=== PATIENT | male | born 1935 | race Caucasian/White ===

== ENCOUNTER 2017-04-21 14:15 | Observation (INO) | payer MEDICARE, OTHER ==
--- NOTE | 2017-04-21 16:55 | RADIOLOGY REPORT (SQ) ---
EXAM DESCRIPTION: CT CHEST WITHOUT COMPLETED DATE/TIME: 04/21/2017 4:42 pm REASON FOR STUDY: pneumonia J12.89 OTHER VIRAL PNEUMONIA COMPARISON: None. TECHNIQUE: CT scan performed of the chest without intravenous contrast. Images reviewed with lung, soft tissue and bone windows. Reconstructed coronal and sagittal MPR images reviewed. All images st ored on PACS. All CT scanners at this facility use dose modulation, iterative reconstruction, and/or weight based d osing when appropriate to reduce radiation dose to as low as reasonably achievable (ALARA). [facility]: Dose Right [facility]: CareDose [facility]: Dose Right [facility]: Teradose 4D [facility]: Smart PocketSuite RADIATION DOSE: CT Rad equipment meets quality standard of care and radiation dose reduction techniq ues were employed. CTDIvol: 9.6 mGy. DLP: 397 mGy-cm. mGy. LIMITATIONS: No technical limitations. FINDINGS: LUNGS AND PLEURA: No masses, infiltrates, pneumothorax. No pleural effusions, calcificati ons. HILAR AND MEDIASTINAL STRUCTURES: No identified masses or abnormal nodes. No obvious aneurysm. HEART AND VASCULAR STRUCTURES: No aneurysm. No pericardial effusion. UPPER ABDOMEN: No significant findings. Limited exam. THYROID AND OTHER SOFT TISSUES: No masses. No adenopathy. BONES: No significant finding. HARDWARE: None in the chest. OTHER: No other significant findings. IMPRESSION: NO SIGNIFICANT FINDING ON NON-CONTRASTED CHEST CT. TECHNICAL DOCUMENTATION: JOB ID: [id number] Quality ID # [id number]: Final reports with documentation of one or more dose reduction techniques (e.g., Au tomated exposure control, adjustment of the mA and/or kV according to patient size, use of iterative reconstruction technique) 2010 [employer]- All Rights Reserved Reading location - IP/workstation name: [email or web address]
[2017-04-21 17:16] LABS: ABSOLUTE EOSINOPHILS # (AUTO) 0.1 10^3/uL (0.0-0.6); ABSOLUTE LYMPHOCYTES (AUTO) 1.5 10^3/uL (0.5-4.7); ABSOLUTE MONOCYTES (AUTO) 0.6 10^3/uL (0.1-1.4); ABSOLUTE NEUT (AUTO) 5.4 10^3/uL (1.7-8.2); BASOPHILS % (AUTO) 0.6 % (0-2); EOSINOPHILS % (AUTO) 1.2 % (0-6); HEMATOCRIT 44.8 % (37.9-51.0); LYMPHOCYTES % (AUTO) 19.8 % (13-45); MEAN CORPUSCULAR HEMOGLOBIN 29.2 pg (27.0-33.4); MEAN CORPUSCULAR HGB CONC 33.5 g/dL (32.0-36.0); MEAN CORPUSCULAR VOLUME 87 fl (80-97); MONOCYTES % (AUTO) 8.3 % (3-13); PLATELET COUNT 196 10^3/uL (150-450); RED BLOOD COUNT 5.14 10^6/uL (4.35-5.55); RED CELL DISTRIBUTION WIDTH 15.2 % (11.5-14.0); SEGMENTED NEUTROPHILS % (AUTO) 70.1 % (42-78); TOTAL CELLS COUNTED % (AUTO) 100 %; WHITE BLOOD COUNT 7.7 10^3/uL (4.0-10.5)
[2017-04-21] MEDS ORDERED: NORMAL SALINE 1000 ML 1,000 ML IV PRN (17:23)
[2017-04-21 17:38] LABS: ALANINE AMINOTRANSFERASE 38 U/L (21-72); ALBUMIN 4.4 g/dL (3.5-5.0); ALKALINE PHOSPHATASE 43 U/L (38-126); ANION GAP 9 (5-19); ASPARTATE AMINO TRANSFERASE 45 U/L (17-59); BILIRUBIN,DIRECT 0.5 mg/dL (0.0-0.4); BILIRUBIN,TOTAL 0.5 mg/dL (0.2-1.3); BLOOD UREA NITROGEN 19 mg/dL (7-20); CALCIUM 9.6 mg/dL (8.4-10.2); CARBON DIOXIDE 28 mmol/L (22-30); CHLORIDE 106 mmol/L (98-107); GLUCOSE 96 mg/dL (75-110); POTASSIUM 4.3 mmol/L (3.6-5.0); TOTAL PROTEIN 7.3 g/dL (6.3-8.2)
[2017-04-21] MEDS ORDERED: LEVOFLOXACIN 750 MG/D5W RTU 750 MG/150 ML RTUPB IV SCH (18:00)
[2017-04-21 21:08] LABS: APPEARANCE,URINE SLIGHTLY-CLOUDY; BILIRUBIN,URINE NEGATIVE (NEGATIVE); COLOR,URINE YELLOW; GLUCOSE, URINE NEGATIVE (NEGATIVE); KETONES,URINE NEGATIVE (NEGATIVE); LEUKOCYTE ESTERASE,URINE NEGATIVE (NEGATIVE); NITRITE,URINE NEGATIVE (NEGATIVE); PROTEIN,URINE NEGATIVE (NEGATIVE); URINE SPECIFIC GRAVITY 1.025; UROBILINOGEN,URINE NEGATIVE mg/dL (<2.0)
--- NOTE | 2017-04-21 21:20 | PDOC H&P ---
History of Present Illness Admission Date/PCP: 04/21/17 15:00 HILARIO CURRY MD History of Present Illness: ELMER SALMERON is a 81 year old male, He has a history of type 2 diabetes mellitus he came to the office today for evaluation of cough, dry cough, malaise , fatigue, He was seen in the office last week when he came for routine follow- up and evaluation. On today's visit he looks sick he was concerned that he may have pneumonia.. He was admitted directly from the office into the hospital for observation and evaluation of his symptoms. The CT chest that was done was negative for pneumonia, the hemogram was normal there was no leukocytosis Past Medical History Cardiac Medical History: Reports: Hyperlipidema, Hypertension - meds since 2010 Endocrine Medical History: Reports: Diabetes Mellitus Type 2 Musculoskeltal Medical History: Reports: Arthritis Past Surgical History Past Surgical History: Reports: Herniorrhaphy, Orthopedic Surgery - fx shoulder , clavicle Social History Smoking Status: Never Smoker Frequency of Alcohol Use: None Hx Recreational Drug Use: No Drugs: None Hx Prescription Drug Abuse: No Family History Family History: Hypertension Parental Family History Reviewed: Yes Children Family History Reviewed: Yes Sibling(s) Family History Reviewed.: Yes Medication/Allergy Home Medications: Allopurinol [Zyloprim 300 mg Tablet] 300 mg PO DAILY 04/21/17 Amitriptyline HCl [Elavil 25 mg Tablet] 50 mg PO QHS 04/21/17 Celecoxib [Celebrex 200 mg Capsule] 200 mg PO Q12 04/21/17 Eszopiclone [Lunesta] 2 mg PO QHS 04/21/17 Finasteride [Proscar 5 mg Tablet] 5 mg PO DAILY 04/21/17 Metformin HCl [Metformin HCl ER] 500 mg PO DAILY 04/21/17 Allergies/Adverse Reactions: No Known Allergies Allergy (Verified 04/21/17 14:17) Review of Systems Constitutional: PRESENT: fatigue Eyes: ABSENT: visual disturbances Ears: ABSENT: hearing changes Cardiovascular: ABSENT: chest pain, dyspnea on exertion, edema, orthropnea, palpitations Respiratory: PRESENT: cough Gastrointestinal: ABSENT: abdominal pain, constipation, diarrhea, hematemesis, hematochezia, nausea, vomiting Genitourinary: ABSENT: dysuria, hematuria Musculoskeletal: ABSENT: joint swelling Integumentary: ABSENT: rash, wounds Neurological: ABSENT: abnormal gait, abnormal speech, confusion, dizziness, focal weakness, syncope Psychiatric: ABSENT: anxiety, depression, homidical ideation, suicidal ideation Endocrine: ABSENT: cold intolerance, heat intolerance, menstrual abnormalities, polydipsia, polyuria Hematologic/Lymphatic: ABSENT: easy bleeding, easy bruising, lymphadenopathy Physical Exam Vital Signs: Temp Pulse Resp BP Pulse Ox 97.9 F 75 18 140/55 H 100 04/21/17 19:34 04/21/17 19:34 04/21/17 19:34 04/21/17 19:34 04/21/17 19:34 Head exam: PRESENT: atraumatic, normocephalic Eye exam: PRESENT: conjunctiva pink, EOMI, PERRLA Ear exam: PRESENT: normal external ear exam Mouth exam: PRESENT: moist, tongue midline Neck exam: PRESENT: full ROM Respiratory exam: PRESENT: clear to auscultation zeferino Cardiovascular exam: PRESENT: RRR, +S1, +S2 Pulses: PRESENT: normal dorsalis pedis pul, +2 pedal pulses bilateral Vascular exam: PRESENT: normal capillary refill GI/Abdominal exam: PRESENT: normal bowel sounds, soft Rectal exam: PRESENT: deferred Neurological exam: PRESENT: alert, awake, oriented to person, oriented to place , oriented to time, oriented to situation, CN II-XII grossly intact Psychiatric exam: PRESENT: appropriate affect, normal mood Skin exam: PRESENT: dry, intact, warm Results Laboratory Results: 04/21/17 16:54 04/21/17 16:54 04/21/17 04/21/17 04/21/17 16:54 16:54 20:38 WBC 7.7 RBC 5.14 Hgb 15.0 Hct 44.8 MCV 87 MCH 29.2 MCHC 33.5 RDW 15.2 H Plt Count 196 Seg Neutrophils % 70.1 Lymphocytes % 19.8 Monocytes % 8.3 Eosinophils % 1.2 Basophils % 0.6 Absolute Neutrophils 5.4 Absolute Lymphocytes 1.5 Absolute Monocytes 0.6 Absolute Eosinophils 0.1 Absolute Basophils 0.0 Sodium 143.0 Potassium 4.3 Chloride 106 Carbon Dioxide 28 Anion Gap 9 BUN 19 Creatinine 0.99 Est GFR ( Amer) > 60 Est GFR (Non-Af Amer) > 60 Glucose 96 Calcium 9.6 Total Bilirubin 0.5 AST 45 ALT 38 Alkaline Phosphatase 43 Total Protein 7.3 Albumin 4.4 Urine Color YELLOW Urine Appearance SLIGHTLY-CLOUDY Urine pH 5.0 Ur Specific Lyons 1.025 Urine Protein NEGATIVE Urine Glucose (UA) NEGATIVE Urine Ketones NEGATIVE Urine Blood NEGATIVE Urine Nitrite NEGATIVE Ur Leukocyte Esterase NEGATIVE Urine WBC (Auto) 1 Urine RBC (Auto) 0 Impressions: Chest CT 04/21/17 00:00 IMPRESSION: NO SIGNIFICANT FINDING ON NON-CONTRASTED CHEST CT. Assessment & Plan - Diagnosis (1) Viral syndrome Is this a current diagnosis for this admission?: Yes Plan: Patient was admitted for observation management with IV fluid hydration (2) Type 2 diabetes mellitus Qualifiers: Diabetes mellitus complication status: without complication Diabetes mellitus long term care administrator insulin use: without long term care administrator use Qualified Code(s): E11.9 - Type 2 diabetes mellitus without complications Is this a current diagnosis for this admission?: Yes
[2017-04-21] MEDS ORDERED: (PENDING PHARMACY ID) (Metformin Hcl [Metformin Hcl Er] 500 MG) PO SCH (21:30)
[2017-04-21] MEDS ORDERED: FINASTERIDE 5 MG TABLET PO SCH (22:00)
[2017-04-21] MEDS ORDERED: ALLOPURINOL 300 MG TABLET PO SCH (22:00)
[2017-04-21] MEDS ORDERED: (PENDING PHARMACY ID) (Eszopiclone [Lunesta] 2 MG) PO SCH (22:00)
[2017-04-21] MEDS ORDERED: AMITRIPTYLINE HCL 25 MG TABLET PO SCH (22:00)
[2017-04-21] MEDS ORDERED: ZOLPIDEM TARTRATE 5 MG TABLET PO SCH (22:00)
[2017-04-22] MEDS ORDERED: METFORMIN HCL 500 MG TABLET PO SCH (08:00)
[2017-04-22 08:38] VITALS: BP 149/61
--- NOTE | 2017-04-23 21:40 | PDOC DISCHARGE SUMMARY ---
General - Admit/Disc Date/PCP Admission Date/Primary Care Provider: 04/21/17 15:00 HILARIO CURRY MD Discharge Date: 04/22/17 - Discharge Diagnosis (1) Viral syndrome Is this a current diagnosis for this admission?: Yes (2) Type 2 diabetes mellitus Is this a current diagnosis for this admission?: Yes - Additional Information Discharge Activity: Activity As Tolerated Home Medications: Allopurinol [Zyloprim 300 mg Tablet] 300 mg PO DAILY 04/21/17 Amitriptyline HCl [Elavil 25 mg Tablet] 50 mg PO QHS 04/21/17 Celecoxib [Celebrex 200 mg Capsule] 200 mg PO Q12 04/21/17 Eszopiclone [Lunesta] 2 mg PO QHS 04/21/17 Finasteride [Proscar 5 mg Tablet] 5 mg PO DAILY 04/21/17 Metformin HCl [Metformin HCl ER] 500 mg PO DAILY 04/21/17 History of Present Illness History of Present Illness: ELMER SALMERON is a 81 year old male, He has a history of type 2 diabetes mellitus he came to the office today for evaluation of cough, dry cough, malaise , fatigue, He was seen in the office last week when he came for routine follow- up and evaluation. On today's visit he looks sick he was concerned that he may have pneumonia.. He was admitted directly from the office into the hospital for observation and evaluation of his symptoms. The CT chest that was done was negative for pneumonia, the hemogram was normal there was no leukocytosis Hospital Course Hospital Course: He was admitted for observation for the management of viral syndrome, see H&P for detailed, treated with IV fluid Physical Exam Vital Signs: Temp Pulse Resp BP Pulse Ox 97.7 F 67 18 149/61 H 100 04/22/17 09:07 04/22/17 09:07 04/22/17 09:07 04/22/17 09:07 04/22/17 09:07 Intake & Output 04/22/17 04/23/17 04/24/17 06:59 06:59 06:59 Intake Total 1400 Balance 1400 Weight 69 kg General appearance: PRESENT: no acute distress, well-developed, well-nourished Head exam: PRESENT: atraumatic, normocephalic Eye exam: PRESENT: conjunctiva pink, EOMI, PERRLA Ear exam: PRESENT: normal external ear exam Mouth exam: PRESENT: moist, tongue midline Neck exam: PRESENT: full ROM Respiratory exam: PRESENT: clear to auscultation zeferino Cardiovascular exam: PRESENT: RRR, +S1, +S2 Pulses: PRESENT: normal dorsalis pedis pul, +2 pedal pulses bilateral Vascular exam: PRESENT: normal capillary refill GI/Abdominal exam: PRESENT: normal bowel sounds, soft Rectal exam: PRESENT: deferred Neurological exam: PRESENT: alert, awake, oriented to person, oriented to place , oriented to time, oriented to situation, CN II-XII grossly intact Psychiatric exam: PRESENT: appropriate affect, normal mood Skin exam: PRESENT: dry, intact, warm Results Laboratory Results: 04/21/17 16:54 04/21/17 16:54 04/21/17 20:38 Clean Catch Midstream Urine Culture - Final 5,000 col/ml Impressions: Chest CT 04/21/17 00:00 IMPRESSION: NO SIGNIFICANT FINDING ON NON-CONTRASTED CHEST CT. Qualifiers - * PATEINT BEING DISCHARGED WITH ANY OF THE FOLLOWING DIAGNOSIS?: No VTE patient discharged on overlapping Therapy?: Yes
== END 2017-04-22 09:33 | disposition home or self-care (01) ==
LOC: ER 14:15 → EH 15:00 → 2N 17:00
PROVIDERS: ADMIT Internal Medicine; ATTEND Internal Medicine
DX: B34.9 Viral infection, unspecified (principal); E11.9 Type 2 diabetes mellitus without complications; M19.90 Unspecified osteoarthritis, unspecified site; Z79.899 Other long term (current) drug therapy; Z79.84 Long term (current) use of oral hypoglycemic drugs
CPT/HCPCS: 36415; 87040; 87086; 85025; 80076; 80048; 81001; 71250; G0378 ×3; A9270; J1956

== ENCOUNTER 2017-10-16 21:00 | Emergency (ER) | payer MEDICARE, OTHER ==
[2017-10-16] MEDS ORDERED: ASPIRIN 81 MG TABLET, CHEWABLE PO ONE (22:08)
[2017-10-16 22:24] LABS: ABSOLUTE EOSINOPHILS # (AUTO) 0.2 10^3/uL (0.0-0.6); ABSOLUTE LYMPHOCYTES (AUTO) 1.4 10^3/uL (0.5-4.7); ABSOLUTE MONOCYTES (AUTO) 0.8 10^3/uL (0.1-1.4); ABSOLUTE NEUT (AUTO) 7.3 10^3/uL (1.7-8.2); BASOPHILS % (AUTO) 0.2 % (0-2); EOSINOPHILS % (AUTO) 1.8 % (0-6); HEMATOCRIT 45.3 % (37.9-51.0); HEMOGLOBIN 15.3 g/dL (13.5-17.0); LYMPHOCYTES % (AUTO) 14.5 % (13-45); MEAN CORPUSCULAR HEMOGLOBIN 29.7 pg (27.0-33.4); MEAN CORPUSCULAR HGB CONC 33.8 g/dL (32.0-36.0); MEAN CORPUSCULAR VOLUME 88 fl (80-97); PLATELET COUNT 226 10^3/uL (150-450); RED BLOOD COUNT 5.16 10^6/uL (4.35-5.55); RED CELL DISTRIBUTION WIDTH 14.8 % (11.5-14.0); SEGMENTED NEUTROPHILS % (AUTO) 75.5 % (42-78); TOTAL CELLS COUNTED % (AUTO) 100 %; WHITE BLOOD COUNT 9.7 10^3/uL (4.0-10.5)
[2017-10-16 22:42] LABS: CREATINE KINASE MB 2.56 ng/mL (<4.55)
[2017-10-16 22:47] LABS: TROPONIN I 0.147 ng/mL
[2017-10-16 23:03] LABS: ALANINE AMINOTRANSFERASE 26 U/L (21-72); ALBUMIN 4.3 g/dL (3.5-5.0); ALKALINE PHOSPHATASE 63 U/L (38-126); ANION GAP 15 (5-19); ASPARTATE AMINO TRANSFERASE 47 U/L (17-59); BILIRUBIN,DIRECT 0.4 mg/dL (0.0-0.4); BILIRUBIN,TOTAL 0.5 mg/dL (0.2-1.3); BLOOD UREA NITROGEN 34 mg/dL (7-20); CARBON DIOXIDE 22 mmol/L (22-30); CHLORIDE 102 mmol/L (98-107); CREATINE KINASE 115 U/L (55-170); GLUCOSE 137 mg/dL (75-110); POTASSIUM 4.4 mmol/L (3.6-5.0); SODIUM 138.9 mmol/L (137-145); TOTAL PROTEIN 7.3 g/dL (6.3-8.2)
--- NOTE | 2017-10-16 23:04 | RADIOLOGY REPORT (SQ) ---
EXAM DESCRIPTION: XR CHEST 1 VIEW COMPLETED DATE/TME: 10/16/2017 22:08 CLINICAL HISTORY: 82 years, Male, chest pain COMPARISON: Correlation with CT chest 04/21/2017 NUMBER OF VIEWS: Two TECHNIQUE: AP LIMITATIONS: None. FINDINGS: Cardiomediastinal silhouette is within normal limits. No lung consolidate or pleural effusion. No pneumothorax. Osseous structures are without acute finding. IMPRESSION: No acute chest finding. 2010 [employer]- All Rights Reserved
[2017-10-17] MEDS ORDERED: NITROGLYCERIN 2% OINTMENT 1 GM PACKET TP ONE (01:05)
[2017-10-17] MEDS ORDERED: ENOXAPARIN SODIUM INJ 100 MG/1 ML DISP.SYRIN SUBCUT ONE (01:05)
--- NOTE | 2017-10-17 01:07 | ER Document Report ---
ED General - General Chief Complaint: Chest Pain Stated Complaint: CHEST PAIN Time Seen by Provider: 10/16/17 22:08 Mode of Arrival: Ambulatory Information source: Patient Notes: This is an 82-year-old man with a history of high that presented to the emergency room after experiencing chest pain today. Recent states he had retrosternal chest pain associated with some dizziness and near syncope TRAVEL OUTSIDE OF THE [place] IN LAST 30 DAYS: No - HPI Onset: Just prior to arrival Onset/Duration: Sudden Quality of pain: Dull Severity: Moderate Pain Level: 4 Associated symptoms: Chest pain, Other - Lightheadedness/near syncope. denies: Fever, Shortness of breath Exacerbated by: Denies Relieved by: Denies Similar symptoms previously: No Recently seen / treated by doctor: No - Related Data Allergies/Adverse Reactions: No Known Allergies Allergy (Verified 10/16/17 21:52) Past Medical History - General Information source: Patient - Social History Smoking Status: Former Smoker Cigarette use (# per day): No Chew tobacco use (# tins/day): No Frequency of alcohol use: None Drug Abuse: None Lives with: Family Family History: Hypertension Patient has suicidal ideation: No Patient has homicidal ideation: No - Past Medical History Cardiac Medical History: Reports: Hx Hypercholesterolemia, Hx Hypertension - meds since 2010 Neurological Medical History: Denies: Hx Cerebrovascular Accident Endocrine Medical History: Reports: Hx Diabetes Mellitus Type 2 Renal/ Medical History: Denies: Hx Peritoneal Dialysis Musculoskeletal Medical History: Reports Hx Arthritis Psychiatric Medical History: Reports: Hx Anxiety Denies: Hx Depression Past Surgical History: Reports: Hx Herniorrhaphy, Hx Orthopedic Surgery - fx shoulder, clavicle - Immunizations Hx Diphtheria, Pertussis, Tetanus Vaccination: Yes Review of Systems - Review of Systems Constitutional: denies: Chills, Fever EENT: No symptoms reported Cardiovascular: See HPI, Chest pain, Syncope, Lightheaded Respiratory: No symptoms reported Gastrointestinal: No symptoms reported Genitourinary: No symptoms reported Male Genitourinary: No symptoms reported Musculoskeletal: No symptoms reported Skin: No symptoms reported Hematologic/Lymphatic: No symptoms reported Neurological/Psychological: No symptoms reported Physical Exam - Vital signs Vitals: Temp Pulse Resp BP Pulse Ox 97.8 F 88 18 167/72 H 100 10/16/17 21:00 10/16/17 21:00 10/16/17 21:00 10/16/17 21:00 10/16/17 21:00 Notes: Physical exam: GENERAL: The 2-year-old man, alert and oriented 3, no acute distress HEAD: Atraumatic, normocephalic. EYES: Pupils equal round and reactive to light, extraocular movements intact, sclera anicteric, conjunctiva are normal. ENT: TMs normal, nares patent, oropharynx clear without exudates. Moist mucous membranes. NECK: Normal range of motion, supple without obvious mass or JVD. LUNGS: Breath sounds clear to auscultation bilaterally and equal. No wheezes rales or rhonchi. HEART: Regular rate and rhythm without murmurs, rubs or gallops. ABDOMEN: Soft, normoactive bowel sounds. No tenderness to palpation. No guarding, no rebound. No masses appreciated. EXTREMITIES: Normal range of motion, no pitting or edema. No clubbing or cyanosis. NEUROLOGICAL: Cranial nerves II through XII grossly intact. Normal speech, moving all extremities. PSYCH: Normal mood, normal affect. SKIN: Warm, Dry, normal turgor, no rashes or lesions noted. Course - Re-evaluation Re-evalutation: 10/17/17 02:30 Note: I did discuss the EKG with Dr. Garcia who is the router operator reading EKGs regarding the patient's rhythm and possible block pattern. I was able to text the EKG to him and he was able to review it. He felt that the EKG was mostly a [place] block. The initial troponin was 0.147 concerning for a non-ST elevation PR. I did discuss the case with Dr. Perea who is actually covering for cardiology who recommended transfer. Dr. Manjarrez is covering for Dr. Curry ( primary care doctor) and he recommended repeating the troponin and if elevated, to transfer the patient. Repeat troponin was 10 and the patient is being transferred to [place]. I spoke to Dr. Dye regarding the case and is willing to accept the patient. - Vital Signs Vital signs: Temp Pulse Resp BP Pulse Ox 98.1 F 80 18 124/74 95 10/17/17 02:00 10/17/17 02:00 10/17/17 02:00 10/17/17 02:00 10/17/17 02:00 - Laboratory Result Diagrams: 10/16/17 21:40 10/16/17 21:40 Laboratory results interpreted by me: 10/16/17 10/16/17 21:40 21:40 RDW 14.8 H BUN 34 H Glucose 137 H - Diagnostic Test Radiology reviewed: Image reviewed, Reports reviewed - Chest x-ray shows no infiltrates - EKG Interpretation by Me Rhythm: NSR - EKG shows sinus rhythm with a right bundle branch block, no acute ST elevations or depressions. Possible type I, 2nd degree block Critical Care Note - Critical Care Note Total time excluding time spent on procedures (mins): 60 Discharge - Discharge Clinical Impression: Acute non-ST elevation PR Condition: Stable Disposition: [facility] Referrals: HILARIO CURRY MD [Primary Care Provider] - Follow up as needed
[2017-10-17] MEDS ORDERED: ATORVASTATIN CALCIUM 40 MG TABLET PO ONE (01:08)
[2017-10-17] MEDS ORDERED: METOPROLOL TARTRATE PF/INJ 5 MG/5 ML SDV IV ONE (01:12)
[2017-10-17] MEDS ORDERED: LISINOPRIL 5 MG TABLET PO ONE (01:13)
[2017-10-17] MEDS ORDERED: METOPROLOL TARTRATE 25 MG TABLET PO ONE (02:44)
[2017-10-17 03:39] VITALS: BP 108/66
--- NOTE | 2017-10-17 09:06 | EKG REPORT ---
SEVERITY:- ABNORMAL ECG - SINUS RHYTHM MOBITZ TYPE I, SECOND DEGREE AV BLOCK INCOMPLETE RIGHT BUNDLE BRANCH BLOCK LOW VOLTAGE IN FRONTAL LEADS : Confirmed by: Jake Garcia 17-Oct-2017 09:05:55
--- NOTE | 2017-10-17 09:07 | EKG REPORT ---
SEVERITY:- ABNORMAL ECG - SINUS RHYTHM MOBITZ TYPE I, SECOND DEGREE AV BLOCK PROBABLE LEFT ATRIAL ABNORMALITY INCOMPLETE RIGHT BUNDLE BRANCH BLOCK LOW VOLTAGE IN FRONTAL LEADS : Confirmed by: Jake Garcia 17-Oct-2017 09:07:10
== END 2017-10-17 03:46 | disposition short-term general hospital (02) ==
LOC: ER 21:00
DX: I21.4 Non-ST elevation (NSTEMI) myocardial infarction (principal); I45.10 Unspecified right bundle-branch block; I10 Essential (primary) hypertension; R55 Syncope and collapse; E11.9 Type 2 diabetes mellitus without complications; Z87.891 Personal history of nicotine dependence
CPT/HCPCS: 93005; 99291; 96372; 96374; 36415; 82553; 82550; 85025; 80053; 84484; 71045; 93010; A9270 ×4; J3490; J1650

== ENCOUNTER 2017-10-29 16:42 | Emergency (ER) | payer MEDICARE, OTHER ==
[2017-10-29] MEDS ORDERED: ASPIRIN 81 MG TABLET, CHEWABLE PO ONE (17:18)
--- NOTE | 2017-10-29 17:31 | ER Document Report ---
ED Medical Screen (RME) - General Chief Complaint: Chest Pain Stated Complaint: CHEST PAIN Time Seen by Provider: 10/29/17 17:18 TRAVEL OUTSIDE OF THE [place] IN LAST 30 DAYS: No - HPI Notes: 10/29/17 17:22 7 days postop from triple bypass surgery at [facility] coming in for chest pain patient points to his sternal incision family states he has been very active since being discharged from the hospital. - Related Data Allergies/Adverse Reactions: No Known Allergies Allergy (Verified 10/29/17 16:45) Past Medical History - Past Medical History Cardiac Medical History: Reports: Hx Hypercholesterolemia, Hx Hypertension - meds since 2010 Neurological Medical History: Denies: Hx Cerebrovascular Accident Endocrine Medical History: Reports: Hx Diabetes Mellitus Type 2 Renal/ Medical History: Denies: Hx Peritoneal Dialysis Musculoskeltal Medical History: Reports Hx Arthritis Psychiatric Medical History: Reports: Hx Anxiety Denies: Hx Depression Past Surgical History: Reports: Hx Herniorrhaphy, Hx Orthopedic Surgery - fx shoulder, clavicle - Immunizations Hx Diphtheria, Pertussis, Tetanus Vaccination: Yes History of Influenza Vaccine for 11/2016 - 04/2017 Season: Yes Influenza Administration Date for 11/2016 - 04/2017 Season: 11/24/16 Review of Systems - Review of Systems Cardiovascular: Chest pain Physical Exam - Vital signs Vitals: Temp Pulse Resp BP Pulse Ox 98.1 F 87 16 133/55 H 100 10/29/17 16:56 10/29/17 16:56 10/29/17 16:56 10/29/17 16:56 10/29/17 16:56 - Cardiovascular Rhythm: Regular, Other Course - Vital Signs Vital signs: Temp Pulse Resp BP Pulse Ox 98.1 F 87 16 133/55 H 100 10/29/17 16:56 10/29/17 16:56 10/29/17 16:56 10/29/17 16:56 10/29/17 16:56 Doctor's Discharge - Discharge Referrals: HILARIO CURRY MD [Primary Care Provider] - Follow up as needed
[2017-10-29 17:35] LABS: HEMOGLOBIN 10.6 g/dL (13.5-17.0); MEAN CORPUSCULAR HEMOGLOBIN 27.9 pg (27.0-33.4); MEAN CORPUSCULAR HGB CONC 32.3 g/dL (32.0-36.0); MEAN CORPUSCULAR VOLUME 86 fl (80-97); PLATELET COUNT 418 10^3/uL (150-450); RED BLOOD COUNT 3.81 10^6/uL (4.35-5.55); RED CELL DISTRIBUTION WIDTH 16.9 % (11.5-14.0); WHITE BLOOD COUNT 14.5 10^3/uL (4.0-10.5)
[2017-10-29] MEDS ORDERED: MORPHINE SULFATE 10 MG/ML INJ IV ONE (17:42)
[2017-10-29] MEDS ORDERED: ONDANSETRON HCL INJ/PF 4 MG/2 ML SDV IV ONE (17:43)
--- NOTE | 2017-10-29 17:50 | RADIOLOGY REPORT (SQ) ---
EXAM DESCRIPTION: CHEST SINGLE VIEW COMPLETED DATE/TIME: 10/29/2017 5:39 pm REASON FOR STUDY: sob COMPARISON: 10/16/2017 EXAM PARAMETERS: NUMBER OF VIEWS: One view. TECHNIQUE: Single frontal radiographic view of the chest acquired. RADIATION DOSE: NA LIMITATIONS: None. FINDINGS: LUNGS AND PLEURA: No opacities, masses or pneumothorax. No pleural effusion. MEDIASTINUM AND HILAR STRUCTURES: No masses. Contour normal. HEART AND VASCULAR STRUCTURES: Heart normal in size. Normal vasculature. BONES: No acute findings. HARDWARE: Sternotomy wires. OTHER: No other significant finding. IMPRESSION: NO ACUTE RADIOGRAPHIC FINDING IN THE CHEST. TECHNICAL DOCUMENTATION: JOB ID: [id number] [employer]- All Rights Reserved Reading location - IP/workstation name: [email or web address]
[2017-10-29 17:58] LABS: ALANINE AMINOTRANSFERASE 52 U/L (21-72); ALBUMIN 4.2 g/dL (3.5-5.0); ALKALINE PHOSPHATASE 45 U/L (38-126); ANION GAP 16 (5-19); ASPARTATE AMINO TRANSFERASE 100 U/L (17-59); BILIRUBIN,DIRECT 0.6 mg/dL (0.0-0.4); BILIRUBIN,TOTAL 1.1 mg/dL (0.2-1.3); BLOOD UREA NITROGEN 27 mg/dL (7-20); CALCIUM 9.2 mg/dL (8.4-10.2); CARBON DIOXIDE 27 mmol/L (22-30); CHLORIDE 97 mmol/L (98-107); CREATINE KINASE 116 U/L (55-170); GLUCOSE 123 mg/dL (75-110); SODIUM 139.7 mmol/L (137-145); TOTAL PROTEIN 7.6 g/dL (6.3-8.2)
[2017-10-29 17:59] LABS: ABSOLUTE LYMPHOCYTES# (MANUAL) 1.7 10^3/uL (0.5-4.7); ABSOLUTE MONOCYTES # (MANUAL) 0.9 10^3/uL (0.1-1.4); ABSOLUTE NEUTROPHILS# (MANUAL) 11.9 10^3/uL (1.7-8.2); BAND NEUTROPHILS % (MANUAL) 1 % (3-5); BASOPHILS % (MANUAL) 0 % (0-2); EOSINOPHILS % (MANUAL) 0 % (0-6); LYMPHOCYTES % (MANUAL) 9 % (13-45); MONOCYTES % (MANUAL) 6 % (3-13); SEGMENTED NEUTROPHILS % (MAN) 81 % (42-78); TOTAL CELLS COUNTED 100
[2017-10-29 18:00] LABS: TOXIC GRANULATION 1+
[2017-10-29 18:02] LABS: ANISOCYTOSIS 1+; HYPOCHROMASIA SLIGHT
[2017-10-29 18:03] LABS: PLATELET CLUMPS PRESENT; PLATELET COMMENT ADEQUATE; POLYCHROMASIA SLIGHT
--- NOTE | 2017-10-29 18:12 | ER Document Report ---
ED General - General Chief Complaint: Chest Pain Stated Complaint: CHEST PAIN Time Seen by Provider: 10/29/17 17:18 TRAVEL OUTSIDE OF THE [place] IN LAST 30 DAYS: No - HPI Notes: 82-year-old male presents with fever and chest pain. He had a CABG at [facility] 1 week ago. He was discharged 3 days ago and has been up and moving around well. Family thinks he may have been "doing too much." He developed chest pain to the upper aspect of his incision today. He denies shortness of breath. He has a mild dry cough. Family found him to have a fever of 100.9. He reports a mild headache. Denies pain in his legs or swelling. No abdominal pain, vomiting, diarrhea. Denies urinary changes. - Related Data Allergies/Adverse Reactions: No Known Allergies Allergy (Verified 10/29/17 16:45) Past Medical History - Social History Smoking Status: Unknown if Ever Smoked Family History: Reviewed & Not Pertinent, Hypertension Patient has suicidal ideation: No Patient has homicidal ideation: No - Past Medical History Cardiac Medical History: Reports: Hx Coronary Artery Disease, Hx Hypercholesterolemia, Hx Hypertension - meds since 2010 Neurological Medical History: Denies: Hx Cerebrovascular Accident Endocrine Medical History: Reports: Hx Diabetes Mellitus Type 2 Renal/ Medical History: Denies: Hx Peritoneal Dialysis Musculoskeletal Medical History: Reports Hx Arthritis Psychiatric Medical History: Reports: Hx Anxiety Denies: Hx Depression Past Surgical History: Reports: Hx Cardiac Surgery, Hx Herniorrhaphy, Hx Orthopedic Surgery - fx shoulder, clavicle - Immunizations Hx Diphtheria, Pertussis, Tetanus Vaccination: Yes Review of Systems - Review of Systems Notes: Constitutional: Positive for fever. HENT: Negative for sore throat. Eyes: Negative for visual changes. Cardiovascular: Positive for chest pain. Respiratory: Negative for shortness of breath. Positive for mild cough Gastrointestinal: Negative for abdominal pain, vomiting or diarrhea. Genitourinary: Negative for dysuria. Musculoskeletal: Negative for back pain. Skin: Negative for rash. Neurological: Negative for headaches, weakness or numbness. 10 point ROS negative except as marked above and in HPI. Physical Exam - Vital signs Vitals: Temp Pulse Resp BP Pulse Ox 98.1 F 87 16 133/55 H 100 10/29/17 16:56 10/29/17 16:56 10/29/17 16:56 10/29/17 16:56 10/29/17 16:56 - Notes Notes: PHYSICAL EXAMINATION: GENERAL: Well-appearing, well-nourished and in no acute distress. HEAD: Atraumatic, normocephalic. EYES: Pupils equal round and reactive to light, extraocular movements intact, conjunctiva are normal. ENT: nares patent, oropharynx clear without exudates. Moist mucous membranes. NECK: Normal range of motion, supple without lymphadenopathy LUNGS: Breath sounds clear to auscultation bilaterally and equal. No wheezes rales or rhonchi. HEART: Regular rate and rhythm, normal well-healing incision without surrounding erythema, warmth, crepitus, fluctuance. He has tenderness to the uppermost aspect of the wound without induration. ABDOMEN: Soft, nontender, normoactive bowel sounds. No guarding, no rebound. No masses appreciated. EXTREMITIES: Normal range of motion, no pitting or edema. No cyanosis. NEUROLOGICAL: Cranial nerves grossly intact. Normal speech, normal gait. Normal sensory and motor exams. PSYCH: Normal mood, normal affect. SKIN: Warm, Dry, normal turgor, no rashes or lesions noted. Course - Re-evaluation Re-evalutation: 10/29/17 18:[address] Brenden Nash, cardiothoracic surgeon covering for Dr. Andino at [facility]. He states that patient's white count was elevated during admission and was trending down. His troponin is trending down. His sternotomy wires appear to be intact. There is no findings on his chest x-ray. No significant skin findings. Pain is reproducible at the superior aspect of his incision. He recommended starting Keflex and did not believe he required admission at this time. Low suspicion for Aissatou's. No friction rub appreciated. Advised to call tomorrow to arrange follow-up appointment next week and to return for any worsening symptoms. At this time will discharge with return precautions and follow-up recommendations. Verbal discharge instructions given a the bedside and opportunity for questions given. Medication warnings reviewed. Patient is in agreement with this plan and has verbalized understanding of return precautions and the need for primary care follow-up in the next 24-72 hours. Voice dictation software was used. Chart was reviewed, but errors may exist. - Vital Signs Vital signs: Temp Pulse Resp BP Pulse Ox 98.1 F 87 19 110/50 L 95 10/29/17 16:56 10/29/17 16:56 10/29/17 18:01 10/29/17 18:01 10/29/17 18:01 - Laboratory Result Diagrams: 10/29/17 17:14 10/29/17 17:14 Laboratory results interpreted by me: 10/29/17 10/29/17 17:14 17:14 WBC 14.5 H RBC 3.81 L Hgb 10.6 L Hct 33.0 L RDW 16.9 H Seg Neuts % (Manual) 81 H Band Neutrophils % 1 L Lymphocytes % (Manual) 9 L Abs Neuts (Manual) 11.9 H Chloride 97 L BUN 27 H Glucose 123 H Direct Bilirubin 0.6 H AST 100 H Discharge - Discharge Clinical Impression: Chest wall pain Fever Qualifiers: Fever type: unspecified Qualified Code(s): R50.9 - Fever, unspecified Condition: Stable Disposition: HOME, SELF-CARE Instructions: Chest Wall Pain ([facility]) Additional Instructions: Take all antibiotics. Return for any worsening or concerning symptoms such as fevers that continue greater than 101, shortness of breath, increasing pain or changes in your incision. Call [facility] tomorrow to arrange follow-up with Dr. Andino next week. Prescriptions: Cephalexin Monohydrate [Keflex 500 mg Capsule] 500 mg PO Q6H 7 Days capsule Referrals: HILARIO CURRY MD [Primary Care Provider] - Follow up as needed
[2017-10-29 18:28] LABS: CREATINE KINASE MB 3.97 ng/mL (<4.55)
[2017-10-29 18:31] LABS: TROPONIN I 0.543 ng/mL
[2017-10-29 19:22] VITALS: BP 125/55
--- NOTE | 2017-10-29 19:51 | EKG REPORT ---
SEVERITY:- ABNORMAL ECG - SINUS RHYTHM FIRST DEGREE AV BLOCK RIGHT BUNDLE BRANCH BLOCK : Confirmed by: Tiburcio Alberts MD 29-Oct-2017 19:50:14
== END 2017-10-29 19:20 | disposition home or self-care (01) ==
LOC: ER 16:42
DX: R07.89 Other chest pain (principal); R50.9 Fever, unspecified; Z95.1 Presence of aortocoronary bypass graft
CPT/HCPCS: 93005; 99285; 96374; 96375; 36415; 82553; 82550; 85025; 80053; 84484; 71045; 93010; A9270; J2270; J2405

== ENCOUNTER 2017-11-08 21:07 | Inpatient (IN) | payer MEDICARE ==
[2017-11-08] MEDS ORDERED: RINGERS SOLUTION,LACTATED 500 ML IV ONE (21:22)
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
[2017-11-08] MEDS ORDERED: RINGERS SOLUTION,LACTATED 1,000 ML IV ONE (21:54)
[2017-11-08 21:55] LABS: ABSOLUTE BASOPHILS # (AUTO) 0.1 10^3/uL (0.0-0.2); ABSOLUTE EOSINOPHILS # (AUTO) 0.1 10^3/uL (0.0-0.6); ABSOLUTE MONOCYTES (AUTO) 1.5 10^3/uL (0.1-1.4); ABSOLUTE NEUT (AUTO) 11.2 10^3/uL (1.7-8.2); BASOPHILS % (AUTO) 0.5 % (0-2); EOSINOPHILS % (AUTO) 0.8 % (0-6); HEMATOCRIT 21.6 % (37.9-51.0); LYMPHOCYTES % (AUTO) 13.5 % (13-45); MEAN CORPUSCULAR HEMOGLOBIN 28.3 pg (27.0-33.4); MEAN CORPUSCULAR HGB CONC 31.7 g/dL (32.0-36.0); MEAN CORPUSCULAR VOLUME 89 fl (80-97); MONOCYTES % (AUTO) 10.1 % (3-13); PLATELET COUNT 396 10^3/uL (150-450); RED BLOOD COUNT 2.42 10^6/uL (4.35-5.55); RED CELL DISTRIBUTION WIDTH 17.7 % (11.5-14.0); SEGMENTED NEUTROPHILS % (AUTO) 75.1 % (42-78); TOTAL CELLS COUNTED % (AUTO) 100 %; WHITE BLOOD COUNT 14.9 10^3/uL (4.0-10.5)
[2017-11-08 21:58] LABS: HEMOGLOBIN 6.8 g/dL (13.5-17.0)
[2017-11-08] MEDS ORDERED: NOREPINEPHRINE BITARTRATE INJ/PF 4 MG/4 ML SDV IV ONE (22:00)
[2017-11-08] MEDS ORDERED: PANTOPRAZOLE SODIUM 40 MG VIAL IV ONE (22:01)
[2017-11-08 22:10] LABS: ALANINE AMINOTRANSFERASE 27 U/L (21-72); ALBUMIN 3.4 g/dL (3.5-5.0); ALKALINE PHOSPHATASE 71 U/L (38-126); ANION GAP 9 (5-19); ASPARTATE AMINO TRANSFERASE 34 U/L (17-59); BILIRUBIN,DIRECT 0.4 mg/dL (0.0-0.4); BILIRUBIN,TOTAL 0.7 mg/dL (0.2-1.3); BLOOD UREA NITROGEN 64 mg/dL (7-20); CALCIUM 8.6 mg/dL (8.4-10.2); CARBON DIOXIDE 25 mmol/L (22-30); CHLORIDE 105 mmol/L (98-107); CREATINE KINASE 71 U/L (55-170); GLUCOSE 137 mg/dL (75-110); POTASSIUM 4.4 mmol/L (3.6-5.0); SODIUM 138.9 mmol/L (137-145)
--- NOTE | 2017-11-08 22:18 | RADIOLOGY REPORT (SQ) ---
EXAM DESCRIPTION: XR CHEST 1 VIEW COMPLETED DATE/TME: 11/08/2017 21:20 CLINICAL HISTORY: 82 years, Male, hypotension, recent cabg COMPARISON: 10/31/2017 NUMBER OF VIEWS: EXAM DESCRIPTION: CLINICAL HISTORY: hypotension, recent cabg COMPARISON: 10/31/2017. FINDINGS: Single view of the chest is submitted. Cardiac silhouette is normal. No focal parenchymal or pleural disease. No acute bony abnormality. There is no significant pulmonary vascular engorgement. IMPRESSION: No evidence of acute cardiopulmonary disease.
[2017-11-08 22:29] LABS: TROPONIN I 0.104 ng/mL
[2017-11-08 22:54] LABS: VENOUS BLOOD BASE EXCESS -2.2 mmol/L; VENOUS BLOOD PH 7.32 (7.30-7.42)
[2017-11-08] MEDS ORDERED: NORMAL SALINE 250 ML IV PRN (23:37)
--- NOTE | 2017-11-08 23:37 | RADIOLOGY REPORT (SQ) ---
CT HEAD WITHOUT IV CONTRAST HISTORY: Fall; head trauma. COMPARISON: None. TECHNIQUE: CT scan of the brain. This exam was performed according to our departmental dose-optimization program, which includes automated exposure control, adjustment of the mA and/or kV according to patient size and/or use of iterative reconstruction technique. FINDINGS: No acute intracranial hemorrhage or extra-axial fluid collection is seen. No midline shift, mass effect, or hydrocephalus. The waters-white matter differentiation is preserved without evidence of acute infarction. The ventricles, cisterns, and sulci are age-appropriate. Paranasal sinuses and mastoid air cells are clear. Calvarium is intact. IMPRESSION: No acute intracranial abnormality.
--- NOTE | 2017-11-08 23:39 | RADIOLOGY REPORT (SQ) ---
CT CERVICAL SPINE WITHOUT IV CONTRAST HISTORY: Fall. Head trauma.. COMPARISON: None.. TECHNIQUE: CT scan of the cervical spine. This exam was performed according to our departmental dose-optimization program, which includes automated exposure control, adjustment of the mA and/or kV according to patient size and/or use of iterative reconstruction technique. FINDINGS: No dislocation along the atlanto-occipital, atlantoaxial, or facet joints. Cervical alignment is maintained without static listhesis. Multilevel degenerative disc disease and facet arthropathy. No significant canal stenosis. No prevertebral soft tissue swelling. IMPRESSION: No acute fracture or static listhesis.
[2017-11-09] MEDS ORDERED: FENTANYL CITRATE INJ/PF 100 MCG/2 ML AMPUL ONE ×2 (00:20→00:51)
[2017-11-09] MEDS ORDERED: KETAMINE HCL INJ 500 MG/10 ML VIAL ONE (00:20)
[2017-11-09] MEDS ORDERED: HYDROMORPHONE HCL INJ/PF 2 MG/ML AMPULE ONE (00:20)
[2017-11-09] MEDS ORDERED: MIDAZOLAM 2 MG/2 ML INJ ONE (00:20)
[2017-11-09] MEDS ORDERED: PROPOFOL INJ 200 MG/20 ML VIAL IV ONE (00:21)
[2017-11-09] MEDS ORDERED: EPHEDRINE SULFATE INJ 50 MG/1 ML AMPULE ONE (00:21)
--- NOTE | 2017-11-09 00:32 | PDOC CONSULTATION ---
Consultation Consult Date: 11/09/17 Consult reason:: GI bleeding, hemodynamic instability History of Present Illness Admission Date/PCP: HILARIO CURRY MD History of Present Illness: ELMER SALMERON is a 82 year old male seen at the request of the ER physician. This is a pt s/p recent CABG, on ASA and plavix. The pt began having mental status changes at home. He was confused and combative. He began having melanotic , watery bowel movements. He became pale and diaphoretic. EMS was then called to transport him to the ED. He denies abdominal pain or cramps. He denies vomiting or nausea. Past Medical History Cardiac Medical History: Reports: Coronary Artery Disease, Hyperlipidema, Hypertension - meds since 2010 Endocrine Medical History: Reports: Diabetes Mellitus Type 2 Musculoskeltal Medical History: Reports: Arthritis Psychiatric Medical History: Denies: Depression Past Surgical History Past Surgical History: Reports: Coronary Artery Bypass Graft - recent, Herniorrhaphy, Orthopedic Surgery - fx shoulder, clavicle, Other Social History Lives with: Family Smoking Status: Unknown if Ever Smoked Frequency of Alcohol Use: None Hx Recreational Drug Use: No Drugs: None Hx Prescription Drug Abuse: No Family History Family History: Reviewed & Not Pertinent, Hypertension Parental Family History Reviewed: Yes Children Family History Reviewed: Yes Sibling(s) Family History Reviewed.: Yes Medication/Allergy Home Medications: Allopurinol [Zyloprim 300 mg Tablet] 300 mg PO DAILY 04/21/17 Amitriptyline HCl [Elavil 25 mg Tablet] 50 mg PO QHS 04/21/17 Celecoxib [Celebrex 200 mg Capsule] 200 mg PO Q12 04/21/17 Eszopiclone [Lunesta] 2 mg PO QHS 04/21/17 Finasteride [Proscar 5 mg Tablet] 5 mg PO DAILY 04/21/17 Metformin HCl [Metformin HCl ER] 500 mg PO DAILY 04/21/17 Cephalexin Monohydrate [Keflex 500 mg Capsule] 500 mg PO Q6H 7 Days capsule 07/11 Metoclopramide HCl [Reglan] 5 mg PO Q6 #30 tablet 10/31/17 Allergies/Adverse Reactions: No Known Allergies Allergy (Verified 10/29/17 16:45) Review of Systems Constitutional: PRESENT: fatigue, weakness. ABSENT: fever(s), headache(s) Eyes: ABSENT: visual disturbances Ears: ABSENT: hearing changes Nose, Mouth, and Throat: ABSENT: mouth pain, sore throat Cardiovascular: PRESENT: palpitations. ABSENT: chest pain Respiratory: ABSENT: cough Gastrointestinal: PRESENT: melena. ABSENT: abdominal pain, nausea, vomiting Genitourinary: ABSENT: hematuria Musculoskeletal: ABSENT: back pain Neurological: PRESENT: confusion, weakness Psychiatric: ABSENT: anxiety, depression Endocrine: ABSENT: cold intolerance, heat intolerance Hematologic/Lymphatic: PRESENT: easy bleeding, easy bruising Physical Exam Vital Signs: Intake & Output 11/07/17 11/08/17 11/09/17 06:59 06:59 06:59 Intake Total 500 Balance 500 General appearance: PRESENT: mild distress Head exam: PRESENT: atraumatic, normocephalic Eye exam: PRESENT: EOMI, PERRLA. ABSENT: scleral icterus Mouth exam: PRESENT: moist, neck supple Neck exam: ABSENT: meningismus, tenderness, thyromegaly, tracheal deviation Respiratory exam: PRESENT: clear to auscultation zeferino, unlabored. ABSENT: accessory muscle use, chest wall tenderness, retraction, tachypnea Cardiovascular exam: PRESENT: tachycardia Pulses: PRESENT: normal radial pulses Vascular exam: PRESENT: pallor GI/Abdominal exam: PRESENT: soft. ABSENT: guarding, tenderness Extremities exam: ABSENT: pedal edema Musculoskeletal exam: ABSENT: deformity Neurological exam: PRESENT: alert, awake, oriented to person, CN II-XII grossly intact. ABSENT: oriented to place, oriented to time, oriented to situation Psychiatric exam: PRESENT: agitated. ABSENT: anxious, depressed Skin exam: PRESENT: pallor. ABSENT: cyanosis, erythema Results Laboratory Results: 11/08/17 21:35 11/08/17 21:35 11/08/17 11/08/17 11/08/17 21:35 21:35 21:55 WBC 14.9 H RBC 2.42 L Hgb 6.8 L Hct 21.6 L MCV 89 MCH 28.3 MCHC 31.7 L RDW 17.7 H Plt Count 396 Seg Neutrophils % 75.1 Lymphocytes % 13.5 Monocytes % 10.1 Eosinophils % 0.8 Basophils % 0.5 Absolute Neutrophils 11.2 H Absolute Lymphocytes 2.0 Absolute Monocytes 1.5 H Absolute Eosinophils 0.1 Absolute Basophils 0.1 VBG pH VBG pCO2 VBG HCO3 VBG Base Excess Sodium 138.9 Potassium 4.4 Chloride 105 Carbon Dioxide 25 Anion Gap 9 BUN 64 H Creatinine 1.80 H Est GFR ( Amer) 44 L Est GFR (Non-Af Amer) 36 L Glucose 137 H Lactic Acid Calcium 8.6 Total Bilirubin 0.7 AST 34 ALT 27 Alkaline Phosphatase 71 Total Protein 6.0 L Albumin 3.4 L Stool Occult Blood Blood Type O POSITIVE Antibody Screen NEGATIVE 11/08/17 11/08/17 11/08/17 22:05 22:31 22:31 WBC RBC Hgb Hct MCV MCH MCHC RDW Plt Count Seg Neutrophils % Lymphocytes % Monocytes % Eosinophils % Basophils % Absolute Neutrophils Absolute Lymphocytes Absolute Monocytes Absolute Eosinophils Absolute Basophils VBG pH 7.32 VBG pCO2 48.0 VBG HCO3 24.0 VBG Base Excess -2.2 Sodium Potassium Chloride Carbon Dioxide Anion Gap BUN Creatinine Est GFR ( Amer) Est GFR (Non-Af Amer) Glucose Lactic Acid 1.9 Calcium Total Bilirubin AST ALT Alkaline Phosphatase Total Protein Albumin Stool Occult Blood POSITIVE Blood Type Antibody Screen 11/08/17 11/08/17 21:35 21:35 Creatine Kinase 71 Troponin I 0.104 NT-Pro-B Natriuret Pep 3710 H Impressions: Cervical Spine CT 11/08/17 21:20 IMPRESSION: No acute fracture or static listhesis. Chest X-Ray 11/08/17 21:20 IMPRESSION: No evidence of acute cardiopulmonary disease. Head CT 11/08/17 21:20 IMPRESSION: No acute intracranial abnormality. Assessment & Plan - Diagnosis (1) Upper GI bleed Is this a current diagnosis for this admission?: Yes - Plan Summary Plan Summary: 82 y/o M with GI bleeding, of likely upper GI origin. The pt is receiving PRBC' s now. The pt's BP has remained low, requiring Levophed. I have been consulted for upper GI endoscopy to r/o upper GI bleeding, and treat the condition if present. I have discussed the procedure with the pt and he has given consent. Risks/benefits discussed, informed consent obtained, and all questions answered.
[2017-11-09] MEDS ORDERED: LIDOCAINE 2% INJ (20 MG/ML) 20 ML MDV ONE (00:38)
[2017-11-09 00:51] LABS: INTERNATIONAL RATION (INR) 1.22
[2017-11-09] MEDS ORDERED: EPINEPHRINE INJ 1 MG/10 ML DISP.SYRIN ONE (01:26)
--- NOTE | 2017-11-09 02:35 | Operative Report ---
Nonrecallable Operative Report DATE OF SURGERY: 11/09/17 PREOPERATIVE DIAGNOSIS: Upper GI bleeding POSTOPERATIVE DIAGNOSIS: 1. Upper GI bleeding from duodenal ulcer. 2. Sliding hiatal hernia. OPERATION: 1. EGD with biopsy. 2. Submucosal injection of epinephrine at bleeding ulcer site. 3. Resolution clip placement over a bleeding ulcer. SURGEON: COLBY HOLGUIN ANESTHESIA: GA TISSUE REMOVED OR ALTERED: 1. Antrum. 2. Margin of ulcer COMPLICATIONS: None apparent ESTIMATED BLOOD LOSS: Normal PROCEDURE: Drains/implants resolution clip 2. Procedure in detail: After informed consent was obtained, the patient was brought to the operating room and laid in the supine position. After anesthesia was administered and an endotracheal tube was inserted, the flexible gastroscope was inserted into the oropharynx. The scope was passed through the oropharynx, down the esophagus, and down into the stomach. The stomach was insufflated with air. There was no obvious active bleeding, old blood, or ulcers within the stomach. The scope was pushed through the pylorus and into the first portion of the duodenum. In the duodenum, at the junction of the first and second portion, a broad-based ulcer was identified. There was active bleeding. There was a clot present. The clot was irrigated and suctioned. Biopsy was taken at the margin of the ulcer. Epinephrine was injected submucosally in all 4 quadrants around the ulcer. Resolution clip placement was then performed 2 to ensure hemostasis. Once this was finished the scope was pulled back into the antrum of the stomach. Biopsy was taken in the antrum to rule out H. pylori infection. Retroflexion maneuver was performed in the body of the stomach. A sliding hiatal hernia was identified. Scope was then pulled up the remainder of the esophagus. The remainder of the esophagus was smooth in contour without masses, lesions, or other abnormalities. Condition: Fair.
[2017-11-09] MEDS ORDERED: GLUCAGON,HUMAN RECOMB 1 MG INJ SUBCUT PRN (02:56)
[2017-11-09] MEDS ORDERED: IPRATROPIUM/ALBUTEROL 0.5-2.5 MG/3 ML AMPUL NEB PRN (02:56)
[2017-11-09] MEDS ORDERED: DEXTROSE 40% GEL 15 GM TUBE PO PRN ×4 (02:56)
[2017-11-09] MEDS ORDERED: DEXTROSE 50%-WATER 25 GM/50 ML DISP.SYRIN IV PRN ×4 (02:56)
[2017-11-09] MEDS ORDERED: GLUCAGON,HUMAN RECOMB 1 MG INJ IM PRN (02:56)
[2017-11-09] MEDS ORDERED: INSULIN LISPRO 100 UNIT/ML 3 ML VIAL SUBCUT PRN (02:56)
[2017-11-09 03:59] LABS: APPEARANCE,URINE CLEAR; BILIRUBIN,URINE NEGATIVE (NEGATIVE); COLOR,URINE YELLOW; GLUCOSE, URINE NEGATIVE (NEGATIVE); KETONES,URINE 25 mg/dL (NEGATIVE); LEUKOCYTE ESTERASE,URINE NEGATIVE (NEGATIVE); NITRITE,URINE NEGATIVE (NEGATIVE); PROTEIN,URINE 30 mg/dL (NEGATIVE); URINE SPECIFIC GRAVITY 1.021; UROBILINOGEN,URINE NEGATIVE mg/dL (<2.0)
[2017-11-09 04:10] LABS: CREATINE KINASE MB 4.44 ng/mL (<4.55); TROPONIN I 0.109 ng/mL
[2017-11-09 04:16] LABS: HEMATOCRIT 33.9 % (37.9-51.0); MEAN CORPUSCULAR HEMOGLOBIN 28.2 pg (27.0-33.4); MEAN CORPUSCULAR HGB CONC 33.2 g/dL (32.0-36.0); PLATELET COUNT 309 10^3/uL (150-450); RED BLOOD COUNT 3.98 10^6/uL (4.35-5.55); RED CELL DISTRIBUTION WIDTH 16.2 % (11.5-14.0); WHITE BLOOD COUNT 14.9 10^3/uL (4.0-10.5)
[2017-11-09 04:34] LABS: HEMOGLOBIN 11.2 g/dL (13.5-17.0); MEAN CORPUSCULAR VOLUME 85 fl (80-97)
[2017-11-09 04:35] LABS: ABSOLUTE LYMPHOCYTES# (MANUAL) 0.9 10^3/uL (0.5-4.7); ABSOLUTE MONOCYTES # (MANUAL) 1.2 10^3/uL (0.1-1.4); ABSOLUTE NEUTROPHILS# (MANUAL) 12.8 10^3/uL (1.7-8.2); BASOPHILS % (MANUAL) 0 % (0-2); EOSINOPHILS % (MANUAL) 0 % (0-6); LYMPHOCYTES % (MANUAL) 6 % (13-45); MONOCYTES % (MANUAL) 8 % (3-13); SEGMENTED NEUTROPHILS % (MAN) 86 % (42-78); TOTAL CELLS COUNTED 100
[2017-11-09 04:36] LABS: ANISOCYTOSIS 1+; POLYCHROMASIA SLIGHT; TOXIC GRANULATION SLIGHT
[2017-11-09 04:37] LABS: PLATELET COMMENT ADEQUATE
[2017-11-09] MEDS ORDERED: LORAZEPAM INJ 2 MG/1 ML VIAL ONE ×2 (04:49→13:19)
[2017-11-09] MEDS ORDERED: LORAZEPAM INJ 2 MG/1 ML VIAL IV ONE (05:15)
--- NOTE | 2017-11-09 06:21 | PDOC H&P ---
History of Present Illness Admission Date/PCP: 11/09/17 00:31 HILARIO CURRY MD Patient complains of: Altered mental status History of Present Illness: ELMER SALMERON is a 82 year old male with a past medical history of coronary artery disease, type 2 diabetes, hypertension, dyslipidemia, recent coronary artery bypass graft on Plavix, Celebrex and aspirin presenting with altered mental status, and hypotension requiring levo fed. He is found to have anemia with a hemoglobin of 6.8 from baseline of 11 and acute renal failure. He is found to have melena, started on IV Protonix, transfused 4 units of packed red blood cells and admitted by surgery he is taken to the OR finding bleeding duodenal ulcer which is controlled and transferred to the ICU. Unknown history of GI bleed. Patient is delirious and unable to provide history. Past Medical History Cardiac Medical History: Reports: Coronary Artery Disease, Hyperlipidema, Hypertension - meds since 2010 Endocrine Medical History: Reports: Diabetes Mellitus Type 2 Musculoskeltal Medical History: Reports: Arthritis Psychiatric Medical History: Denies: Depression Past Surgical History Past Surgical History: Reports: Coronary Artery Bypass Graft - recent, Herniorrhaphy, Orthopedic Surgery - fx shoulder, clavicle, Other Social History Information Source: [facility], [facility] Lives with: Family Smoking Status: Unknown if Ever Smoked Frequency of Alcohol Use: None Hx Recreational Drug Use: No Drugs: None Hx Prescription Drug Abuse: No - Advance Directive Resuscitation Status: Full Code Family History Family History: Hypertension Parental Family History Reviewed: Yes Children Family History Reviewed: Yes Sibling(s) Family History Reviewed.: Yes Medication/Allergy Home Medications: Allopurinol [Zyloprim 300 mg Tablet] 300 mg PO DAILY 04/21/17 Amitriptyline HCl [Elavil 25 mg Tablet] 50 mg PO QHS 04/21/17 Celecoxib [Celebrex 200 mg Capsule] 200 mg PO Q12 04/21/17 Eszopiclone [Lunesta] 2 mg PO QHS 04/21/17 Finasteride [Proscar 5 mg Tablet] 5 mg PO DAILY 04/21/17 Metformin HCl [Metformin HCl ER] 500 mg PO DAILY 04/21/17 Cephalexin Monohydrate [Keflex 500 mg Capsule] 500 mg PO Q6H 7 Days capsule 07/11 Metoclopramide HCl [Reglan] 5 mg PO Q6 #30 tablet 10/31/17 Allergies/Adverse Reactions: No Known Allergies Allergy (Verified 10/29/17 16:45) Review of Systems ROS unobtainable: Due to mental status Physical Exam Vital Signs: Temp Pulse Resp BP Pulse Ox 97.9 F 104 H 17 129/84 H 97 11/09/17 02:05 11/09/17 02:05 11/09/17 03:37 11/09/17 03:37 11/09/17 03:37 Intake & Output 11/07/17 11/08/17 11/09/17 11:59 11:59 11:59 Intake Total 2200 Balance 2200 Weight 69.7 kg General appearance: PRESENT: disheveled, severe distress. ABSENT: cooperative Head exam: PRESENT: atraumatic, normocephalic Eye exam: PRESENT: conjunctiva pale, EOMI, PERRLA. ABSENT: scleral icterus Ear exam: PRESENT: normal external ear exam Mouth exam: PRESENT: moist, tongue midline Neck exam: ABSENT: carotid bruit, JVD, lymphadenopathy, thyromegaly Respiratory exam: PRESENT: clear to auscultation zeferino. ABSENT: rales, rhonchi, wheezes Cardiovascular exam: PRESENT: RRR. ABSENT: diastolic murmur, rubs, systolic murmur Pulses: PRESENT: normal dorsalis pedis pul Vascular exam: PRESENT: normal capillary refill GI/Abdominal exam: PRESENT: hyperactive bowel sounds, normal bowel sounds, soft , tenderness. ABSENT: distended, guarding, mass, organolmegaly, rebound Rectal exam: PRESENT: black stool, heme (+) stool Extremities exam: PRESENT: full ROM. ABSENT: calf tenderness, clubbing, pedal edema Neurological exam: PRESENT: alert, altered, awake, oriented to person, CN II- XII grossly intact. ABSENT: motor sensory deficit Psychiatric exam: PRESENT: agitated Skin exam: PRESENT: dry, intact, warm. ABSENT: cyanosis, rash Results Laboratory Results: 11/09/17 03:10 11/09/17 11/09/17 03:10 03:10 WBC 14.9 H RBC 3.98 L Hgb 11.2 L D Hct 33.9 L MCV 85 D MCH 28.2 MCHC 33.2 RDW 16.2 H Plt Count 309 Seg Neutrophils % Not Reportable Lymphocytes % Not Reportable Monocytes % Not Reportable Eosinophils % Not Reportable Basophils % Not Reportable Absolute Neutrophils Not Reportable Absolute Lymphocytes Not Reportable Absolute Monocytes Not Reportable Absolute Eosinophils Not Reportable Absolute Basophils Not Reportable Urine Color YELLOW Urine Appearance CLEAR Urine pH 5.0 Ur Specific [place] 1.021 Urine Protein 30 H Urine Glucose (UA) NEGATIVE Urine Ketones 25 H Urine Blood NEGATIVE Urine Nitrite NEGATIVE Ur Leukocyte Esterase NEGATIVE Urine WBC (Auto) 2 Urine RBC (Auto) 11 11/09/17 11/09/17 03:25 03:25 Creatine Kinase 121 CK-MB (CK-2) 4.44 Troponin I 0.109 Impressions: Cervical Spine CT 11/08/17 21:20 IMPRESSION: No acute fracture or static listhesis. Chest X-Ray 11/08/17 21:20 IMPRESSION: No evidence of acute cardiopulmonary disease. Head CT 11/08/17 21:20 IMPRESSION: No acute intracranial abnormality. Assessment & Plan - Diagnosis (1) Upper GI bleed Is this a current diagnosis for this admission?: Yes Plan: Duodenal ulcer likely secondary to Plavix, aspirin and Celebrex continue IV Protonix, transfuse packed red blood cells as needed hemoglobin less than 10, discontinue Celebrex (2) Coronary artery disease Is this a current diagnosis for this admission?: Yes Plan: Very recent coronary artery bypass grafting with incomplete healed scar. Positive cardiac enzymes likely demand ischemia. Follow-up cardiology consult and serial cardiac enzymes. (3) Type 2 diabetes mellitus Qualifiers: Diabetes mellitus director long term care insulin use: without intermediate use Diabetes mellitus complication status: without complication Qualified Code(s): E11.9 - Type 2 diabetes mellitus without complications Is this a current diagnosis for this admission?: Yes Plan: Humalog sliding scale every 6 hours (4) Delirium Is this a current diagnosis for this admission?: Yes Plan: Suspect underlying dementia versus recent medication discontinuation. Reevaluate with family history. Continue supportive measures
[2017-11-09] MEDS: NORMAL SALINE 100 ML with PANTOPRAZOLE SODIUM 80 MG IV PRN ×4 (09:16→18:46)
--- NOTE | 2017-11-09 09:32 | EKG REPORT ---
SEVERITY:- ABNORMAL ECG - SINUS RHYTHM 2ND DEGREE AV BLOCK, MOBITZ TYPE 1 RIGHT BUNDLE BRANCH BLOCK : Confirmed by: Jake Garcia 09-Nov-2017 09:31:56
--- NOTE | 2017-11-09 09:32 | EKG REPORT ---
SEVERITY:- ABNORMAL ECG - SINUS RHYTHM MOBITZ I AV BLOCK (WENCKEBACH) PROBABLE LEFT ATRIAL ABNORMALITY RIGHT BUNDLE BRANCH BLOCK : Confirmed by: Jake Garcia 09-Nov-2017 09:31:13
[2017-11-09 09:51] LABS: ABSOLUTE BASOPHILS # (AUTO) 0.1 10^3/uL (0.0-0.2); ABSOLUTE EOSINOPHILS # (AUTO) 0.2 10^3/uL (0.0-0.6); ABSOLUTE LYMPHOCYTES (AUTO) 1.8 10^3/uL (0.5-4.7); ABSOLUTE MONOCYTES (AUTO) 1.2 10^3/uL (0.1-1.4); ABSOLUTE NEUT (AUTO) 8.5 10^3/uL (1.7-8.2); BASOPHILS % (AUTO) 0.8 % (0-2); EOSINOPHILS % (AUTO) 1.9 % (0-6); HEMOGLOBIN 11.2 g/dL (13.5-17.0); LYMPHOCYTES % (AUTO) 15.3 % (13-45); MEAN CORPUSCULAR HEMOGLOBIN 28.5 pg (27.0-33.4); MEAN CORPUSCULAR HGB CONC 33.8 g/dL (32.0-36.0); MEAN CORPUSCULAR VOLUME 84 fl (80-97); MONOCYTES % (AUTO) 10.4 % (3-13); PLATELET COUNT 271 10^3/uL (150-450); RED BLOOD COUNT 3.92 10^6/uL (4.35-5.55); RED CELL DISTRIBUTION WIDTH 16.1 % (11.5-14.0); SEGMENTED NEUTROPHILS % (AUTO) 71.6 % (42-78); TOTAL CELLS COUNTED % (AUTO) 100 %; WHITE BLOOD COUNT 11.8 10^3/uL (4.0-10.5)
[2017-11-09 10:13] LABS: CREATINE KINASE MB 4.4 ng/mL (<4.55)
[2017-11-09 10:15] LABS: TROPONIN I 0.133 ng/mL
[2017-11-09 14:36] LABS: ABSOLUTE BASOPHILS # (AUTO) 0.1 10^3/uL (0.0-0.2); ABSOLUTE EOSINOPHILS # (AUTO) 0.1 10^3/uL (0.0-0.6); ABSOLUTE LYMPHOCYTES (AUTO) 1.2 10^3/uL (0.5-4.7); ABSOLUTE MONOCYTES (AUTO) 1.1 10^3/uL (0.1-1.4); BASOPHILS % (AUTO) 1.2 % (0-2); EOSINOPHILS % (AUTO) 1.3 % (0-6); HEMATOCRIT 34.6 % (37.9-51.0); HEMOGLOBIN 11.7 g/dL (13.5-17.0); LYMPHOCYTES % (AUTO) 11.7 % (13-45); MEAN CORPUSCULAR HEMOGLOBIN 28.8 pg (27.0-33.4); MEAN CORPUSCULAR HGB CONC 33.9 g/dL (32.0-36.0); MEAN CORPUSCULAR VOLUME 85 fl (80-97); MONOCYTES % (AUTO) 10.4 % (3-13); PLATELET COUNT 267 10^3/uL (150-450); RED BLOOD COUNT 4.08 10^6/uL (4.35-5.55); RED CELL DISTRIBUTION WIDTH 16.3 % (11.5-14.0); SEGMENTED NEUTROPHILS % (AUTO) 75.4 % (42-78); TOTAL CELLS COUNTED % (AUTO) 100 %; WHITE BLOOD COUNT 10.6 10^3/uL (4.0-10.5)
--- NOTE | 2017-11-09 14:54 | Progress Note ---
Provider Note Provider Note: Stopped in to see pt. Hgb stable , MAP ~70, no pressors, making good urine. Will follow.
[2017-11-09 15:00] LABS: CREATINE KINASE MB 4.62 ng/mL (<4.55); TROPONIN I 0.111 ng/mL
--- NOTE | 2017-11-09 15:50 | PDOC PROGRESS REPORT ---
Subjective Progress Note for:: 11/09/17 Subjective:: 82-year-old white male admitted with upper gastrointestinal bleed. Taken to the endoscopy suite where a duodenal ulcer was found actively bleeding. Site injected and hemoclips applied.. Patient status post 4 units packed red cells hemoglobin stable at 112 hemodynamically stable. Patient developed encephalopathy likely due to underlying dementia. Has been given Ativan which is calmed him down significantly. Reason For Visit: UPPER GASTROINTESTINAL HEMORRHAGE, HYPOTENSION Physical Exam Vital Signs: Temp Pulse Resp BP Pulse Ox 97.9 F 67 24 H 105/57 L 93 11/09/17 14:00 11/09/17 10:00 11/09/17 14:00 11/09/17 13:37 11/09/17 14:00 Intake & Output 11/08/17 11/09/17 11/10/17 06:59 06:59 06:59 Intake Total 2200 Output Total 200 Balance 2200 -200 Weight 68.9 kg General appearance: PRESENT: no acute distress, well-developed, well-nourished Neck exam: ABSENT: carotid bruit, JVD, lymphadenopathy, thyromegaly Respiratory exam: PRESENT: clear to auscultation zeferino. ABSENT: rales, rhonchi, wheezes Cardiovascular exam: PRESENT: RRR, other - Midline sternal incision from recent CABG. ABSENT: diastolic murmur, rubs, systolic murmur GI/Abdominal exam: PRESENT: normal bowel sounds, soft. ABSENT: distended, guarding, mass, organolmegaly, rebound, tenderness Musculoskeletal exam: ABSENT: deformity, normal inspection, tenderness Neurological exam: PRESENT: other - Nonverbal agitated Psychiatric exam: PRESENT: agitated Results Laboratory Results: 11/09/17 14:20 11/09/17 11/09/17 11/09/17 03:10 03:10 09:35 WBC 14.9 H 11.8 H RBC 3.98 L 3.92 L Hgb 11.2 L D 11.2 L Hct 33.9 L 33.0 L MCV 85 D 84 MCH 28.2 28.5 MCHC 33.2 33.8 RDW 16.2 H 16.1 H Plt Count 309 271 Seg Neutrophils % Not Reportable 71.6 Lymphocytes % Not Reportable 15.3 Monocytes % Not Reportable 10.4 Eosinophils % Not Reportable 1.9 Basophils % Not Reportable 0.8 Absolute Neutrophils Not Reportable 8.5 H Absolute Lymphocytes Not Reportable 1.8 Absolute Monocytes Not Reportable 1.2 Absolute Eosinophils Not Reportable 0.2 Absolute Basophils Not Reportable 0.1 Urine Color YELLOW Urine Appearance CLEAR Urine pH 5.0 Ur Specific [place] 1.021 Urine Protein 30 H Urine Glucose (UA) NEGATIVE Urine Ketones 25 H Urine Blood NEGATIVE Urine Nitrite NEGATIVE Ur Leukocyte Esterase NEGATIVE Urine WBC (Auto) 2 Urine RBC (Auto) 11 11/09/17 14:20 WBC 10.6 H RBC 4.08 L Hgb 11.7 L Hct 34.6 L MCV 85 MCH 28.8 MCHC 33.9 RDW 16.3 H Plt Count 267 Seg Neutrophils % 75.4 Lymphocytes % 11.7 L Monocytes % 10.4 Eosinophils % 1.3 Basophils % 1.2 Absolute Neutrophils 8.0 Absolute Lymphocytes 1.2 Absolute Monocytes 1.1 Absolute Eosinophils 0.1 Absolute Basophils 0.1 Urine Color Urine Appearance Urine pH Ur Specific [place] Urine Protein Urine Glucose (UA) Urine Ketones Urine Blood Urine Nitrite Ur Leukocyte Esterase Urine WBC (Auto) Urine RBC (Auto) 11/09/17 11/09/17 11/09/17 03:25 03:25 09:35 Creatine Kinase 121 110 CK-MB (CK-2) 4.44 Troponin I 0.109 11/09/17 11/09/17 11/09/17 09:35 14:20 14:20 Creatine Kinase 147 CK-MB (CK-2) 4.40 4.62 H Troponin I 0.133 0.111 Impressions: Cervical Spine CT 11/08/17 21:20 IMPRESSION: No acute fracture or static listhesis. Chest X-Ray 11/08/17 21:20 IMPRESSION: No evidence of acute cardiopulmonary disease. Head CT 11/08/17 21:20 IMPRESSION: No acute intracranial abnormality. Assessment & Plan - Diagnosis (1) Upper GI bleed Is this a current diagnosis for this admission?: Yes Plan: Status post 4 units packed red cells. Hemodynamically stable duodenal ulcer foundAnd hemostasis achieved. (2) Duodenal ulcer Is this a current diagnosis for this admission?: Yes Plan: Hemostasis achieved hold antiplatelet therapy at this time and any other caustic agents continue Protonix drip (3) Acute blood loss anemia Is this a current diagnosis for this admission?: Yes Plan: Continue to monitor every 6 hours H&H is stable over the next 24 hours decreased every 12. Continue Protonix drip (4) Delirium Is this a current diagnosis for this admission?: Yes Plan: As needed Ativan if hemodynamically stable will transfer out of ICU (5) Type 2 diabetes mellitus Qualifiers: Diabetes mellitus halfway insulin use: without halfway use Diabetes mellitus complication status: without complication Qualified Code(s): E11.9 - Type 2 diabetes mellitus without complications Is this a current diagnosis for this admission?: Yes Plan: Sliding scale coverage.Patient currently n.p.o. we will begin with clear liquids when approved by gastroenterology. (6) Coronary artery disease Is this a current diagnosis for this admission?: Yes Plan: Status post coronary artery bypass grafting
[2017-11-09] MEDS: LORAZEPAM INJ 2 MG/1 ML VIAL IV PRN (18:58)
[2017-11-09] MEDS ORDERED: PHENYLEPHRINE HCL INJ/PF 10 MG/1 ML SDV ONE (21:01)
[2017-11-09] MEDS ORDERED: SUCCINYLCHOLINE CHLORIDE INJ 200 MG/10 ML VIAL ONE (21:01)
[2017-11-09 21:25] LABS: ABSOLUTE BASOPHILS # (AUTO) 0.1 10^3/uL (0.0-0.2); ABSOLUTE EOSINOPHILS # (AUTO) 0.2 10^3/uL (0.0-0.6); ABSOLUTE LYMPHOCYTES (AUTO) 1.3 10^3/uL (0.5-4.7); ABSOLUTE NEUT (AUTO) 7.1 10^3/uL (1.7-8.2); BASOPHILS % (AUTO) 0.6 % (0-2); EOSINOPHILS % (AUTO) 1.9 % (0-6); HEMOGLOBIN 11.6 g/dL (13.5-17.0); LYMPHOCYTES % (AUTO) 13.3 % (13-45); MEAN CORPUSCULAR HEMOGLOBIN 28.4 pg (27.0-33.4); MEAN CORPUSCULAR HGB CONC 33.2 g/dL (32.0-36.0); MEAN CORPUSCULAR VOLUME 86 fl (80-97); MONOCYTES % (AUTO) 10.1 % (3-13); PLATELET COUNT 267 10^3/uL (150-450); SEGMENTED NEUTROPHILS % (AUTO) 74.1 % (42-78); TOTAL CELLS COUNTED % (AUTO) 100 %; WHITE BLOOD COUNT 9.6 10^3/uL (4.0-10.5)
[2017-11-10] MEDS: LORAZEPAM INJ 2 MG/1 ML VIAL IV PRN ×3 (01:08→15:48)
[2017-11-10 01:46] LABS: BLOOD UREA NITROGEN 34 mg/dL (7-20); CALCIUM 8.6 mg/dL (8.4-10.2); CARBON DIOXIDE 22 mmol/L (22-30); CHLORIDE 111 mmol/L (98-107); GLUCOSE 93 mg/dL (75-110)
[2017-11-10 01:47] LABS: ANION GAP 9 (5-19); SODIUM 142.1 mmol/L (137-145)
[2017-11-10] MEDS: DEXTROSE 5%-1/2 NORMAL SALINE 1,000 ML IV PRN ×4 (02:47→23:12)
[2017-11-10 04:29] LABS: ANION GAP 7 (5-19); BLOOD UREA NITROGEN 30 mg/dL (7-20); CALCIUM 8.4 mg/dL (8.4-10.2); CARBON DIOXIDE 23 mmol/L (22-30); CHLORIDE 113 mmol/L (98-107); GLUCOSE 110 mg/dL (75-110); POTASSIUM 3.9 mmol/L (3.6-5.0); SODIUM 142.7 mmol/L (137-145)
[2017-11-10] MEDS: NORMAL SALINE 100 ML with PANTOPRAZOLE SODIUM 80 MG IV PRN ×4 (05:59→15:14)
[2017-11-10] MEDS ORDERED: METOPROLOL TARTRATE 25 MG TABLET PO SCH (10:00)
[2017-11-10] MEDS: ASPIRIN 81 MG TABLET, ENT COATED PO SCH (11:09)
[2017-11-10] MEDS ORDERED: FUROSEMIDE INJ/PF 20 MG/2 ML SDV IV ONE (12:30)
[2017-11-10] MEDS: METOPROLOL TARTRATE PF/INJ 5 MG/5 ML SDV IV SCH ×3 (12:53→23:08)
--- NOTE | 2017-11-10 13:30 | PDOC PROGRESS REPORT ---
Subjective Progress Note for:: 11/10/17 Subjective:: no pains Reason For Visit: UPPER GASTROINTESTINAL HEMORRHAGE, HYPOTENSION Physical Exam Vital Signs: Temp Pulse Resp BP Pulse Ox 99.0 F 80 35 H 141/84 H 92 11/10/17 12:52 11/10/17 10:00 11/10/17 12:52 11/10/17 12:52 11/10/17 11:42 Intake & Output 11/09/17 11/10/17 11/11/17 06:59 06:59 06:59 Intake Total 2200 195 1000 Output Total 500 150 Balance 2200 -305 850 Weight 68.9 kg 69.4 kg Exam: sleeping. Abd is soft and non tender. Results Laboratory Results: 11/09/17 21:00 11/10/17 04:00 11/09/17 11/09/17 11/09/17 14:20 21:00 23:12 WBC 10.6 H 9.6 RBC 4.08 L 4.10 L Hgb 11.7 L 11.6 L Hct 34.6 L 35.0 L MCV 85 86 MCH 28.8 28.4 MCHC 33.9 33.2 RDW 16.3 H 17.0 H Plt Count 267 267 Seg Neutrophils % 75.4 74.1 Lymphocytes % 11.7 L 13.3 Monocytes % 10.4 10.1 Eosinophils % 1.3 1.9 Basophils % 1.2 0.6 Absolute Neutrophils 8.0 7.1 Absolute Lymphocytes 1.2 1.3 Absolute Monocytes 1.1 1.0 Absolute Eosinophils 0.1 0.2 Absolute Basophils 0.1 0.1 Sodium Cancelled Potassium Cancelled Chloride Cancelled Carbon Dioxide Cancelled Anion Gap Cancelled BUN Cancelled Creatinine Cancelled Est GFR ( Amer) Cancelled Est GFR (Non-Af Amer) Cancelled Glucose Cancelled Calcium Cancelled 11/10/17 11/10/17 01:15 04:00 WBC RBC Hgb Hct MCV MCH MCHC RDW Plt Count Seg Neutrophils % Lymphocytes % Monocytes % Eosinophils % Basophils % Absolute Neutrophils Absolute Lymphocytes Absolute Monocytes Absolute Eosinophils Absolute Basophils Sodium 142.1 142.7 Potassium 4.0 3.9 Chloride 111 H 113 H Carbon Dioxide 22 23 Anion Gap 9 7 BUN 34 H 30 H Creatinine 1.07 1.06 Est GFR ( Amer) > 60 > 60 Est GFR (Non-Af Amer) > 60 > 60 Glucose 93 110 Calcium 8.6 8.4 11/09/17 11/09/17 11/09/17 03:25 03:25 09:35 Creatine Kinase 121 110 CK-MB (CK-2) 4.44 Troponin I 0.109 11/09/17 11/09/17 11/09/17 09:35 14:20 14:20 Creatine Kinase 147 CK-MB (CK-2) 4.40 4.62 H Troponin I 0.133 0.111 Impressions: Cervical Spine CT 11/08/17 21:20 IMPRESSION: No acute fracture or static listhesis. Chest X-Ray 11/08/17 21:20 IMPRESSION: No evidence of acute cardiopulmonary disease. Head CT 11/08/17 21:20 IMPRESSION: No acute intracranial abnormality. Assessment & Plan - Time Time Spent with patient: 15-24 minutes - Inpatient Certification Medical Necessity: Need Close Monitoring Due to Risk of Patient Decompensation, Need For IV Fluids, Need For Continuous Telemetry Monitoring - Plan Summary Plan Summary: Hemoglobin is stable. No apparent bleeding at this time Continue monitor Hb Continue close monitoring of VS in ICU
[2017-11-10 13:56] LABS: HEMATOCRIT 38.3 % (37.9-51.0); HEMOGLOBIN 12.4 g/dL (13.5-17.0); MEAN CORPUSCULAR HEMOGLOBIN 27.8 pg (27.0-33.4); MEAN CORPUSCULAR HGB CONC 32.5 g/dL (32.0-36.0); MEAN CORPUSCULAR VOLUME 86 fl (80-97); PLATELET COUNT 277 10^3/uL (150-450); RED BLOOD COUNT 4.48 10^6/uL (4.35-5.55); WHITE BLOOD COUNT 14.5 10^3/uL (4.0-10.5)
[2017-11-10] MEDS: HALOPERIDOL LACTATE INJ 5 MG/1 ML VIAL IM PRN ×2 (15:14→23:36)
--- NOTE | 2017-11-10 17:14 | PDOC PROGRESS REPORT ---
Subjective Progress Note for:: 11/10/17 Subjective:: 82-year-old white male admitted with upper gastrointestinal bleed. Taken to the endoscopy suite where a duodenal ulcer was found actively bleeding. Site injected and hemoclips applied.. Patient status post 4 units packed red cells hemoglobin stable at 112 hemodynamically stable. Patient developed encephalopathy likely due to underlying dementia. Has been given Ativan which is calmed him down significantly. Patient remains in delirium. Hemoglobin stable no evidence of ongoing bleeding. Blood pressure rising due to significant volume from transfusions and not taking his p.o. medication. Reason For Visit: UPPER GASTROINTESTINAL HEMORRHAGE, HYPOTENSION Physical Exam Vital Signs: Temp Pulse Resp BP Pulse Ox 100.0 F 80 23 H 149/76 H 100 11/10/17 16:00 11/10/17 10:00 11/10/17 16:00 11/10/17 15:52 11/10/17 16:00 Intake & Output 11/09/17 11/10/17 11/11/17 06:59 06:59 06:59 Intake Total 2200 195 2026 Output Total 500 1350 Balance 2200 -305 676 Weight 68.9 kg 69.4 kg General appearance: PRESENT: other - Patient in delirium Neck exam: ABSENT: carotid bruit, JVD, lymphadenopathy, thyromegaly Respiratory exam: PRESENT: clear to auscultation zeferino. ABSENT: rales, rhonchi, wheezes Cardiovascular exam: PRESENT: RRR. ABSENT: diastolic murmur, rubs, systolic murmur GI/Abdominal exam: PRESENT: normal bowel sounds, soft. ABSENT: distended, guarding, mass, organolmegaly, rebound, tenderness Musculoskeletal exam: PRESENT: normal inspection. ABSENT: tenderness Neurological exam: ABSENT: alert, oriented to person Results Laboratory Results: 11/10/17 13:40 11/10/17 04:00 11/09/17 11/09/17 11/10/17 21:00 23:12 01:15 WBC 9.6 RBC 4.10 L Hgb 11.6 L Hct 35.0 L MCV 86 MCH 28.4 MCHC 33.2 RDW 17.0 H Plt Count 267 Seg Neutrophils % 74.1 Lymphocytes % 13.3 Monocytes % 10.1 Eosinophils % 1.9 Basophils % 0.6 Absolute Neutrophils 7.1 Absolute Lymphocytes 1.3 Absolute Monocytes 1.0 Absolute Eosinophils 0.2 Absolute Basophils 0.1 Sodium Cancelled 142.1 Potassium Cancelled 4.0 Chloride Cancelled 111 H Carbon Dioxide Cancelled 22 Anion Gap Cancelled 9 BUN Cancelled 34 H Creatinine Cancelled 1.07 Est GFR ( Amer) Cancelled > 60 Est GFR (Non-Af Amer) Cancelled > 60 Glucose Cancelled 93 Calcium Cancelled 8.6 11/10/17 11/10/17 04:00 13:40 WBC 14.5 H RBC 4.48 Hgb 12.4 L Hct 38.3 MCV 86 MCH 27.8 MCHC 32.5 RDW 17.0 H Plt Count 277 Seg Neutrophils % Lymphocytes % Monocytes % Eosinophils % Basophils % Absolute Neutrophils Absolute Lymphocytes Absolute Monocytes Absolute Eosinophils Absolute Basophils Sodium 142.7 Potassium 3.9 Chloride 113 H Carbon Dioxide 23 Anion Gap 7 BUN 30 H Creatinine 1.06 Est GFR ( Amer) > 60 Est GFR (Non-Af Amer) > 60 Glucose 110 Calcium 8.4 11/09/17 11/09/17 11/09/17 03:25 03:25 09:35 Creatine Kinase 121 110 CK-MB (CK-2) 4.44 Troponin I 0.109 11/09/17 11/09/17 11/09/17 09:35 14:20 14:20 Creatine Kinase 147 CK-MB (CK-2) 4.40 4.62 H Troponin I 0.133 0.111 Impressions: Cervical Spine CT 11/08/17 21:20 IMPRESSION: No acute fracture or static listhesis. Chest X-Ray 11/08/17 21:20 IMPRESSION: No evidence of acute cardiopulmonary disease. Head CT 11/08/17 21:20 IMPRESSION: No acute intracranial abnormality. Assessment & Plan - Diagnosis (1) Upper GI bleed Is this a current diagnosis for this admission?: Yes Plan: Status post 4 units packed red cells. Hemodynamically stable duodenal ulcer foundAnd hemostasis achieved. Hemoglobin 12 will decrease frequency of H&H's to every 12 hours 4 then checked daily. (2) Duodenal ulcer Is this a current diagnosis for this admission?: Yes Plan: Hemostasis achieved hold antiplatelet therapy at this time and any other caustic agents continue Protonix drip (3) Acute blood loss anemia Is this a current diagnosis for this admission?: Yes Plan: Continue to monitor every 12 hours H&H is stable over the next 48 hours decreased every 24. Continue Protonix drip (4) Delirium Is this a current diagnosis for this admission?: Yes Plan: As needed Ativan We will add Haldol 2 mg IM every 6 hours as needed maintain in ICU for the next 24 hours. (5) Type 2 diabetes mellitus Qualifiers: Diabetes mellitus residential insulin use: without residential use Diabetes mellitus complication status: without complication Qualified Code(s): E11.9 - Type 2 diabetes mellitus without complications Is this a current diagnosis for this admission?: Yes Plan: Sliding scale coverage.Patient currently n.p.o. we will begin with clear liquids when approved by gastroenterology. (6) Coronary artery disease Is this a current diagnosis for this admission?: Yes Plan: Status post coronary artery bypass grafting - Time Time Spent with patient: 25-34 minutes
[2017-11-10] MEDS ORDERED: ACETAMINOPHEN 650 MG SUPP.RECT PR ONE (18:33)
[2017-11-10] MEDS: PIPERACILLIN SODIUM/TAZOBACTAM 3.375 GM in NORMAL SALINE 100 ML IV SCH ×2 (18:44→23:08)
[2017-11-10] MEDS: ACETAMINOPHEN 650 MG SUPP.RECT PR PRN (18:44)
--- NOTE | 2017-11-10 19:44 | RADIOLOGY REPORT (SQ) ---
EXAM DESCRIPTION: CHEST SINGLE VIEW COMPLETED DATE/TIME: 11/10/2017 7:25 pm REASON FOR STUDY: Rule out PNA COMPARISON: 11/08/2017 EXAM PARAMETERS: NUMBER OF VIEWS: One view. TECHNIQUE: Single frontal radiographic view of the chest acquired. RADIATION DOSE: NA LIMITATIONS: None. FINDINGS: LUNGS AND PLEURA: There is increased opacification in the lung bases and in the perihilar distribution generally. MEDIASTINUM AND HILAR STRUCTURES: No masses. Contour normal. HEART AND VASCULAR STRUCTURES: Heart size is borderline. BONES: No acute findings. HARDWARE: Sternotomy wires. OTHER: No other significant finding. IMPRESSION: Borderline cardiomegaly. Cannot exclude mild pulmonary edema. Cannot exclude left lowe r lobe pneumonia. TECHNICAL DOCUMENTATION: JOB ID: [id number] [employer]- All Rights Reserved Reading location - IP/workstation name: [email or web address]
[2017-11-11 00:27] LABS: HEMATOCRIT 39.4 % (37.9-51.0); MEAN CORPUSCULAR HEMOGLOBIN 28.3 pg (27.0-33.4); MEAN CORPUSCULAR HGB CONC 33.1 g/dL (32.0-36.0); MEAN CORPUSCULAR VOLUME 86 fl (80-97); PLATELET COUNT 281 10^3/uL (150-450); RED CELL DISTRIBUTION WIDTH 16.9 % (11.5-14.0); WHITE BLOOD COUNT 14.8 10^3/uL (4.0-10.5)
[2017-11-11] MEDS: NORMAL SALINE 100 ML with PANTOPRAZOLE SODIUM 80 MG IV PRN ×2 (02:09)
[2017-11-11] MEDS: ACETAMINOPHEN 650 MG SUPP.RECT PR PRN (02:49)
[2017-11-11 02:51] LABS: ARTERIAL BLOOD BASE EXCESS -3.9 mmol/L; ARTERIAL BLOOD HCO3 18.6 mmol/L (20-24); ARTERIAL BLOOD O2 SATURATION 95.7 % (94-98); ARTERIAL BLOOD PCO2 26.7 mmHg (35-45); ARTERIAL BLOOD PH 7.46 (7.35-7.45); ARTERIAL BLOOD PO2 73.4 mmHg (80-100); ARTERIAL BLOOD TOTAL CO2 19.4 mmol/L (23-27)
[2017-11-11 02:54] LABS: ARTERIAL BLOOD FIO2 2L
[2017-11-11 03:24] LABS: ANION GAP 9 (5-19); BLOOD UREA NITROGEN 18 mg/dL (7-20); CARBON DIOXIDE 22 mmol/L (22-30); CHLORIDE 109 mmol/L (98-107); GLUCOSE 154 mg/dL (75-110); POTASSIUM 3.6 mmol/L (3.6-5.0); SODIUM 140.4 mmol/L (137-145)
[2017-11-11] MEDS: METOPROLOL TARTRATE PF/INJ 5 MG/5 ML SDV IV SCH (06:33)
[2017-11-11] MEDS: PIPERACILLIN SODIUM/TAZOBACTAM 3.375 GM in NORMAL SALINE 100 ML IV SCH ×4 (06:34→23:07)
[2017-11-11 07:01] LABS: HEMOGLOBIN 11.9 g/dL (13.5-17.0); MEAN CORPUSCULAR VOLUME 85 fl (80-97); PLATELET COUNT 239 10^3/uL (150-450); RED BLOOD COUNT 4.25 10^6/uL (4.35-5.55); RED CELL DISTRIBUTION WIDTH 16.5 % (11.5-14.0); WHITE BLOOD COUNT 12.6 10^3/uL (4.0-10.5)
--- NOTE | 2017-11-11 07:21 | RADIOLOGY REPORT (SQ) ---
EXAM DESCRIPTION: X-ray single view chest CLINICAL HISTORY: 82 years Male, rule out PNA COMPARISON: Prior portable chest performed on 11/10/2017 TECHNIQUE: Single portable view of the chest performed on 11/11/2017 at 6:23 AM FINDINGS: The lungs are well-expanded. There is mild perihilar airspace disease which may reflect pulmonary edema. There is no evidence of a pneumothorax. The cardiac silhouette is normal in size and configuration. There are postsurgical changes of the mediastinum. The mediastinal contours are normal. No acute osseous abnormality is identified. No focal soft tissue abnormalities are seen. There are overlying fuel pilot engineer leads. IMPRESSION: 1. Similar findings when compared to the prior study. There is mild perihilar airspace disease which may reflect pulmonary edema. 2. Remote postsurgical changes of the mediastinum.
[2017-11-11 07:25] LABS: ANION GAP 8 (5-19); BLOOD UREA NITROGEN 17 mg/dL (7-20); CALCIUM 7.6 mg/dL (8.4-10.2); CARBON DIOXIDE 21 mmol/L (22-30); CHLORIDE 110 mmol/L (98-107); GLUCOSE 158 mg/dL (75-110); POTASSIUM 3.5 mmol/L (3.6-5.0); SODIUM 139.3 mmol/L (137-145)
[2017-11-11] MEDS: ASPIRIN 81 MG TABLET, ENT COATED PO SCH (09:20)
[2017-11-11] MEDS: POTASSI CL 20 MEQ/50 ML RIDER 20 MEQ/50 ML RTUPB IV SCH ×2 (09:25→12:02)
--- NOTE | 2017-11-11 09:48 | PDOC PROGRESS REPORT ---
Subjective Progress Note for:: 11/11/17 Reason For Visit: UPPER GASTROINTESTINAL HEMORRHAGE, HYPOTENSION Remains in ICU; hemodynamic stable; two lose dark bloody stools; neurologic status remains poor. Physical Exam Vital Signs: Temp Pulse Resp BP Pulse Ox 99.1 F 70 22 H 128/62 H 99 11/11/17 08:29 11/11/17 08:29 11/11/17 08:29 11/11/17 08:29 11/11/17 08:29 Intake & Output 11/10/17 11/11/17 11/12/17 06:59 06:59 06:59 Intake Total 195 4326 100 Output Total 500 2215 75 Balance -305 2111 25 Weight 69.4 kg 69.7 kg General appearance: PRESENT: other - Response to loud verbal stimulation; does not follow commands consistently GI/Abdominal exam: PRESENT: other - Soft nontender no peritoneal signs no rigidity Results Laboratory Results: 11/11/17 06:56 11/11/17 06:56 11/10/17 11/11/17 11/11/17 13:40 00:16 02:35 WBC 14.5 H 14.8 H RBC 4.48 4.60 Hgb 12.4 L 13.0 L Hct 38.3 39.4 MCV 86 86 MCH 27.8 28.3 MCHC 32.5 33.1 RDW 17.0 H 16.9 H Plt Count 277 281 Carbonic Acid 0.80 L HCO3/H2CO3 Ratio 23:1 ABG pH 7.46 H ABG pCO2 26.7 L ABG pO2 73.4 L ABG HCO3 18.6 L ABG O2 Saturation 95.7 ABG Base Excess -3.9 FiO2 2L Sodium Potassium Chloride Carbon Dioxide Anion Gap BUN Creatinine Est GFR ( Amer) Est GFR (Non-Af Amer) Glucose Calcium 11/11/17 11/11/17 11/11/17 02:40 06:56 06:56 WBC 12.6 H RBC 4.25 L Hgb 11.9 L Hct 36.0 L MCV 85 MCH 28.0 MCHC 33.0 RDW 16.5 H Plt Count 239 Carbonic Acid HCO3/H2CO3 Ratio ABG pH ABG pCO2 ABG pO2 ABG HCO3 ABG O2 Saturation ABG Base Excess FiO2 Sodium 140.4 139.3 Potassium 3.6 3.5 L Chloride 109 H 110 H Carbon Dioxide 22 21 L Anion Gap 9 8 BUN 18 17 Creatinine 1.13 1.16 Est GFR ( Amer) > 60 > 60 Est GFR (Non-Af Amer) > 60 > 60 Glucose 154 H 158 H Calcium 8.0 L 7.6 L 11/09/17 03:10 Ja[place]gui Catheter Urine Culture - Final NO GROWTH 2 DAYS 11/09/17 11/09/17 11/09/17 03:25 03:25 09:35 Creatine Kinase 121 110 CK-MB (CK-2) 4.44 Troponin I 0.109 11/09/17 11/09/17 11/09/17 09:35 14:20 14:20 Creatine Kinase 147 CK-MB (CK-2) 4.40 4.62 H Troponin I 0.133 0.111 Impressions: Cervical Spine CT 11/08/17 21:20 IMPRESSION: No acute fracture or static listhesis. Head CT 11/08/17 21:20 IMPRESSION: No acute intracranial abnormality. Chest X-Ray 11/11/17 06:00 IMPRESSION: 1. Similar findings when compared to the prior study. There is mild perihilar airspace disease which may reflect pulmonary edema. 2. Remote postsurgical changes of the mediastinum. Assessment & Plan - Diagnosis (1) Acute blood loss anemia Is this a current diagnosis for this admission?: Yes Plan: Impression: Patient now 2 days status post upper endoscopy, clipping of duodenal ulcer bleed; hemodynamically stable; slight drift down in hemoglobin- likely dilutional Recommendations 1. No indication for further intervention 2. Suggested dressing advanced directives, CODE STATUS. 3. will sign off for now.
[2017-11-11] MEDS ORDERED: FUROSEMIDE INJ/PF 20 MG/2 ML SDV IV SCH (10:00)
--- NOTE | 2017-11-11 12:01 | PDOC PROGRESS REPORT ---
Subjective Progress Note for:: 11/11/17 Subjective:: 82-year-old white male admitted with upper gastrointestinal bleed. Taken to the endoscopy suite where a duodenal ulcer was found actively bleeding. Site injected and hemoclips applied.. Patient status post 4 units packed red cells hemoglobin stable at 112 hemodynamically stable. Patient developed encephalopathy likely due to underlying dementia. Has been given Ativan which is calmed him down significantly. Patient Has improved. More awake still confused but able to take p.o. passed swallow study.. Reason For Visit: UPPER GASTROINTESTINAL HEMORRHAGE, HYPOTENSION Physical Exam Vital Signs: Temp Pulse Resp BP Pulse Ox 98.1 F 103 H 26 H 145/78 H 99 11/11/17 10:00 11/11/17 10:00 11/11/17 10:00 11/11/17 10:00 11/11/17 10:00 Intake & Output 11/10/17 11/11/17 11/12/17 06:59 06:59 06:59 Intake Total 195 4326 100 Output Total 500 2215 650 Balance -305 2111 -550 Weight 69.4 kg 69.7 kg General appearance: PRESENT: no acute distress Eye exam: PRESENT: conjunctiva pink, EOMI, PERRLA Neck exam: ABSENT: carotid bruit, JVD, lymphadenopathy, thyromegaly Respiratory exam: PRESENT: clear to auscultation zeferino. ABSENT: rales, rhonchi, wheezes Cardiovascular exam: PRESENT: RRR. ABSENT: diastolic murmur, rubs, systolic murmur Pulses: PRESENT: normal dorsalis pedis pul GI/Abdominal exam: PRESENT: normal bowel sounds, soft. ABSENT: distended, guarding, mass, organolmegaly, rebound, tenderness Extremities exam: PRESENT: full ROM. ABSENT: calf tenderness, clubbing, pedal edema Neurological exam: PRESENT: altered, awake, CN II-XII grossly intact. ABSENT: motor sensory deficit Results Laboratory Results: 11/11/17 06:56 11/11/17 06:56 11/10/17 11/11/17 11/11/17 13:40 00:16 02:35 WBC 14.5 H 14.8 H RBC 4.48 4.60 Hgb 12.4 L 13.0 L Hct 38.3 39.4 MCV 86 86 MCH 27.8 28.3 MCHC 32.5 33.1 RDW 17.0 H 16.9 H Plt Count 277 281 Carbonic Acid 0.80 L HCO3/H2CO3 Ratio 23:1 ABG pH 7.46 H ABG pCO2 26.7 L ABG pO2 73.4 L ABG HCO3 18.6 L ABG O2 Saturation 95.7 ABG Base Excess -3.9 FiO2 2L Sodium Potassium Chloride Carbon Dioxide Anion Gap BUN Creatinine Est GFR ( Amer) Est GFR (Non-Af Amer) Glucose Calcium 11/11/17 11/11/17 11/11/17 02:40 06:56 06:56 WBC 12.6 H RBC 4.25 L Hgb 11.9 L Hct 36.0 L MCV 85 MCH 28.0 MCHC 33.0 RDW 16.5 H Plt Count 239 Carbonic Acid HCO3/H2CO3 Ratio ABG pH ABG pCO2 ABG pO2 ABG HCO3 ABG O2 Saturation ABG Base Excess FiO2 Sodium 140.4 139.3 Potassium 3.6 3.5 L Chloride 109 H 110 H Carbon Dioxide 22 21 L Anion Gap 9 8 BUN 18 17 Creatinine 1.13 1.16 Est GFR ( Amer) > 60 > 60 Est GFR (Non-Af Amer) > 60 > 60 Glucose 154 H 158 H Calcium 8.0 L 7.6 L 11/09/17 03:10 [place]gui Catheter Urine Culture - Final NO GROWTH 2 DAYS 11/09/17 11/09/17 11/09/17 03:25 03:25 09:35 Creatine Kinase 121 110 CK-MB (CK-2) 4.44 Troponin I 0.109 11/09/17 11/09/17 11/09/17 09:35 14:20 14:20 Creatine Kinase 147 CK-MB (CK-2) 4.40 4.62 H Troponin I 0.133 0.111 Impressions: Cervical Spine CT 11/08/17 21:20 IMPRESSION: No acute fracture or static listhesis. Head CT 11/08/17 21:20 IMPRESSION: No acute intracranial abnormality. Chest X-Ray 11/11/17 06:00 IMPRESSION: 1. Similar findings when compared to the prior study. There is mild perihilar airspace disease which may reflect pulmonary edema. 2. Remote postsurgical changes of the mediastinum. Assessment & Plan - Diagnosis (1) Upper GI bleed Is this a current diagnosis for this admission?: Yes Plan: Status post 4 units packed red cells. Hemodynamically stable duodenal ulcer found And hemostasis achieved. Hemoglobin Stable. Transition to Protonix 40 mg IV every 12 hours rather than continuous infusion. Advanced diet to full liquids. (2) Duodenal ulcer Is this a current diagnosis for this admission?: Yes Plan: Hemostasis achieved hold antiplatelet therapy at this time and any other caustic agents continue Protonix IV for an additional 24-48 hours patient continues to remain stable transition to p.o. twice daily. Resume antiplatelet therapy in approximately 7-10 days (3) Acute blood loss anemia Is this a current diagnosis for this admission?: Yes Plan: Continue to monitor every 12 hours H&H is stable over the next 24 hours decreased every 24. Continue Protonix drip (4) Delirium Is this a current diagnosis for this admission?: Yes Plan: As needed Ativan We will add Haldol 2 mg IM every 6 hours as needed. Patient delirium clearing. He is awake enough to take medication. I have resumed his outpatient medications for blood pressure and coronary artery disease. (5) Type 2 diabetes mellitus Qualifiers: Diabetes mellitus manager long term care insulin use: without manager long term care use Diabetes mellitus complication status: without complication Qualified Code(s): E11.9 - Type 2 diabetes mellitus without complications Is this a current diagnosis for this admission?: Yes Plan: Sliding scale coverage.Patient currently n.p.o. we will begin with clear liquids when approved by gastroenterology. (6) Coronary artery disease Is this a current diagnosis for this admission?: Yes Plan: Resume outpatient medications. - Time Time Spent with patient: 25-34 minutes
[2017-11-11] MEDS: LOSARTAN POTASSIUM 50 MG TABLET PO SCH (14:12)
[2017-11-11] MEDS: HYDROCHLOROTHIAZIDE 12.5 MG TABLET PO SCH (14:12)
[2017-11-11] MEDS: DEXTROSE 5%-1/2 NORMAL SALINE 1,000 ML IV PRN ×2 (14:18→21:51)
[2017-11-11] MEDS: PANTOPRAZOLE SODIUM 40 MG VIAL IV SCH (21:51)
[2017-11-11] MEDS: ATORVASTATIN CALCIUM 40 MG TABLET PO SCH (21:55)
[2017-11-11] MEDS ORDERED: AMITRIPTYLINE HCL 25 MG TABLET ONE (22:24)
[2017-11-11] MEDS: AMITRIPTYLINE HCL 25 MG TABLET PO SCH (22:32)
[2017-11-12] MEDS: DEXTROSE 5%-1/2 NORMAL SALINE 1,000 ML IV PRN ×2 (05:08→14:46)
[2017-11-12] MEDS: PIPERACILLIN SODIUM/TAZOBACTAM 3.375 GM in NORMAL SALINE 100 ML IV SCH ×2 (05:09→12:10)
[2017-11-12 06:31] LABS: HEMATOCRIT 36.3 % (37.9-51.0); HEMOGLOBIN 12.2 g/dL (13.5-17.0); MEAN CORPUSCULAR HEMOGLOBIN 28.5 pg (27.0-33.4); MEAN CORPUSCULAR HGB CONC 33.6 g/dL (32.0-36.0); MEAN CORPUSCULAR VOLUME 85 fl (80-97); PLATELET COUNT 269 10^3/uL (150-450); RED BLOOD COUNT 4.28 10^6/uL (4.35-5.55); WHITE BLOOD COUNT 12.8 10^3/uL (4.0-10.5)
[2017-11-12 06:54] LABS: ANION GAP 10 (5-19); BLOOD UREA NITROGEN 12 mg/dL (7-20); CALCIUM 7.8 mg/dL (8.4-10.2); CARBON DIOXIDE 24 mmol/L (22-30); CHLORIDE 105 mmol/L (98-107); GLUCOSE 134 mg/dL (75-110); POTASSIUM 3.2 mmol/L (3.6-5.0); SODIUM 138.6 mmol/L (137-145)
[2017-11-12] MEDS ORDERED: (PENDING PHARMACY ID) (Telmisartan/Hydrochlorothiazid [Telmisartan-Hctz 40-12.5 Mg Tb] 1 E PO SCH (10:00)
[2017-11-12] MEDS ORDERED: LISINOPRIL 10 MG TABLET PO SCH (10:00)
[2017-11-12] MEDS: FERROUS SULFATE 325 MG TABLET PO SCH (10:36)
[2017-11-12] MEDS: PANTOPRAZOLE SODIUM 40 MG VIAL IV SCH (10:36)
[2017-11-12] MEDS: POTASSIUM CHLORIDE 20 MEQ/15 ML UDCUP PO SCH (10:36)
[2017-11-12] MEDS: LOSARTAN POTASSIUM 50 MG TABLET PO SCH (10:36)
[2017-11-12] MEDS: FUROSEMIDE 20 MG TABLET PO SCH (10:36)
[2017-11-12] MEDS: ASPIRIN 81 MG TABLET, ENT COATED PO SCH (10:37)
[2017-11-12] MEDS: HYDROCHLOROTHIAZIDE 12.5 MG TABLET PO SCH (10:37)
--- NOTE | 2017-11-12 16:05 | PDOC PROGRESS REPORT ---
Subjective Progress Note for:: 11/12/17 Subjective:: Patient was seen in the unit, he was admitted for the management of acute upper GI bleed from duodenal ulcer, upper GI endoscopy was done, a broad based ulcer with active bleeding was identified there was a clot present Reason For Visit: UPPER GASTROINTESTINAL HEMORRHAGE, HYPOTENSION Physical Exam Vital Signs: Temp Pulse Resp BP Pulse Ox 98.6 F 90 27 H 142/96 H 96 11/12/17 15:21 11/12/17 14:00 11/12/17 15:21 11/12/17 15:21 11/12/17 15:21 Intake & Output 11/11/17 11/12/17 11/13/17 06:59 06:59 06:59 Intake Total 4326 3320 1000 Output Total 9006 6173 1722 Balance 1107 -811 -700 Weight 69.7 kg 70.1 kg General appearance: PRESENT: no acute distress Eye exam: PRESENT: PERRLA Respiratory exam: PRESENT: clear to auscultation zeferino Cardiovascular exam: PRESENT: +S1, +S2 GI/Abdominal exam: PRESENT: soft Neurological exam: PRESENT: alert, CN II-XII grossly intact Results Laboratory Results: 11/12/17 06:23 11/12/17 06:23 11/12/17 11/12/17 06:23 06:23 WBC 12.8 H RBC 4.28 L Hgb 12.2 L Hct 36.3 L MCV 85 MCH 28.5 MCHC 33.6 RDW 17.0 H Plt Count 269 Sodium 138.6 Potassium 3.2 L Chloride 105 Carbon Dioxide 24 Anion Gap 10 BUN 12 Creatinine 1.12 Est GFR ( Amer) > 60 Est GFR (Non-Af Amer) > 60 Glucose 134 H Calcium 7.8 L Magnesium 1.6 11/09/17 11/09/17 11/09/17 03:25 03:25 09:35 Creatine Kinase 121 110 CK-MB (CK-2) 4.44 Troponin I 0.109 11/09/17 11/09/17 11/09/17 09:35 14:20 14:20 Creatine Kinase 147 CK-MB (CK-2) 4.40 4.62 H Troponin I 0.133 0.111 Impressions: Cervical Spine CT 11/08/17 21:20 IMPRESSION: No acute fracture or static listhesis. Head CT 11/08/17 21:20 IMPRESSION: No acute intracranial abnormality. Chest X-Ray 11/11/17 06:00 IMPRESSION: 1. Similar findings when compared to the prior study. There is mild perihilar airspace disease which may reflect pulmonary edema. 2. Remote postsurgical changes of the mediastinum. Assessment & Plan - Diagnosis (1) Acute upper GI bleed Is this a current diagnosis for this admission?: Yes Plan: There is no active GI bleed ongoing, blood pressure is normal, patient will be downgraded to telemetry (2) Bleeding duodenal ulcer Is this a current diagnosis for this admission?: Yes Plan: Patient still on IV Protonix, we maintain same for now, DC aspirin (3) Coronary artery disease Qualifiers: Coronary Disease-Associated Artery/Lesion type: unspecified vessel or lesion type [place] vs. 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
[2017-11-12] MEDS: METOPROLOL SUCCINATE 25 MG TAB.SR.24H PO SCH (17:21)
[2017-11-12] MEDS: AMITRIPTYLINE HCL 25 MG TABLET PO SCH (21:02)
[2017-11-12] MEDS: ATORVASTATIN CALCIUM 40 MG TABLET PO SCH (21:02)
[2017-11-13 04:21] LABS: HEMATOCRIT 36.9 % (37.9-51.0); HEMOGLOBIN 12.5 g/dL (13.5-17.0); MEAN CORPUSCULAR HEMOGLOBIN 28.5 pg (27.0-33.4); MEAN CORPUSCULAR HGB CONC 33.9 g/dL (32.0-36.0); MEAN CORPUSCULAR VOLUME 84 fl (80-97); PLATELET COUNT 261 10^3/uL (150-450); RED CELL DISTRIBUTION WIDTH 16.9 % (11.5-14.0); WHITE BLOOD COUNT 9.7 10^3/uL (4.0-10.5)
[2017-11-13] MEDS: METOPROLOL SUCCINATE 25 MG TAB.SR.24H PO SCH (09:42)
[2017-11-13] MEDS: FUROSEMIDE 20 MG TABLET PO SCH (09:42)
[2017-11-13] MEDS: POTASSIUM CHLORIDE 20 MEQ/15 ML UDCUP PO SCH (09:42)
[2017-11-13] MEDS: FERROUS SULFATE 325 MG TABLET PO SCH (09:42)
--- NOTE | 2017-11-13 20:08 | PDOC PROGRESS REPORT ---
Subjective Progress Note for:: 11/13/17 Subjective:: Patient was seen by the bedside, yesterday he was downgraded to IMCU bed but no bed is available in IMCU, still in ICU bed. The RN stated that he does experience occasional confusion this could also be because he is in ICU, is still also physically weak Reason For Visit: UPPER GASTROINTESTINAL HEMORRHAGE, HYPOTENSION Physical Exam Vital Signs: Temp Pulse Resp BP Pulse Ox 98.0 F 74 13 121/36 L 98 11/13/17 16:00 11/13/17 08:00 11/13/17 18:00 11/13/17 09:25 11/12/17 19:42 Intake & Output 11/12/17 11/13/17 11/14/17 06:59 06:59 06:59 Intake Total 3320 1975 390 Output Total 3758 1830 500 Balance -435 -1075 -110 Weight 70.1 kg 68.1 kg General appearance: PRESENT: no acute distress, well-developed, well-nourished Head exam: PRESENT: atraumatic, normocephalic Eye exam: PRESENT: conjunctiva pink, EOMI, PERRLA Ear exam: PRESENT: normal external ear exam Mouth exam: PRESENT: moist, tongue midline Neck exam: PRESENT: full ROM Respiratory exam: PRESENT: clear to auscultation zeferino Cardiovascular exam: PRESENT: RRR, +S1, +S2 Pulses: PRESENT: normal dorsalis pedis pul, +2 pedal pulses bilateral Vascular exam: PRESENT: normal capillary refill GI/Abdominal exam: PRESENT: normal bowel sounds, soft Rectal exam: PRESENT: deferred Neurological exam: PRESENT: alert, awake, oriented to person, oriented to place , oriented to time, oriented to situation, CN II-XII grossly intact Psychiatric exam: PRESENT: appropriate affect, normal mood Skin exam: PRESENT: dry, intact, warm Results Laboratory Results: 11/13/17 04:07 11/12/17 06:23 11/13/17 04:07 WBC 9.7 RBC 4.40 Hgb 12.5 L Hct 36.9 L MCV 84 MCH 28.5 MCHC 33.9 RDW 16.9 H Plt Count 261 11/09/17 11/09/17 11/09/17 03:25 03:25 09:35 Creatine Kinase 121 110 CK-MB (CK-2) 4.44 Troponin I 0.109 11/09/17 11/09/17 11/09/17 09:35 14:20 14:20 Creatine Kinase 147 CK-MB (CK-2) 4.40 4.62 H Troponin I 0.133 0.111 Impressions: Cervical Spine CT 11/08/17 21:20 IMPRESSION: No acute fracture or static listhesis. Head CT 11/08/17 21:20 IMPRESSION: No acute intracranial abnormality. Chest X-Ray 11/11/17 06:00 IMPRESSION: 1. Similar findings when compared to the prior study. There is mild perihilar airspace disease which may reflect pulmonary edema. 2. Remote postsurgical changes of the mediastinum. Assessment & Plan - Diagnosis (1) Acute upper GI bleed Is this a current diagnosis for this admission?: Yes Plan: There is no more active bleeding, the antiplatelet to be held because he had open vessel bleeding duodenal ulcer. The IV Protonix is discontinued start p.o. Prevacid. He had a high risk bleeding duodenal ulcer patient of establish cardiovascular disease, aspirin will be resumed since it is 5 days out of endoscopy we will hold off Plavix, he recently had CABG there is no indication for dual antiplatelet drug (2) Bleeding duodenal ulcer Is this a current diagnosis for this admission?: Yes (3) Coronary artery disease Qualifiers: Coronary Disease-Associated Artery/Lesion type: unspecified vessel or lesion type [place] vs. transplanted heart: [place] heart Associated angina: without angina Qualified Code(s): I25.10 - Atherosclerotic heart disease of [place] coronary artery without angina pectoris Is this a current diagnosis for this admission?: Yes (4) Type 2 diabetes mellitus Qualifiers: Diabetes mellitus intermediate insulin use: without termination clerk use Diabetes mellitus complication status: without complication Qualified Code(s): E11.9 - Type 2 diabetes mellitus without complications Is this a current diagnosis for this admission?: Yes
[2017-11-14] MEDS: ATORVASTATIN CALCIUM 40 MG TABLET PO SCH ×2 (00:35→21:31)
[2017-11-14] MEDS: AMITRIPTYLINE HCL 25 MG TABLET PO SCH ×2 (00:35→21:31)
[2017-11-14 05:46] LABS: HEMATOCRIT 38.5 % (37.9-51.0); MEAN CORPUSCULAR HEMOGLOBIN 28.4 pg (27.0-33.4); MEAN CORPUSCULAR HGB CONC 33.7 g/dL (32.0-36.0); MEAN CORPUSCULAR VOLUME 84 fl (80-97); PLATELET COUNT 273 10^3/uL (150-450); RED BLOOD COUNT 4.57 10^6/uL (4.35-5.55); RED CELL DISTRIBUTION WIDTH 16.4 % (11.5-14.0); WHITE BLOOD COUNT 9.9 10^3/uL (4.0-10.5)
[2017-11-14] MEDS: LANSOPRAZOLE 30 MG TAB.RAP.DR PO SCH ×2 (08:05→18:42)
[2017-11-14] MEDS: POTASSIUM CHLORIDE 20 MEQ/15 ML UDCUP PO SCH (09:12)
[2017-11-14] MEDS: FERROUS SULFATE 325 MG TABLET PO SCH (09:12)
[2017-11-14] MEDS: METOPROLOL SUCCINATE 25 MG TAB.SR.24H PO SCH (09:13)
[2017-11-14] MEDS: ASPIRIN 81 MG TABLET, CHEWABLE PO SCH (09:13)
--- NOTE | 2017-11-14 21:14 | PDOC PROGRESS REPORT ---
Subjective Progress Note for:: 11/14/17 Subjective:: Patient was seen by the bedside, he is somewhat confused, he will need rehabilitation Reason For Visit: UPPER GASTROINTESTINAL HEMORRHAGE, HYPOTENSION Physical Exam Vital Signs: Temp Pulse Resp BP Pulse Ox 98.6 F 101 H 16 147/74 H 95 11/14/17 20:05 11/14/17 20:05 11/14/17 20:05 11/14/17 20:05 11/14/17 20:05 Intake & Output 11/13/17 11/14/17 11/15/17 06:59 06:59 06:59 Intake Total 1975 390 315 Output Total 3050 550 Balance -1075 -160 315 Weight 68.1 kg 62.3 kg General appearance: PRESENT: no acute distress Head exam: PRESENT: atraumatic, normocephalic Eye exam: PRESENT: PERRLA Mouth exam: PRESENT: moist, tongue midline Neck exam: PRESENT: full ROM Respiratory exam: PRESENT: clear to auscultation zeferino Cardiovascular exam: PRESENT: RRR, +S1, +S2 Pulses: PRESENT: normal dorsalis pedis pul, +2 pedal pulses bilateral Vascular exam: PRESENT: normal capillary refill GI/Abdominal exam: PRESENT: normal bowel sounds, soft Rectal exam: PRESENT: deferred Neurological exam: PRESENT: alert Psychiatric exam: PRESENT: appropriate affect, normal mood Skin exam: PRESENT: dry, intact, warm Results Laboratory Results: 11/14/17 05:08 11/12/17 06:23 11/14/17 05:08 WBC 9.9 RBC 4.57 Hgb 13.0 L Hct 38.5 MCV 84 MCH 28.4 MCHC 33.7 RDW 16.4 H Plt Count 273 11/09/17 11/09/17 11/09/17 03:25 03:25 09:35 Creatine Kinase 121 110 CK-MB (CK-2) 4.44 Troponin I 0.109 11/09/17 11/09/17 11/09/17 09:35 14:20 14:20 Creatine Kinase 147 CK-MB (CK-2) 4.40 4.62 H Troponin I 0.133 0.111 Impressions: Cervical Spine CT 11/08/17 21:20 IMPRESSION: No acute fracture or static listhesis. Head CT 11/08/17 21:20 IMPRESSION: No acute intracranial abnormality. Chest X-Ray 11/11/17 06:00 IMPRESSION: 1. Similar findings when compared to the prior study. There is mild perihilar airspace disease which may reflect pulmonary edema. 2. Remote postsurgical changes of the mediastinum. Assessment & Plan - Diagnosis (1) Acute upper GI bleed Is this a current diagnosis for this admission?: Yes (2) Bleeding duodenal ulcer Is this a current diagnosis for this admission?: Yes (3) Coronary artery disease Qualifiers: Coronary Disease-Associated Artery/Lesion type: unspecified vessel or lesion type [place] vs. transplanted heart: [place] heart Associated angina: without angina Qualified Code(s): I25.10 - Atherosclerotic heart disease of [place] coronary artery without angina pectoris Is this a current diagnosis for this admission?: Yes (4) Type 2 diabetes mellitus Qualifiers: Diabetes mellitus care home insulin use: without care home use Diabetes mellitus complication status: without complication Qualified Code(s): E11.9 - Type 2 diabetes mellitus without complications Is this a current diagnosis for this admission?: Yes (5) Anemia due to acute blood loss Is this a current diagnosis for this admission?: Yes (6) Hemorrhagic shock Is this a current diagnosis for this admission?: Yes
[2017-11-15] MEDS: LANSOPRAZOLE 30 MG TAB.RAP.DR PO SCH ×2 (05:14→16:51)
[2017-11-15] MEDS: METOPROLOL SUCCINATE 25 MG TAB.SR.24H PO SCH (10:10)
[2017-11-15] MEDS: FERROUS SULFATE 325 MG TABLET PO SCH (10:10)
[2017-11-15] MEDS: ASPIRIN 81 MG TABLET, CHEWABLE PO SCH (10:11)
[2017-11-15] MEDS: POTASSIUM CHLORIDE 20 MEQ/15 ML UDCUP PO SCH (10:11)
--- NOTE | 2017-11-15 13:32 | PDOC PROGRESS REPORT ---
Subjective Progress Note for:: 11/15/17 Subjective:: Patient was seen by the bedside, he has no new complaints Reason For Visit: UPPER GASTROINTESTINAL HEMORRHAGE, HYPOTENSION Physical Exam Vital Signs: Temp Pulse Resp BP Pulse Ox 98.7 F 99 20 139/96 H 96 11/15/17 12:17 11/15/17 12:17 11/15/17 12:17 11/15/17 12:17 11/15/17 12:17 Intake & Output 11/14/17 11/15/17 11/16/17 06:59 06:59 06:59 Intake Total 390 552 237 Output Total 550 Balance -160 552 237 Weight 62.3 kg 65.4 kg General appearance: PRESENT: no acute distress Eye exam: PRESENT: PERRLA Respiratory exam: PRESENT: clear to auscultation zeferino Cardiovascular exam: PRESENT: +S1, +S2 GI/Abdominal exam: PRESENT: soft Neurological exam: PRESENT: alert Results Laboratory Results: 11/14/17 05:08 11/12/17 06:23 11/09/17 11/09/17 11/09/17 03:25 03:25 09:35 Creatine Kinase 121 110 CK-MB (CK-2) 4.44 Troponin I 0.109 11/09/17 11/09/17 11/09/17 09:35 14:20 14:20 Creatine Kinase 147 CK-MB (CK-2) 4.40 4.62 H Troponin I 0.133 0.111 Impressions: Cervical Spine CT 11/08/17 21:20 IMPRESSION: No acute fracture or static listhesis. Head CT 11/08/17 21:20 IMPRESSION: No acute intracranial abnormality. Chest X-Ray 11/11/17 06:00 IMPRESSION: 1. Similar findings when compared to the prior study. There is mild perihilar airspace disease which may reflect pulmonary edema. 2. Remote postsurgical changes of the mediastinum. Assessment & Plan - Diagnosis (1) Acute upper GI bleed Is this a current diagnosis for this admission?: Yes (2) Bleeding duodenal ulcer Is this a current diagnosis for this admission?: Yes (3) Coronary artery disease Qualifiers: Coronary Disease-Associated Artery/Lesion type: unspecified vessel or lesion type [place] vs. transplanted heart: [place] heart Associated angina: without angina Qualified Code(s): I25.10 - Atherosclerotic heart disease of [place] coronary artery without angina pectoris Is this a current diagnosis for this admission?: Yes (4) Type 2 diabetes mellitus Qualifiers: Diabetes mellitus termite treater insulin use: without termite treater use Diabetes mellitus complication status: without complication Qualified Code(s): E11.9 - Type 2 diabetes mellitus without complications Is this a current diagnosis for this admission?: Yes (5) Anemia due to acute blood loss Is this a current diagnosis for this admission?: Yes (6) Hemorrhagic shock Is this a current diagnosis for this admission?: Yes
[2017-11-15] MEDS: ATORVASTATIN CALCIUM 40 MG TABLET PO SCH (22:04)
[2017-11-15] MEDS: AMITRIPTYLINE HCL 25 MG TABLET PO SCH (22:04)
[2017-11-16] MEDS: LANSOPRAZOLE 30 MG TAB.RAP.DR PO SCH ×2 (05:19→17:49)
[2017-11-16] MEDS: POTASSIUM CHLORIDE 20 MEQ/15 ML UDCUP PO SCH (09:03)
[2017-11-16] MEDS: ASPIRIN 81 MG TABLET, CHEWABLE PO SCH (09:03)
[2017-11-16] MEDS: METOPROLOL SUCCINATE 25 MG TAB.SR.24H PO SCH (09:03)
[2017-11-16] MEDS: FERROUS SULFATE 325 MG TABLET PO SCH (09:03)
[2017-11-16 13:54] LABS: BLOOD UREA NITROGEN 27 mg/dL (7-20); CALCIUM 8.9 mg/dL (8.4-10.2); CHLORIDE 101 mmol/L (98-107); GLUCOSE 169 mg/dL (75-110); POTASSIUM 4.3 mmol/L (3.6-5.0)
[2017-11-16 13:55] LABS: ABSOLUTE EOSINOPHILS # (AUTO) 0.4 10^3/uL (0.0-0.6); ABSOLUTE LYMPHOCYTES (AUTO) 2.2 10^3/uL (0.5-4.7); ABSOLUTE MONOCYTES (AUTO) 1.2 10^3/uL (0.1-1.4); ABSOLUTE NEUT (AUTO) 10.2 10^3/uL (1.7-8.2); ANION GAP 7 (5-19); BASOPHILS % (AUTO) 0.3 % (0-2); CARBON DIOXIDE 31 mmol/L (22-30); EOSINOPHILS % (AUTO) 2.8 % (0-6); HEMATOCRIT 35.5 % (37.9-51.0); HEMOGLOBIN 11.6 g/dL (13.5-17.0); MEAN CORPUSCULAR HGB CONC 32.6 g/dL (32.0-36.0); MEAN CORPUSCULAR VOLUME 86 fl (80-97); MONOCYTES % (AUTO) 8.2 % (3-13); PLATELET COUNT 373 10^3/uL (150-450); RED BLOOD COUNT 4.15 10^6/uL (4.35-5.55); RED CELL DISTRIBUTION WIDTH 16.5 % (11.5-14.0); SEGMENTED NEUTROPHILS % (AUTO) 72.7 % (42-78); SODIUM 139.1 mmol/L (137-145); TOTAL CELLS COUNTED % (AUTO) 100 %
[2017-11-16] MEDS ORDERED: DEXTROSE 50%-WATER 25 GM/50 ML DISP.SYRIN IV PRN (14:20)
[2017-11-16] MEDS ORDERED: [UNRECOGNIZED DRUG - OTHER] IV PRN (14:21)
[2017-11-16] MEDS ORDERED: NORMAL SALINE 100 ML with PANTOPRAZOLE SODIUM 80 MG IV PRN ×2 (14:34)
--- NOTE | 2017-11-16 14:36 | PDOC PROGRESS REPORT ---
Subjective Progress Note for:: 11/16/17 Subjective:: large bloody bowel movement roday; no c/o Reason For Visit: UPPER GASTROINTESTINAL HEMORRHAGE, HYPOTENSION Physical Exam Vital Signs: Temp Pulse Resp BP Pulse Ox 97.4 F 93 18 124/63 98 11/16/17 11:57 11/16/17 11:57 11/16/17 11:57 11/16/17 11:57 11/16/17 11:57 Intake & Output 11/15/17 11/16/17 11/17/17 06:59 06:59 06:59 Intake Total 552 846 200 Output Total 200 Balance 552 646 200 Weight 65.4 kg 66.6 kg General appearance: PRESENT: no acute distress, cooperative GI/Abdominal exam: PRESENT: soft Results Laboratory Results: 11/16/17 13:23 11/16/17 13:23 11/16/17 11/16/17 11/16/17 13:23 13:23 13:23 WBC 14.0 H RBC 4.15 L Hgb 11.6 L Hct 35.5 L MCV 86 MCH 28.0 MCHC 32.6 RDW 16.5 H Plt Count 373 Seg Neutrophils % 72.7 Lymphocytes % 16.0 Monocytes % 8.2 Eosinophils % 2.8 Basophils % 0.3 Absolute Neutrophils 10.2 H Absolute Lymphocytes 2.2 Absolute Monocytes 1.2 Absolute Eosinophils 0.4 Absolute Basophils 0.0 Sodium 139.1 Potassium 4.3 Chloride 101 Carbon Dioxide 31 H Anion Gap 7 BUN 27 H Creatinine 0.97 Est GFR ( Amer) > 60 Est GFR (Non-Af Amer) > 60 Glucose 169 H Calcium 8.9 Blood Type O POSITIVE Antibody Screen NEGATIVE 11/10/17 19:30 Blood Blood Culture - Final NO GROWTH IN 5 DAYS 11/10/17 18:38 Blood Blood Culture - Final NO GROWTH IN 5 DAYS 11/09/17 11/09/17 11/09/17 03:25 03:25 09:35 Creatine Kinase 121 110 CK-MB (CK-2) 4.44 Troponin I 0.109 11/09/17 11/09/17 11/09/17 09:35 14:20 14:20 Creatine Kinase 147 CK-MB (CK-2) 4.40 4.62 H Troponin I 0.133 0.111 Impressions: Cervical Spine CT 11/08/17 21:20 IMPRESSION: No acute fracture or static listhesis. Head CT 11/08/17 21:20 IMPRESSION: No acute intracranial abnormality. Chest X-Ray 11/11/17 06:00 IMPRESSION: 1. Similar findings when compared to the prior study. There is mild perihilar airspace disease which may reflect pulmonary edema. 2. Remote postsurgical changes of the mediastinum. Assessment & Plan - Diagnosis (1) Acute upper GI bleed Is this a current diagnosis for this admission?: Yes - Plan Summary Plan Summary: A/ large bloody bowel movement today, blood stools yesterday patient on ASA due to his recent heart surgery H/H dropped from 13/38 to 11/35 VSS, Afebrile, no tachycardia Patient restarted oin ASA on 11/13 due to his recent heart surgery P/ NPO NS 100 mL/hr Start protonix drip Transfuse 1 pheresis units of platelets Consent for EGD and control of upper gastrointestinal bleeding procedure, risk, benefits, wxplained to the patient, he understands all the above, his questions were answered, and decides to proceed Transfer to ICU after procedure
[2017-11-16] MEDS ORDERED: EPINEPHRINE INJ 1 MG/10 ML DISP.SYRIN ONE (15:03)
[2017-11-16] MEDS ORDERED: DEXTROSE 50%-WATER 25 GM/50 ML DISP.SYRIN IV ONE (15:03)
[2017-11-16] MEDS ORDERED: FENTANYL CITRATE INJ/PF 250 MCG/5 ML AMPULE ONE (16:01)
[2017-11-16] MEDS ORDERED: MIDAZOLAM 2 MG/2 ML INJ ONE (16:02)
[2017-11-16] MEDS ORDERED: PROPOFOL INJ 200 MG/20 ML VIAL IV ONE (16:02)
--- NOTE | 2017-11-16 17:06 | Operative Report ---
Nonrecallable Operative Report DATE OF SURGERY: 11/16/17 PREOPERATIVE DIAGNOSIS: Hx of anemia. S/p clipping or bleeding duodenal ulcer. Melena and hematochetia POSTOPERATIVE DIAGNOSIS: same. Normal EGD. No evidence of recent upper gastrointestinal bleeding OPERATION: EGD SURGEON: SIMON LUNSFORD ANESTHESIA: LMAC TISSUE REMOVED OR ALTERED: n/a COMPLICATIONS: none ESTIMATED BLOOD LOSS: n/a INTRAOPERATIVE FINDINGS: no evidence of upper gastrointestinal bleeding. presence of endoclips placed on first portion of duodenum ulcer PROCEDURE: see dictation
[2017-11-16] MEDS ORDERED: ONDANSETRON HCL INJ/PF 4 MG/2 ML SDV IV PRN (17:08)
[2017-11-16] MEDS ORDERED: DIPHENHYDRAMINE HCL 50 MG/ML VIAL IV PRN (17:10)
[2017-11-16] MEDS ORDERED: FENTANYL CITRATE INJ/PF 100 MCG/2 ML AMPUL IV PRN ×3 (17:10)
[2017-11-16] MEDS ORDERED: MEPERIDINE HCL/PF INJ 25 MG/1 ML DISP.SYRIN IV PRN (17:10)
[2017-11-16] MEDS ORDERED: PROMETHAZINE HCL INJ 25 MG/1 ML VIAL IV PRN (17:10)
[2017-11-16] MEDS: FAMOTIDINE INJ/PF 20 MG/2 ML SDV IV SCH (17:49)
--- NOTE | 2017-11-16 19:08 | PDOC PROGRESS REPORT ---
Subjective Progress Note for:: 11/16/17 Subjective:: Patient was seen by the bedside, the RN stated that patient had episode of passage of large bloody stool, because he has high risk duodenal active bleeding ulcer with chance of rebleeding consultation was requested from surgery , patient underwent emergent upper endoscopy but it was normal duodenal, endoclips were found in the duodenal that was applied when he presented with acute upper GI bleed. It was felt that the passage of the bloody stool could be old blood Reason For Visit: UPPER GASTROINTESTINAL HEMORRHAGE, HYPOTENSION Physical Exam Vital Signs: Temp Pulse Resp BP Pulse Ox 98.1 F 82 14 113/49 L 97 11/16/17 17:30 11/16/17 17:30 11/16/17 17:30 11/16/17 17:30 11/16/17 17:30 Intake & Output 11/15/17 11/16/17 11/17/17 06:59 06:59 06:59 Intake Total 844 317 6712 Output Total 200 0 Balance 197 471 8826 Weight 65.4 kg 66.6 kg General appearance: PRESENT: no acute distress, well-developed, well-nourished Head exam: PRESENT: atraumatic, normocephalic Eye exam: PRESENT: conjunctiva pink, EOMI, PERRLA Ear exam: PRESENT: normal external ear exam Mouth exam: PRESENT: moist, tongue midline Neck exam: PRESENT: full ROM Respiratory exam: PRESENT: clear to auscultation zeferino Cardiovascular exam: PRESENT: RRR, +S1, +S2 Pulses: PRESENT: normal dorsalis pedis pul, +2 pedal pulses bilateral Vascular exam: PRESENT: normal capillary refill GI/Abdominal exam: PRESENT: normal bowel sounds, soft Rectal exam: PRESENT: deferred Neurological exam: PRESENT: alert, awake, oriented to person, oriented to place , oriented to time, oriented to situation, CN II-XII grossly intact Psychiatric exam: PRESENT: appropriate affect, normal mood Skin exam: PRESENT: dry, intact, warm Results Laboratory Results: 11/16/17 13:23 11/16/17 13:23 11/16/17 11/16/17 11/16/17 13:23 13:23 13:23 WBC 14.0 H RBC 4.15 L Hgb 11.6 L Hct 35.5 L MCV 86 MCH 28.0 MCHC 32.6 RDW 16.5 H Plt Count 373 Seg Neutrophils % 72.7 Lymphocytes % 16.0 Monocytes % 8.2 Eosinophils % 2.8 Basophils % 0.3 Absolute Neutrophils 10.2 H Absolute Lymphocytes 2.2 Absolute Monocytes 1.2 Absolute Eosinophils 0.4 Absolute Basophils 0.0 Sodium 139.1 Potassium 4.3 Chloride 101 Carbon Dioxide 31 H Anion Gap 7 BUN 27 H Creatinine 0.97 Est GFR ( Amer) > 60 Est GFR (Non-Af Amer) > 60 Glucose 169 H Calcium 8.9 Blood Type O POSITIVE Antibody Screen NEGATIVE 11/10/17 19:30 Blood Blood Culture - Final NO GROWTH IN 5 DAYS 11/10/17 18:38 Blood Blood Culture - Final NO GROWTH IN 5 DAYS 11/09/17 11/09/17 11/09/17 03:25 03:25 09:35 Creatine Kinase 121 110 CK-MB (CK-2) 4.44 Troponin I 0.109 11/09/17 11/09/17 11/09/17 09:35 14:20 14:20 Creatine Kinase 147 CK-MB (CK-2) 4.40 4.62 H Troponin I 0.133 0.111 Impressions: Cervical Spine CT 11/08/17 21:20 IMPRESSION: No acute fracture or static listhesis. Head CT 11/08/17 21:20 IMPRESSION: No acute intracranial abnormality. Chest X-Ray 11/11/17 06:00 IMPRESSION: 1. Similar findings when compared to the prior study. There is mild perihilar airspace disease which may reflect pulmonary edema. 2. Remote postsurgical changes of the mediastinum. Assessment & Plan - Diagnosis (1) Acute upper GI bleed Is this a current diagnosis for this admission?: Yes (2) Bleeding duodenal ulcer Is this a current diagnosis for this admission?: Yes (3) Coronary artery disease Qualifiers: Coronary Disease-Associated Artery/Lesion type: unspecified vessel or lesion type [place] vs. transplanted heart: [place] heart Associated angina: without angina Qualified Code(s): I25.10 - Atherosclerotic heart disease of [place] coronary artery without angina pectoris Is this a current diagnosis for this admission?: Yes (4) Type 2 diabetes mellitus Qualifiers: Diabetes mellitus correction insulin use: without correction use Diabetes mellitus complication status: without complication Qualified Code(s): E11.9 - Type 2 diabetes mellitus without complications Is this a current diagnosis for this admission?: Yes (5) Anemia due to acute blood loss Is this a current diagnosis for this admission?: Yes (6) Hemorrhagic shock Is this a current diagnosis for this admission?: Yes
[2017-11-16] MEDS: NORMAL SALINE 1000 ML 1,000 ML IV PRN (21:17)
[2017-11-16] MEDS: ATORVASTATIN CALCIUM 40 MG TABLET PO SCH (21:24)
[2017-11-16] MEDS: AMITRIPTYLINE HCL 25 MG TABLET PO SCH (21:24)
--- NOTE | 2017-11-17 00:21 | OPERATIVE REPORT E ---
Operative Report NAME: ELMER SALMERON : 1935 AGE: 82Y DATE OF SURGERY: 11/16/2017 ROOM: 323 PREOPERATIVE DIAGNOSIS: 1. STATUS POST EGD WITH CLIPPING OF BLEEDING DUODENAL ULCER. 2. ANEMIA. 3. MELENA WITH HEMATOCHEZIA. POSTOPERATIVE DIAGNOSIS: 1. STATUS POST EGD WITH CLIPPING OF BLEEDING DUODENAL ULCER. 2. ANEMIA. 3. MELENA WITH HEMATOCHEZIA. OPERATION: Negative upper gastroduodenoscopy. SURGEON: SIMON LUNSFORD M.D. GROUNDS FOREMAN: None. BLEEDING COMPLICATION: None. ANESTHESIA: MAC provided by anesthesiologist. INDICATION AND FINDINGS: This is an 82-year-old male who presented to the hospital on 11/08/17, with acute anemia, hematochezia, melena, hypotension; was transferred to the ICU. He underwent blood transfusion and the following day the patient underwent an upper endoscopy there was bleeding duodenal ulcer which was controlled with placement of Endoclips. The procedure was well-tolerated. The patient was postoperatively did well. His hemoglobin and hematocrit remained stable. He was transferred to the floor and placed on a diet. Risk factor is oral aspirin. However, today I was called by the nurse who reported the presence of blood in the stools, a mixture of melena and hematochezia. Hemoglobin and hematocrit slightly decreased since yesterday from 15 and 38 respectively to today's 11 and 35 respectively, and decision was made to take the patient urgently to the endoscopy suite/to surgery to undergo and upper endoscopy for possible control of rebleeding duodenal ulcer. The procedure, risks, benefits, and complications explained to the patient. He understood all of the above and decided to proceed. DETAILS OF PROCEDURE: The procedure was done in the operating room. The patient was placed in the lateral decubitus. IV sedation provided by anesthesiologist with MAC anesthesia. Mouth piece was in place between the patient's and jaws and the scope was inserted through the mouth into the esophagus, stomach, duodenum. Preparation was good. The esophagus and stomach were free from blood. Slight hyperemia of the gastric mucosa was identified. The scope was then advanced to the duodenum to the antrum pylorus and then into the duodenum. Endoclips were noted in the area of the first portion of the duodenum, in good position as previously placed during endoscopy 11/09, no evidence of active bleeding was noted. No blood clots or blood was seen. The instrument was then advanced to the second and third portion of the duodenum and no evidence of bleeding was noted. At this point the instrument was slowly withdrawn, again into the first portion of the duodenum, stomach, esophagus with no evidence of bleeding seen. The instruments were removed. The patient tolerated the procedure well. He was transferred to the recovery room in satisfactory condition. DICTATING PHYSICIAN: SIMON LUNSFORD M.D. [id number] PHY#: [id number] ID: [id number] JOB#: [id number] ACCT: [id number] cc:SIMON LUNSFORD M.D. > MTDD
[2017-11-17 05:18] LABS: ABSOLUTE EOSINOPHILS # (AUTO) 0.6 10^3/uL (0.0-0.6); ABSOLUTE LYMPHOCYTES (AUTO) 1.3 10^3/uL (0.5-4.7); ABSOLUTE MONOCYTES (AUTO) 0.8 10^3/uL (0.1-1.4); ABSOLUTE NEUT (AUTO) 7.2 10^3/uL (1.7-8.2); BASOPHILS % (AUTO) 0.4 % (0-2); EOSINOPHILS % (AUTO) 5.8 % (0-6); HEMATOCRIT 27.2 % (37.9-51.0); LYMPHOCYTES % (AUTO) 13.3 % (13-45); MEAN CORPUSCULAR HEMOGLOBIN 29.2 pg (27.0-33.4); MEAN CORPUSCULAR HGB CONC 34.2 g/dL (32.0-36.0); MEAN CORPUSCULAR VOLUME 86 fl (80-97); MONOCYTES % (AUTO) 7.9 % (3-13); PLATELET COUNT 216 10^3/uL (150-450); RED BLOOD COUNT 3.18 10^6/uL (4.35-5.55); RED CELL DISTRIBUTION WIDTH 16.4 % (11.5-14.0); SEGMENTED NEUTROPHILS % (AUTO) 72.6 % (42-78); TOTAL CELLS COUNTED % (AUTO) 100 %; WHITE BLOOD COUNT 9.8 10^3/uL (4.0-10.5)
[2017-11-17 05:21] LABS: HEMOGLOBIN 9.3 g/dL (13.5-17.0)
[2017-11-17 05:45] LABS: ANION GAP 6 (5-19); BLOOD UREA NITROGEN 22 mg/dL (7-20); CALCIUM 8.1 mg/dL (8.4-10.2); CARBON DIOXIDE 27 mmol/L (22-30); CHLORIDE 108 mmol/L (98-107); GLUCOSE 100 mg/dL (75-110); POTASSIUM 3.5 mmol/L (3.6-5.0); SODIUM 141.4 mmol/L (137-145)
[2017-11-17] MEDS: FAMOTIDINE INJ/PF 20 MG/2 ML SDV IV SCH ×2 (05:48→18:55)
[2017-11-17] MEDS: LANSOPRAZOLE 30 MG TAB.RAP.DR PO SCH ×2 (05:49→18:55)
[2017-11-17] MEDS: NORMAL SALINE 1000 ML 1,000 ML IV PRN ×2 (08:00→18:03)
--- NOTE | 2017-11-17 09:52 | PDOC PROGRESS REPORT ---
Subjective Progress Note for:: 11/17/17 Subjective:: No complaints; patient reportedly had old bloody bowel movement yesterday; no bleeding overnight; hemoglobin down to 9.3 Reason For Visit: UPPER GASTROINTESTINAL HEMORRHAGE, HYPOTENSION Physical Exam Vital Signs: Temp Pulse Resp BP Pulse Ox 97.5 F 75 20 145/47 H 98 11/17/17 07:14 11/17/17 07:14 11/17/17 07:14 11/17/17 07:14 11/17/17 07:14 Intake & Output 11/16/17 11/17/17 11/18/17 06:59 06:59 06:59 Intake Total 846 1177 997 Output Total 200 400 Balance 646 777 997 Weight 66.6 kg 65.5 kg General appearance: PRESENT: no acute distress, other - Patient arouses follows simple commands; no eye tracking GI/Abdominal exam: PRESENT: other - Soft, nontender no distention Results Laboratory Results: 11/17/17 04:58 11/17/17 04:58 11/16/17 11/16/17 11/16/17 13:23 13:23 13:23 WBC 14.0 H RBC 4.15 L Hgb 11.6 L Hct 35.5 L MCV 86 MCH 28.0 MCHC 32.6 RDW 16.5 H Plt Count 373 Seg Neutrophils % 72.7 Lymphocytes % 16.0 Monocytes % 8.2 Eosinophils % 2.8 Basophils % 0.3 Absolute Neutrophils 10.2 H Absolute Lymphocytes 2.2 Absolute Monocytes 1.2 Absolute Eosinophils 0.4 Absolute Basophils 0.0 Sodium 139.1 Potassium 4.3 Chloride 101 Carbon Dioxide 31 H Anion Gap 7 BUN 27 H Creatinine 0.97 Est GFR ( Amer) > 60 Est GFR (Non-Af Amer) > 60 Glucose 169 H Calcium 8.9 Blood Type O POSITIVE Antibody Screen NEGATIVE 11/17/17 11/17/17 04:58 04:58 WBC 9.8 RBC 3.18 L Hgb 9.3 L D Hct 27.2 L MCV 86 MCH 29.2 MCHC 34.2 RDW 16.4 H Plt Count 216 Seg Neutrophils % 72.6 Lymphocytes % 13.3 Monocytes % 7.9 Eosinophils % 5.8 Basophils % 0.4 Absolute Neutrophils 7.2 Absolute Lymphocytes 1.3 Absolute Monocytes 0.8 Absolute Eosinophils 0.6 Absolute Basophils 0.0 Sodium 141.4 Potassium 3.5 L Chloride 108 H Carbon Dioxide 27 Anion Gap 6 BUN 22 H Creatinine 0.87 Est GFR ( Amer) > 60 Est GFR (Non-Af Amer) > 60 Glucose 100 Calcium 8.1 L Blood Type Antibody Screen 11/09/17 11/09/17 11/09/17 03:25 03:25 09:35 Creatine Kinase 121 110 CK-MB (CK-2) 4.44 Troponin I 0.109 11/09/17 11/09/17 11/09/17 09:35 14:20 14:20 Creatine Kinase 147 CK-MB (CK-2) 4.40 4.62 H Troponin I 0.133 0.111 Impressions: Cervical Spine CT 11/08/17 21:20 IMPRESSION: No acute fracture or static listhesis. Head CT 11/08/17 21:20 IMPRESSION: No acute intracranial abnormality. Chest X-Ray 11/11/17 06:00 IMPRESSION: 1. Similar findings when compared to the prior study. There is mild perihilar airspace disease which may reflect pulmonary edema. 2. Remote postsurgical changes of the mediastinum. Assessment & Plan - Diagnosis (1) Acute blood loss anemia Is this a current diagnosis for this admission?: Yes (2) Acute upper GI bleed Is this a current diagnosis for this admission?: Yes Plan: Impression: Status post upper endoscopy 2; therapeutic clip placement; surveillance upper endoscopy with no evidence of repeat bleeding Recommendations: 1. I spoke with patient's daughter, Kacy, this morning on the phone. Patient is never had a colonoscopy. Risk of colorectal carcinoma felt to be average; patient daughter is also confronted with patient's who has long-term care needs. 2. I reviewed the CODE STATUS with the patient's daughter who is the healthcare power of senior trial attorney which is a full CODE STATUS. She would like to proceed with appropriate diagnostic and interventional services. Specifically if the hemoglobin drops, with the patient has additional bloody bowel movement, then colonoscopy is indicated. She would like to proceed accordingly. 3. We will follow hemoglobin and clinical course today; if patient deteriorates , will proceed with bowel prep, and colonoscopy. (3) Delirium Is this a current diagnosis for this admission?: Yes (4) Duodenal ulcer Is this a current diagnosis for this admission?: Yes (5) Type 2 diabetes mellitus Qualifiers: Diabetes mellitus termite inspector insulin use: without termite inspector use Diabetes mellitus complication status: without complication Qualified Code(s): E11.9 - Type 2 diabetes mellitus without complications Is this a current diagnosis for this admission?: Yes
[2017-11-17] MEDS: ASPIRIN 81 MG TABLET, CHEWABLE PO SCH (10:06)
[2017-11-17] MEDS: POTASSIUM CHLORIDE 20 MEQ/15 ML UDCUP PO SCH (10:06)
[2017-11-17] MEDS: METOPROLOL SUCCINATE 25 MG TAB.SR.24H PO SCH (10:06)
[2017-11-17] MEDS: FERROUS SULFATE 325 MG TABLET PO SCH (10:06)
--- NOTE | 2017-11-17 20:42 | PDOC PROGRESS REPORT ---
Subjective Progress Note for:: 11/17/17 Subjective:: Patient is very confused today, putting on IV lines, in soft restraints, given low dose lorazepam Reason For Visit: UPPER GASTROINTESTINAL HEMORRHAGE, HYPOTENSION Physical Exam Vital Signs: Temp Pulse Resp BP Pulse Ox 98.6 F 92 17 127/44 H 100 11/17/17 12:09 11/17/17 14:00 11/17/17 12:09 11/17/17 12:09 11/17/17 12:09 Intake & Output 11/16/17 11/17/17 11/18/17 06:59 06:59 06:59 Intake Total 846 1177 2147 Output Total 200 400 275 Balance 315 319 3846 Weight 66.6 kg 65.5 kg General appearance: PRESENT: no acute distress Eye exam: PRESENT: PERRLA Respiratory exam: PRESENT: clear to auscultation zeferino Cardiovascular exam: PRESENT: +S1, +S2 GI/Abdominal exam: PRESENT: soft Neurological exam: PRESENT: alert Results Laboratory Results: 11/17/17 04:58 11/17/17 04:58 11/17/17 11/17/17 04:58 04:58 WBC 9.8 RBC 3.18 L Hgb 9.3 L D Hct 27.2 L MCV 86 MCH 29.2 MCHC 34.2 RDW 16.4 H Plt Count 216 Seg Neutrophils % 72.6 Lymphocytes % 13.3 Monocytes % 7.9 Eosinophils % 5.8 Basophils % 0.4 Absolute Neutrophils 7.2 Absolute Lymphocytes 1.3 Absolute Monocytes 0.8 Absolute Eosinophils 0.6 Absolute Basophils 0.0 Sodium 141.4 Potassium 3.5 L Chloride 108 H Carbon Dioxide 27 Anion Gap 6 BUN 22 H Creatinine 0.87 Est GFR ( Amer) > 60 Est GFR (Non-Af Amer) > 60 Glucose 100 Calcium 8.1 L 11/09/17 11/09/17 11/09/17 03:25 03:25 09:35 Creatine Kinase 121 110 CK-MB (CK-2) 4.44 Troponin I 0.109 11/09/17 11/09/17 11/09/17 09:35 14:20 14:20 Creatine Kinase 147 CK-MB (CK-2) 4.40 4.62 H Troponin I 0.133 0.111 Impressions: Cervical Spine CT 11/08/17 21:20 IMPRESSION: No acute fracture or static listhesis. Head CT 11/08/17 21:20 IMPRESSION: No acute intracranial abnormality. Chest X-Ray 11/11/17 06:00 IMPRESSION: 1. Similar findings when compared to the prior study. There is mild perihilar airspace disease which may reflect pulmonary edema. 2. Remote postsurgical changes of the mediastinum. Assessment & Plan - Diagnosis (1) Acute upper GI bleed Is this a current diagnosis for this admission?: Yes (2) Bleeding duodenal ulcer Is this a current diagnosis for this admission?: Yes (3) Coronary artery disease Qualifiers: Coronary Disease-Associated Artery/Lesion type: unspecified vessel or lesion type [place] vs. transplanted heart: [place] heart Associated angina: without angina Qualified Code(s): I25.10 - Atherosclerotic heart disease of [place] coronary artery without angina pectoris Is this a current diagnosis for this admission?: Yes (4) Type 2 diabetes mellitus Qualifiers: Diabetes mellitus extermination inspector insulin use: without extermination inspector use Diabetes mellitus complication status: without complication Qualified Code(s): E11.9 - Type 2 diabetes mellitus without complications Is this a current diagnosis for this admission?: Yes (5) Anemia due to acute blood loss Is this a current diagnosis for this admission?: Yes (6) Hemorrhagic shock Is this a current diagnosis for this admission?: Yes (7) Delirium Is this a current diagnosis for this admission?: Yes Plan: The etiology is not clear
[2017-11-17] MEDS ORDERED: POTASSI CL 20 MEQ/50 ML RIDER 20 MEQ/50 ML RTUPB IV ONE (21:00)
[2017-11-17] MEDS ORDERED: PEG 3350/NA SULF,BICARB,CL/KCL 4000 ML PO ONE (21:00)
[2017-11-17] MEDS: AMITRIPTYLINE HCL 25 MG TABLET PO SCH (21:37)
[2017-11-17] MEDS: ATORVASTATIN CALCIUM 40 MG TABLET PO SCH (21:37)
[2017-11-18 02:29] LABS: ANION GAP 9 (5-19); BLOOD UREA NITROGEN 14 mg/dL (7-20); CALCIUM 7.5 mg/dL (8.4-10.2); CARBON DIOXIDE 21 mmol/L (22-30); CHLORIDE 112 mmol/L (98-107); GLUCOSE 79 mg/dL (75-110); POTASSIUM 3.9 mmol/L (3.6-5.0); SODIUM 141.5 mmol/L (137-145)
[2017-11-18] MEDS: NORMAL SALINE 1000 ML 1,000 ML IV PRN ×3 (02:35→23:30)
[2017-11-18] MEDS ORDERED: GLUCAGON,HUMAN RECOMB 1 MG INJ SUBCUT PRN (02:36)
[2017-11-18] MEDS ORDERED: DEXTROSE 50%-WATER 25 GM/50 ML DISP.SYRIN IV PRN ×2 (02:36)
[2017-11-18] MEDS ORDERED: DEXTROSE 40% GEL 15 GM TUBE PO PRN (02:36)
[2017-11-18] MEDS: FAMOTIDINE INJ/PF 20 MG/2 ML SDV IV SCH ×2 (05:45→17:29)
[2017-11-18] MEDS: LANSOPRAZOLE 30 MG TAB.RAP.DR PO SCH ×2 (05:45→17:29)
[2017-11-18 06:36] LABS: ABSOLUTE BASOPHILS # (AUTO) 0.1 10^3/uL (0.0-0.2); ABSOLUTE EOSINOPHILS # (AUTO) 0.5 10^3/uL (0.0-0.6); ABSOLUTE LYMPHOCYTES (AUTO) 1.3 10^3/uL (0.5-4.7); ABSOLUTE MONOCYTES (AUTO) 0.7 10^3/uL (0.1-1.4); ABSOLUTE NEUT (AUTO) 6.8 10^3/uL (1.7-8.2); BASOPHILS % (AUTO) 0.6 % (0-2); HEMATOCRIT 28.1 % (37.9-51.0); HEMOGLOBIN 9.3 g/dL (13.5-17.0); LYMPHOCYTES % (AUTO) 14.1 % (13-45); MEAN CORPUSCULAR HEMOGLOBIN 28.3 pg (27.0-33.4); MEAN CORPUSCULAR VOLUME 86 fl (80-97); MONOCYTES % (AUTO) 7.1 % (3-13); PLATELET COUNT 233 10^3/uL (150-450); RED BLOOD COUNT 3.28 10^6/uL (4.35-5.55); RED CELL DISTRIBUTION WIDTH 16.3 % (11.5-14.0); SEGMENTED NEUTROPHILS % (AUTO) 73.2 % (42-78); TOTAL CELLS COUNTED % (AUTO) 100 %; WHITE BLOOD COUNT 9.3 10^3/uL (4.0-10.5)
[2017-11-18] MEDS: LORAZEPAM INJ 2 MG/1 ML VIAL IV PRN (06:37)
[2017-11-18 07:00] LABS: ANION GAP 9 (5-19); BLOOD UREA NITROGEN 14 mg/dL (7-20); CALCIUM 7.7 mg/dL (8.4-10.2); CARBON DIOXIDE 22 mmol/L (22-30); CHLORIDE 110 mmol/L (98-107); GLUCOSE 75 mg/dL (75-110)
[2017-11-18] MEDS ORDERED: ONDANSETRON HCL INJ/PF 4 MG/2 ML SDV ONE (09:55)
[2017-11-18] MEDS ORDERED: DIPHENHYDRAMINE HCL 50 MG/ML VIAL ONE (09:55)
[2017-11-18] MEDS ORDERED: NALOXONE HCL INJ/PF 0.4 MG/1 ML SDV ONE (09:56)
[2017-11-18] MEDS ORDERED: EPINEPHRINE INJ 1 MG/10 ML DISP.SYRIN ONE (09:56)
[2017-11-18] MEDS ORDERED: GLUCAGON,HUMAN RECOMB 1 MG INJ ONE (09:56)
[2017-11-18] MEDS ORDERED: FLUMAZENIL INJ 0.5 MG/5 ML VIAL ONE (09:56)
[2017-11-18] MEDS: POTASSIUM CHLORIDE 20 MEQ/15 ML UDCUP PO SCH (10:00)
[2017-11-18] MEDS: METOPROLOL SUCCINATE 25 MG TAB.SR.24H PO SCH (10:00)
[2017-11-18] MEDS: MIDAZOLAM 2 MG/2 ML INJ ONE ×6 (10:23→11:02)
[2017-11-18] MEDS: FENTANYL CITRATE INJ/PF 100 MCG/2 ML AMPUL ONE ×4 (10:25→10:35)
--- NOTE | 2017-11-18 12:11 | OPERATIVE REPORT E ---
Operative Report NAME: ELMER SALMERON : 1935 AGE: 82Y DATE OF SURGERY: 11/18/2017 ROOM: 323 PREOPERATIVE DIAGNOSIS: Lower gastrointestinal bleeding. POSTOPERATIVE DIAGNOSES: 1. Lower gastrointestinal bleeding. 2. Sigmoid diverticulosis. 3. Rectal polyp, less than 0.5 cm. PROCEDURE: 1. Colonoscopy to cecum. 2. Rectal polypectomy x1. 3. Colonoscopy with biopsy. SURGEON: SIMON RAMOS M.D. ANESTHESIA: IV sedation provided by Dr. Ramos, 150 mcg of Fentanyl and 4.5 mg of Versed IV push. COMPLICATIONS: None. INDICATIONS AND FINDINGS: This is an 82-year-old male status post open heart surgery a month ago, started on aspirin, who presented to the Emergency Room on November 08 with melena and hematochezia. The patient underwent an upper endoscopy, noticing a large bleeding ulcer which was clipped. Postoperatively the patient did well and was transferred to the floor. His diet was advanced. However, he presented with lower gastrointestinal bleeding with maroon stools and hematochezia. At this point the patient was scheduled to undergo a colonoscopy. The procedure, risks, benefits, and complications were explained to the patient's family. Understanding all the above they decided to proceed. PROCEDURE: The patient was taken to the operating room. The patient was placed in lateral decubitus. IV sedation was provided as above by Dr. Ramos (total 150 mcg IV push of Fentanyl and 4.5 mg IV push of Versed). The colonoscope was inserted with moderate difficulty through the rectum to the ascending colon up to the cecum. Preparation was poor. There were large amounts of blood clots and blood residue which was completely washed. The instrument was then slowly withdrawn throughout the segments of the colon and no evidence of active bleeding was noted; however, the colonic mucosa appeared to be normal throughout the entire bowel. Random biopsies of colonic mucosa were obtained from the left colon. Stools were then sent for ova and parasites, culture for Clostridium difficile toxin, and white blood cell count. A few scattered diverticula were noted at the level of the sigmoid colon but no active bleeding was noted from these diverticula. At the rectum a less than 0.5 cm sessile polyp was noted. This was removed with hot snare, and the polyp was sent to pathology for evaluation. The instrument was then removed from the rectum. The patient tolerated the procedure well and was transferred to the recovery room in satisfactory condition. DICTATING PHYSICIAN: SIMON RAMOS M.D. [id number] PHY#: [id number] ID: [id number] JOB#: [id number] ACCT: [id number] cc:SIMON RAMOS M.D. >
--- NOTE | 2017-11-18 12:12 | Operative Report ---
Nonrecallable Operative Report DATE OF SURGERY: 11/18/17 PREOPERATIVE DIAGNOSIS: lower GI bleeding POSTOPERATIVE DIAGNOSIS: Lower GI bleeding. Sigmoid diverticulosis. Rectal sessile polyp OPERATION: colonoscopy to cecum with biopsy. rectal polypectomy x 1 with hot snear SURGEON: SIMON LUNSFORD ANESTHESIA: Moderate Sedation - provided by Dr. Lunsford (Fentanyl 150 mcg IVP and Versed 4.5 mg IVP) TISSUE REMOVED OR ALTERED: left colon mucosa biopsy. rectal polyp COMPLICATIONS: none ESTIMATED BLOOD LOSS: n/a INTRAOPERATIVE FINDINGS: Large amunt of old blood and blood clots rectum to cecum. Normal mucosa throughout entire colon. Scattered sigmoid diverticuli without evidence of active bleeding. Small (<0.5 cm) sessile, smooth polyp of the rectum at < 10 cm from anal verge. Stools sent for WBC, O&P, Cx, Clostridium Difficilis toxin PROCEDURE: see dictation
--- NOTE | 2017-11-18 17:03 | EKG REPORT ---
SEVERITY:- ABNORMAL ECG - SINUS RHYTHM MOBITZ I AV BLOCK (WENCKEBACH) IVCD, CONSIDER ATYPICAL RBBB : Confirmed by: Monika Perea MD 18-Nov-2017 17:01:58
[2017-11-18] MEDS: FERROUS SULFATE 325 MG TABLET PO SCH (17:26)
[2017-11-18] MEDS: ASPIRIN 81 MG TABLET, CHEWABLE PO SCH (17:26)
--- NOTE | 2017-11-18 20:56 | PDOC PROGRESS REPORT ---
Subjective Progress Note for:: 11/18/17 Subjective:: Patient had episode of lower GI bleed yesterday as well as today, he underwent colonoscopy, old and fresh blood was found throughout the entire length of the colon from the rectum to the cecum Reason For Visit: UPPER GASTROINTESTINAL HEMORRHAGE, HYPOTENSION Physical Exam Vital Signs: Temp Pulse Resp BP Pulse Ox 98.6 F 72 21 H 168/60 H 99 11/18/17 19:11 11/18/17 19:11 11/18/17 19:11 11/18/17 19:11 11/18/17 19:11 Intake & Output 11/17/17 11/18/17 11/19/17 06:59 06:59 06:59 Intake Total 1177 3050 2200 Output Total 400 275 Balance 777 2775 2200 Weight 65.5 kg 66.4 kg General appearance: PRESENT: no acute distress Eye exam: PRESENT: PERRLA Respiratory exam: PRESENT: clear to auscultation zeferino Cardiovascular exam: PRESENT: +S1, +S2 GI/Abdominal exam: PRESENT: soft Neurological exam: PRESENT: alert Results Laboratory Results: 11/18/17 05:34 11/18/17 05:34 11/16/17 11/18/17 11/18/17 13:23 01:54 05:34 WBC 9.3 RBC 3.28 L Hgb 9.3 L Hct 28.1 L MCV 86 MCH 28.3 MCHC 33.0 RDW 16.3 H Plt Count 233 Seg Neutrophils % 73.2 Lymphocytes % 14.1 Monocytes % 7.1 Eosinophils % 5.0 Basophils % 0.6 Absolute Neutrophils 6.8 Absolute Lymphocytes 1.3 Absolute Monocytes 0.7 Absolute Eosinophils 0.5 Absolute Basophils 0.1 Sodium 141.5 Potassium 3.9 Chloride 112 H Carbon Dioxide 21 L Anion Gap 9 BUN 14 Creatinine 0.68 Est GFR ( Amer) > 60 Est GFR (Non-Af Amer) > 60 Glucose 79 Calcium 7.5 L Stool for White Cells Blood Type O POSITIVE Antibody Screen NEGATIVE 11/18/17 11/18/17 05:34 11:40 WBC RBC Hgb Hct MCV MCH MCHC RDW Plt Count Seg Neutrophils % Lymphocytes % Monocytes % Eosinophils % Basophils % Absolute Neutrophils Absolute Lymphocytes Absolute Monocytes Absolute Eosinophils Absolute Basophils Sodium 141.0 Potassium 4.0 Chloride 110 H Carbon Dioxide 22 Anion Gap 9 BUN 14 Creatinine 0.70 Est GFR ( Amer) > 60 Est GFR (Non-Af Amer) > 60 Glucose 75 Calcium 7.7 L Stool for White Cells NO WBCs SEEN Blood Type Antibody Screen 11/09/17 11/09/17 11/09/17 03:25 03:25 09:35 Creatine Kinase 121 110 CK-MB (CK-2) 4.44 Troponin I 0.109 11/09/17 11/09/17 11/09/17 09:35 14:20 14:20 Creatine Kinase 147 CK-MB (CK-2) 4.40 4.62 H Troponin I 0.133 0.111 Impressions: Cervical Spine CT 11/08/17 21:20 IMPRESSION: No acute fracture or static listhesis. Head CT 11/08/17 21:20 IMPRESSION: No acute intracranial abnormality. Chest X-Ray 11/11/17 06:00 IMPRESSION: 1. Similar findings when compared to the prior study. There is mild perihilar airspace disease which may reflect pulmonary edema. 2. Remote postsurgical changes of the mediastinum. Assessment & Plan - Diagnosis (1) Acute upper GI bleed Is this a current diagnosis for this admission?: Yes (2) Bleeding duodenal ulcer Is this a current diagnosis for this admission?: Yes (3) Coronary artery disease Qualifiers: Coronary Disease-Associated Artery/Lesion type: unspecified vessel or lesion type [place] vs. transplanted heart: [place] heart Associated angina: without angina Qualified Code(s): I25.10 - Atherosclerotic heart disease of [place] coronary artery without angina pectoris Is this a current diagnosis for this admission?: Yes (4) Type 2 diabetes mellitus Qualifiers: Diabetes mellitus [facility] insulin use: without [facility] use Diabetes mellitus complication status: without complication Qualified Code(s): E11.9 - Type 2 diabetes mellitus without complications Is this a current diagnosis for this admission?: Yes (5) Anemia due to acute blood loss Is this a current diagnosis for this admission?: Yes (6) Hemorrhagic shock Is this a current diagnosis for this admission?: Yes (7) Delirium Is this a current diagnosis for this admission?: Yes (8) Lower GI bleed Is this a current diagnosis for this admission?: Yes Plan: Hold aspirin
[2017-11-18] MEDS: ATORVASTATIN CALCIUM 40 MG TABLET PO SCH (21:47)
[2017-11-18] MEDS: AMITRIPTYLINE HCL 25 MG TABLET PO SCH (21:47)
[2017-11-19 05:35] LABS: ABSOLUTE BASOPHILS # (AUTO) 0.1 10^3/uL (0.0-0.2); ABSOLUTE EOSINOPHILS # (AUTO) 0.4 10^3/uL (0.0-0.6); ABSOLUTE LYMPHOCYTES (AUTO) 1.4 10^3/uL (0.5-4.7); ABSOLUTE MONOCYTES (AUTO) 0.7 10^3/uL (0.1-1.4); ABSOLUTE NEUT (AUTO) 8.9 10^3/uL (1.7-8.2); BASOPHILS % (AUTO) 0.5 % (0-2); EOSINOPHILS % (AUTO) 3.6 % (0-6); HEMATOCRIT 29.3 % (37.9-51.0); HEMOGLOBIN 9.8 g/dL (13.5-17.0); LYMPHOCYTES % (AUTO) 12.2 % (13-45); MEAN CORPUSCULAR HEMOGLOBIN 28.8 pg (27.0-33.4); MEAN CORPUSCULAR HGB CONC 33.4 g/dL (32.0-36.0); MEAN CORPUSCULAR VOLUME 86 fl (80-97); MONOCYTES % (AUTO) 6.2 % (3-13); PLATELET COUNT 261 10^3/uL (150-450); RED BLOOD COUNT 3.39 10^6/uL (4.35-5.55); SEGMENTED NEUTROPHILS % (AUTO) 77.5 % (42-78); TOTAL CELLS COUNTED % (AUTO) 100 %; WHITE BLOOD COUNT 11.5 10^3/uL (4.0-10.5)
[2017-11-19 05:54] LABS: ANION GAP 13 (5-19); BLOOD UREA NITROGEN 9 mg/dL (7-20); CARBON DIOXIDE 18 mmol/L (22-30); CHLORIDE 111 mmol/L (98-107); GLUCOSE 105 mg/dL (75-110); POTASSIUM 3.8 mmol/L (3.6-5.0); SODIUM 141.6 mmol/L (137-145)
[2017-11-19] MEDS: FAMOTIDINE INJ/PF 20 MG/2 ML SDV IV SCH ×2 (05:58→17:10)
[2017-11-19] MEDS: LANSOPRAZOLE 30 MG TAB.RAP.DR PO SCH ×2 (05:58→17:10)
[2017-11-19] MEDS: FERROUS SULFATE 325 MG TABLET PO SCH (09:09)
[2017-11-19] MEDS: POTASSIUM CHLORIDE 20 MEQ/15 ML UDCUP PO SCH (09:09)
[2017-11-19] MEDS: METOPROLOL SUCCINATE 25 MG TAB.SR.24H PO SCH (09:10)
[2017-11-19] MEDS: NORMAL SALINE 1000 ML 1,000 ML IV PRN (09:10)
--- NOTE | 2017-11-19 09:18 | PDOC PROGRESS REPORT ---
Subjective Progress Note for:: 11/19/17 Subjective:: patient confused, no issues reported by nurse; poor oral intake Reason For Visit: UPPER GASTROINTESTINAL HEMORRHAGE, HYPOTENSION Physical Exam Vital Signs: Temp Pulse Resp BP Pulse Ox 97.6 F 59 L 17 138/47 H 92 11/19/17 07:58 11/19/17 07:58 11/19/17 07:58 11/19/17 07:58 11/19/17 07:58 Intake & Output 11/18/17 11/19/17 11/20/17 06:59 06:59 06:59 Intake Total 3050 3200 967 Output Total 275 Balance 2775 3200 967 Weight 66.4 kg 65.3 kg General appearance: PRESENT: no acute distress GI/Abdominal exam: PRESENT: soft Psychiatric exam: PRESENT: other - confused Results Laboratory Results: 11/19/17 04:58 11/19/17 04:58 11/18/17 11/19/17 11/19/17 11:40 04:58 04:58 WBC 11.5 H RBC 3.39 L Hgb 9.8 L Hct 29.3 L MCV 86 MCH 28.8 MCHC 33.4 RDW 17.0 H Plt Count 261 Seg Neutrophils % 77.5 Lymphocytes % 12.2 L Monocytes % 6.2 Eosinophils % 3.6 Basophils % 0.5 Absolute Neutrophils 8.9 H Absolute Lymphocytes 1.4 Absolute Monocytes 0.7 Absolute Eosinophils 0.4 Absolute Basophils 0.1 Sodium 141.6 Potassium 3.8 Chloride 111 H Carbon Dioxide 18 L Anion Gap 13 BUN 9 Creatinine 0.68 Est GFR ( Amer) > 60 Est GFR (Non-Af Amer) > 60 Glucose 105 Calcium 8.0 L Stool for White Cells NO WBCs SEEN 11/09/17 11/09/17 11/09/17 03:25 03:25 09:35 Creatine Kinase 121 110 CK-MB (CK-2) 4.44 Troponin I 0.109 11/09/17 11/09/17 11/09/17 09:35 14:20 14:20 Creatine Kinase 147 CK-MB (CK-2) 4.40 4.62 H Troponin I 0.133 0.111 Impressions: Cervical Spine CT 11/08/17 21:20 IMPRESSION: No acute fracture or static listhesis. Head CT 11/08/17 21:20 IMPRESSION: No acute intracranial abnormality. Chest X-Ray 11/11/17 06:00 IMPRESSION: 1. Similar findings when compared to the prior study. There is mild perihilar airspace disease which may reflect pulmonary edema. 2. Remote postsurgical changes of the mediastinum. Assessment & Plan - Diagnosis (1) Acute upper GI bleed Is this a current diagnosis for this admission?: Yes - Plan Summary Plan Summary: A/ POD #1 after Colonoscopy with only few sigmoid diverticuli identified POD#3 after after repeated EGD negative for UGI bleeding: duodenal ulcer well healing, clips in place H/H stable for past 3 days patient off ASA P/ No further UGI or LGI bleeding observed No active General Surgery issues identified I will sign off Please, call me with questions
--- NOTE | 2017-11-19 18:44 | PDOC PROGRESS REPORT ---
Subjective Progress Note for:: 11/19/17 Subjective:: Patient was seen by the bedside, I had a long discussion with patient's family about his conditions, he has delirium which is acute hopefully improved, it is most likely multifactorial etiology Reason For Visit: UPPER GASTROINTESTINAL HEMORRHAGE, HYPOTENSION Physical Exam Vital Signs: Temp Pulse Resp BP Pulse Ox 97.8 F 93 17 145/75 H 99 11/19/17 15:36 11/19/17 15:36 11/19/17 15:36 11/19/17 15:36 11/19/17 15:36 Intake & Output 11/18/17 11/19/17 11/20/17 06:59 06:59 06:59 Intake Total 3050 3200 1535 Output Total 275 Balance 2775 3200 1535 Weight 66.4 kg 65.3 kg General appearance: PRESENT: no acute distress Eye exam: PRESENT: PERRLA Respiratory exam: PRESENT: clear to auscultation zeferino Cardiovascular exam: PRESENT: +S1, +S2 GI/Abdominal exam: PRESENT: soft Neurological exam: PRESENT: alert Results Laboratory Results: 11/19/17 04:58 11/19/17 04:58 11/19/17 11/19/17 04:58 04:58 WBC 11.5 H RBC 3.39 L Hgb 9.8 L Hct 29.3 L MCV 86 MCH 28.8 MCHC 33.4 RDW 17.0 H Plt Count 261 Seg Neutrophils % 77.5 Lymphocytes % 12.2 L Monocytes % 6.2 Eosinophils % 3.6 Basophils % 0.5 Absolute Neutrophils 8.9 H Absolute Lymphocytes 1.4 Absolute Monocytes 0.7 Absolute Eosinophils 0.4 Absolute Basophils 0.1 Sodium 141.6 Potassium 3.8 Chloride 111 H Carbon Dioxide 18 L Anion Gap 13 BUN 9 Creatinine 0.68 Est GFR ( Amer) > 60 Est GFR (Non-Af Amer) > 60 Glucose 105 Calcium 8.0 L 11/18/17 11:40 Stool - Stool - Final 11/09/17 11/09/17 11/09/17 03:25 03:25 09:35 Creatine Kinase 121 110 CK-MB (CK-2) 4.44 Troponin I 0.109 11/09/17 11/09/17 11/09/17 09:35 14:20 14:20 Creatine Kinase 147 CK-MB (CK-2) 4.40 4.62 H Troponin I 0.133 0.111 Impressions: Cervical Spine CT 11/08/17 21:20 IMPRESSION: No acute fracture or static listhesis. Head CT 11/08/17 21:20 IMPRESSION: No acute intracranial abnormality. Chest X-Ray 11/11/17 06:00 IMPRESSION: 1. Similar findings when compared to the prior study. There is mild perihilar airspace disease which may reflect pulmonary edema. 2. Remote postsurgical changes of the mediastinum. Assessment & Plan - Diagnosis (1) Acute upper GI bleed Is this a current diagnosis for this admission?: Yes (2) Bleeding duodenal ulcer Is this a current diagnosis for this admission?: Yes (3) Coronary artery disease Qualifiers: Coronary Disease-Associated Artery/Lesion type: unspecified vessel or lesion type [place] vs. transplanted heart: [place] heart Associated angina: without angina Qualified Code(s): I25.10 - Atherosclerotic heart disease of [place] coronary artery without angina pectoris Is this a current diagnosis for this admission?: Yes (4) Type 2 diabetes mellitus Qualifiers: Diabetes mellitus exterminator insulin use: without exterminator use Diabetes mellitus complication status: without complication Qualified Code(s): E11.9 - Type 2 diabetes mellitus without complications Is this a current diagnosis for this admission?: Yes (5) Anemia due to acute blood loss Is this a current diagnosis for this admission?: Yes (6) Hemorrhagic shock Is this a current diagnosis for this admission?: Yes (7) Delirium Is this a current diagnosis for this admission?: Yes Plan: This is multifactorial,Discontinue restraints (8) Lower GI bleed Is this a current diagnosis for this admission?: Yes
[2017-11-19] MEDS: LORAZEPAM INJ 2 MG/1 ML VIAL IV PRN (19:49)
[2017-11-19] MEDS: ATORVASTATIN CALCIUM 40 MG TABLET PO SCH (21:31)
[2017-11-19] MEDS: AMITRIPTYLINE HCL 25 MG TABLET PO SCH (21:31)
[2017-11-20 04:42] LABS: ABSOLUTE BASOPHILS # (AUTO) 0.1 10^3/uL (0.0-0.2); ABSOLUTE EOSINOPHILS # (AUTO) 0.4 10^3/uL (0.0-0.6); ABSOLUTE LYMPHOCYTES (AUTO) 1.5 10^3/uL (0.5-4.7); ABSOLUTE MONOCYTES (AUTO) 0.7 10^3/uL (0.1-1.4); ABSOLUTE NEUT (AUTO) 9.5 10^3/uL (1.7-8.2); BASOPHILS % (AUTO) 0.6 % (0-2); EOSINOPHILS % (AUTO) 3.5 % (0-6); HEMOGLOBIN 9.4 g/dL (13.5-17.0); LYMPHOCYTES % (AUTO) 12.2 % (13-45); MEAN CORPUSCULAR HEMOGLOBIN 28.6 pg (27.0-33.4); MEAN CORPUSCULAR HGB CONC 33.6 g/dL (32.0-36.0); MEAN CORPUSCULAR VOLUME 85 fl (80-97); MONOCYTES % (AUTO) 5.8 % (3-13); PLATELET COUNT 298 10^3/uL (150-450); RED CELL DISTRIBUTION WIDTH 16.3 % (11.5-14.0); SEGMENTED NEUTROPHILS % (AUTO) 77.9 % (42-78); TOTAL CELLS COUNTED % (AUTO) 100 %; WHITE BLOOD COUNT 12.3 10^3/uL (4.0-10.5)
[2017-11-20 05:01] LABS: ANION GAP 10 (5-19); BLOOD UREA NITROGEN 5 mg/dL (7-20); CALCIUM 8.4 mg/dL (8.4-10.2); CARBON DIOXIDE 22 mmol/L (22-30); CHLORIDE 109 mmol/L (98-107); GLUCOSE 92 mg/dL (75-110); POTASSIUM 3.5 mmol/L (3.6-5.0)
[2017-11-20] MEDS ORDERED: LANSOPRAZOLE 30 MG TAB.RAP.DR PO ONE (08:15)
[2017-11-20] MEDS: FERROUS SULFATE 325 MG TABLET PO SCH (09:03)
[2017-11-20] MEDS: METOPROLOL SUCCINATE 25 MG TAB.SR.24H PO SCH (09:03)
[2017-11-20] MEDS: POTASSIUM CHLORIDE 20 MEQ/15 ML UDCUP PO SCH (09:03)
[2017-11-20] MEDS: LANSOPRAZOLE 30 MG TAB.RAP.DR PO SCH ×2 (09:03→16:51)
--- NOTE | 2017-11-20 19:56 | PDOC PROGRESS REPORT ---
Subjective Progress Note for:: 11/20/17 Subjective:: Patient seen by the bedside Reason For Visit: UPPER GASTROINTESTINAL HEMORRHAGE, HYPOTENSION Physical Exam Vital Signs: Temp Pulse Resp BP Pulse Ox 98.3 F 91 16 165/74 H 96 11/20/17 15:51 11/20/17 15:51 11/20/17 15:51 11/20/17 15:51 11/20/17 15:51 Intake & Output 11/19/17 11/20/17 11/21/17 06:59 06:59 06:59 Intake Total 3200 1535 150 Output Total 450 Balance 3200 1535 -300 Weight 65.3 kg 66.9 kg General appearance: PRESENT: no acute distress Respiratory exam: PRESENT: clear to auscultation zeferino Cardiovascular exam: PRESENT: +S1, +S2 Neurological exam: PRESENT: alert Results Laboratory Results: 11/20/17 04:15 11/20/17 04:15 11/20/17 11/20/17 04:15 04:15 WBC 12.3 H RBC 3.30 L Hgb 9.4 L Hct 28.0 L MCV 85 MCH 28.6 MCHC 33.6 RDW 16.3 H Plt Count 298 Seg Neutrophils % 77.9 Lymphocytes % 12.2 L Monocytes % 5.8 Eosinophils % 3.5 Basophils % 0.6 Absolute Neutrophils 9.5 H Absolute Lymphocytes 1.5 Absolute Monocytes 0.7 Absolute Eosinophils 0.4 Absolute Basophils 0.1 Sodium 141.0 Potassium 3.5 L Chloride 109 H Carbon Dioxide 22 Anion Gap 10 BUN 5 L Creatinine 0.76 Est GFR ( Amer) > 60 Est GFR (Non-Af Amer) > 60 Glucose 92 Calcium 8.4 11/18/17 11:40 Stool - Stool - Final 11/09/17 11/09/17 11/09/17 03:25 03:25 09:35 Creatine Kinase 121 110 CK-MB (CK-2) 4.44 Troponin I 0.109 11/09/17 11/09/17 11/09/17 09:35 14:20 14:20 Creatine Kinase 147 CK-MB (CK-2) 4.40 4.62 H Troponin I 0.133 0.111 Impressions: Cervical Spine CT 11/08/17 21:20 IMPRESSION: No acute fracture or static listhesis. Head CT 11/08/17 21:20 IMPRESSION: No acute intracranial abnormality. Chest X-Ray 11/11/17 06:00 IMPRESSION: 1. Similar findings when compared to the prior study. There is mild perihilar airspace disease which may reflect pulmonary edema. 2. Remote postsurgical changes of the mediastinum. Assessment & Plan - Diagnosis (1) Acute upper GI bleed Is this a current diagnosis for this admission?: Yes (2) Bleeding duodenal ulcer Is this a current diagnosis for this admission?: Yes (3) Coronary artery disease Qualifiers: Coronary Disease-Associated Artery/Lesion type: unspecified vessel or lesion type [place] vs. transplanted heart: [place] heart Associated angina: without angina Qualified Code(s): I25.10 - Atherosclerotic heart disease of [place] coronary artery without angina pectoris Is this a current diagnosis for this admission?: Yes (4) Type 2 diabetes mellitus Qualifiers: Diabetes mellitus terminal carman insulin use: without terminal carman use Diabetes mellitus complication status: without complication Qualified Code(s): E11.9 - Type 2 diabetes mellitus without complications Is this a current diagnosis for this admission?: Yes (5) Anemia due to acute blood loss Is this a current diagnosis for this admission?: Yes (6) Hemorrhagic shock Is this a current diagnosis for this admission?: Yes (7) Delirium Is this a current diagnosis for this admission?: Yes (8) Lower GI bleed Is this a current diagnosis for this admission?: Yes - Plan Summary Plan Summary: Continue treatment
[2017-11-20] MEDS ORDERED: POTASSIUM CHLORIDE 10 MEQ CAPSULE.ER PO ONE (20:15)
[2017-11-20] MEDS: AMITRIPTYLINE HCL 25 MG TABLET PO SCH (21:04)
[2017-11-20] MEDS: ATORVASTATIN CALCIUM 40 MG TABLET PO SCH (21:04)
[2017-11-20] MEDS: LORAZEPAM INJ 2 MG/1 ML VIAL IV PRN (22:13)
[2017-11-21] MEDS: LANSOPRAZOLE 30 MG TAB.RAP.DR PO SCH ×2 (06:33→17:13)
[2017-11-21 07:07] LABS: ABSOLUTE BASOPHILS # (AUTO) 0.1 10^3/uL (0.0-0.2); ABSOLUTE EOSINOPHILS # (AUTO) 0.4 10^3/uL (0.0-0.6); ABSOLUTE LYMPHOCYTES (AUTO) 1.3 10^3/uL (0.5-4.7); ABSOLUTE MONOCYTES (AUTO) 0.8 10^3/uL (0.1-1.4); ABSOLUTE NEUT (AUTO) 8.4 10^3/uL (1.7-8.2); BASOPHILS % (AUTO) 0.8 % (0-2); EOSINOPHILS % (AUTO) 3.9 % (0-6); HEMATOCRIT 30.4 % (37.9-51.0); MEAN CORPUSCULAR HEMOGLOBIN 28.4 pg (27.0-33.4); MEAN CORPUSCULAR VOLUME 86 fl (80-97); MONOCYTES % (AUTO) 6.9 % (3-13); PLATELET COUNT 319 10^3/uL (150-450); RED BLOOD COUNT 3.53 10^6/uL (4.35-5.55); SEGMENTED NEUTROPHILS % (AUTO) 76.4 % (42-78); TOTAL CELLS COUNTED % (AUTO) 100 %
[2017-11-21 07:28] LABS: ANION GAP 8 (5-19); BLOOD UREA NITROGEN 5 mg/dL (7-20); CALCIUM 8.4 mg/dL (8.4-10.2); CARBON DIOXIDE 25 mmol/L (22-30); CHLORIDE 107 mmol/L (98-107); GLUCOSE 102 mg/dL (75-110); POTASSIUM 3.9 mmol/L (3.6-5.0); SODIUM 139.7 mmol/L (137-145)
[2017-11-21] MEDS: POTASSIUM CHLORIDE 20 MEQ/15 ML UDCUP PO SCH (10:09)
[2017-11-21] MEDS: METOPROLOL SUCCINATE 25 MG TAB.SR.24H PO SCH (10:09)
[2017-11-21] MEDS: FERROUS SULFATE 325 MG TABLET PO SCH (10:10)
--- NOTE | 2017-11-21 14:06 | RADIOLOGY REPORT (SQ) ---
EXAM DESCRIPTION: CT HEAD WITHOUT COMPLETED DATE/TIME: 11/21/2017 1:57 pm REASON FOR STUDY: fall COMPARISON: 11/08/2017. TECHNIQUE: Axial images acquired through the brain without intravenous contrast. Images reviewed wi th bone, brain and subdural windows. Additional sagittal and coronal reconstructions were generated. Images stored on PACS. All CT scanners at this facility use dose modulation, iterative reconstruction, and/or weight based d osing when appropriate to reduce radiation dose to as low as reasonably achievable (ALARA). [facility]: Dose Right [facility]: CareDose [facility]: Dose Right [facility]: Teradose 4D [facility]: MAZ RADIATION DOSE: CT Rad equipment meets quality standard of care and radiation dose reduction techniq ues were employed. CTDIvol: 48.6 mGy. DLP: 928 mGy-cm. mGy. LIMITATIONS: None. FINDINGS: VENTRICLES: Normal size and contour. CEREBRUM: No masses. No hemorrhage. No midline shift. No evidence for acute infarction. Normal gra y/white matter differentiation. No areas of low density in the white matter. CEREBELLUM: No masses. No hemorrhage. No alteration of density. No evidence for acute infarction. EXTRAAXIAL SPACES: No fluid collections. No masses. ORBITS AND GLOBE: No intra- or extraconal masses. Normal contour of globe without masses. CALVARIUM: No fracture. PARANASAL SINUSES: No fluid or mucosal thickening. SOFT TISSUES: No mass or hematoma. OTHER: No other significant finding. IMPRESSION: NORMAL BRAIN CT WITHOUT CONTRAST. EVIDENCE OF ACUTE STROKE: NO. COMMENT: Quality ID # [id number]: Final reports with documentation of one or more dose reduction techniques (e.g., Automated exposure control, adjustment of the mA and/or kV according to patient size, use of iterative reconstruction technique) TECHNICAL DOCUMENTATION: JOB ID: [id number] [employer]- All Rights Reserved Reading location - IP/workstation name: [email or web address]-[email or web address]
--- NOTE | 2017-11-21 20:54 | PDOC PROGRESS REPORT ---
Subjective Progress Note for:: 11/21/17 Subjective:: Patient seen by the bedside, awaiting usp placement Reason For Visit: UPPER GASTROINTESTINAL HEMORRHAGE, HYPOTENSION Physical Exam Vital Signs: Temp Pulse Resp BP Pulse Ox 98.1 F 94 18 168/72 H 92 11/21/17 20:02 11/21/17 20:02 11/21/17 20:02 11/21/17 20:02 11/21/17 20:02 Intake & Output 11/20/17 11/21/17 11/22/17 06:59 06:59 06:59 Intake Total 1535 150 350 Output Total 450 200 Balance 1535 -300 150 Weight 66.9 kg General appearance: PRESENT: no acute distress Eye exam: PRESENT: PERRLA Respiratory exam: PRESENT: clear to auscultation zeferino Cardiovascular exam: PRESENT: +S1, +S2 GI/Abdominal exam: PRESENT: soft Neurological exam: PRESENT: alert Results Laboratory Results: 11/21/17 05:59 11/21/17 05:59 11/21/17 11/21/17 05:59 05:59 WBC 11.0 H RBC 3.53 L Hgb 10.0 L Hct 30.4 L MCV 86 MCH 28.4 MCHC 33.0 RDW 17.0 H Plt Count 319 Seg Neutrophils % 76.4 Lymphocytes % 12.0 L Monocytes % 6.9 Eosinophils % 3.9 Basophils % 0.8 Absolute Neutrophils 8.4 H Absolute Lymphocytes 1.3 Absolute Monocytes 0.8 Absolute Eosinophils 0.4 Absolute Basophils 0.1 Sodium 139.7 Potassium 3.9 Chloride 107 Carbon Dioxide 25 Anion Gap 8 BUN 5 L Creatinine 0.71 Est GFR ( Amer) > 60 Est GFR (Non-Af Amer) > 60 Glucose 102 Calcium 8.4 11/18/17 11:40 Stool - Stool - Final 11/18/17 11:40 Stool - Stool Stool Culture - Final NO SALMONELLA, SHIGELLA, CAMPYLOBACTER, OR E.COLI 0157 RECOVERED. NEGATIVE FOR SHIGA TOXINS 1&2. 11/09/17 11/09/17 11/09/17 03:25 03:25 09:35 Creatine Kinase 121 110 CK-MB (CK-2) 4.44 Troponin I 0.109 11/09/17 11/09/17 11/09/17 09:35 14:20 14:20 Creatine Kinase 147 CK-MB (CK-2) 4.40 4.62 H Troponin I 0.133 0.111 Impressions: Cervical Spine CT 11/08/17 21:20 IMPRESSION: No acute fracture or static listhesis. Chest X-Ray 11/11/17 06:00 IMPRESSION: 1. Similar findings when compared to the prior study. There is mild perihilar airspace disease which may reflect pulmonary edema. 2. Remote postsurgical changes of the mediastinum. Head CT 11/21/17 00:00 IMPRESSION: NORMAL BRAIN CT WITHOUT CONTRAST. EVIDENCE OF ACUTE STROKE: NO. Assessment & Plan - Diagnosis (1) Acute upper GI bleed Is this a current diagnosis for this admission?: Yes (2) Bleeding duodenal ulcer Is this a current diagnosis for this admission?: Yes (3) Coronary artery disease Qualifiers: Coronary Disease-Associated Artery/Lesion type: unspecified vessel or lesion type [place] vs. transplanted heart: [place] heart Associated angina: without angina Qualified Code(s): I25.10 - Atherosclerotic heart disease of [place] coronary artery without angina pectoris Is this a current diagnosis for this admission?: Yes (4) Type 2 diabetes mellitus Qualifiers: Diabetes mellitus half-way insulin use: without manager terminal use Diabetes mellitus complication status: without complication Qualified Code(s): E11.9 - Type 2 diabetes mellitus without complications Is this a current diagnosis for this admission?: Yes (5) Anemia due to acute blood loss Is this a current diagnosis for this admission?: Yes (6) Hemorrhagic shock Is this a current diagnosis for this admission?: Yes (7) Delirium Is this a current diagnosis for this admission?: Yes (8) Lower GI bleed Is this a current diagnosis for this admission?: Yes
--- NOTE | 2017-11-21 21:05 | EKG REPORT ---
SEVERITY:- ABNORMAL ECG - SINUS RHYTHM FIRST DEGREE AV BLOCK IVCD, CONSIDER ATYPICAL RBBB : Confirmed by: Monika Perea MD 21-Nov-2017 21:04:47
[2017-11-21] MEDS: ATORVASTATIN CALCIUM 40 MG TABLET PO SCH (22:00)
[2017-11-21] MEDS: AMITRIPTYLINE HCL 25 MG TABLET PO SCH (22:00)
[2017-11-22] MEDS: LANSOPRAZOLE 30 MG TAB.RAP.DR PO SCH ×2 (06:21→17:51)
[2017-11-22] MEDS: FERROUS SULFATE 325 MG TABLET PO SCH (09:54)
[2017-11-22] MEDS: POTASSIUM CHLORIDE 20 MEQ/15 ML UDCUP PO SCH (09:54)
--- NOTE | 2017-11-22 14:17 | PDOC PROGRESS REPORT ---
Subjective Progress Note for:: 11/22/17 Subjective:: No nausea or vomiting. P.O intake improving. No chest pain or difficulty with breathing. Awaiting SNF placement. Reason For Visit: UPPER GASTROINTESTINAL HEMORRHAGE, HYPOTENSION Physical Exam Vital Signs: Temp Pulse Resp BP Pulse Ox 97.4 F 99 20 139/72 H 97 11/22/17 11:42 11/22/17 11:42 11/22/17 11:42 11/22/17 11:42 11/22/17 11:42 Intake & Output 11/21/17 11/22/17 11/23/17 06:59 06:59 06:59 Intake Total 250 450 237 Output Total 650 275 Balance -400 175 237 Weight 61.3 kg General appearance: PRESENT: no acute distress Eye exam: PRESENT: conjunctiva pink, EOMI, PERRLA. ABSENT: scleral icterus Ear exam: PRESENT: normal external ear exam Mouth exam: PRESENT: moist Respiratory exam: PRESENT: clear to auscultation zeferino Cardiovascular exam: PRESENT: RRR. ABSENT: diastolic murmur, rubs, systolic murmur Vascular exam: ABSENT: pallor GI/Abdominal exam: PRESENT: normal bowel sounds, soft. ABSENT: distended, guarding, mass, organolmegaly, rebound, tenderness Extremities exam: ABSENT: pedal edema Neurological exam: PRESENT: alert - and appropriate in simple responses, awake Psychiatric exam: PRESENT: appropriate affect, normal mood. ABSENT: homicidal ideation, suicidal ideation Skin exam: PRESENT: dry, intact, warm Results Laboratory Results: 11/21/17 05:59 11/21/17 05:59 11/09/17 11/09/17 11/09/17 03:25 03:25 09:35 Creatine Kinase 121 110 CK-MB (CK-2) 4.44 Troponin I 0.109 11/09/17 11/09/17 11/09/17 09:35 14:20 14:20 Creatine Kinase 147 CK-MB (CK-2) 4.40 4.62 H Troponin I 0.133 0.111 Impressions: Cervical Spine CT 11/08/17 21:20 IMPRESSION: No acute fracture or static listhesis. Chest X-Ray 11/11/17 06:00 IMPRESSION: 1. Similar findings when compared to the prior study. There is mild perihilar airspace disease which may reflect pulmonary edema. 2. Remote postsurgical changes of the mediastinum. Head CT 11/21/17 00:00 IMPRESSION: NORMAL BRAIN CT WITHOUT CONTRAST. EVIDENCE OF ACUTE STROKE: NO. Assessment & Plan - Diagnosis (1) Bleeding duodenal ulcer Is this a current diagnosis for this admission?: Yes Plan: Improved. Continue on PPI therapy. (2) Anemia due to acute blood loss Is this a current diagnosis for this admission?: Yes Plan: Continue on Ferrous sulfate therapy. Add vitamin C 500 mg po daily with iron therapy to aide absorption. (3) Type 2 diabetes mellitus Qualifiers: Diabetes mellitus long distance operator insulin use: without long distance operator use Diabetes mellitus complication status: without complication Qualified Code(s): E11.9 - Type 2 diabetes mellitus without complications Is this a current diagnosis for this admission?: Yes Plan: Continue current management. - Time Time Spent with patient: 25-34 minutes Medications reviewed and adjusted accordingly: Yes Anticipated discharge: SNF Within: Other - Inpatient Certification Based on my medical assessment, after consideration of the patient's comorbidities, presenting symptoms, or acuity I expect that the services needed warrant INPATIENT care.: Yes I certify that my determination is in accordance with my understanding of Medicare's requirements for reasonable and necessary INPATIENT services [42 CFR 412.3e].: Yes Medical Necessity: Need Close Monitoring Due to Risk of Patient Decompensation, Need For Continuous Telemetry Monitoring, Risk of Complication if Not Cared For in Hospital Post Hospital Care: D/C or Transfer Summary - Plan Summary Plan Summary: See covering attending physician orders.
[2017-11-22 15:21] LABS: ABSOLUTE EOSINOPHILS # (AUTO) 0.3 10^3/uL (0.0-0.6); ABSOLUTE LYMPHOCYTES (AUTO) 1.2 10^3/uL (0.5-4.7); ABSOLUTE MONOCYTES (AUTO) 0.7 10^3/uL (0.1-1.4); ABSOLUTE NEUT (AUTO) 6.5 10^3/uL (1.7-8.2); BASOPHILS % (AUTO) 0.5 % (0-2); EOSINOPHILS % (AUTO) 3.9 % (0-6); HEMATOCRIT 30.2 % (37.9-51.0); HEMOGLOBIN 10.1 g/dL (13.5-17.0); MEAN CORPUSCULAR HEMOGLOBIN 28.6 pg (27.0-33.4); MEAN CORPUSCULAR HGB CONC 33.5 g/dL (32.0-36.0); MEAN CORPUSCULAR VOLUME 85 fl (80-97); MONOCYTES % (AUTO) 8.4 % (3-13); PLATELET COUNT 356 10^3/uL (150-450); RED BLOOD COUNT 3.54 10^6/uL (4.35-5.55); RED CELL DISTRIBUTION WIDTH 17.6 % (11.5-14.0); SEGMENTED NEUTROPHILS % (AUTO) 73.2 % (42-78); TOTAL CELLS COUNTED % (AUTO) 100 %; WHITE BLOOD COUNT 8.8 10^3/uL (4.0-10.5)
[2017-11-22] MEDS: AMITRIPTYLINE HCL 25 MG TABLET PO SCH (21:19)
[2017-11-22] MEDS: ATORVASTATIN CALCIUM 40 MG TABLET PO SCH (21:20)
[2017-11-23] MEDS: LANSOPRAZOLE 30 MG TAB.RAP.DR PO SCH ×2 (05:55→17:25)
[2017-11-23] MEDS: POTASSIUM CHLORIDE 20 MEQ/15 ML UDCUP PO SCH (10:03)
[2017-11-23] MEDS: ASCORBIC ACID 500 MG TABLET PO SCH (10:04)
[2017-11-23] MEDS: FERROUS SULFATE 325 MG TABLET PO SCH (10:04)
--- NOTE | 2017-11-23 12:53 | PDOC PROGRESS REPORT ---
Subjective Progress Note for:: 11/23/17 Subjective:: No chest pain or difficulty with breathing. No abdominal pain, nausea or vomiting. P.O intake improving. No fever or chills. Awaiting SNF placement. Reason For Visit: UPPER GASTROINTESTINAL HEMORRHAGE, HYPOTENSION Physical Exam Vital Signs: Temp Pulse Resp BP Pulse Ox 98.2 F 102 H 18 154/69 H 95 11/23/17 11:29 11/23/17 11:29 11/23/17 11:29 11/23/17 11:29 11/23/17 11:29 Intake & Output 11/22/17 11/23/17 11/24/17 06:59 06:59 06:59 Intake Total 450 474 150 Output Total 275 Balance 175 474 150 Weight 61.3 kg 63 kg Physical Exam: General appearance: PRESENT: no acute distress Eye exam: PRESENT: conjunctiva pink, EOMI, PERRLA. ABSENT: scleral icterus Ear exam: PRESENT: normal external ear exam Mouth exam: PRESENT: moist Respiratory exam: PRESENT: clear to auscultation zeferino Cardiovascular exam: PRESENT: RRR. ABSENT: diastolic murmur, rubs, systolic murmur Vascular exam: ABSENT: pallor GI/Abdominal exam: PRESENT: normal bowel sounds, soft. ABSENT: distended, guarding, mass, organomegaly, rebound, tenderness Extremities exam: ABSENT: pedal edema Neurological exam: PRESENT: alert - and appropriate in simple responses, awake Psychiatric exam: PRESENT: appropriate affect, normal mood. ABSENT: homicidal ideation, suicidal ideation Skin exam: PRESENT: dry, intact, warm Results Laboratory Results: 11/22/17 14:58 11/21/17 05:59 11/22/17 14:58 WBC 8.8 RBC 3.54 L Hgb 10.1 L Hct 30.2 L MCV 85 MCH 28.6 MCHC 33.5 RDW 17.6 H Plt Count 356 Seg Neutrophils % 73.2 Lymphocytes % 14.0 Monocytes % 8.4 Eosinophils % 3.9 Basophils % 0.5 Absolute Neutrophils 6.5 Absolute Lymphocytes 1.2 Absolute Monocytes 0.7 Absolute Eosinophils 0.3 Absolute Basophils 0.0 11/09/17 11/09/17 11/09/17 03:25 03:25 09:35 Creatine Kinase 121 110 CK-MB (CK-2) 4.44 Troponin I 0.109 09/11/09/17 11/09/17 09:35 14:20 14:20 Creatine Kinase 147 CK-MB (CK-2) 4.40 4.62 H Troponin I 0.133 0.111 Impressions: Cervical Spine CT 11/08/17 21:20 IMPRESSION: No acute fracture or static listhesis. Chest X-Ray 11/11/17 06:00 IMPRESSION: 1. Similar findings when compared to the prior study. There is mild perihilar airspace disease which may reflect pulmonary edema. 2. Remote postsurgical changes of the mediastinum. Head CT 11/21/17 00:00 IMPRESSION: NORMAL BRAIN CT WITHOUT CONTRAST. EVIDENCE OF ACUTE STROKE: NO. Assessment & Plan - Diagnosis (1) Bleeding duodenal ulcer Is this a current diagnosis for this admission?: Yes (2) Anemia due to acute blood loss Is this a current diagnosis for this admission?: Yes (3) Type 2 diabetes mellitus Qualifiers: Diabetes mellitus half-way insulin use: without half-way use Diabetes mellitus complication status: without complication Qualified Code(s): E11.9 - Type 2 diabetes mellitus without complications Is this a current diagnosis for this admission?: Yes - Time Time Spent with patient: 25-34 minutes Medications reviewed and adjusted accordingly: Yes Anticipated discharge: SNF Within: Other - Inpatient Certification Based on my medical assessment, after consideration of the patient's comorbidities, presenting symptoms, or acuity I expect that the services needed warrant INPATIENT care.: Yes I certify that my determination is in accordance with my understanding of Medicare's requirements for reasonable and necessary INPATIENT services [42 CFR 412.3e].: Yes Medical Necessity: Need Close Monitoring Due to Risk of Patient Decompensation, Need For Continuous Telemetry Monitoring, Risk of Complication if Not Cared For in Hospital Post Hospital Care: D/C or Transfer Summary - Plan Summary Plan Summary: See covering attending physician orders.
[2017-11-23] MEDS: AMITRIPTYLINE HCL 25 MG TABLET PO SCH (21:12)
[2017-11-23] MEDS: ATORVASTATIN CALCIUM 40 MG TABLET PO SCH (21:12)
[2017-11-24] MEDS: LANSOPRAZOLE 30 MG TAB.RAP.DR PO SCH ×2 (07:51→17:16)
[2017-11-24] MEDS: POTASSIUM CHLORIDE 20 MEQ/15 ML UDCUP PO SCH (11:03)
[2017-11-24] MEDS: FERROUS SULFATE 325 MG TABLET PO SCH (11:03)
[2017-11-24] MEDS: ASCORBIC ACID 500 MG TABLET PO SCH (11:04)
--- NOTE | 2017-11-24 12:44 | PDOC TRANSFER SUMMARY ---
General - Admit/Disc Date/PCP Admission Date/Primary Care Provider: 11/09/17 00:31 HILARIO CURRY MD Discharge Date: 12/01/17 - Discharge Diagnosis (1) Hemorrhagic shock Is this a current diagnosis for this admission?: Yes (2) Acute upper GI bleed Is this a current diagnosis for this admission?: Yes (3) Bleeding duodenal ulcer Is this a current diagnosis for this admission?: Yes (4) Coronary artery disease Is this a current diagnosis for this admission?: Yes (5) Type 2 diabetes mellitus Is this a current diagnosis for this admission?: Yes (6) Anemia due to acute blood loss Is this a current diagnosis for this admission?: Yes (7) Delirium Is this a current diagnosis for this admission?: Yes (8) Lower GI bleed Is this a current diagnosis for this admission?: Yes - Additional Information Resuscitation Status: Full Code Prescriptions: Esomeprazole Magnesium [Nexium] 40 mg PO DAILY #90 capsule. Metformin HCl [Glucophage] 500 mg PO BID #60 tablet Home Medications: Amitriptyline HCl [Elavil 25 mg Tablet] 50 mg PO QHS 04/21/17 Eszopiclone [Lunesta] 2 mg PO HSP PRN 04/21/17 Aspirin [Aspirin EC] 81 mg PO DAILY 11/09/17 Atorvastatin Calcium [Lipitor 40 mg Tablet] 40 mg PO QHS 11/09/17 Ferrous Sulfate [Feosol 325 mg Tablet] 325 mg PO DAILY 11/09/17 Telmisartan/Hydrochlorothiazid [Telmisartan-Hctz 40-12.5 mg Tb] 1 each PO DAILY 11/09/17 Esomeprazole Magnesium [Nexium] 40 mg PO DAILY #90 capsule. 11/24/17 Metformin HCl [Glucophage] 500 mg PO BID #60 tablet 11/24/17 Metoprolol Succinate [Toprol Xl 25 mg Tab.sr] 25 mg PO DAILY tab.sr.24h History of Present Illness Admission Date/PCP: 11/09/17 00:31 HILARIO CURRY MD History of Present Illness: ELMER SALMERON is a 82 year old male, Patient presented to the emergency room with acute onset GI bleed with associated hypotension. Hospital Course Hospital Course: Patient was admitted for the management of acute GI bleed, on admission the blood pressure was 70 systolic, he was transfused with packed red blood cells, he was hemodynamically unstable, he was stabilized, admitted in ICU he underwent upper GI endoscopy he was found to have active duodenal ulcer bleeding. This was treated endoscopically. He recently had coronary artery bypass grafting few weeks before he presented with acute GI bleed. Hospital course was complicated with confusion, delirium, he also had recurrent lower GI bleed, he underwent a repeat upper endoscopy because it was felt that he has a rebleed of the duodenal ulcer because it is a higher risk duodenal ulcer. The repeat upper endoscopy showed a normal duodenum. The biopsy was negative for H. pylori, this was NSAID induced GI bleed, after treatment of the duodenal ulcer he was restarted on the aspirin because he has underlining coronary artery disease. He also underwent colonoscopy because of recurrent bleeding this demonstrated blood in the colon: It was felt that this was from diverticulosis.No specific cause was found for the delirium, he was at one point restrained and also chemically treated with lorazepam. Patient is physically deconditioned the [facility] Physical Exam Vital Signs: Temp Pulse Resp BP Pulse Ox 97.5 F 100 21 H 153/71 H 93 11/24/17 08:20 11/24/17 08:20 11/24/17 08:20 11/24/17 08:20 11/24/17 08:20 Intake & Output 11/23/17 11/24/17 11/25/17 06:59 06:59 06:59 Intake Total 474 387 Balance 474 387 Weight 63 kg 63 kg General appearance: PRESENT: no acute distress, well-developed, well-nourished Head exam: PRESENT: atraumatic, normocephalic Eye exam: PRESENT: conjunctiva pink, EOMI, PERRLA Ear exam: PRESENT: normal external ear exam Mouth exam: PRESENT: moist, tongue midline Respiratory exam: PRESENT: clear to auscultation zeferino Cardiovascular exam: PRESENT: RRR, +S1, +S2 Pulses: PRESENT: normal dorsalis pedis pul Vascular exam: PRESENT: normal capillary refill GI/Abdominal exam: PRESENT: normal bowel sounds, soft Rectal exam: PRESENT: deferred Extremities exam: PRESENT: full ROM Neurological exam: PRESENT: alert, awake, oriented to person, oriented to place , oriented to time, oriented to situation, CN II-XII grossly intact Psychiatric exam: PRESENT: appropriate affect, normal mood Skin exam: PRESENT: dry, intact, warm Results Laboratory Results: 11/22/17 14:58 11/21/17 05:59 11/09/17 11/09/17 11/09/17 03:25 03:25 09:35 Creatine Kinase 121 110 CK-MB (CK-2) 4.44 Troponin I 0.109 11/09/17 11/09/17 11/09/17 09:35 14:20 14:20 Creatine Kinase 147 CK-MB (CK-2) 4.40 4.62 H Troponin I 0.133 0.111 Impressions: Cervical Spine CT 11/08/17 21:20 IMPRESSION: No acute fracture or static listhesis. Chest X-Ray 11/11/17 06:00 IMPRESSION: 1. Similar findings when compared to the prior study. There is mild perihilar airspace disease which may reflect pulmonary edema. 2. Remote postsurgical changes of the mediastinum. Head CT 11/21/17 00:00 IMPRESSION: NORMAL BRAIN CT WITHOUT CONTRAST. EVIDENCE OF ACUTE STROKE: NO. Qualifiers - * PATIENT BEING DISCHARGED WITH ANY OF THE FOLLOWING DIAGNOSIS: No
[2017-11-24 17:08] VITALS: BP 138/65
[2017-11-24] MEDS ORDERED: AMITRIPTYLINE HCL 50 MG TABLET PO SCH (22:00)
== END 2017-11-24 18:30 | DRG 377 ==
LOC: ER 21:07 → EH 11-09 00:31 → ICU 11-09 02:05 → 3W 11-13 20:50
PROVIDERS: ADMIT Internal Medicine; ATTEND Internal Medicine
PROC: 30233N1 Transfusion of Nonautologous Red Blood Cells into Peripheral Vein, Percutaneous Approach (ICD-10-PCS; principal; 2017-11-08)
PROC: 0W3P8ZZ Control Bleeding in Gastrointestinal Tract, Via Natural or Artificial Opening Endoscopic (ICD-10-PCS; 2017-11-09)
PROC: 0DD98ZX Extraction of Duodenum, Via Natural or Artificial Opening Endoscopic, Diagnostic (ICD-10-PCS; 2017-11-09 01:00)
PROC: 0DD78ZX Extraction of Stomach, Pylorus, Via Natural or Artificial Opening Endoscopic, Diagnostic (ICD-10-PCS; 2017-11-09 01:00)
PROC: 30233R1 Transfusion of Nonautologous Platelets into Peripheral Vein, Percutaneous Approach (ICD-10-PCS; 2017-11-16)
PROC: 0DJ08ZZ Inspection of Upper Intestinal Tract, Via Natural or Artificial Opening Endoscopic (ICD-10-PCS; 2017-11-16)
PROC: 0DDG8ZX Extraction of Left Large Intestine, Via Natural or Artificial Opening Endoscopic, Diagnostic (ICD-10-PCS; 2017-11-18)
PROC: 0DBP8ZZ Excision of Rectum, Via Natural or Artificial Opening Endoscopic (ICD-10-PCS; 2017-11-18)
DX: K26.4 Chronic or unspecified duodenal ulcer with hemorrhage (principal); R57.8 Other shock; N17.9 Acute kidney failure, unspecified; D62 Acute posthemorrhagic anemia; I95.9 Hypotension, unspecified; K92.1 Melena; K63.5 Polyp of colon; D64.9 Anemia, unspecified; E78.5 Hyperlipidemia, unspecified; I10 Essential (primary) hypertension; R41.0 Disorientation, unspecified; E11.8 Type 2 diabetes mellitus with unspecified complications; I25.2 Old myocardial infarction; Z79.01 Long term (current) use of anticoagulants; Z95.1 Presence of aortocoronary bypass graft
CPT/HCPCS: 00731; 36415; 36430; 43235; 43236; 43239; 43255; 45380; 51702; 70450; 71045; 72125; 80048; 80053; 81001; 82272; 82550; 82553; 82803; 82962; 83036; 83605; 83735; 83880; 84484; 85025; 85027; 85610; 86850; 86900; 86901; 86920; 87040; 87045; 87086; 87177; 87205; 87493; 88305; 89055; 93005; 93010; 96361; 96365; 96368; 99291; 99292; C1751; C1769; G8978-GP; G8979-GP; J0171; J0330; J1170; J1200; J1430; J1610; J1630; J1940; J2060; J2250; J2310; J2370; J2405; J2543; J2704; J3010; J3480; J3490; P9016; P9035; S0028; S0164

== ENCOUNTER 2017-12-06 12:22 | Emergency (ER) | payer MEDICARE, OTHER ==
--- NOTE | 2017-12-06 13:27 | ER Document Report ---
ED Fall - General Chief Complaint: Fall Stated Complaint: FALL,HEAD INJURY Time Seen by Provider: 12/06/17 13:14 Information source: Patient Notes: Patient is an 82-year-old male that presents today from the rehabilitation facility after the patient had a fall. Patient states he "slipped on my socks" hitting the back of his head. He denies loss of consciousness. It was an unwitnessed fall. Patient is oriented to person place and time. Patient denies any headache, neck pain, chest pain, abdominal pain, back pain, extremity pain, pelvis pain. Patient denies any lightheadedness, dizziness, or chest pain causing the fall. Patient states his tetanus is up-to-date. Patient was admitted the end of October secondary to an upper GI bleed. He was found to have a bleeding duodenal ulcer. NSAIDs were discontinued and the patient was placed on aspirin. Patient denies any black or bloody stool. TRAVEL OUTSIDE OF THE [place] IN LAST 30 DAYS: No - HPI Occurred: Just prior to arrival Where: Other - See above Context: Slipped Associated symptoms: None Location of injury/pain: Other - See above Quality of pain: No pain Severity: None Pain Level: Denies Prehospital interventions: No: C-collar, Backboard - Related data Allergies/Adverse Reactions: No Known Allergies Allergy (Verified 10/29/17 16:45) Past Medical History - Social History Smoking Status: Unknown if Ever Smoked Drug Abuse: None Family History: Hypertension Patient has suicidal ideation: No Patient has homicidal ideation: No - Past Medical History Cardiac Medical History: Reports: Hx Coronary Artery Disease, Hx Hypercholesterolemia, Hx Hypertension - meds since 2010 Neurological Medical History: Denies: Hx Cerebrovascular Accident, Hx Seizures Endocrine Medical History: Reports: Hx Diabetes Mellitus Type 2 - not on insulin Renal/ Medical History: Denies: Hx Peritoneal Dialysis Musculoskeletal Medical History: Reports Hx Arthritis Psychiatric Medical History: Reports: Hx Anxiety Denies: Hx Depression Past Surgical History: Reports: Hx Cardiac Surgery - open heart 10/11, Hx Coronary Artery Bypass Graft - recent, Hx Herniorrhaphy, Hx Orthopedic Surgery - fx shoulder, clavicle, Other - Immunizations Hx Diphtheria, Pertussis, Tetanus Vaccination: Yes Review of Systems - Review of Systems Constitutional: denies: Fever Cardiovascular: denies: Chest pain, Palpitations Respiratory: denies: Short of breath Gastrointestinal: denies: Abdominal pain, Vomiting Genitourinary: denies: Dysuria Musculoskeletal: denies: Leg swelling Skin: Other - no hives. denies: Rash Neurological/Psychological: Other - no slurred speech. denies: Confusion, Weakness, Numbness -: Yes All other systems reviewed and negative Physical Exam - Vital signs Vitals: Temp Pulse Resp BP Pulse Ox 97.5 F 93 19 120/58 L 97 12/06/17 12:29 12/06/17 12:29 12/06/17 12:29 12/06/17 12:29 12/06/17 12:29 Notes: Reviewed vital signs and nursing note as charted by RN. CONSTITUTIONAL: Alert and oriented and responds appropriately to questions. Well -appearing; well-nourished HEAD: Normocephalic; small currently hemostatic posterior abrasion/laceration to the occipital region without any depressed skull fractures EYES: PERRL; full extraocular range of motion ENT: Normal nose; no rhinorrhea; moist mucous membranes; pharynx without lesions noted NECK: Supple without meningismus; non-tender CARD: Regular rate and rhythm; no murmurs; symmetric distal pulses RESP: Normal chest excursion without splinting or tachypnea; breath sounds clear and equal bilaterally ABD/GI: Normal bowel sounds; non-distended; soft, non-tender, no abdominal bruits; no palpable organomegaly or masses BACK: The back appears normal and is non-tender to palpation, there is no CVA tenderness EXT: Normal ROM in all joints; non-tender to palpation; no cyanosis, no effusions, no edema SKIN: See above NEURO: CN II through XII are intact. Patient has 5 out of 5 bilateral upper and lower extremity strength with sensation intact to light touch PSYCH: The patient's mood and manner are appropriate. Grooming and personal hygiene are appropriate. Course - Re-evaluation Re-evalutation: 12/06/17 13:27 Given the above history and physical examination I will order CT scan of the head. Given the patient's recent GI bleed admission/discharge I will obtain a CBC. Patient's tetanus is up-to-date. Patient has no pain to any other location is currently oriented x4. I do not believe any other imaging or laboratory work is necessary at this moment. 12/06/17 15:00 CT as recorded. Hemoglobin is 13. - Vital Signs Vital signs: Temp Pulse Resp BP Pulse Ox 97.5 F 93 19 120/58 L 97 12/06/17 12:29 12/06/17 12:29 12/06/17 12:29 12/06/17 12:29 12/06/17 12:29 - Laboratory Result Diagrams: 12/06/17 13:45 Laboratory results interpreted by me: 12/06/17 13:45 WBC 11.8 H RDW 17.1 H Seg Neutrophils % 85.8 H Lymphocytes % 8.7 L Absolute Neutrophils 10.1 H Procedures - Laceration/Wound Repair Head Wound length (cm): 2 Wound's Depth, Shape: Superficial Anesthetic type: 1% Lidocaine w/epi Volume Anesthetic (mLs): 4 Wound explored: Clean Wound Repaired With: Seffner Number of Sutures: 3 Post-procedure NV exam normal: Yes Complications: No Discharge - Discharge Clinical Impression: Scalp laceration Qualifiers: Encounter type: initial encounter Qualified Code(s): S01.01XA - Laceration without foreign body of scalp, initial encounter Accidental fall Qualifiers: Encounter type: initial encounter Qualified Code(s): W19.XXXA - Unspecified fall, initial encounter Closed head injury Qualifiers: Encounter type: initial encounter Qualified Code(s): S09.90XA - Unspecified injury of head, initial encounter Condition: Good Disposition: HOME, SELF-CARE Additional Instructions: Keep the area clean and dry and apply bacitracin to the wound twice daily until healing. Please return in around 10 days for staple removal. Please come back immediately with any vomiting, weakness or numbness, pain, change in mentation, persistent vomiting, or any other acute problems. Please follow-up with the primary care physician. Referrals: HILARIO CURRY MD [Primary Care Provider] - Follow up as needed
--- NOTE | 2017-12-06 13:49 | RADIOLOGY REPORT (SQ) ---
EXAM DESCRIPTION: CT HEAD WITHOUT COMPLETED DATE/TIME: 12/06/2017 1:37 pm REASON FOR STUDY: 3H; fall with lac COMPARISON: 11/16/2017 TECHNIQUE: Axial images acquired through the brain without intravenous contrast. Images reviewed wi th bone, brain and subdural windows. Images stored on PACS. All CT scanners at this facility use dose modulation, iterative reconstruction, and/or weight based d osing when appropriate to reduce radiation dose to as low as reasonably achievable (ALARA). [facility]: Dose Right [facility]: CareDose [facility]: Dose Right [facility]: Teradose 4D [facility]: Smart [employer] RADIATION DOSE: CT Rad equipment meets quality standard of care and radiation dose reduction techniq ues were employed. CTDIvol: 53.2 mGy. DLP: 964 mGy-cm. mGy. LIMITATIONS: None. FINDINGS: VENTRICLES: Normal size and contour. CEREBRUM: No masses. No hemorrhage. No midline shift. No evidence for acute infarction. Normal gra y/white matter differentiation. No areas of low density in the white matter. CEREBELLUM: No masses. No hemorrhage. No alteration of density. No evidence for acute infarction. EXTRAAXIAL SPACES: No fluid collections. No masses. ORBITS AND GLOBE: No intra- or extraconal masses. Normal contour of globe without masses. CALVARIUM: No fracture. PARANASAL SINUSES: No fluid or mucosal thickening. SOFT TISSUES: No mass or hematoma. OTHER: No other significant finding. IMPRESSION: No acute intracranial findings. EVIDENCE OF ACUTE STROKE: NO. COMMENT: Quality ID # 436: Final reports with documentation of one or more dose reduction techniques (e.g., Automated exposure control, adjustment of the mA and/or kV according to patient size, use of iterative reconstruction technique) TECHNICAL DOCUMENTATION: JOB ID: [id number] [place]-72 2010 [employer]- All Rights Reserved Reading location - IP/workstation name: [email or web address]
[2017-12-06 14:16] LABS: ABSOLUTE BASOPHILS # (AUTO) 0.1 10^3/uL (0.0-0.2); ABSOLUTE EOSINOPHILS # (AUTO) 0.1 10^3/uL (0.0-0.6); ABSOLUTE MONOCYTES (AUTO) 0.5 10^3/uL (0.1-1.4); ABSOLUTE NEUT (AUTO) 10.1 10^3/uL (1.7-8.2); BASOPHILS % (AUTO) 0.5 % (0-2); EOSINOPHILS % (AUTO) 0.8 % (0-6); HEMATOCRIT 41.7 % (37.9-51.0); HEMOGLOBIN 13.6 g/dL (13.5-17.0); LYMPHOCYTES % (AUTO) 8.7 % (13-45); MEAN CORPUSCULAR HEMOGLOBIN 27.6 pg (27.0-33.4); MEAN CORPUSCULAR HGB CONC 32.6 g/dL (32.0-36.0); MEAN CORPUSCULAR VOLUME 85 fl (80-97); MONOCYTES % (AUTO) 4.2 % (3-13); PLATELET COUNT 340 10^3/uL (150-450); RED BLOOD COUNT 4.93 10^6/uL (4.35-5.55); RED CELL DISTRIBUTION WIDTH 17.1 % (11.5-14.0); SEGMENTED NEUTROPHILS % (AUTO) 85.8 % (42-78); TOTAL CELLS COUNTED % (AUTO) 100 %; WHITE BLOOD COUNT 11.8 10^3/uL (4.0-10.5)
[2017-12-06] MEDS ORDERED: LIDOCAINE 1%/EPINEPHRINE INJ 20 ML VIAL INJ ONE (15:02)
[2017-12-06] MEDS ORDERED: BACITRACIN ZINC OINTMENT 15 GM TP ONE (15:36)
[2017-12-06 17:19] VITALS: BP 121/68
== END 2017-12-06 17:15 | disposition home or self-care (01) ==
LOC: ER 12:22
PROC: 0HQ0XZZ Repair Scalp Skin, External Approach (ICD-10-PCS; principal; 2017-12-06)
DX: S01.01XA Laceration without foreign body of scalp, initial encounter (principal); W01.0XXA Fall on same level from slipping, tripping and stumbling without subsequent striking against object, initial encounter; I25.10 Atherosclerotic heart disease of native coronary artery without angina pectoris; E78.00 Pure hypercholesterolemia, unspecified; I10 Essential (primary) hypertension; E11.9 Type 2 diabetes mellitus without complications; Z95.1 Presence of aortocoronary bypass graft
CPT/HCPCS: 99284; 36415; 85025; 70450; 12001; J3490 ×2

== ENCOUNTER 2017-12-11 18:17 | Inpatient (IN) | payer MEDICARE, OTHER ==
[2017-12-11 19:09] LABS: ABSOLUTE EOSINOPHILS # (AUTO) 0.2 10^3/uL (0.0-0.6); ABSOLUTE MONOCYTES (AUTO) 0.8 10^3/uL (0.1-1.4); ABSOLUTE NEUT (AUTO) 7.3 10^3/uL (1.7-8.2); BASOPHILS % (AUTO) 0.5 % (0-2); EOSINOPHILS % (AUTO) 1.6 % (0-6); HEMATOCRIT 37.7 % (37.9-51.0); HEMOGLOBIN 12.4 g/dL (13.5-17.0); LYMPHOCYTES % (AUTO) 19.9 % (13-45); MEAN CORPUSCULAR HEMOGLOBIN 27.5 pg (27.0-33.4); MEAN CORPUSCULAR HGB CONC 32.8 g/dL (32.0-36.0); MEAN CORPUSCULAR VOLUME 84 fl (80-97); MONOCYTES % (AUTO) 7.3 % (3-13); PLATELET COUNT 260 10^3/uL (150-450); RED BLOOD COUNT 4.49 10^6/uL (4.35-5.55); RED CELL DISTRIBUTION WIDTH 16.8 % (11.5-14.0); SEGMENTED NEUTROPHILS % (AUTO) 70.7 % (42-78); TOTAL CELLS COUNTED % (AUTO) 100 %; WHITE BLOOD COUNT 10.3 10^3/uL (4.0-10.5)
[2017-12-11 19:20] LABS: ANION GAP 14 (5-19); BLOOD UREA NITROGEN 73 mg/dL (7-20); CALCIUM 9.1 mg/dL (8.4-10.2); CARBON DIOXIDE 25 mmol/L (22-30); CHLORIDE 96 mmol/L (98-107); GLUCOSE 106 mg/dL (75-110); SODIUM 135.2 mmol/L (137-145)
[2017-12-11] MEDS ORDERED: NORMAL SALINE 1000 ML 1,000 ML IV ONE (19:29)
--- NOTE | 2017-12-11 19:29 | ER Document Report ---
ED General - General Chief Complaint: Abnormal Lab Results Stated Complaint: ABNORMAL LABS Time Seen by Provider: 12/11/17 18:34 Notes: Patient is an 82-year old male with a recent hospitalization for an upper GI bleed, history of CABG currently on Plavix, who presents with concerns of acute renal failure on outpatient labs obtained earlier today. Patient states that he is not have any symptoms. States that he was told he was going to the emergency department due to some lab issues. He states that "the food there is so terrible I have not eaten and I have lost a lot of weight". He does however state that he has been drinking fluids. Review of previous labs does not show any known history of chronic renal failure. The patient is taking a proton pump inhibitor since discharge. He denies any chest pain, shortness of breath, abdominal pain, hematemesis, melena or hematochezia. Nothing improves or worsens symptoms. His primary care doctor did refer him to the emergency department. TRAVEL OUTSIDE OF THE [place] IN LAST 30 DAYS: No - Related Data Allergies/Adverse Reactions: No Known Allergies Allergy (Verified 10/29/17 16:45) Past Medical History - General Information source: Patient - Social History Smoking Status: Former Smoker Frequency of alcohol use: None Drug Abuse: None Lives with: Snf Family History: Hypertension Patient has suicidal ideation: No Patient has homicidal ideation: No - Past Medical History Cardiac Medical History: Reports: Hx Coronary Artery Disease, Hx Hypercholesterolemia, Hx Hypertension - meds since 2010 Neurological Medical History: Denies: Hx Cerebrovascular Accident, Hx Seizures Endocrine Medical History: Reports: Hx Diabetes Mellitus Type 2 - not on insulin Renal/ Medical History: Denies: Hx Peritoneal Dialysis Musculoskeletal Medical History: Reports Hx Arthritis Psychiatric Medical History: Reports: Hx Anxiety Denies: Hx Depression Past Surgical History: Reports: Hx Cardiac Surgery - open heart 10/11, Hx Coronary Artery Bypass Graft - recent, Hx Herniorrhaphy, Hx Orthopedic Surgery - fx shoulder, clavicle, Other - Immunizations Hx Diphtheria, Pertussis, Tetanus Vaccination: Yes Review of Systems - Review of Systems Notes: Constitutional: Negative for fever. HENT: Negative for sore throat. Eyes: Negative for visual changes. Cardiovascular: Negative for chest pain. Respiratory: Negative for shortness of breath. Gastrointestinal: Negative for abdominal pain, vomiting or diarrhea. Genitourinary: Negative for dysuria. Musculoskeletal: Negative for back pain. Skin: Negative for rash. Neurological: Negative for headaches, weakness or numbness. 10 point ROS negative except as marked above and in HPI. Physical Exam - Vital signs Vitals: Temp Pulse Resp BP Pulse Ox 97.6 F 82 18 103/53 L 96 12/11/17 18:18 12/11/17 18:18 12/11/17 18:18 12/11/17 18:18 12/11/17 18:18 Interpretation: Normal Notes: PHYSICAL EXAMINATION: GENERAL: Well-appearing, well-nourished and in no acute distress. HEAD: Atraumatic, normocephalic. EYES: Pupils equal round and reactive to light, extraocular movements intact, sclera anicteric, conjunctiva are normal. ENT: nares patent, oropharynx clear without exudates. Moderately dry mucous membranes. NECK: Normal range of motion, supple without lymphadenopathy LUNGS: Breath sounds clear to auscultation bilaterally and equal. No wheezes rales or rhonchi. HEART: Regular rate and rhythm without murmurs ABDOMEN: Soft, nontender, normoactive bowel sounds. No guarding, no rebound. No masses appreciated. EXTREMITIES: Normal range of motion, no pitting or edema. No cyanosis. NEUROLOGICAL: No focal neurological deficits. Moves all extremities spontaneously and on command. PSYCH: Normal mood, normal affect. SKIN: Warm, Dry, normal turgor, no rashes or lesions noted. Course - Re-evaluation Re-evalutation: 12/11/17 19:28 Patient's labs appear most consistent with prerenal azotemia, likely secondary to dehydration as the patient is visibly dehydrated on exam. He admits to very poor p.o. intake over the last several weeks. Will obtain renal ultrasound, repeat labs, begin IV fluids and discuss with his primary doctor for admission 12/11/17 21:12 Repeat laboratories do confirm that the patient is in acute renal failure likely prerenal in origin, BUN creatinine ratio over 20. The primary doctor, Dr. Curry has been contacted and would like the patient hospitalized patient. Renal ultrasound without any evidence of obstruction. - Vital Signs Vital signs: Temp Pulse Resp BP Pulse Ox 97.6 F 82 21 H 110/56 L 96 12/11/17 18:18 12/11/17 18:18 12/11/17 18:30 12/11/17 18:30 12/11/17 18:18 - Laboratory Result Diagrams: 12/11/17 18:39 12/11/17 18:39 Laboratory results interpreted by me: 12/11/17 12/11/17 18:39 18:39 Hgb 12.4 L Hct 37.7 L RDW 16.8 H Sodium 135.2 L Chloride 96 L BUN 73 H Creatinine 3.67 H Est GFR ( Amer) 19 L Est GFR (Non-Af Amer) 16 L - Diagnostic Test Radiology reviewed: Image reviewed, Reports reviewed Discharge - Discharge Clinical Impression: Prerenal azotemia, Dehydration Acute renal failure Qualifiers: Acute renal failure type: unspecified Qualified Code(s): N17.9 - Acute kidney failure, unspecified Condition: Fair Disposition: ADMITTED OBSERVATION Admitting Provider: Tasneem Unit Admitted: Telemetry Referrals: HILARIO CURRY MD [Primary Care Provider] - Follow up as needed
[2017-12-11 20:41] LABS: APPEARANCE,URINE SLIGHTLY-CLOUDY; BILIRUBIN,URINE NEGATIVE (NEGATIVE); COLOR,URINE YELLOW; GLUCOSE, URINE NEGATIVE (NEGATIVE); KETONES,URINE NEGATIVE (NEGATIVE); LEUKOCYTE ESTERASE,URINE NEGATIVE (NEGATIVE); NITRITE,URINE NEGATIVE (NEGATIVE); PROTEIN,URINE NEGATIVE (NEGATIVE); URINE SPECIFIC GRAVITY 1.015; UROBILINOGEN,URINE NEGATIVE mg/dL (<2.0)
[2017-12-11 20:42] LABS: TRIPLE PHOSPHATE CRYSTAL,URINE FEW /HPF
--- NOTE | 2017-12-11 21:18 | RADIOLOGY REPORT (SQ) ---
EXAM DESCRIPTION: US RETROPERITONEUM LIMITED COMPLETED DATE/TME: 12/11/2017 18:50 CLINICAL HISTORY: 82 years Male new onset failure COMPARISON: None. TECHNIQUE: Transabdominal grayscale imaging performed to evaluate the kidneys and urinary bladder. FINDINGS: The right kidney measures 10.1 cm. Left kidney is measured at 8.8 cm however I suspect that the measurement is slightly larger as the inferior aspect is partially obscured. No evidence of hydronephrosis or mass. Echogenic foci are seen bilaterally which may reflect calculi. Urinary bladder is incompletely distended. IMPRESSION: Echogenic foci bilaterally which are nonspecific and may be related to calculi. Vascular calcification can have a similar appearance. No evidence of hydronephrosis
[2017-12-11] MEDS ORDERED: NORMAL SALINE 1000 ML 1,000 ML IV PRN (21:47)
[2017-12-11] MEDS: HEPARIN SOD (PORCINE) 5,000 UNIT/ML 1 ML SYRINGE SUBCUT SCH (23:02)
[2017-12-12 05:10] LABS: ANION GAP 15 (5-19); BLOOD UREA NITROGEN 66 mg/dL (7-20); CALCIUM 8.5 mg/dL (8.4-10.2); CARBON DIOXIDE 20 mmol/L (22-30); CHLORIDE 103 mmol/L (98-107); GLUCOSE 78 mg/dL (75-110); POTASSIUM 3.3 mmol/L (3.6-5.0); SODIUM 138.3 mmol/L (137-145)
[2017-12-12 06:19] LABS: INTERNATIONAL RATION (INR) 1.03
[2017-12-12 06:20] LABS: PARTIAL THROMBOPLASTIN TIME 67.5 SEC (23.5-35.8)
[2017-12-12] MEDS: HEPARIN SOD (PORCINE) 5,000 UNIT/ML 1 ML SYRINGE SUBCUT SCH ×3 (10:23→21:51)
[2017-12-12] MEDS ORDERED: (PENDING PHARMACY ID) (Eszopiclone [Lunesta] 2 MG) PO PRN (17:20)
[2017-12-12] MEDS: FERROUS SULFATE 325 MG TABLET PO SCH (18:11)
[2017-12-12] MEDS: METOPROLOL SUCCINATE 25 MG TAB.SR.24H PO SCH (18:11)
[2017-12-12] MEDS: ASPIRIN 81 MG TABLET, ENT COATED PO SCH (18:11)
[2017-12-12 18:34] LABS: ALANINE AMINOTRANSFERASE 17 U/L (21-72); ALBUMIN 3.3 g/dL (3.5-5.0); ALKALINE PHOSPHATASE 69 U/L (38-126); ANION GAP 15 (5-19); ASPARTATE AMINO TRANSFERASE 29 U/L (17-59); BILIRUBIN,DIRECT 0.3 mg/dL (0.0-0.4); BILIRUBIN,TOTAL 0.5 mg/dL (0.2-1.3); BLOOD UREA NITROGEN 57 mg/dL (7-20); CALCIUM 8.3 mg/dL (8.4-10.2); CARBON DIOXIDE 20 mmol/L (22-30); CHLORIDE 102 mmol/L (98-107); GLUCOSE 98 mg/dL (75-110); POTASSIUM 3.7 mmol/L (3.6-5.0); SODIUM 136.8 mmol/L (137-145); TOTAL PROTEIN 5.9 g/dL (6.3-8.2)
--- NOTE | 2017-12-12 20:10 | PDOC H&P ---
History of Present Illness Admission Date/PCP: 12/12/17 15:59 HILARIO CURRY MD History of Present Illness: ELMER SALMERON is a 82 year old male, He has a history of coronary artery disease status post coronary artery bypass grafting, he was recently admitted in this hospital for the management of upper GI bleed due to a bleeding duodenal ulcer, he was [facility] the shelter on November [facility], 2017 for rehabilitation and physical therapy. He had routine blood work done, he was found to have severely elevated serum creatinine at 3.8, I called the shelter to refer him to the emergency room for evaluation of the elevated serum creatinine. In the ER he was evaluated the blood work that was done in the emergency room demonstrated a serum creatinine of 3.67, the urinalysis was bland suggesting that this is not intrinsic kidney disease, the kidney ultrasound that was done did not show any hydronephrosis. I saw the patient today on the floor though he was admitted last night, he was clinically dehydrated his oral mucosa was extremely dry there was loss of skin turgor suggesting that the elevated serum creatinine is probably due to prerenal azotemia rather than intrinsic kidney disease. Past Medical History Cardiac Medical History: Reports: Coronary Artery Disease, Hyperlipidema, Hypertension - meds since 2010 Neurological Medical History: Denies: Seizures Endocrine Medical History: Reports: Diabetes Mellitus Type 2 - not on insulin Musculoskeltal Medical History: Reports: Arthritis Past Surgical History Past Surgical History: Reports: Coronary Artery Bypass Graft - recent, Herniorrhaphy, Orthopedic Surgery - fx shoulder, clavicle, Other Social History Lives with: [facility] Smoking Status: Former Smoker Frequency of Alcohol Use: None Hx Recreational Drug Use: No Drugs: None Hx Prescription Drug Abuse: No - Advance Directive Resuscitation Status: Full Code Family History Family History: Hypertension Parental Family History Reviewed: Yes Children Family History Reviewed: Yes Sibling(s) Family History Reviewed.: Yes Medication/Allergy Home Medications: Amitriptyline HCl [Elavil 50 Mg Tablet] 50 mg PO QHS 12/12/17 Aspirin [Ecotrin 81 mg EC Tablet] 81 mg PO DAILY 12/12/17 Atorvastatin Calcium [Lipitor 40 mg Tablet] 40 mg PO QHS 12/12/17 Eszopiclone [Lunesta] 2 mg PO HSP PRN 12/12/17 Ferrous Sulfate [Feosol 325 mg Tablet] 325 mg PO DAILY 12/12/17 Metformin HCl [Glucophage 500 mg Tablet] 500 mg PO BIDACBS 12/12/17 Metoprolol Succinate [Toprol Xl 25 mg Tab.sr] 25 mg PO DAILY 12/12/17 Allergies/Adverse Reactions: No Known Allergies Allergy (Verified 10/29/17 16:45) Review of Systems Constitutional: ABSENT: chills, fever(s), headache(s), weight gain, weight loss Eyes: ABSENT: visual disturbances Ears: ABSENT: hearing changes Cardiovascular: ABSENT: chest pain, dyspnea on exertion, edema, orthropnea, palpitations Respiratory: ABSENT: cough, hemoptysis Gastrointestinal: ABSENT: as per HPI, abdominal pain, bloating, coffee ground emesis, constipation, diarrhea, dysphagia, heartburn, hematemesis, hematochezia , melena, nausea, vomiting, other Genitourinary: ABSENT: dysuria, hematuria Musculoskeletal: ABSENT: joint swelling Integumentary: ABSENT: rash, wounds Neurological: ABSENT: abnormal gait, abnormal speech, confusion, dizziness, focal weakness, syncope Psychiatric: ABSENT: anxiety, depression, homidical ideation, suicidal ideation Endocrine: ABSENT: cold intolerance, heat intolerance, menstrual abnormalities, polydipsia, polyuria Hematologic/Lymphatic: ABSENT: easy bleeding, easy bruising, lymphadenopathy Physical Exam Vital Signs: Temp Pulse Resp BP Pulse Ox 98.0 F 73 17 111/56 L 97 12/12/17 15:54 12/12/17 19:00 12/12/17 15:54 12/12/17 15:54 12/12/17 15:54 Intake & Output 12/11/17 12/12/17 12/13/17 06:59 06:59 06:59 Intake Total 237 Output Total 350 Balance -113 General appearance: PRESENT: no acute distress, well-developed, well-nourished Head exam: PRESENT: atraumatic, normocephalic Eye exam: PRESENT: PERRLA Ear exam: PRESENT: normal external ear exam Mouth exam: PRESENT: dry mucosa Respiratory exam: PRESENT: clear to auscultation zeferino Cardiovascular exam: PRESENT: RRR, +S1, +S2 Vascular exam: PRESENT: normal capillary refill GI/Abdominal exam: PRESENT: normal bowel sounds, soft Rectal exam: PRESENT: deferred Neurological exam: PRESENT: alert, awake, oriented to person, oriented to place , oriented to time, oriented to situation, CN II-XII grossly intact Psychiatric exam: PRESENT: appropriate affect, normal mood Skin exam: PRESENT: dry, intact Results Laboratory Results: 12/12/17 18:00 12/12/17 18:00 Sodium 136.8 L Potassium 3.7 Chloride 102 Carbon Dioxide 20 L Anion Gap 15 BUN 57 H Creatinine 2.71 H Est GFR ( Amer) 27 L Est GFR (Non-Af Amer) 23 L Glucose 98 Calcium 8.3 L Total Bilirubin 0.5 AST 29 ALT 17 L Alkaline Phosphatase 69 Total Protein 5.9 L Albumin 3.3 L Impressions: Renal Ultrasound 12/11/17 18:50 IMPRESSION: Echogenic foci bilaterally which are nonspecific and may be related to calculi. Vascular calcification can have a similar appearance. No evidence of hydronephrosis Assessment & Plan - Diagnosis (1) Acute kidney injury Is this a current diagnosis for this admission?: Yes Plan: This is most likely prerenal azotemia, there is clinical evidence of dehydration in this patient there is loss of skin turgor, very dry oral mucosa and also his tongue, the urinalysis was bland suggesting no intrinsic kidney disease will be slowly vigorously hydrated with fluid continue to monitor Chem- 7 the other potential cause of the elevated serum creatinine and BUN is GI bleed but there is no evidence of upper GI bleed (2) Coronary artery disease Qualifiers: Coronary Disease-Associated Artery/Lesion type: [place] artery [place] vs. transplanted heart: [place] heart Associated angina: without angina Qualified Code(s): I25.10 - Atherosclerotic heart disease of [place] coronary artery without angina pectoris Is this a current diagnosis for this admission?: Yes (3) Type 2 diabetes mellitus Qualifiers: Diabetes mellitus group home insulin use: without group home use Diabetes mellitus complication status: without complication Qualified Code(s): E11.9 - Type 2 diabetes mellitus without complications Is this a current diagnosis for this admission?: Yes
[2017-12-12] MEDS ORDERED: ZOLPIDEM TARTRATE 5 MG TABLET PO PRN (20:47)
[2017-12-12] MEDS: ATORVASTATIN CALCIUM 40 MG TABLET PO SCH (21:54)
[2017-12-12] MEDS: AMITRIPTYLINE HCL 50 MG TABLET PO SCH (21:54)
[2017-12-13 06:35] LABS: ABSOLUTE BASOPHILS # (AUTO) 0.1 10^3/uL (0.0-0.2); ABSOLUTE EOSINOPHILS # (AUTO) 0.2 10^3/uL (0.0-0.6); ABSOLUTE LYMPHOCYTES (AUTO) 1.4 10^3/uL (0.5-4.7); ABSOLUTE MONOCYTES (AUTO) 0.6 10^3/uL (0.1-1.4); ABSOLUTE NEUT (AUTO) 5.2 10^3/uL (1.7-8.2); BASOPHILS % (AUTO) 1.2 % (0-2); EOSINOPHILS % (AUTO) 2.5 % (0-6); HEMATOCRIT 33.1 % (37.9-51.0); HEMOGLOBIN 10.9 g/dL (13.5-17.0); LYMPHOCYTES % (AUTO) 18.8 % (13-45); MEAN CORPUSCULAR HEMOGLOBIN 27.4 pg (27.0-33.4); MEAN CORPUSCULAR HGB CONC 32.9 g/dL (32.0-36.0); MEAN CORPUSCULAR VOLUME 83 fl (80-97); MONOCYTES % (AUTO) 8.4 % (3-13); PLATELET COUNT 169 10^3/uL (150-450); RED BLOOD COUNT 3.97 10^6/uL (4.35-5.55); RED CELL DISTRIBUTION WIDTH 16.4 % (11.5-14.0); SEGMENTED NEUTROPHILS % (AUTO) 69.1 % (42-78); TOTAL CELLS COUNTED % (AUTO) 100 %; WHITE BLOOD COUNT 7.5 10^3/uL (4.0-10.5)
[2017-12-13 06:41] LABS: INTERNATIONAL RATION (INR) 0.97; PROTHROMBIN TIME 13.4 SEC (11.4-15.4)
[2017-12-13 06:42] LABS: PARTIAL THROMBOPLASTIN TIME 38.4 SEC (23.5-35.8)
[2017-12-13 06:52] LABS: ANION GAP 15 (5-19); BLOOD UREA NITROGEN 48 mg/dL (7-20); CALCIUM 8.6 mg/dL (8.4-10.2); CARBON DIOXIDE 19 mmol/L (22-30); CHLORIDE 104 mmol/L (98-107); GLUCOSE 81 mg/dL (75-110); POTASSIUM 3.4 mmol/L (3.6-5.0); SODIUM 137.7 mmol/L (137-145)
[2017-12-13] MEDS: HEPARIN SOD (PORCINE) 5,000 UNIT/ML 1 ML SYRINGE SUBCUT SCH ×3 (08:40→23:11)
[2017-12-13] MEDS ORDERED: POTASSIUM CHLORIDE 10 MEQ CAPSULE.ER PO ONE (09:27)
--- NOTE | 2017-12-13 10:02 | PDOC PROGRESS REPORT ---
Subjective Progress Note for:: 12/13/17 Subjective:: Patient was admitting in the hospital for the acute renal failure and started on IV fluid and currently doing well Patient's denied any chest pain denied any shortness of the breath Patient's kidney function is all improving Reason For Visit: ACUTE KIDNEY INJURY Physical Exam Vital Signs: Temp Pulse Resp BP Pulse Ox 98.1 F 88 18 115/54 L 97 12/13/17 07:30 12/13/17 07:30 12/13/17 07:30 12/13/17 07:30 12/13/17 07:30 Intake & Output 12/12/17 12/13/17 12/14/17 06:59 06:59 06:59 Intake Total 477 Output Total 350 Balance 127 Weight 58.9 kg General appearance: PRESENT: no acute distress, well-developed, well-nourished Head exam: PRESENT: atraumatic, normocephalic Eye exam: PRESENT: conjunctiva pink, EOMI, PERRLA. ABSENT: scleral icterus Ear exam: PRESENT: normal external ear exam Mouth exam: PRESENT: moist, tongue midline Neck exam: PRESENT: full ROM. ABSENT: carotid bruit, JVD, lymphadenopathy, thyromegaly Respiratory exam: PRESENT: clear to auscultation zeferino Cardiovascular exam: PRESENT: RRR. ABSENT: diastolic murmur, rubs, systolic murmur Pulses: PRESENT: normal dorsalis pedis pul, +2 pedal pulses bilateral Vascular exam: PRESENT: normal capillary refill GI/Abdominal exam: PRESENT: normal bowel sounds, soft. ABSENT: distended, guarding, mass, organolmegaly, rebound, tenderness Rectal exam: PRESENT: deferred Extremities exam: ABSENT: pedal edema Neurological exam: PRESENT: alert, awake, oriented to person, oriented to place , oriented to time, oriented to situation, CN II-XII grossly intact. ABSENT: motor sensory deficit Psychiatric exam: PRESENT: appropriate affect, normal mood. ABSENT: homicidal ideation, suicidal ideation Skin exam: PRESENT: dry, intact, warm. ABSENT: cyanosis, rash Results Laboratory Results: 12/13/17 05:48 12/13/17 05:48 12/12/17 12/13/17 12/13/17 18:00 05:48 05:48 WBC 7.5 RBC 3.97 L Hgb 10.9 L Hct 33.1 L MCV 83 MCH 27.4 MCHC 32.9 RDW 16.4 H Plt Count 169 Seg Neutrophils % 69.1 Lymphocytes % 18.8 Monocytes % 8.4 Eosinophils % 2.5 Basophils % 1.2 Absolute Neutrophils 5.2 Absolute Lymphocytes 1.4 Absolute Monocytes 0.6 Absolute Eosinophils 0.2 Absolute Basophils 0.1 Sodium 136.8 L 137.7 Potassium 3.7 3.4 L Chloride 102 104 Carbon Dioxide 20 L 19 L Anion Gap 15 15 BUN 57 H 48 H Creatinine 2.71 H 2.20 H Est GFR ( Amer) 27 L 35 L Est GFR (Non-Af Amer) 23 L 29 L Glucose 98 81 Calcium 8.3 L 8.6 Total Bilirubin 0.5 AST 29 ALT 17 L Alkaline Phosphatase 69 Total Protein 5.9 L Albumin 3.3 L Impressions: Renal Ultrasound 12/11/17 18:50 IMPRESSION: Echogenic foci bilaterally which are nonspecific and may be related to calculi. Vascular calcification can have a similar appearance. No evidence of hydronephrosis Assessment & Plan - Diagnosis (1) Acute renal failure Qualifiers: Acute renal failure type: unspecified Qualified Code(s): N17.9 - Acute kidney failure, unspecified Is this a current diagnosis for this admission?: Yes Plan: On medication and IV fluid (2) Dehydration Is this a current diagnosis for this admission?: Yes Plan: Continue IV fluid (3) Coronary artery disease Qualifiers: Coronary Disease-Associated Artery/Lesion type: [place] artery [place] vs. transplanted heart: [place] heart Associated angina: without angina Qualified Code(s): I25.10 - Atherosclerotic heart disease of [place] coronary artery without angina pectoris Is this a current diagnosis for this admission?: Yes Plan: all stable (4) Type 2 diabetes mellitus Qualifiers: Diabetes mellitus rn long term care insulin use: without rn long term care use Diabetes mellitus complication status: without complication Qualified Code(s): E11.9 - Type 2 diabetes mellitus without complications Is this a current diagnosis for this admission?: Yes - Time Time Spent with patient: 15-24 minutes Medications reviewed and adjusted accordingly: Yes Anticipated discharge: Other Within: Other - Inpatient Certification Based on my medical assessment, after consideration of the patient's comorbidities, presenting symptoms, or acuity I expect that the services needed warrant INPATIENT care.: Yes I certify that my determination is in accordance with my understanding of Medicare's requirements for reasonable and necessary INPATIENT services [42 CFR 412.3e].: Yes Medical Necessity: Need For IV Fluids Post Hospital Care: D/C Senior Cost 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
[2017-12-13] MEDS: ASPIRIN 81 MG TABLET, ENT COATED PO SCH (10:27)
[2017-12-13] MEDS: FERROUS SULFATE 325 MG TABLET PO SCH (10:27)
[2017-12-13] MEDS: METOPROLOL SUCCINATE 25 MG TAB.SR.24H PO SCH (10:27)
[2017-12-13] MEDS: NORMAL SALINE 1000 ML 1,000 ML IV PRN (19:08)
[2017-12-13] MEDS: AMITRIPTYLINE HCL 50 MG TABLET PO SCH (23:16)
[2017-12-13] MEDS: ATORVASTATIN CALCIUM 40 MG TABLET PO SCH (23:16)
[2017-12-14 06:54] LABS: ANION GAP 10 (5-19); BLOOD UREA NITROGEN 40 mg/dL (7-20); CALCIUM 8.7 mg/dL (8.4-10.2); CARBON DIOXIDE 24 mmol/L (22-30); CHLORIDE 106 mmol/L (98-107); GLUCOSE 124 mg/dL (75-110); POTASSIUM 3.6 mmol/L (3.6-5.0); SODIUM 140.4 mmol/L (137-145)
[2017-12-14] MEDS: HEPARIN SOD (PORCINE) 5,000 UNIT/ML 1 ML SYRINGE SUBCUT SCH ×3 (09:50→21:44)
[2017-12-14] MEDS: METOPROLOL SUCCINATE 25 MG TAB.SR.24H PO SCH (09:53)
[2017-12-14] MEDS: ASPIRIN 81 MG TABLET, ENT COATED PO SCH (09:53)
[2017-12-14] MEDS: FERROUS SULFATE 325 MG TABLET PO SCH (09:53)
--- NOTE | 2017-12-14 10:39 | PDOC PROGRESS REPORT ---
Subjective Progress Note for:: 12/14/17 Subjective:: Patient is currently doing much better. Denied any chest pain denied any shortness of the breath. Patient's kidney function is also improving Reason For Visit: ACUTE KIDNEY INJURY Physical Exam Vital Signs: Temp Pulse Resp BP Pulse Ox 97.4 F 93 18 117/62 96 12/14/17 07:37 12/14/17 07:37 12/14/17 07:37 12/14/17 07:37 12/14/17 07:37 Intake & Output 12/13/17 12/14/17 12/15/17 06:59 06:59 06:59 Intake Total 477 1809 Output Total 350 800 Balance 127 1009 Weight 58.9 kg 59.4 kg General appearance: PRESENT: no acute distress, well-developed, well-nourished Head exam: PRESENT: atraumatic, normocephalic Eye exam: PRESENT: conjunctiva pink, EOMI, PERRLA. ABSENT: scleral icterus Ear exam: PRESENT: normal external ear exam Mouth exam: PRESENT: moist, tongue midline Neck exam: PRESENT: full ROM. ABSENT: carotid bruit, JVD, lymphadenopathy, thyromegaly Respiratory exam: PRESENT: clear to auscultation zeferino Cardiovascular exam: PRESENT: RRR. ABSENT: diastolic murmur, rubs, systolic murmur Pulses: PRESENT: normal dorsalis pedis pul, +2 pedal pulses bilateral Vascular exam: PRESENT: normal capillary refill GI/Abdominal exam: PRESENT: normal bowel sounds, soft. ABSENT: distended, guarding, mass, organolmegaly, rebound, tenderness Rectal exam: PRESENT: deferred Extremities exam: ABSENT: pedal edema Musculoskeletal exam: PRESENT: ambulatory Neurological exam: PRESENT: alert, awake, oriented to person, oriented to place , oriented to time, oriented to situation, CN II-XII grossly intact. ABSENT: motor sensory deficit Psychiatric exam: PRESENT: appropriate affect, normal mood. ABSENT: homicidal ideation, suicidal ideation Skin exam: PRESENT: dry, intact, warm. ABSENT: cyanosis, rash Results Laboratory Results: 12/13/17 05:48 12/14/17 05:40 12/14/17 05:40 Sodium 140.4 Potassium 3.6 Chloride 106 Carbon Dioxide 24 Anion Gap 10 BUN 40 H Creatinine 1.73 H Est GFR ( Amer) 46 L Est GFR (Non-Af Amer) 38 L Glucose 124 H Calcium 8.7 Impressions: Renal Ultrasound 12/11/17 18:50 IMPRESSION: Echogenic foci bilaterally which are nonspecific and may be related to calculi. Vascular calcification can have a similar appearance. No evidence of hydronephrosis Assessment & Plan - Diagnosis (1) Acute renal failure Qualifiers: Acute renal failure type: unspecified Qualified Code(s): N17.9 - Acute kidney failure, unspecified Is this a current diagnosis for this admission?: Yes Plan: Currently all improving (2) Dehydration Is this a current diagnosis for this admission?: Yes Plan: Continue IV fluid (3) Coronary artery disease Qualifiers: Coronary Disease-Associated Artery/Lesion type: [place] artery [place] vs. transplanted heart: [place] heart Associated angina: without angina Qualified Code(s): I25.10 - Atherosclerotic heart disease of [place] coronary artery without angina pectoris Is this a current diagnosis for this admission?: Yes Plan: all stable (4) Type 2 diabetes mellitus Qualifiers: Diabetes mellitus steward/stewardess banquet insulin use: without correction use Diabetes mellitus complication status: without complication Qualified Code(s): E11.9 - Type 2 diabetes mellitus without complications Is this a current diagnosis for this admission?: Yes Plan: Currently all stable - Time Time Spent with patient: 15-24 minutes Medications reviewed and adjusted accordingly: Yes Anticipated discharge: Home Within: within 24 hours - Inpatient Certification Based on my medical assessment, after consideration of the patient's comorbidities, presenting symptoms, or acuity I expect that the services needed warrant INPATIENT care.: Yes I certify that my determination is in accordance with my understanding of Medicare's requirements for reasonable and necessary INPATIENT services [42 CFR 412.3e].: Yes Medical Necessity: Need For IV Fluids Post Hospital Care: D/C 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
[2017-12-14] MEDS: AMITRIPTYLINE HCL 50 MG TABLET PO SCH (21:46)
[2017-12-14] MEDS: ATORVASTATIN CALCIUM 40 MG TABLET PO SCH (21:46)
[2017-12-15] MEDS: NORMAL SALINE 1000 ML 1,000 ML IV PRN (02:31)
[2017-12-15] MEDS: HEPARIN SOD (PORCINE) 5,000 UNIT/ML 1 ML SYRINGE SUBCUT SCH ×3 (05:57→21:51)
[2017-12-15] MEDS: FERROUS SULFATE 325 MG TABLET PO SCH (09:29)
[2017-12-15] MEDS: ASPIRIN 81 MG TABLET, ENT COATED PO SCH (09:29)
[2017-12-15] MEDS: METOPROLOL SUCCINATE 25 MG TAB.SR.24H PO SCH (09:29)
[2017-12-15 11:56] LABS: ALANINE AMINOTRANSFERASE 21 U/L (21-72); ALKALINE PHOSPHATASE 73 U/L (38-126); ANION GAP 7 (5-19); ASPARTATE AMINO TRANSFERASE 30 U/L (17-59); BILIRUBIN,DIRECT 0.2 mg/dL (0.0-0.4); BILIRUBIN,TOTAL 0.3 mg/dL (0.2-1.3); BLOOD UREA NITROGEN 31 mg/dL (7-20); CALCIUM 8.7 mg/dL (8.4-10.2); CARBON DIOXIDE 30 mmol/L (22-30); CHLORIDE 104 mmol/L (98-107); GLUCOSE 137 mg/dL (75-110); POTASSIUM 4.4 mmol/L (3.6-5.0); SODIUM 140.7 mmol/L (137-145); TOTAL PROTEIN 5.7 g/dL (6.3-8.2)
[2017-12-15 18:43] LABS: ALANINE AMINOTRANSFERASE 17 U/L (21-72); ALBUMIN 3.3 g/dL (3.5-5.0); ALKALINE PHOSPHATASE 101 U/L (38-126); ANION GAP 10 (5-19); ASPARTATE AMINO TRANSFERASE 32 U/L (17-59); BILIRUBIN,DIRECT 0.2 mg/dL (0.0-0.4); BILIRUBIN,TOTAL 0.3 mg/dL (0.2-1.3); BLOOD UREA NITROGEN 31 mg/dL (7-20); CALCIUM 8.8 mg/dL (8.4-10.2); CARBON DIOXIDE 29 mmol/L (22-30); CHLORIDE 101 mmol/L (98-107); GLUCOSE 108 mg/dL (75-110); POTASSIUM 3.8 mmol/L (3.6-5.0); SODIUM 140.4 mmol/L (137-145); TOTAL PROTEIN 6.1 g/dL (6.3-8.2)
--- NOTE | 2017-12-15 19:56 | PDOC DISCHARGE SUMMARY ---
General - Admit/Disc Date/PCP Admission Date/Primary Care Provider: 12/12/17 15:59 HILARIO CURRY MD Discharge Date: 12/16/17 - Discharge Diagnosis (1) Acute kidney injury Is this a current diagnosis for this admission?: Yes (2) Coronary artery disease Is this a current diagnosis for this admission?: Yes (3) Type 2 diabetes mellitus Is this a current diagnosis for this admission?: Yes - Additional Information Resuscitation Status: Full Code Home Medications: Amitriptyline HCl [Elavil 50 mg Tablet] 50 mg PO QHS 12/12/17 Aspirin [Ecotrin 81 mg EC Tablet] 81 mg PO DAILY 12/12/17 Atorvastatin Calcium [Lipitor 40 mg Tablet] 40 mg PO QHS 12/12/17 Eszopiclone [Lunesta] 2 mg PO HSP PRN 12/12/17 Ferrous Sulfate [Feosol 325 mg Tablet] 325 mg PO DAILY 12/12/17 Metformin HCl [Glucophage 500 mg Tablet] 500 mg PO BIDACBS 12/12/17 Metoprolol Succinate [Toprol Xl 25 mg Tab.sr] 25 mg PO DAILY 12/12/17 History of Present Illness History of Present Illness: ELMER SALMERON is a 82 year old male, He has a history of coronary artery disease status post coronary artery bypass grafting, he was recently admitted in this hospital for the management of upper GI bleed due to a bleeding duodenal ulcer, he was transferred [facility] the [facility] on November 24, 2017 for rehabilitation and physical therapy. He had routine blood work done, he was found to have severely elevated serum creatinine at 3.8, I called the [facility] to refer him to the emergency room for evaluation of the elevated serum creatinine. In the ER he was evaluated the blood work that was done in the emergency room demonstrated a serum creatinine of 3.67, the urinalysis was bland suggesting that this is not intrinsic kidney disease, the kidney ultrasound that was done did not show any hydronephrosis. I saw the patient today on the floor though he was admitted last night, he was clinically dehydrated his oral mucosa was extremely dry there was loss of skin turgor suggesting that the elevated serum creatinine is probably due to prerenal azotemia rather than intrinsic kidney disease. Hospital Course Hospital Course: Patient was admitted for the management of acute kidney injury due to prerenal azotemia. He was treated with IV fluid, on admission the serum creatinine was more than 3, the most recent serum creatinine is 1.5, patient feels much better. He came from the [facility] where he was undergoing rehabilitation and physical therapy but patient wants to go back home on discharge Physical Exam Vital Signs: Temp Pulse Resp BP Pulse Ox 97.4 F 103 H 16 123/63 97 12/15/17 11:37 12/15/17 19:00 12/15/17 11:37 12/15/17 11:37 12/15/17 11:37 Intake & Output 12/14/17 12/15/17 12/16/17 06:59 06:59 06:59 Intake Total 1809 1592 960 Output Total 800 Balance 1009 1592 960 Weight 59.4 kg 59.1 kg General appearance: PRESENT: no acute distress Head exam: PRESENT: atraumatic, normocephalic Eye exam: PRESENT: PERRLA Neck exam: PRESENT: full ROM Respiratory exam: PRESENT: clear to auscultation zeferino Cardiovascular exam: PRESENT: +S1, +S2 GI/Abdominal exam: PRESENT: soft Rectal exam: PRESENT: deferred Neurological exam: PRESENT: alert, awake, oriented to person, oriented to place , oriented to time, oriented to situation, CN II-XII grossly intact Psychiatric exam: PRESENT: appropriate affect, normal mood Skin exam: PRESENT: dry, intact, warm Results Laboratory Results: 12/13/17 05:48 12/15/17 18:00 12/15/17 12/15/17 11:08 18:00 Sodium 140.7 140.4 Potassium 4.4 3.8 Chloride 104 101 Carbon Dioxide 30 29 Anion Gap 7 10 BUN 31 H 31 H Creatinine 1.52 H 1.52 H Est GFR ( Amer) 54 L 54 L Est GFR (Non-Af Amer) 44 L 44 L Glucose 137 H 108 Calcium 8.7 8.8 Total Bilirubin 0.3 0.3 AST 30 32 ALT 21 17 L Alkaline Phosphatase 73 101 Total Protein 5.7 L 6.1 L Albumin 3.0 L 3.3 L Impressions: Renal Ultrasound 12/11/17 18:50 IMPRESSION: Echogenic foci bilaterally which are nonspecific and may be related to calculi. Vascular calcification can have a similar appearance. No evidence of hydronephrosis Qualifiers - * PATIENT BEING DISCHARGED WITH ANY OF THE FOLLOWING DIAGNOSIS: No
[2017-12-15] MEDS: ATORVASTATIN CALCIUM 40 MG TABLET PO SCH (21:51)
[2017-12-15] MEDS: AMITRIPTYLINE HCL 50 MG TABLET PO SCH (21:51)
[2017-12-16] MEDS: HEPARIN SOD (PORCINE) 5,000 UNIT/ML 1 ML SYRINGE SUBCUT SCH (05:24)
[2017-12-16 09:52] VITALS: BP 135/64
[2017-12-16] MEDS: ASPIRIN 81 MG TABLET, ENT COATED PO SCH (10:01)
[2017-12-16] MEDS: METOPROLOL SUCCINATE 25 MG TAB.SR.24H PO SCH (10:01)
[2017-12-16] MEDS: FERROUS SULFATE 325 MG TABLET PO SCH (10:02)
== END 2017-12-16 11:25 | disposition home or self-care (01) | DRG 684 ==
LOC: ER 18:17 → EH 21:33 → 3W 12-12 01:08 → OBSVTOIN 12-12 15:59
PROVIDERS: ADMIT Internal Medicine; ATTEND Internal Medicine
DX: N17.9 Acute kidney failure, unspecified (principal); E86.0 Dehydration; I25.10 Atherosclerotic heart disease of native coronary artery without angina pectoris; E11.9 Type 2 diabetes mellitus without complications; E78.5 Hyperlipidemia, unspecified; I10 Essential (primary) hypertension; Z95.1 Presence of aortocoronary bypass graft; Z82.49 Family history of ischemic heart disease and other diseases of the circulatory system; Z79.02 Long term (current) use of antithrombotics/antiplatelets; Z87.891 Personal history of nicotine dependence; Z79.82 Long term (current) use of aspirin; Z79.84 Long term (current) use of oral hypoglycemic drugs
CPT/HCPCS: 36415; 76775; 80048; 80053; 80061; 81001; 82962; 85025; 85610; 85730; 87086; 87088; 87186; 96360; 96361; 96372; 99285; G0378; J1644; J3490; J7030

== ENCOUNTER → 2017-12-11 | Outpatient (CLI) | payer MEDICARE, OTHER ==
--- NOTE | 2017-12-11 12:58 | RADIOLOGY REPORT (SQ) ---
EXAM DESCRIPTION: CT HEAD WITHOUT COMPLETED DATE/TIME: 12/11/2017 12:45 pm REASON FOR STUDY: CONFUSION (R41.0) R41.0 DISORIENTATION, UNSPECIFIED COMPARISON: CT brain 12/06/2017, 11/21/2017, 11/08/2017 TECHNIQUE: Axial images acquired through the brain without intravenous contrast. Images reviewed wi th bone, brain and subdural windows. Additional sagittal and coronal reconstructions were generated. Images stored on PACS. All CT scanners at this facility use dose modulation, iterative reconstruction, and/or weight based d osing when appropriate to reduce radiation dose to as low as reasonably achievable (ALARA). [facility]: Dose Right [facility]: CareDose [facility]: Dose Right [facility]: Teradose 4D [facility]: Smart [employer] RADIATION DOSE: CT Rad equipment meets quality standard of care and radiation dose reduction techniq ues were employed. CTDIvol: 48.6 mGy. DLP: 954 mGy-cm. mGy. LIMITATIONS: None. FINDINGS: VENTRICLES: Normal size and contour. CEREBRUM: No masses. No hemorrhage. No midline shift. No evidence for acute infarction. Punctate l acunar infarct right frontal deep periventricular white matter axial image 23. CEREBELLUM: No masses. No hemorrhage. No alteration of density. No evidence for acute infarction. EXTRAAXIAL SPACES: No fluid collections. No masses. ORBITS AND GLOBE: No intra- or extraconal masses. Normal contour of globe without masses. CALVARIUM: No fracture. PARANASAL SINUSES: No fluid or mucosal thickening. SOFT TISSUES: Left parietal scalp laceration with skin drake. No underlying skull fracture. No ac [place] intracranial hemorrhage. OTHER: No other significant finding. IMPRESSION: Left parietal scalp laceration with skin drake. No underlying skull fracture or acute intracranial changes EVIDENCE OF ACUTE STROKE: NO. COMMENT: Quality ID # [id number]: Final reports with documentation of one or more dose reduction techniques (e.g., Automated exposure control, adjustment of the mA and/or kV according to patient size, use of iterative reconstruction technique) TECHNICAL DOCUMENTATION: JOB ID: [id number] [employer]- All Rights Reserved Reading location - IP/workstation name: [email or web address]
== END ==
LOC: RAD 12:25
PROVIDERS: ATTEND Internal Medicine
DX: R41.0 Disorientation, unspecified (principal)
CPT/HCPCS: 70450

== ENCOUNTER 2018-01-21 10:16 | Emergency (ER) | payer MEDICARE, OTHER ==
[2018-01-21] MEDS ORDERED: LIDOCAINE 1% INJ-PF (10 MG/ML) 30 ML SDV INJ ONE (11:07)
[2018-01-21] MEDS ORDERED: DIPH/PERTUSS(ACELL)/TETANUS VAC/PF 0.5 ML SYR (>=10YO) IM ONE (11:07)
--- NOTE | 2018-01-21 11:11 | ER Document Report ---
ED Fall - General Chief Complaint: Fall Injury Stated Complaint: ARM LACERATION Time Seen by Provider: 01/21/18 10:42 TRAVEL OUTSIDE OF THE [place] IN LAST 30 DAYS: No - HPI Notes: Patient is a 82-year-old male that presents to the emergency department for chief complaint of right forearm injury. Last night patient was walking from his bedroom to the bathroom and tripped resulting in a fall. He denied any head injury or loss of consciousness. He states he caught his right arm on something on the way down which cut it. He states initially it did not seem like that much blood however when he woke up this morning he noticed the cut looked deep. He is not sure when his last tetanus vaccine is. He denies any pain in the arm except for where the cut is. He denies any difficulty moving his right wrist or elbow. Past Medical History: Hypertension, hyperlipidemia, diabetes Past Surgical History: CABG Social History: Denies drugs alcohol and tobacco Family History: Reviewed and noncontributory for presenting illness Allergies: Reviewed, see documented allergy list. REVIEW OF SYSTEMS: CONSTITUTIONAL : No fever No chills No diaphoresis No recent illness EENT: No vision changes No congestion No sore throat CARDIOVASCULAR: No chest pain No palpitations RESPIRATORY: No shortness of breath No cough No difficulty breathing GASTROINTESTINAL: No abdominal pain No nausea No vomiting No diarrhea GENITOURINARY: No dysuria No hematuria No difficulty urinating MUSCULOSKELETAL: No back pain No leg pain No arm pain SKIN: No rashes Laceration LYMPHATIC: No swollen, enlarged glands. NEUROLOGICAL: No lightheadedness No headache No weakness No paresthesias PSYCHIATRIC: No anxiety No depression PHYSICAL EXAMINATION: Vital signs reviewed, nursing noted reviewed. GENERAL: Well-appearing, well-nourished and in no acute distress. HEAD: Atraumatic, normocephalic. EYES: Eyes appear normal, extraocular movements intact, sclera anicteric, conjunctiva are normal. ENT: nares patent, oropharynx clear without exudates. Moist mucous membranes. NECK: Normal range of motion, supple without lymphadenopathy LUNGS: Breath sounds clear to auscultation bilaterally and equal. No wheezes rales or rhonchi. HEART: Regular rate and rhythm without murmurs ABDOMEN: Soft, nontender, normoactive bowel sounds. No rebound, guarding, or rigidity. No masses appreciated. EXTREMITIES: No tenderness to right forearm. Normal right elbow, shoulder, and wrist exam. good range of motion, no pitting or edema. NEUROLOGICAL: No focal neurological deficits. Moves all extremities spontaneously Motor and sensory grossly intact on exam. PSYCH: Normal mood, normal affect. SKIN: Warm, Dry, normal turgor. 6 cm linear laceration to lateral right forearm with skin tear on the proximal end. No active bleeding. - Related data Allergies/Adverse Reactions: No Known Allergies Allergy (Verified 01/21/18 10:17) Past Medical History - Social History Smoking Status: Never Smoker Chew tobacco use (# tins/day): No Frequency of alcohol use: None Drug Abuse: None Family History: Hypertension Patient has suicidal ideation: No Patient has homicidal ideation: No - Past Medical History Cardiac Medical History: Reports: Hx Coronary Artery Disease, Hx Hypercholesterolemia, Hx Hypertension - meds since 2010 Neurological Medical History: Denies: Hx Cerebrovascular Accident, Hx Seizures Endocrine Medical History: Reports: Hx Diabetes Mellitus Type 2 - not on insulin Renal/ Medical History: Denies: Hx Peritoneal Dialysis Musculoskeletal Medical History: Reports Hx Arthritis Psychiatric Medical History: Reports: Hx Anxiety Denies: Hx Depression Past Surgical History: Reports: Hx Cardiac Surgery - open heart 10/11, Hx Coronary Artery Bypass Graft - recent, Hx Herniorrhaphy, Hx Orthopedic Surgery - fx shoulder, clavicle, Other - Immunizations Hx Diphtheria, Pertussis, Tetanus Vaccination: Yes Hx Pneumococcal Vaccination: 02/25/00 Physical Exam - Vital signs Vitals: Temp Pulse Resp BP Pulse Ox 97.5 F 106 H 14 103/66 97 01/21/18 10:29 01/21/18 10:29 01/21/18 10:29 01/21/18 10:29 01/21/18 10:29 Course - Re-evaluation Re-evalutation: 01/21/18 11:10 Vitals reviewed. Nursing notes reviewed. Patient's tetanus vaccine was updated. He has no bony tenderness and I do not suspect underlying fracture. Patient's laceration was repaired with suture, see procedure note. Patient was counseled on wound care and suture removal. He will follow with his primary care doctor for suture removal in 7-10 days. He will return for any new or worsening symptoms. Discharged home in stable condition. - Vital Signs Vital signs: Temp Pulse Resp BP Pulse Ox 97.5 F 106 H 14 103/66 97 01/21/18 10:29 01/21/18 10:29 01/21/18 10:29 01/21/18 10:29 01/21/18 10:29 Procedures - Laceration/Wound Repair Right Arm Time completed: 11:57 - right forearm Wound length (cm): 6.0 Wound's Depth, Shape: Linear Laceration pre-procedure: Chloraprep applied Anesthetic type: 1% Lidocaine Volume Anesthetic (mLs): 4 Wound explored: Clean Wound Repaired With: Sutures Suture Size/Type: 4:0 Number of Sutures: 5 Layer Closure?: No Post-procedure wound care: Sterile dressing applied Post-procedure NV exam normal: Yes Complications: No Discharge - Discharge Clinical Impression: Laceration of right forearm Qualifiers: Encounter type: initial encounter Qualified Code(s): S51.811A - Laceration without foreign body of right forearm, initial encounter Condition: Stable Disposition: HOME, SELF-CARE Instructions: Laceration Care ([facility]), Soap Cleansing ([facility]), Tetanus Immunization Given ([facility]) Additional Instructions: Please return to the emergency department if you have any worsening, or concern of your symptoms. Please return to the emergency department if you develop chest pain, difficulty breathing, severe abdominal pain, or ongoing vomiting. Please follow-up with your primary care physician in 2-3 days and any other recommended physicians. If prescribed, take all medications as directed. If you have any questions or concerns do not hesitate to return the emergency department for evaluation. Follow with your primary care doctor in 7-10 days for suture removal Referrals: HILARIO CURRY MD [Primary Care Provider] - Follow up in 1 week
[2018-01-21 12:10] VITALS: BP 114/63
== END 2018-01-21 12:15 | disposition home or self-care (01) ==
LOC: ER 10:16
DX: S51.811A Laceration without foreign body of right forearm, initial encounter (principal); W19.XXXA Unspecified fall, initial encounter; Y93.89 Activity, other specified; E11.9 Type 2 diabetes mellitus without complications; I10 Essential (primary) hypertension; I25.10 Atherosclerotic heart disease of native coronary artery without angina pectoris; Z95.1 Presence of aortocoronary bypass graft; Z23 Encounter for immunization
CPT/HCPCS: 90471; 90715; 99282

== ENCOUNTER 2018-04-07 00:06 | Observation (INO) | payer MEDICARE, OTHER ==
--- NOTE | 2018-04-07 00:27 | ER Document Report ---
ED General - General Chief Complaint: Palpitations Stated Complaint: RACING HEART Time Seen by Provider: 04/07/18 00:25 Primary Care Provider: HILARIO CURRY MD [Primary Care Provider] - Follow up as needed Notes: Patient is an 82-year-old male who presents with complaint of sudden onset of dyspnea feeling unwell. He said it lasted approximately 15-20 minutes tonight and and eventually his symptoms subsided. He says he does not have any true chest pain. He said he did feel a "abnormal feeling in his chest just right to the sternal border where this was ongoing. That resolved when the dyspnea went away. No fevers. No vomiting. No recent illnesses. Patient does have history of coronary disease and had triple-vessel bypass in September. He was seen at [facility] for this. Patient takes aspirin daily and already had it today. TRAVEL OUTSIDE OF THE [place] IN LAST 30 DAYS: No - Related Data Allergies/Adverse Reactions: No Known Allergies Allergy (Verified 01/21/18 10:17) Past Medical History - Social History Smoking Status: Never Smoker Frequency of alcohol use: None Drug Abuse: None Family History: Hypertension - Past Medical History Cardiac Medical History: Reports: Hx Coronary Artery Disease, Hx Hypercholesterolemia, Hx Hypertension - meds since 2010 Neurological Medical History: Denies: Hx Cerebrovascular Accident, Hx Seizures Endocrine Medical History: Reports: Hx Diabetes Mellitus Type 2 - not on insulin Renal/ Medical History: Denies: Hx Peritoneal Dialysis Musculoskeletal Medical History: Reports Hx Arthritis Psychiatric Medical History: Reports: Hx Anxiety Denies: Hx Depression Past Surgical History: Reports: Hx Cardiac Surgery - open heart 10/11, Hx Coronary Artery Bypass Graft - recent, Hx Herniorrhaphy, Hx Orthopedic Surgery - fx shoulder, clavicle, Other - Immunizations Hx Diphtheria, Pertussis, Tetanus Vaccination: Yes Hx Pneumococcal Vaccination: 02/25/00 Review of Systems - Review of Systems Notes: My Normal Review Basic REVIEW OF SYSTEMS: CONSTITUTIONAL : Denies fever, chills, or sweats. Denies recent illness. EENT: Denies eye, ear, throat, or mouth pain or symptoms. Denies nasal or sinus congestion. CARDIOVASCULAR: Abnormal feeling in chest. RESPIRATORY: Dyspnea GASTROINTESTINAL: Denies abdominal pain. Denies nausea, vomiting, or diarrhea. MUSCULOSKELETAL: Denies neck or back pain or joint pain or swelling. SKIN: Denies rash or skin lesions. NEUROLOGICAL: Denies altered mental status or loss of consciousness. Denies headache. Denies weakness or paralysis or loss of use of either side. Denies problems with gait or speech. Denies sensory or motor loss. ALL OTHER SYSTEMS REVIEWED AND NEGATIVE. Physical Exam - Vital signs Vitals: Resp Pulse Ox 19 92 04/07/18 00:20 04/07/18 00:20 - Notes Notes: General Appearance: Well nourished, alert, cooperative, no acute distress, no obvious discomfort. Currently well-appearing. Vitals: reviewed, See vital signs table. Head: no swelling or tenderness to the head Eyes: PERRL, EOMI, Conjuctiva clear Mouth: No decreasd moisture Lungs: No wheezing, No rales, No rhonci, No accessory muscle use, good air exchange bilaterally. Heart: Normal rate, Regular rythm, No murmur, no rub Chest wall: No reproducible pain palpation of chest wall. Abdomen: Normal BS, soft, No rigidity, No abdominal tenderness, No guarding, no rebound, no abdominal masses, no organomegaly Extremities: strength 5/5 in all extremities, good pulses in all extremities, no swelling or tenderness in the extremities, no edema. Skin: warm, dry, appropriate color, no rash Neuro: speech clear, oriented x 3, normal affect, responds appropriately to questions. Course - Re-evaluation Re-evalutation: 04/07/18 02:04 Patient's initial cardiac enzyme is in indeterminate range. His EKG is normal. He continues to be asymptomatic. Due to his sudden onset of dyspnea without any other reason for it I feel that be appropriate to keep him to rule out potential current cardiac equivalents by doing repeat troponins. He does have significant risk factors including coronary bypass surgery and known coronary disease. Patient is agreeable to this. I did speak with his primary care doctor, Dr. Ethan bello, who agrees to accept the patient for observation admission. Patient had aspirin at home and that is why he was not given aspirin here. Dictation of this chart was performed using voice recognition software; therefore, there may be some unintended grammatical errors. - Vital Signs Vital signs: Temp Pulse Resp BP Pulse Ox 97.3 F 19 103/64 99 04/07/18 00:23 04/07/18 01:01 04/07/18 01:01 04/07/18 01:01 - Laboratory Result Diagrams: 04/07/18 01:05 04/07/18 01:05 Laboratory results interpreted by me: 04/07/18 04/07/18 01:05 01:05 WBC 11.2 H RBC 4.17 L Hgb 10.6 L Hct 33.2 L MCH 25.4 L MCHC 31.9 L RDW 17.3 H BUN 34 H - EKG Interpretation by Me Additional EKG results interpreted by me: 04/07/18 00:26 EKG is reviewed and interpreted by me. EKG shows sinus rhythm in which she has a normal sinus beat followed by either PAC or atrial ectopic beat. His rhythm continues in this pattern. No ST segment elevation or depression. Patient does have right bundle branch block which he has had on his previous EKG from November 21, 2017. NE interval and QT intervals are within normal range. QRS duration is prolonged. No new ischemic changes. 04/07/18 01:57 EKG #2 is reviewed and interpreted by me. EKG shows was initially sinus rhythm which then converts to SVT. Patient is in SVT her heart rate is approximately in the 170s. NE interval, QRS duration are within normal range. QT interval slightly prolonged. Discharge - Discharge Clinical Impression: Dyspnea Qualifiers: Dyspnea type: unspecified Qualified Code(s): R06.00 - Dyspnea, unspecified Condition: Stable Disposition: ADMITTED OBSERVATION Admitting Provider: Tasneem Unit Admitted: Telemetry Referrals: HILARIO CURRY MD [Primary Care Provider] - Follow up as needed
[2018-04-07 01:16] LABS: ABSOLUTE BASOPHILS # (AUTO) 0.1 10^3/uL (0.0-0.2); ABSOLUTE EOSINOPHILS # (AUTO) 0.3 10^3/uL (0.0-0.6); ABSOLUTE LYMPHOCYTES (AUTO) 1.8 10^3/uL (0.5-4.7); ABSOLUTE NEUT (AUTO) 8.1 10^3/uL (1.7-8.2); BASOPHILS % (AUTO) 0.5 % (0-2); EOSINOPHILS % (AUTO) 2.6 % (0-6); HEMATOCRIT 33.2 % (37.9-51.0); HEMOGLOBIN 10.6 g/dL (13.5-17.0); MEAN CORPUSCULAR HEMOGLOBIN 25.4 pg (27.0-33.4); MEAN CORPUSCULAR HGB CONC 31.9 g/dL (32.0-36.0); MEAN CORPUSCULAR VOLUME 80 fl (80-97); MONOCYTES % (AUTO) 8.6 % (3-13); PLATELET COUNT 277 10^3/uL (150-450); RED BLOOD COUNT 4.17 10^6/uL (4.35-5.55); RED CELL DISTRIBUTION WIDTH 17.3 % (11.5-14.0); SEGMENTED NEUTROPHILS % (AUTO) 72.3 % (42-78); TOTAL CELLS COUNTED % (AUTO) 100 %; WHITE BLOOD COUNT 11.2 10^3/uL (4.0-10.5)
--- NOTE | 2018-04-07 01:16 | RADIOLOGY REPORT (SQ) ---
CLINICAL HISTORY: dyspnea COMPARISON: None. TECHNIQUE: XR CHEST 1 VIEW 04/07/2018 12:25 AM [employer]CTOR FINDINGS: The heart is borderline in size. Sternotomy was performed. Lungs are clear without consolidation, atelectasis, mass or edema. There is no pleural effusion. There is no pneumothorax. There are no acute osseous findings. IMPRESSION: Clear lungs.
[2018-04-07 01:33] LABS: ALANINE AMINOTRANSFERASE 22 U/L (21-72); ALBUMIN 3.7 g/dL (3.5-5.0); ALKALINE PHOSPHATASE 58 U/L (38-126); ANION GAP 6 (5-19); ASPARTATE AMINO TRANSFERASE 23 U/L (17-59); BILIRUBIN,DIRECT 0.1 mg/dL (0.0-0.4); BILIRUBIN,TOTAL 0.4 mg/dL (0.2-1.3); BLOOD UREA NITROGEN 34 mg/dL (7-20); CARBON DIOXIDE 29 mmol/L (22-30); CHLORIDE 107 mmol/L (98-107); GLUCOSE 99 mg/dL (75-110); POTASSIUM 4.5 mmol/L (3.6-5.0); SODIUM 142.3 mmol/L (137-145); TOTAL PROTEIN 6.5 g/dL (6.3-8.2)
[2018-04-07 07:27] LABS: CREATINE KINASE MB 1.16 ng/mL (<4.55); TROPONIN I 0.041 ng/mL
[2018-04-07] MEDS: ENOXAPARIN SODIUM INJ 40 MG/0.4 ML DISP.SYRIN SUBCUT SCH (09:40)
[2018-04-07 13:42] LABS: CREATINE KINASE MB 1.04 ng/mL (<4.55); TROPONIN I 0.057 ng/mL
--- NOTE | 2018-04-07 17:59 | EKG REPORT ---
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
[2018-04-07 18:58] LABS: CREATINE KINASE MB 0.85 ng/mL (<4.55); TROPONIN I 0.048 ng/mL
[2018-04-07] MEDS ORDERED: TRAMADOL HCL 50 MG TABLET PO PRN (20:03)
--- NOTE | 2018-04-07 20:06 | PDOC H&P ---
History of Present Illness Admission Date/PCP: 04/07/18 02:15 HILARIO CURRY MD History of Present Illness: ELMER SALMERON is a 82 year old male, he has a history of coronary artery disease status post coronary artery bypass grafting he stated that he had episode of shortness of breath, there was no chest pain the night before he came to the emergency room for evaluation. He said the symptoms recorded then he was concerned because of his history of CAD and bypass surgery he came to the emergency room for evaluation in the emergency room he was evaluated, the emergency room physician felt patient needed to be admitted for observation to rule out acute coronary syndrome. He was admitted, 3 sets of cardiac enzymes were negative for acute MO but when I spoke with him the main symptom was shortness of breath, I ordered a CTA chest to rule out pulmonary embolism, it demonstrated scattered bilateral ground glass pulmonary opacity somewhat predominantly in the upper lobe with small bilateral pleural effusions. Patient has no fever no cough, the BNP was elevated suggesting pulmonary edema, the findings on the CTA chest is probably flash pulmonary edema. Patient is presently not symptomatic, he has no chest pain he has no shortness of breath he felt shortness of breath transiently and presently is stable, he was given a dose of furosemide he could be discharged home will obtain outpatient 2D echocardiogram to evaluate LV function Past Medical History Cardiac Medical History: Reports: Coronary Artery Disease, Hyperlipidema, Hy pertension - meds since 2010 Endocrine Medical History: Reports: Diabetes Mellitus Type 2 - not on insulin Musculoskeltal Medical History: Reports: Arthritis Past Surgical History Past Surgical History: Reports: Coronary Artery Bypass Graft - recent, Herniorrhaphy, Orthopedic Surgery - fx shoulder, clavicle, Other Social History Smoking Status: Never Smoker Frequency of Alcohol Use: None Hx Recreational Drug Use: No Drugs: None Hx Prescription Drug Abuse: No Family History Family History: Hypertension Parental Family History Reviewed: Yes Children Family History Reviewed: Yes Sibling(s) Family History Reviewed.: Yes Medication/Allergy Home Medications: Amitriptyline HCl [Elavil 50 Mg Tablet] 50 mg PO QHS 04/07/18 Aspirin [Ecotrin 81 mg EC Tablet] 81 mg PO DAILY 04/07/18 Atorvastatin Calcium [Lipitor 40 mg Tablet] 40 mg PO QHS 04/07/18 Celecoxib [Celebrex 100 mg Capsule] 100 mg PO BID 04/07/18 Ferrous Sulfate [Feosol 325 mg Tablet] 325 mg PO DAILY 04/07/18 Lisinopril [Prinivil 10 mg Tablet] 10 mg PO DAILY 04/07/18 Metformin HCl [Glucophage 500 mg Tablet] 500 mg PO DAILY 04/07/18 Metoprolol Tartrate [Lopressor 25 mg Tablet] 25 mg PO Q12 04/07/18 Tramadol HCl [Ultram 50 mg Tablet] 50 mg PO HSP PRN 04/07/18 Allergies/Adverse Reactions: No Known Allergies Allergy (Verified 01/21/18 10:17) Review of Systems Constitutional: ABSENT: chills, fever(s), headache(s), weight gain, weight loss Eyes: ABSENT: visual disturbances Ears: ABSENT: hearing changes Cardiovascular: PRESENT: other - Shortness of breath. ABSENT: chest pain, edema, orthropnea, palpitations Respiratory: ABSENT: cough, hemoptysis Gastrointestinal: ABSENT: abdominal pain, constipation, diarrhea, hematemesis, hematochezia, nausea, vomiting Genitourinary: ABSENT: dysuria, hematuria Musculoskeletal: ABSENT: joint swelling Integumentary: ABSENT: rash, wounds Neurological: ABSENT: abnormal gait, abnormal speech, confusion, dizziness, focal weakness, syncope Psychiatric: ABSENT: anxiety, depression, homidical ideation, suicidal ideation Endocrine: ABSENT: cold intolerance, heat intolerance, menstrual abnormalities, polydipsia, polyuria Hematologic/Lymphatic: ABSENT: easy bleeding, easy bruising, lymphadenopathy Physical Exam Vital Signs: Temp Pulse Resp BP Pulse Ox 98.0 F 24 H 126/63 H 95 04/07/18 05:31 04/07/18 18:01 04/07/18 18:00 04/07/18 18:01 Intake & Output 04/06/18 04/07/18 04/08/18 06:59 06:59 06:59 Weight 63.503 kg General appearance: PRESENT: no acute distress, well-developed, well-nourished Head exam: PRESENT: atraumatic, normocephalic Eye exam: PRESENT: conjunctiva pink, EOMI, PERRLA Ear exam: PRESENT: normal external ear exam Mouth exam: PRESENT: moist, tongue midline Neck exam: PRESENT: full ROM Respiratory exam: PRESENT: crackles Cardiovascular exam: PRESENT: RRR, +S1, +S2 Pulses: PRESENT: normal dorsalis pedis pul, +2 pedal pulses bilateral Vascular exam: PRESENT: normal capillary refill GI/Abdominal exam: PRESENT: normal bowel sounds, soft Rectal exam: PRESENT: deferred Neurological exam: PRESENT: alert, awake, oriented to person, oriented to place, oriented to time, oriented to situation, CN II-XII grossly intact Psychiatric exam: PRESENT: appropriate affect, normal mood Skin exam: PRESENT: dry, intact, warm Results Laboratory Results: 04/07/18 01:05 04/07/18 01:05 04/07/18 04/07/18 01:05 01:05 WBC 11.2 H RBC 4.17 L Hgb 10.6 L Hct 33.2 L MCV 80 MCH 25.4 L MCHC 31.9 L RDW 17.3 H Plt Count 277 Seg Neutrophils % 72.3 Lymphocytes % 16.0 Monocytes % 8.6 Eosinophils % 2.6 Basophils % 0.5 Absolute Neutrophils 8.1 Absolute Lymphocytes 1.8 Absolute Monocytes 1.0 Absolute Eosinophils 0.3 Absolute Basophils 0.1 Sodium 142.3 Potassium 4.5 Chloride 107 Carbon Dioxide 29 Anion Gap 6 BUN 34 H Creatinine 1.08 Est GFR ( Amer) > 60 Est GFR (Non-Af Amer) > 60 Glucose 99 Calcium 9.0 Magnesium 1.9 Total Bilirubin 0.4 AST 23 ALT 22 Alkaline Phosphatase 58 Total Protein 6.5 Albumin 3.7 04/07/18 04/07/18 04/07/18 01:05 06:53 06:53 Creatine Kinase 36 L CK-MB (CK-2) 1.16 Troponin I 0.047 0.041 04/07/18 04/07/18 04/07/18 13:04 13:04 18:00 Creatine Kinase 32 L 28 L CK-MB (CK-2) 1.04 Troponin I 0.057 04/07/18 18:00 Creatine Kinase CK-MB (CK-2) 0.85 Troponin I 0.048 Impressions: Chest X-Ray 04/07/18 00:25 IMPRESSION: Clear lungs. Assessment & Plan - Diagnosis (1) Flash pulmonary edema Is this a current diagnosis for this admission?: Yes Plan: Patient probably had flash pulmonary edema, his symptoms, BNP and CT scan findings suggested he was given a dose of furosemide. Urine (2) Coronary artery disease Qualifiers: Coronary Disease-Associated Artery/Lesion type: [place] artery [place] vs. transplanted heart: aug[place]ine heart Associated angina: without angina Qualified Code(s): I25.10 - Atherosclerotic heart disease of [place] coronary artery without angina pectoris Is this a current diagnosis for this admission?: Yes
[2018-04-07] MEDS ORDERED: ATORVASTATIN CALCIUM 40 MG TABLET PO SCH (22:00)
[2018-04-07] MEDS ORDERED: AMITRIPTYLINE HCL 50 MG TABLET PO SCH (22:00)
[2018-04-07] MEDS: METFORMIN HCL 500 MG TABLET PO SCH (22:27)
[2018-04-07] MEDS: LISINOPRIL 10 MG TABLET PO SCH (22:27)
[2018-04-07] MEDS: ASPIRIN 81 MG TABLET, ENT COATED PO SCH (22:27)
[2018-04-07] MEDS: METOPROLOL TARTRATE 25 MG TABLET PO SCH (22:27)
[2018-04-08] MEDS: METOPROLOL TARTRATE 25 MG TABLET PO SCH (09:37)
[2018-04-08] MEDS: METFORMIN HCL 500 MG TABLET PO SCH (09:37)
[2018-04-08] MEDS: ENOXAPARIN SODIUM INJ 40 MG/0.4 ML DISP.SYRIN SUBCUT SCH (09:38)
[2018-04-08] MEDS: LISINOPRIL 10 MG TABLET PO SCH (09:38)
[2018-04-08] MEDS: ASPIRIN 81 MG TABLET, ENT COATED PO SCH (09:38)
[2018-04-08] MEDS ORDERED: FERROUS SULFATE 325 MG TABLET PO SCH (10:00)
--- NOTE | 2018-04-08 15:39 | RADIOLOGY REPORT (SQ) ---
EXAM DESCRIPTION: CTA CHEST COMPLETED DATE/TIME: 04/08/2018 3:29 pm REASON FOR STUDY: shortness of breath COMPARISON: 04/21/2017 TECHNIQUE: CT scan of the chest performed using helical scanning technique with dynamic intravenous contrast injection. Images reviewed with lung, soft tissue and bone windows. Reconstructed coronal and sagittal MPR images reviewed. Additional 3 dimensional post-processing performed to develop Maximal Intensity Projection images (ID P). All images stored on PACS. All CT scanners at this facility use dose modulation, iterative reconstruction, and/or weight based d osing when appropriate to reduce radiation dose to as low as reasonably achievable (ALARA). [facility]: Dose Right [facility]: CareDose [facility]: Dose Right [facility]: Teradose 4D [facility]: [employer] CONTRAST TYPE AND DOSE: contrast/concentration: Isovue 350.00 mg/ml; Total Contrast Delivered: 62.0 ml; Total Saline Delivered: 74.8 ml Contrast bolus optimized for the pulmonary arteries. Not diagnostic for the aorta. RENAL FUNCTION: GFR > 60. RADIATION DOSE: CT Rad equipment meets quality standard of care and radiation dose reduction techniq ues were employed. CTDIvol: 7.7 - 15.0 mGy. DLP: 298 mGy-cm. . LIMITATIONS: None. FINDINGS: LUNGS AND PLEURA: There is scattered bilateral, somewhat upper lobe predominant ground-gla ss pulmonary opacity and small bilateral pleural effusions. AORTA AND GREAT VESSELS: No aneurysm. Contrast bolus not optimized for the aorta. HEART: No pericardial effusion. Three-vessel coronary artery calcifications. PULMONARY ARTERIES: No emboli visualized in the main pulmonary arteries or the segmental branches. HILAR AND MEDIASTINAL STRUCTURES: No identified masses or abnormal nodes. HARDWARE: None in the chest. UPPER ABDOMEN: No significant findings. Limited exam. THYROID AND OTHER SOFT TISSUES: No masses. No adenopathy. BONES: Disc degenerative disease and ankylosis of the thoracic spine. 3D MIPS: Confirm above findings. OTHER: No other significant finding. IMPRESSION: 1. Negative examination for pulmonary embolism. 2. There is scattered bilateral, somewhat upper lobe predominant nonspecific infectious or inflammato ry ground-glass pulmonary opacity and small bilateral pleural effusions. COMMENT: Quality ID # [id number]: Final reports with documentation of one or more dose reduction techniques (e.g., Automated exposure control, adjustment of the mA and/or kV according to patient size, use of iterative reconstruction technique) TECHNICAL DOCUMENTATION: JOB ID: [id number] [employer]- All Rights Reserved Reading location - IP/workstation name: [email or web address]
--- NOTE | 2018-04-08 17:34 | PDOC DISCHARGE SUMMARY ---
General - Admit/Disc Date/PCP Admission Date/Primary Care Provider: 04/07/18 02:15 HILARIO CURRY MD Discharge Date: 04/08/18 - Discharge Diagnosis (1) Flash pulmonary edema Is this a current diagnosis for this admission?: Yes (2) Coronary artery disease Is this a current diagnosis for this admission?: Yes - Additional Information Home Medications: RX: Amitriptyline HCl [Elavil 50 mg Tablet] 50 mg PO QHS 04/07/18 RX: Aspirin [Ecotrin 81 mg EC Tablet] 81 mg PO DAILY 04/07/18 RX: Atorvastatin Calcium [Lipitor 40 mg Tablet] 40 mg PO QHS 04/07/18 RX: Ferrous Sulfate [Feosol 325 mg Tablet] 325 mg PO DAILY 04/07/18 RX: Lisinopril [Prinivil 10 mg Tablet] 10 mg PO DAILY 04/07/18 RX: Metformin HCl [Glucophage 500 mg Tablet] 500 mg PO DAILY 04/07/18 RX: Metoprolol Tartrate [Lopressor 25 mg Tablet] 25 mg PO Q12 04/07/18 RX: Tramadol HCl [Ultram 50 mg Tablet] 50 mg PO HSP PRN 04/07/18 History of Present Illness History of Present Illness: ELMER SALMERON is a 82 year old male, he has a history of coronary artery disease status post coronary artery bypass grafting he stated that he had episode of shortness of breath, there was no chest pain the night before he came to the emergency room for evaluation. He said the symptoms recorded then he was concerned because of his history of CAD and bypass surgery he came to the emergency room for evaluation in the emergency room he was evaluated, the emergency room physician felt patient needed to be admitted for observation to rule out acute coronary syndrome. He was admitted, 3 sets of cardiac enzymes were negative for acute HI but when I spoke with him the main symptom was shortness of breath, I ordered a CTA chest to rule out pulmonary embolism, it demonstrated scattered bilateral ground glass pulmonary opacity somewhat predominantly in the upper lobe with small bilateral pleural effusions. Patient has no fever no cough, the BNP was elevated suggesting pulmonary edema, the findings on the CTA chest is probably flash pulmonary edema. Patient is presently not symptomatic, he has no chest pain he has no shortness of breath he felt shortness of breath transiently and presently is stable, he was given a do se of furosemide he could be discharged home will obtain outpatient 2D echocardiogram to evaluate LV function Hospital Course Hospital Course: Patient was admitted for the management of shortness of breath, evaluation suggest flash pulmonary edema. He was treated with a dose of furosemide, he rule out for acute HI, there was no evidence of acute coronary syndrome Physical Exam Vital Signs: Temp Pulse Resp BP Pulse Ox 98.3 F 68 16 127/61 H 94 04/08/18 11:16 04/08/18 14:00 04/08/18 11:16 04/08/18 11:16 04/08/18 11:16 Intake & Output 04/07/18 04/08/18 04/09/18 06:59 06:59 06:59 Intake Total 237 Balance 237 Weight 63.503 kg 63 kg Head exam: PRESENT: atraumatic, normocephalic Eye exam: PRESENT: conjunctiva pink, EOMI, PERRLA Ear exam: PRESENT: normal external ear exam Mouth exam: PRESENT: moist, tongue midline Neck exam: PRESENT: full ROM Respiratory exam: PRESENT: rales Cardiovascular exam: PRESENT: RRR, +S1, +S2 GI/Abdominal exam: PRESENT: diminished bowel sounds, normal bowel sounds, soft Rectal exam: PRESENT: deferred Neurological exam: PRESENT: alert, awake, oriented to person, oriented to place, oriented to time, oriented to situation, CN II-XII grossly intact Psychiatric exam: PRESENT: appropriate affect, normal mood Skin exam: PRESENT: dry, intact, warm Results Laboratory Results: 04/07/18 01:05 04/07/18 01:05 04/07/18 04/07/18 04/07/18 01:05 06:53 06:53 Creatine Kinase 36 L CK-MB (CK-2) 1.16 Troponin I 0.047 0.041 NT-Pro-B Natriuret Pep 04/07/18 04/07/18 04/07/18 13:04 13:04 18:00 Creatine Kinase 32 L 28 L CK-MB (CK-2) 1.04 Troponin I 0.057 NT-Pro-B Natriuret Pep 04/07/18 04/08/18 18:00 15:57 Creatine Kinase CK-MB (CK-2) 0.85 Troponin I 0.048 NT-Pro-B Natriuret Pep 7150 H Impressions: Chest X-Ray 04/07/18 00:25 IMPRESSION: Clear lungs. Chest/Abdomen CTA 04/08/18 00:00 IMPRESSION: 1. Negative examination for pulmonary embolism. 2. There is scattered bilateral, somewhat upper lobe predominant nonspecific infectious or inflammatory ground-glass pulmonary opacity and small bilateral pleural effusions. Qualifiers - * PATIENT BEING DISCHARGED WITH ANY OF THE FOLLOWING DIAGNOSIS: No
[2018-04-08] MEDS ORDERED: FUROSEMIDE INJ/PF 40 MG/4 ML SDV IV ONE (18:00)
[2018-04-08 18:12] VITALS: BP 147/88
== END 2018-04-08 18:36 | disposition home health service (06) ==
LOC: ER 00:06 → EH 02:15 → 3N 19:45
PROVIDERS: ADMIT Internal Medicine; ATTEND Internal Medicine
DX: J81.1 Chronic pulmonary edema (principal); I25.10 Atherosclerotic heart disease of native coronary artery without angina pectoris; E11.9 Type 2 diabetes mellitus without complications; I10 Essential (primary) hypertension; E78.5 Hyperlipidemia, unspecified; I45.10 Unspecified right bundle-branch block; Z79.82 Long term (current) use of aspirin; Z79.899 Other long term (current) drug therapy; Z95.1 Presence of aortocoronary bypass graft; Z82.49 Family history of ischemic heart disease and other diseases of the circulatory system; Z79.84 Long term (current) use of oral hypoglycemic drugs
CPT/HCPCS: 93005; 99285; 96372; 36415 ×2; 82553; 82962 ×2; 82550; 83735; 85025; 80053; 84484; 83880; 71045; 71275; 93010; A9270 ×9; J1940; J1650 ×2; J3490

== ENCOUNTER → 2018-09-07 | Outpatient (CLI) | payer MEDICARE, OTHER ==
--- NOTE | 2018-09-07 14:46 | RADIOLOGY REPORT (SQ) ---
EXAM DESCRIPTION: U/S RETROPERITON (RENAL/AORTA) COMPLETED DATE/TIME: 09/07/2018 11:03 am REASON FOR STUDY: R94.4 ABNORMAL RESULTS OF KIDNEY FUNCTION STUDIES R94.4 ABNORMAL RESULTS OF KIDNE Y FUNCTION STUDIES COMPARISON: None. TECHNIQUE: Dynamic and static grayscale images acquired of the kidneys and bladder and recorded on P ACS. Additional selected color Doppler and spectral images recorded. LIMITATIONS: None. FINDINGS: RIGHT KIDNEY: 7.4 cm. Increased cortical echogenicity. No solid or suspicious masses. No hydronephrosis. No calcifications. LEFT KIDNEY: 9.7 cm. Increased cortical echogenicity. No solid or suspicious masses. No hydron ephrosis. 6 mm renal calculus. BLADDER: No masses. OTHER: No other significant finding. IMPRESSION: CHRONIC MEDICAL RENAL DISEASE. NO HYDRONEPHROSIS. TECHNICAL DOCUMENTATION: JOB ID: [id number] [employer]- All Rights Reserved Reading location - IP/workstation name: [email or web address]
== END ==
LOC: RAD 09:59
PROVIDERS: ATTEND Internal Medicine
DX: R94.4 Abnormal results of kidney function studies (principal)
CPT/HCPCS: 76770

== ENCOUNTER 2019-09-22 10:07 | Inpatient (IN) | payer MEDICARE, OTHER ==
[2019-09-22] MEDS ORDERED: NORMAL SALINE 500 ML IV PRN ×2 (10:35→18:29)
--- NOTE | 2019-09-22 10:37 | ER Document Report ---
ED Medical Screen (RME) - General Chief Complaint: Direct Admit/Private MD Stated Complaint: DIRECT ADMIT/ACUTE KIDNEY INJURY Time Seen by Provider: 09/22/19 10:31 Primary Care Provider: HILARIO CURRY MD [Primary Care Provider] - Follow up as needed Mode of Arrival: Ambulatory Information source: Patient TRAVEL OUTSIDE OF THE [place] IN LAST 30 DAYS: No - HPI Notes: 09/22/19 10:37 84-year-old male with a history of type 2 diabetes [id number], hypertension hyperlipidemia with a history of MIs in the past presents to the emergency room from Dr. Curry's office for direct admit for dehydration, acute on chronic kidney injury. Daughter says patient states that lately has not been eating as much. Patient is stating that he feels very tired. Blood pressures were 80s over 40's. Patient is minimally drinking. Daughter is concerned because he does seem more frail than typical. Is denying any shortness of breath, active chest pain, nausea vomiting diarrhea. Patient does take all of his medications which includes furosemide, lisinopril, metformin. I have greeted and performed a rapid initial assessment of this patient. A comprehensive ED assessment and evaluation of the patient, analysis of test results and completion of the medical decision making process will be conducted by additional ED providers. PHYSICAL EXAMINATION: GENERAL: Chronically ill, malnourished in no distress HEAD: Atraumatic, normocephalic. NECK: Normal range of motion CV: s1, s2 regular LUNGS: No respiratory distress Musculoskeletal: Normal range of motion - Related Data Allergies/Adverse Reactions: No Known Allergies Allergy (Verified 01/21/18 10:17) Past Medical History - Past Medical History Cardiac Medical History: Reports: Hx Coronary Artery Disease, Hx Hypercholesterolemia, Hx Hypertension - meds since 2010 Neurological Medical History: Denies: Hx Cerebrovascular Accident, Hx Seizures Endocrine Medical History: Reports: Hx Diabetes Mellitus Type 2 - not on insulin Renal/ Medical History: Denies: Hx Peritoneal Dialysis Musculoskeltal Medical History: Reports Hx Arthritis Psychiatric Medical History: Reports: Hx Anxiety Denies: Hx Depression Past Surgical History: Reports: Hx Cardiac Surgery - open heart 10/11, Hx Coronary Artery Bypass Graft - recent, Hx Herniorrhaphy, Hx Orthopedic Surgery - fx shoulder, clavicle, Other - Immunizations Hx Diphtheria, Pertussis, Tetanus Vaccination: Yes Physical Exam - Vital signs Vitals: Temp Pulse Resp BP Pulse Ox 97.1 F 57 L 16 81/45 L 100 09/22/19 10:15 09/22/19 10:15 09/22/19 10:15 09/22/19 10:15 09/22/19 10:15 Course - Vital Signs Vital signs: Temp Pulse Resp BP Pulse Ox 97.1 F 57 L 16 81/45 L 100 09/22/19 10:15 09/22/19 10:15 09/22/19 10:15 09/22/19 10:15 09/22/19 10:15 Doctor's Discharge - Discharge Referrals: HILARIO CURRY MD [Primary Care Provider] - Follow up as needed
[2019-09-22 11:19] LABS: ABSOLUTE EOSINOPHILS # (AUTO) 0.1 10^3/uL (0.0-0.6); ABSOLUTE LYMPHOCYTES (AUTO) 1.6 10^3/uL (0.5-4.7); ABSOLUTE MONOCYTES (AUTO) 0.8 10^3/uL (0.1-1.4); ABSOLUTE NEUT (AUTO) 6.7 10^3/uL (1.7-8.2); BASOPHILS % (AUTO) 0.4 % (0-2); EOSINOPHILS % (AUTO) 1.4 % (0-6); HEMATOCRIT 39.4 % (37.9-51.0); HEMOGLOBIN 13.2 g/dL (13.5-17.0); MEAN CORPUSCULAR HEMOGLOBIN 29.5 pg (27.0-33.4); MEAN CORPUSCULAR HGB CONC 33.6 g/dL (32.0-36.0); MEAN CORPUSCULAR VOLUME 88 fl (80-97); MONOCYTES % (AUTO) 8.6 % (3-13); PLATELET COUNT 216 10^3/uL (150-450); RED BLOOD COUNT 4.49 10^6/uL (4.35-5.55); RED CELL DISTRIBUTION WIDTH 14.2 % (11.5-14.0); SEGMENTED NEUTROPHILS % (AUTO) 72.6 % (42-78); TOTAL CELLS COUNTED % (AUTO) 100 %; WHITE BLOOD COUNT 9.3 10^3/uL (4.0-10.5)
[2019-09-22 11:36] LABS: ALBUMIN 4.2 g/dL (3.5-5.0); ALKALINE PHOSPHATASE 46 U/L (38-126); ANION GAP 6 (5-19); ASPARTATE AMINO TRANSFERASE 30 U/L (17-59); BILIRUBIN,DIRECT 0.1 mg/dL (0.0-0.4); BILIRUBIN,TOTAL 0.6 mg/dL (0.2-1.3); BLOOD UREA NITROGEN 59 mg/dL (7-20); CALCIUM 9.8 mg/dL (8.4-10.2); CARBON DIOXIDE 31 mmol/L (22-30); CHLORIDE 99 mmol/L (98-107); CREATINE KINASE 53 U/L (55-170); GLUCOSE 120 mg/dL (75-110); PHOSPHORUS 4.5 mg/dL (2.5-4.5); POTASSIUM 5.7 mmol/L (3.6-5.0); TOTAL PROTEIN 6.9 g/dL (6.3-8.2)
--- NOTE | 2019-09-22 12:06 | RADIOLOGY REPORT (SQ) ---
EXAM DESCRIPTION: CHEST SINGLE VIEW IMAGES COMPLETED DATE/TIME: 09/22/2019 11:48 am REASON FOR STUDY: LEONOR COMPARISON: 04/07/2018 EXAM PARAMETERS: NUMBER OF VIEWS: One view. TECHNIQUE: Single frontal radiographic view of the chest acquired. RADIATION DOSE: NA LIMITATIONS: None. FINDINGS: LUNGS AND PLEURA: Chronic interstitial change with biapical scarring. Minimal right basil ar opacity, likely atelectasis or scarring No additional focal consolidation. No pleural effusion or pneumothorax. MEDIASTINUM AND HILAR STRUCTURES: No masses. Contour normal. HEART AND VASCULAR STRUCTURES: Heart normal in size. Normal vasculature. BONES: Sternotomy changes. HARDWARE: None in the chest. OTHER: No other significant finding. IMPRESSION: No evidence of acute cardiopulmonary process. TECHNICAL DOCUMENTATION: JOB ID: [id number] [employer]- All Rights Reserved Reading location - IP/workstation name: [email or web address]
[2019-09-22 13:02] LABS: APPEARANCE,URINE CLEAR; BILIRUBIN,URINE NEGATIVE (NEGATIVE); COLOR,URINE YELLOW; GLUCOSE, URINE NEGATIVE (NEGATIVE); KETONES,URINE NEGATIVE (NEGATIVE); LEUKOCYTE ESTERASE,URINE TRACE (NEGATIVE); NITRITE,URINE NEGATIVE (NEGATIVE); PROTEIN,URINE NEGATIVE (NEGATIVE); UROBILINOGEN,URINE NEGATIVE mg/dL (<2.0)
--- NOTE | 2019-09-22 14:03 | ER Document Report ---
Entered by CLAUDIO DE DIOS SCRIBE 09/22/19 1329 Acting as scribe for:ALXE GARDINER MD ED General - General Chief Complaint: Direct Admit/Private MD Stated Complaint: DIRECT ADMIT/ACUTE KIDNEY INJURY Time Seen by Provider: 09/22/19 10:31 Mode of Arrival: Ambulatory Information source: Patient Notes: This 84 year old male patient presents to the emergency department today with complaints of failure to thrive. Patient had outpatient labs that showed elevated kidney function. Patient has had a decreased appetite for months and he was started on Megace yesterday for this. The patient was sent here as a direct admission, however there are no hospital beds available so he will be seen and managed in the emergency department. He was found on lab work from 2 days ago to be dehydrated with a BUN of 63, and a creatinine of 1.98 TRAVEL OUTSIDE OF THE [place] IN LAST 30 DAYS: No - Related Data Allergies/Adverse Reactions: No Known Allergies Allergy (Verified 01/21/18 10:17) Past Medical History - General Information source: Patient - Social History Smoking Status: Former Smoker Cigarette use (# per day): No Chew tobacco use (# tins/day): No Frequency of alcohol use: None Drug Abuse: None Lives with: Family Family History: Reviewed & Not Pertinent, Hypertension - Past Medical History Cardiac Medical History: Reports: Hx Coronary Artery Disease, Hx Hypercholesterolemia, Hx Hypertension - meds since 2010 Endocrine Medical History: Reports: Hx Diabetes Mellitus Type 2 - not on insulin Musculoskeletal Medical History: Reports Hx Arthritis Psychiatric Medical History: Reports: Hx Anxiety Past Surgical History: Reports: Hx Cardiac Surgery - open heart 10/11, Hx Coronary Artery Bypass Graft - recent, Hx Herniorrhaphy, Hx Orthopedic Surgery - fx shoulder, clavicle, Other - Immunizations Hx Diphtheria, Pertussis, Tetanus Vaccination: Yes Hx Pneumococcal Vaccination: 02/25/00 Review of Systems - Review of Systems Constitutional: See HPI, Other - failure to thrive, dehydrated, abnormal kidney function EENT: No symptoms reported Cardiovascular: No symptoms reported Respiratory: No symptoms reported Gastrointestinal: No symptoms reported Genitourinary: No symptoms reported Male Genitourinary: No symptoms reported Musculoskeletal: No symptoms reported Skin: No symptoms reported Hematologic/Lymphatic: No symptoms reported Neurological/Psychological: No symptoms reported -: Yes All other systems reviewed and negative Physical Exam - Vital signs Vitals: Temp Pulse Resp BP Pulse Ox 97.1 F 57 L 16 81/45 L 100 09/22/19 10:15 09/22/19 10:15 09/22/19 10:15 09/22/19 10:15 09/22/19 10:15 - Notes Notes: Physical Exam: General: Alert, thin and frail appearing, cachectic. HEENT: Normocephalic. Atraumatic. PERRL. Extraocular movements intact. Orophar ynx clear. Neck: Supple. Non-tender. Respiratory: No respiratory distress. Clear and equal breath sounds bilaterally. Cardiovascular: Regular rate and rhythm. Abdominal: Normal Inspection. Non-tender. No distension. Normal Bowel Sounds. Back: No gross abnormalities. Extremities: Moves all four extremities. Upper extremities: Normal inspection. Normal ROM. Lower extremities: Normal inspection. No edema. Normal ROM. Neurological: Normal cognition. AAOx4. Normal speech. Psychological: Normal affect. Normal Mood. Skin: Warm. Dry. Normal color. Course - Re-evaluation Re-evalutation: 09/22/19 14:54 The patient did have episodes when his heart rate was dropping down into the upper 30s but he remained asymptomatic during those times. His blood pressure has gone up to 100/65. Lab work today compared to 2 days ago shows creatinine is gone from 1.98-2.28 I discussed the case with Dr. Boateng, we will change admission to a telemetry bed and continue IV hydration. He prefers to just go with hydration at this time and see if that dilutes out the potassium adequately. 09/22/19 18:27 The patient continues to have episodes where his heart rate dropped down to 38- 40, and with that long MI interval I am going to give him 15 mL's/7.5 mg of Kayexalate, and 1 amp of calcium gluconate. - Vital Signs Vital signs: Temp Pulse Resp BP Pulse Ox 97.1 F 57 L 21 H 108/59 L 85 L 09/22/19 10:15 09/22/19 10:15 09/22/19 16:05 09/22/19 16:05 09/22/19 16:00 - Laboratory Result Diagrams: 09/22/19 10:53 09/22/19 10:53 Laboratory results interpreted by me: 09/22/19 09/22/1909/21/20 10:52 10:53 10:53 Hgb 13.2 L RDW 14.2 H Sodium 135.6 L Potassium 5.7 H Carbon Dioxide 31 H BUN 59 H Creatinine 2.28 H Est GFR ( Amer) 33 L Est GFR (MDRD) Non-Af 28 L Glucose 120 H POC Glucose 114 H Magnesium 2.6 H Creatine Kinase 53 L Ur Leukocyte Esterase 09/22/19 12:42 Hgb RDW Sodium Potassium Carbon Dioxide BUN Creatinine Est GFR ( Amer) Est GFR (MDRD) Non-Af Glucose POC Glucose Magnesium Creatine Kinase Ur Leukocyte Esterase TRACE H - EKG Interpretation by Me EKG shows normal: Sinus rhythm, Gentry, Intervals, QRS Complexes, ST-T Waves Rate: Normal - 52 Gentry/QRS: RBBB, LPHB/LPFB Heart block present: 1st Degree - MI 408 When compared to previous EKG there are: Changes noted - Previous EKG a second-degree AV block Mobitz type I which is not present now but rather an extreme first-degree heart block. Critical Care Note - Critical Care Note Total time excluding time spent on procedures (mins): 30 Comments: At least 30 minutes spent evaluating the patient. Reviewing prior and current records. Reviewing recent lab work and comparing to today's lab work. Reevaluating the patient frequently as we tried to manage his hypotension, intermittent extreme bradycardia and hyperkalemia with IV fluids at the request of his primary care provider. Later due to repeated episodes of recurring bradycardia, the patient was given Kayexalate and IV calcium to stabilize cardiac cell membranes, reduce the serum potassium level quicker than just IV hydration, and hopefully to improve the long MI interval and the frequency of the bradycardic episodes. Discharge - Discharge Clinical Impression: Dehydration, Acute kidney injury, Hyperkalemia, Bradycardia, First degree heart block Hypotension Qualifiers: Hypotension type: unspecified hypotension type Qualified Code(s): I95.9 - Hypotension, unspecified Condition: Fair Disposition: ADMITTED INPATIENT Admitting Provider: [facility] Admitted: Telemetry I personally performed the services described in the documentation, reviewed and edited the documentation which was dictated to the scribe in my presence, and it accurately records my words and actions.
--- NOTE | 2019-09-22 14:51 | RADIOLOGY REPORT (SQ) ---
EXAM DESCRIPTION: U/S RETROPERITON (RENAL/AORTA) IMAGES COMPLETED DATE/TIME: 09/22/2019 2:22 pm REASON FOR STUDY: LEONOR COMPARISON: None. TECHNIQUE: Dynamic and static grayscale images acquired of the kidneys and bladder and recorded on P ACS. Additional selected color Doppler and spectral images recorded. LIMITATIONS: None. FINDINGS: RIGHT KIDNEY: Small measuring 8.0 cm. Normal echogenicity. No solid or suspicious masses. No hydronephrosis. Scattered punctate echogenic foci. LEFT KIDNEY: Small measuring 8.8 cm. Normal echogenicity. No solid or suspicious masses. No hydrone phrosis. Scattered punctate echogenic foci. BLADDER: Moderately distended urinary bladder with irregular wall thickening OTHER FINDINGS: No other significant finding. IMPRESSION: 1. No hydronephrosis. 2. Moderately distended urinary bladder with irregular wall thickening possibly secondary to chronic outlet obstruction. 3. Scattered bilateral punctate echogenic foci possibly nonobstructing stones. TECHNICAL DOCUMENTATION: JOB ID: [id number] 2010 [employer]- All Rights Reserved Reading location - IP/workstation name: [email or web address]
[2019-09-22] MEDS ORDERED: NORMAL SALINE 1000 ML 1,000 ML IV ONE (14:52)
[2019-09-22] MEDS ORDERED: SODIUM POLYSTYRENE SULFONATE 15 GM/60 ML PO ONE (18:26)
[2019-09-22] MEDS ORDERED: CALCIUM GLUCONATE 1000 MG/10 ML INJ IV ONE (18:26)
--- NOTE | 2019-09-22 18:34 | PDOC H&P ---
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 He was accompanied by the daughter, she stated that patient has not been eating nor drinking for the last couple of months, he told me he has no appetite, the serum creatinine was 1.4 the last time the blood work was done. Because of the acute on chronic kidney injury I felt patient needed to be admitted for hydration and observation in the hospital. 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 He has no chest pain or shortness of breath Past Medical History Cardiac Medical History: Reports: Coronary Artery Disease, Hyperlipidema, Hypertension - meds since 2010 Endocrine Medical History: Reports: Diabetes Mellitus Type 2 - not on insulin Renal/ Medical History: Reports: Chronic Kidney Disease Musculoskeltal Medical History: Reports: Arthritis Past Surgical History Past Surgical History: Reports: Coronary Artery Bypass Graft - recent, Herniorrhaphy, Orthopedic Surgery - fx shoulder, clavicle, Other Social History Lives with: Family Smoking Status: Former Smoker Electronic Cigarette use?: No Frequency of Alcohol Use: None Hx Recreational Drug Use: No Drugs: None Hx Prescription Drug Abuse: No Family History Family History: Reviewed & Not Pertinent, Hypertension Parental Family History Reviewed: Yes Children Family History Reviewed: Yes Sibling(s) Family History Reviewed.: Yes Medication/Allergy Home Medications: Amitriptyline HCl [Elavil 50 mg Tablet] 50 mg PO QHS 04/07/18 Aspirin [Ecotrin 81 mg EC Tablet] 81 mg PO DAILY 04/07/18 Atorvastatin Calcium [Lipitor 40 mg Tablet] 40 mg PO QHS 04/07/18 Ferrous Sulfate [Feosol 325 mg Tablet] 325 mg PO DAILY 04/07/18 Lisinopril [Prinivil 10 mg Tablet] 10 mg PO DAILY 04/07/18 Metoprolol Tartrate [Lopressor 25 mg Tablet] 25 mg PO Q12 04/07/18 Furosemide [Lasix 40 mg Tablet] 40 mg PO DAILY 09/22/19 Megestrol Acetate 40 mg PO BID 09/22/19 Metformin HCl [Metformin HCl ER] 500 mg PO DAILY 09/22/19 Mirtazapine [Remeron 15 mg Tablet] 15 mg PO QHS 09/22/19 Allergies/Adverse Reactions: No Known Allergies Allergy (Verified 01/21/18 10:17) Review of Systems Constitutional: ABSENT: chills, fever(s), headache(s), weight gain, weight loss Eyes: ABSENT: visual disturbances Ears: ABSENT: hearing changes Cardiovascular: ABSENT: as per HPI, chest pain, dyspnea on exertion, edema, orthropnea, palpitations, other Respiratory: ABSENT: cough, hemoptysis Gastrointestinal: ABSENT: abdominal pain, constipation, diarrhea, hematemesis, hematochezia, nausea, vomiting Genitourinary: ABSENT: dysuria, hematuria Musculoskeletal: ABSENT: joint swelling Integumentary: ABSENT: rash, wounds Neurological: ABSENT: abnormal gait, abnormal speech, confusion, dizziness, focal weakness, syncope Psychiatric: ABSENT: anxiety, depression, homidical ideation, suicidal ideation Endocrine: ABSENT: cold intolerance, heat intolerance, menstrual abnormalities, polydipsia, polyuria Hematologic/Lymphatic: ABSENT: easy bleeding, easy bruising, lymphadenopathy Physical Exam Vital Signs: Temp Pulse Resp BP Pulse Ox 97.1 F 57 L 21 H 108/59 L 85 L 09/22/19 10:15 09/22/19 10:15 09/22/19 16:05 09/22/19 16:05 09/22/19 16:00 Intake & Output 09/21/19 09/22/19 09/23/19 06:59 06:59 06:59 Intake Total 500 Balance 500 Weight 56.6 kg General appearance: PRESENT: no acute distress, thin Head exam: PRESENT: atraumatic, normocephalic Eye exam: PRESENT: PERRLA Mouth exam: PRESENT: dry mucosa Neck exam: PRESENT: full ROM Respiratory exam: PRESENT: clear to auscultation zeferino Cardiovascular exam: PRESENT: RRR, +S1, +S2 Vascular exam: PRESENT: normal capillary refill GI/Abdominal exam: PRESENT: normal bowel sounds, soft Rectal exam: PRESENT: deferred Neurological exam: PRESENT: alert, CN II-XII grossly intact Psychiatric exam: PRESENT: appropriate affect, normal mood. ABSENT: homicidal ideation, suicidal ideation Skin exam: PRESENT: dry, intact, warm Results Laboratory Results: 09/22/19 10:53 09/22/19 10:53 09/22/19 09/22/19 09/22/19 10:53 10:53 12:42 WBC 9.3 RBC 4.49 Hgb 13.2 L Hct 39.4 MCV 88 MCH 29.5 MCHC 33.6 RDW 14.2 H Plt Count 216 Seg Neutrophils % 72.6 Sodium 135.6 L Potassium 5.7 H Chloride 99 Carbon Dioxide 31 H Anion Gap 6 BUN 59 H Creatinine 2.28 H Est GFR ( Amer) 33 L Glucose 120 H Calcium 9.8 Phosphorus 4.5 Magnesium 2.6 H Total Bilirubin 0.6 AST 30 Alkaline Phosphatase 46 Total Protein 6.9 Albumin 4.2 Urine Color YELLOW Urine Appearance CLEAR Urine pH 6.0 Ur Specific [place] 1.010 Urine Protein NEGATIVE Urine Glucose (UA) NEGATIVE Urine Ketones NEGATIVE Urine Blood NEGATIVE Urine Nitrite NEGATIVE Ur Leukocyte Esterase TRACE H Urine WBC (Auto) 1 09/22/19 09/22/19 10:53 10:53 Creatine Kinase 53 L Troponin I 0.013 Impressions: Chest X-Ray 09/22/19 10:31 IMPRESSION: No evidence of acute cardiopulmonary process. Renal Ultrasound 09/22/19 10:31 IMPRESSION: 1. No hydronephrosis. 2. Moderately distended urinary bladder with irregular wall thickening possibly secondary to chronic outlet obstruction. 3. Scattered bilateral punctate echogenic foci possibly nonobstructing stones. Assessment & Plan - Diagnosis (1) Acute kidney injury Is this a current diagnosis for this admission?: Yes Plan: Patient with acute on chronic kidney disease, this is probably prerenal azot emia, IV fluid therapy started monitor kidney function (2) Coronary artery disease Qualifiers: Coronary Disease-Associated Artery/Lesion type: [place] artery [place] vs. transplanted heart: [place] heart Associated angina: without angina Qualified Code(s): I25.10 - Atherosclerotic heart disease of [place] coronary artery without angina pectoris Is this a current diagnosis for this admission?: Yes (3) Type 2 diabetes mellitus Qualifiers: Diabetes mellitus rn long term care insulin use: without rn long term care use Diabetes mellitus complication status: with kidney complications Diabetes mellitus complication detail: with chronic kidney disease Chronic kidney disease stage: stage 3 (moderate) Qualified Code(s): E11.22 - Type 2 diabetes mellitus with diabetic chronic kidney disease; N18.3 - Chronic kidney disease, stage 3 (moderate) Is this a current diagnosis for this admission?: Yes Plan: He has underlining CKD with a superimposed acute kidney injury probably from inadequate intake dehydration - Time Time Spent: Greater than 70 Minutes Medications reviewed and adjusted accordingly: Yes Anticipated Discharge Disposition: Home, Self Care Anticipated Discharge Timeframe: within 48 hours - Inpatient Certification Based on my medical assessment, after consideration of the patient's comorbidities, presenting symptoms, or acuity I expect that the services needed warrant INPATIENT care.: Yes I certify that my determination is in accordance with my understanding of Medicare's requirements for reasonable and necessary INPATIENT services [42 CFR 412.3e].: Yes
[2019-09-22] MEDS ORDERED: (PENDING PHARMACY ID) (Megestrol Acetate [Megestrol Acetate] 40 MG) PO SCH (18:45)
[2019-09-22] MEDS: FERROUS SULFATE 325 MG TABLET PO SCH (19:06)
[2019-09-22] MEDS: HEPARIN SOD (PORCINE) 5,000 UNIT/ML 1 ML VIAL SUBCUT SCH (19:06)
[2019-09-22] MEDS: NORMAL SALINE 1000 ML 1,000 ML IV PRN (19:07)
[2019-09-22 19:23] LABS: FREE T4 (FREE THYROXINE) 1.48 ng/dL (0.78-2.19)
[2019-09-22 19:37] LABS: THYROID STIMULATING HORMONE 2.18 uIU/mL (0.47-4.68)
--- NOTE | 2019-09-22 20:07 | EKG REPORT ---
SEVERITY:- ABNORMAL ECG - SINUS OR ECTOPIC ATRIAL RHYTHM FIRST DEGREE AV BLOCK RBBB AND LPFB PROBABLE ANTEROSEPTAL INFARCT, AGE INDETERM : Confirmed by: Monika Perea MD 22-Sep-2019 20:06:03
[2019-09-22] MEDS: METOPROLOL TARTRATE 25 MG TABLET PO SCH (20:56)
[2019-09-22 21:38] LABS: INTERNATIONAL RATION (INR) 1.06; PROTHROMBIN TIME 13.9 SEC (11.4-15.4)
[2019-09-22 21:39] LABS: PARTIAL THROMBOPLASTIN TIME 29.8 SEC (23.5-35.8)
[2019-09-22 21:44] LABS: PHOSPHORUS 3.8 mg/dL (2.5-4.5)
[2019-09-22 21:55] LABS: CREATINE KINASE MB 1.05 ng/mL (<4.55); TROPONIN I 0.022 ng/mL
[2019-09-22 22:00] LABS: ALBUMIN 4.1 g/dL (3.5-5.0); ALKALINE PHOSPHATASE 43 U/L (38-126); ASPARTATE AMINO TRANSFERASE 29 U/L (17-59); BILIRUBIN,DIRECT 0.1 mg/dL (0.0-0.4); BILIRUBIN,TOTAL 0.5 mg/dL (0.2-1.3); TOTAL PROTEIN 6.8 g/dL (6.3-8.2)
[2019-09-22] MEDS: AMITRIPTYLINE HCL 50 MG TABLET PO SCH (22:14)
[2019-09-22] MEDS: MIRTAZAPINE 15 MG TABLET PO SCH (22:14)
[2019-09-22] MEDS: ATORVASTATIN CALCIUM 40 MG TABLET PO SCH (22:14)
[2019-09-22] MEDS: MEGESTROL ACETATE 20 MG TABLET PO SCH (22:20)
[2019-09-23 04:46] LABS: ABSOLUTE EOSINOPHILS # (AUTO) 0.2 10^3/uL (0.0-0.6); ABSOLUTE MONOCYTES (AUTO) 0.7 10^3/uL (0.1-1.4); ABSOLUTE NEUT (AUTO) 4.4 10^3/uL (1.7-8.2); BASOPHILS % (AUTO) 0.2 % (0-2); EOSINOPHILS % (AUTO) 2.8 % (0-6); HEMATOCRIT 37.3 % (37.9-51.0); HEMOGLOBIN 12.3 g/dL (13.5-17.0); LYMPHOCYTES % (AUTO) 27.5 % (13-45); MEAN CORPUSCULAR HEMOGLOBIN 29.3 pg (27.0-33.4); MEAN CORPUSCULAR HGB CONC 32.9 g/dL (32.0-36.0); MEAN CORPUSCULAR VOLUME 89 fl (80-97); MONOCYTES % (AUTO) 9.6 % (3-13); PLATELET COUNT 149 10^3/uL (150-450); RED BLOOD COUNT 4.19 10^6/uL (4.35-5.55); RED CELL DISTRIBUTION WIDTH 14.2 % (11.5-14.0); SEGMENTED NEUTROPHILS % (AUTO) 59.9 % (42-78); TOTAL CELLS COUNTED % (AUTO) 100 %; WHITE BLOOD COUNT 7.3 10^3/uL (4.0-10.5)
[2019-09-23 05:04] LABS: ALBUMIN 3.5 g/dL (3.5-5.0); ALKALINE PHOSPHATASE 39 U/L (38-126); ANION GAP 9 (5-19); ASPARTATE AMINO TRANSFERASE 28 U/L (17-59); BILIRUBIN,TOTAL 0.5 mg/dL (0.2-1.3); BLOOD UREA NITROGEN 53 mg/dL (7-20); CALCIUM 8.6 mg/dL (8.4-10.2); CARBON DIOXIDE 22 mmol/L (22-30); CHLORIDE 107 mmol/L (98-107); CHOLESTEROL 108.49 mg/dL (0-200); CREATINE KINASE 53 U/L (55-170); TRIGLYCERIDES 151 mg/dL (<150)
[2019-09-23 05:07] LABS: GLUCOSE 68 mg/dL (75-110); VLDL CHOLESTEROL 30.2 mg/dL (10-31)
[2019-09-23 05:15] LABS: DIRECT LDL 49 mg/dL (<100)
[2019-09-23 05:17] LABS: CREATINE KINASE MB 1.12 ng/mL (<4.55); POTASSIUM 4.1 mmol/L (3.6-5.0); TROPONIN I 0.036 ng/mL
[2019-09-23] MEDS: NORMAL SALINE 1000 ML 1,000 ML IV PRN ×2 (05:33→17:36)
[2019-09-23] MEDS: HEPARIN SOD (PORCINE) 5,000 UNIT/ML 1 ML VIAL SUBCUT SCH ×3 (05:39→21:14)
[2019-09-23] MEDS: METOPROLOL TARTRATE 25 MG TABLET PO SCH (05:39)
[2019-09-23] MEDS ORDERED: GLUCAGON,HUMAN RECOMB 1 MG INJ IM PRN (09:00)
[2019-09-23] MEDS ORDERED: DEXTROSE 50%-WATER SYRINGE 25 GM/50 ML DOSE IV PRN (09:00)
[2019-09-23] MEDS ORDERED: DEXTROSE 40% GEL 15 GM TUBE X 2 PO PRN (09:00)
[2019-09-23] MEDS ORDERED: DEXTROSE 40% GEL 15 GM TUBE PO PRN (09:00)
[2019-09-23] MEDS ORDERED: DEXTROSE 50%-WATER SYRINGE 12.5 GM/25 ML DOSE IV PRN (09:00)
[2019-09-23] MEDS: MEGESTROL ACETATE 20 MG TABLET PO SCH ×2 (09:18→17:36)
[2019-09-23] MEDS: FERROUS SULFATE 325 MG TABLET PO SCH (09:18)
[2019-09-23 10:50] LABS: CREATINE KINASE MB 1.09 ng/mL (<4.55); TROPONIN I 0.028 ng/mL
[2019-09-23 12:26] LABS: APPEARANCE,URINE CLEAR; BILIRUBIN,URINE NEGATIVE (NEGATIVE); COLOR,URINE YELLOW; GLUCOSE, URINE 50 mg/dL (NEGATIVE); KETONES,URINE TRACE mg/dL (NEGATIVE); LEUKOCYTE ESTERASE,URINE SMALL (NEGATIVE); NITRITE,URINE NEGATIVE (NEGATIVE); PROTEIN,URINE NEGATIVE (NEGATIVE); URINE SPECIFIC GRAVITY 1.013; UROBILINOGEN,URINE NEGATIVE mg/dL (<2.0)
--- NOTE | 2019-09-23 14:28 | PDOC CONSULTATION ---
Consultation-Blank Consultation: CARDIOLOGY CONSULTATION by Dr. Monika Perea patient seen on 09/23/2019. Patient seen at 12 noon. 60 minutes spent as patient with more than 50% time spent in direct patient care. REASON FOR CONSULTATION: Patient with second-degree AV block on the EKG and monitor. CONSULT REQUESTING PHYSICIAN: Dr. Boateng. HISTORY OF PRESENT ILLNESS: Patient is a 84-year-old male with known history of coronary artery disease. Prior history of AK and history of three- vessel coronary artery bypass graft surgery in September 1999 918 in [place]. At that time he had a TINAJERO to the LAD, and a saphenous vein graft to the obtuse marginal branch and also a saphenous vein graft to the distal right coronary art billy. The patient states that since then he has not had any anginal symptoms. He also has a history of hypertension hyperlipidemia and chronic kidney disease. The patient recently has been taking care of his and has not been eating or drinking well. He was brought to Dr. Boateng's office for severe generalized weakness and fatigue and was found to be dehydrated and sent to the emergency room. In the emergency room the patient's monitor and EKG shows second-degree AV block type I Wenckebach. The patient is on a beta-shin which is now been stopped. Of note at present the patient denies any dizziness near syncope or syncope. There is no palpitations. There is no chest pain or discomfort. There is no PND orthopnea or leg edema. The patient says since hydration he feels better. His initial potassium was elevated and he was treated with Kayexalate. Although the patient denies any dizziness the patient's daughter states on a couple of occasions in the recent past the pat ient when he suddenly stood up felt dizzy but no near-syncope or syncope. He has a history of diabetes mellitus at present diet controlled. He has hyperlipidemia. There is no history of COPD also although the patient was an ex-smoker and his chest x-ray and physical exam is conducive with COPD. He is not any treatment for COPD. He denies any cough or sputum production or fever. There is no wheezing. There is no sleep apnea. There is no history of TIA or CVA. The patient due to dehydration was admitted with acute on chronic kidney disease. This is improved with hydration. Past Medical History Cardiac Medical History: Reports: Coronary Artery Disease, Hyperlipidema, Hypertension - meds since 2010 Endocrine Medical History: Reports: Diabetes Mellitus Type 2 - not on insulin Renal/ Medical History: Reports: Chronic Kidney Disease Musculoskeltal Medical History: Reports: Arthritis Past Surgical History Past Surgical History: Reports: Coronary Artery Bypass Graft - recent, Herniorrhaphy, Orthopedic Surgery - fx shoulder, clavicle, Other. RESUSCITATION STATUS: The patient is a full code. His daughter is a surrogate healthcare decision maker. Social History Lives with: Family Smoking Status: Former Smoker Electronic Cigarette use?: No Frequency of Alcohol Use: None Hx Recreational Drug Use: No Drugs: None Hx Prescription Drug Abuse: No Family History Family History: Reviewed & Not Pertinent, Hypertension Parental Family History Reviewed: Yes Children Family History Reviewed: Yes Sibling(s) Family History Reviewed.: Yes Medication/Allergy Home Medications: Amitriptyline HCl [Elavil 50 mg Tablet] 50 mg PO QHS 04/07/18 Aspirin [Ecotrin 81 mg EC Tablet] 81 mg PO DAILY 04/07/18 Atorvastatin Calcium [Lipitor 40 mg Tablet] 40 mg PO QHS 04/07/18 Ferrous Sulfate [Feosol 325 mg Tablet] 325 mg PO DAILY 04/07/18 Lisinopril [Prinivil 10 mg Tablet] 10 mg PO DAILY 04/07/18 Metoprolol Tartrate [Lopressor 25 mg Tablet] 25 mg PO Q12 04/07/18 Furosemide [Lasix 40 mg Tablet] 40 mg PO DAILY 09/22/19 Megestrol Acetate 40 mg PO BID 09/22/19 Metformin HCl [Metformin HCl ER] 500 mg PO DAILY 09/22/19 Mirtazapine [Remeron 15 mg Tablet] 15 mg PO QHS 09/22/19 Allergies/Adverse Reactions: No Known Allergies Allergy (Verified 01/21/18 10:17). Current Medications Generic Name Dose Route Start Last Admin Trade Name Freq PRN Reason Stop Dose Admin Amitriptyline HCl 50 mg 09/22/19 22:00 09/23/19 21:13 Elavil 50 Mg Tablet PO 10/22/19 21:59 50 mg QHS TARA Administration Atorvastatin Calcium 40 mg 09/22/19 22:00 09/23/19 21:13 Lipitor 40 Mg Tablet PO 10/22/19 21:59 40 mg QHS TARA Administration Dextrose 12.5 gm 09/23/19 09:00 Dextrose Inj 50% Syringe (25 Gm/50 Ml) IV 10/23/19 08:59 PRN PRN FOR BG 50-69 IN ALERT PATIENT Protocol Dextrose 25 gm 09/23/19 09:00 Dextrose Inj 50% Syringe (25 Gm/50 Ml) IV 10/23/19 08:59 PRN PRN Protocol Ferrous Sulfate 325 mg 09/22/19 19:00 09/23/19 09:18 Feosol 325 Mg Tablet PO 10/22/19 18:59 325 mg DAILY TARA Administration Glucagon 1 mg 09/23/19 09:00 Glucagen Inj 1 Mg Vial IM 10/23/19 08:59 PRN PRN EVALUATE FOR BG < 70 Protocol Glucose 15 gm 09/23/19 09:00 Glutose 40% Gel 15 Gm Tube PO 10/23/19 08:59 PRN PRN FOR BG 50-69 IN ALERT PATIENT Protocol Glucose 30 gm 09/23/19 09:00 Glutose 40% Gel 15 Gm Tube PO 10/23/19 08:59 PRN PRN FOR BG < 50 IN ALERT PATIENT Protocol Heparin Sodium (Porcine) 5,000 unit 09/22/19 19:30 09/23/19 21:14 Heparin Inj 5,000 Units/Ml 1 Ml Vial SUBCUT 10/22/19 19:29 Not Given Q8 TARA Sodium Chloride 1,000 mls @ 100 mls/hr 09/22/19 18:19 09/23/19 17:36 Nacl 0.9% 1000 Ml Iv Soln IV 10/22/19 18:18 100 mls/hr CONTINUOUS PRN Administration THIS MED IS NOT "PRN" Megestrol Acetate 40 mg 09/22/19 20:00 09/23/19 17:36 Megace 20 Mg Tablet PO 10/22/19 19:59 40 mg BID TARA Administration Mirtazapine 15 mg 09/22/19 22:00 09/23/19 21:13 Remeron 15 Mg Tablet PO 10/22/19 21:59 15 mg QHS TARA Administration Discontinued Medications Generic Name Dose Route Start Last Admin Trade Name Freq PRN Reason Stop Dose Admin Calcium Gluconate 1,000 mg 09/22/19 18:26 09/22/19 19:02 Calcium Gluconate Inj 1000 Mg/10 Ml IV 09/22/19 18:27 1,000 mg NOW ONE Administration Sodium Chloride 500 mls @ 500 mls/hr 09/22/19 10:35 09/22/19 16:20 Nacl 0.9% 500 Ml Iv Soln IV 10/22/19 10:34 Infused CONTINUOUS PRN Infusion THIS MED IS NOT "PRN" Sodium Chloride 1,000 mls @ 0 mls/hr 09/22/19 14:52 09/22/19 18:35 Nacl 0.9% 1000 Ml Iv Soln IV 09/22/19 14:53 Infused BOLUS ONE Infusion Wide Open Sodium Chloride 500 mls @ 100 mls/hr 09/22/19 18:29 Nacl 0.9% 500 Ml Iv Soln IV 10/22/19 10:34 CONTINUOUS PRN THIS MED IS NOT "PRN" Metoprolol Tartrate 25 mg 09/22/19 19:30 09/23/19 05:39 Lopressor 25 Mg Tablet PO 10/22/19 19:29 Not Given Q12A TARA Sodium Polystyrene Sulfonate 7.5 gm 09/22/19 18:26 09/22/19 19:02 Kayexalate 15 Gm/60 Ml Susp 60 Ml PO 09/22/19 18:27 7.5 gm NOW ONE Administration Review of Systems Constitutional: ABSENT: chills, fever(s), headache(s), weight gain, weight loss Eyes: ABSENT: visual disturbances Ears: ABSENT: hearing changes Cardiovascular: ABSENT: as per HPI, chest pain, dyspnea on exertion, edema, orthropnea, palpitations, other Respiratory: ABSENT: cough, hemoptysis Gastrointestinal: ABSENT: abdominal pain, constipation, diarrhea, hematemesis, hematochezia, nausea, vomiting Genitourinary: ABSENT: dysuria, hematuria Musculoskeletal: ABSENT: joint swelling Integumentary: ABSENT: rash, wounds Neurological: ABSENT: abnormal gait, abnormal speech, confusion, dizziness, focal weakness, syncope Psychiatric: ABSENT: anxiety, depression, homidical ideation, suicidal ideation Endocrine: ABSENT: cold intolerance, heat intolerance, menstrual abnormalities, polydipsia, polyuria Hematologic/Lymphatic: ABSENT: easy bleeding, easy bruising, lymphadenopathy Physical Exam the patient is a frail build. In no acute distress. Selected Entries 09/23/19 09/23/19 08:21 12:26 Temperature 97.5 F 97.9 F Temperature Axillary Oral Source Pulse Rate 64 Respiratory 16 13 Rate Blood Pressure 104/35 L Blood Pressure 58 Mean BP Location Left Arm Left Arm BP Position Supine Sitting O2 Sat by Pulse 99 98 Oximetry Oxygen Delivery Room Air Room Air Method HEAD: Is atraumatic normocephalic. EYES: Pupils are equal round regular reactive light accommodation. EXTRAOCULAR MOVEMENTS ARE NORMAL. THERE IS NO CONJUNCTIVAL PALLOR. THERE IS NO SCLERAL ICTERUS. Ears: Tympanic membranes are intact. External auditory canals are clear. NOSE: There is no deviated nasal septum. There is no inflammation nasal mucous membrane. MOUTH: Mucous membranes of mouth are dry. Tongue is dry. There is no ulcers. There is no bleeding from the gums. THROAT: There is no redness of the oropharynx. There is no exudates. SKIN: There is skin turgor is decreased. There is no petechia or ecchymosis. There is no skin rashes. There is no skin lesions. NECK: Is supple. There is no JVD. Carotids are equal there is no bruit there is no lymphadenopathy. There is no goiter. LUNGS: There is diminished air entry slightly and prolonged expiration. There is no rhonchi rales or wheezing. On percussion there is mild hyperresonance. HEART: S1-S2 is heard. There is no S3 gallop there is no S4 gallop. Systolic murmur left sternal border and the apex there is no rub. ABDOMEN: Is soft. Nontender. There is no hepatosplenomegaly. Bowel sounds are well heard. EXTREMITIES: Femorals are well felt. Leg pulses well felt. There is no pedal edema. There is no DVT or cellulitis. There is no cyanosis or clubbing. ELECTRIC DISTRIBUTION ENGINEER: The patient is conscious awake alert oriented x3 with no focal deficit. PSYCHIATRIC: The patient judgment insight are intact his affect is normal. Labs- Entire Visit 09/22/19 09/22/19 09/22/19 10:52 10:53 10:53 WBC 9.3 RBC 4.49 Hgb 13.2 L Hct 39.4 MCV 88 MCH 29.5 MCHC 33.6 RDW 14.2 H Plt Count 216 Lymph % (Auto) 17.0 [place] % (Auto) 8.6 Eos % (Auto) 1.4 Baso % (Auto) 0.4 Absolute Neuts (auto) 6.7 Absolute Lymphs (auto) 1.6 Absolute Monos (auto) 0.8 Absolute Eos (auto) 0.1 Absolute Basos (auto) 0.0 Seg Neutrophils % 72.6 PT INR APTT Sodium 135.6 L Potassium 5.7 H Chloride 99 Carbon Dioxide 31 H Anion Gap 6 BUN 59 H Creatinine 2.28 H Est GFR ( Amer) 33 L Est GFR (MDRD) Non-Af 28 L Glucose 120 H POC Glucose 114 H Hemoglobin A1c % Calcium 9.8 Phosphorus 4.5 Magnesium 2.6 H Total Bilirubin 0.6 Direct Bilirubin 0.1 Neonat Total Bilirubin Not Reportable Neonat Direct Bilirubin Not Reportable Neonat Indirect Bili Not Reportable AST 30 ALT 13 Alkaline Phosphatase 46 Creatine Kinase 53 L CK-MB (CK-2) Troponin I Total Protein 6.9 Albumin 4.2 Triglycerides Cholesterol LDL Cholesterol Direct VLDL Cholesterol HDL Cholesterol Lipase TSH Free T4 Urine Color Urine Appearance Urine pH Ur Specific [place] Urine Protein Urine Glucose (UA) Urine Ketones Urine Blood Urine Nitrite Urine Bilirubin Urine Urobilinogen Ur Leukocyte Esterase Urine WBC (Auto) Urine RBC (Auto) U Hyaline Cast (Auto) Urine Mucus (Auto) Urine Ascorbic Acid 09/22/19 09/22/19 09/22/19 10:53 10:53 12:42 WBC RBC Hgb Hct MCV MCH MCHC RDW Plt Count Lymph % (Auto) [place] % (Auto) Eos % (Auto) Baso % (Auto) Absolute Neuts (auto) Absolute Lymphs (auto) Absolute Monos (auto) Absolute Eos (auto) Absolute Basos (auto) Seg Neutrophils % PT INR APTT Sodium Potassium Chloride Carbon Dioxide Anion Gap BUN Creatinine Est GFR ( Amer) Est GFR (MDRD) Non-Af Glucose POC Glucose Hemoglobin A1c % Calcium Phosphorus Magnesium Total Bilirubin Direct Bilirubin Neonat Total Bilirubin Neonat Direct Bilirubin Neonat Indirect Bili AST ALT Alkaline Phosphatase Creatine Kinase CK-MB (CK-2) Troponin I 0.013 Total Protein Albumin Triglycerides Cholesterol LDL Cholesterol Direct VLDL Cholesterol HDL Cholesterol Lipase TSH 2.18 Free T4 1.48 Urine Color YELLOW Urine Appearance CLEAR Urine pH 6.0 Ur Specific [place] 1.010 Urine Protein NEGATIVE Urine Glucose (UA) NEGATIVE Urine Ketones NEGATIVE Urine Blood NEGATIVE Urine Nitrite NEGATIVE Urine Bilirubin NEGATIVE Urine Urobilinogen NEGATIVE Ur Leukocyte Esterase TRACE H Urine WBC (Auto) 1 Urine RBC (Auto) U Hyaline Cast (Auto) 13 Urine Mucus (Auto) RARE Urine Ascorbic Acid NEGATIVE 09/22/19 09/22/19 09/22/19 21:07 21:07 21:07 WBC RBC Hgb Hct MCV MCH MCHC RDW Plt Count Lymph % (Auto) [place] % (Auto) Eos % (Auto) Baso % (Auto) Absolute Neuts (auto) Absolute Lymphs (auto) Absolute Monos (auto) Absolute Eos (auto) Absolute Basos (auto) Seg Neutrophils % PT 13.9 INR 1.06 APTT 29.8 Sodium Potassium Chloride Carbon Dioxide Anion Gap BUN Creatinine Est GFR ( Amer) Est GFR (MDRD) Non-Af Glucose POC Glucose Hemoglobin A1c % Calcium Phosphorus 3.8 Magnesium 2.5 H Total Bilirubin Direct Bilirubin Neonat Total Bilirubin Neonat Direct Bilirubin Neonat Indirect Bili AST ALT Alkaline Phosphatase Creatine Kinase 52 L CK-MB (CK-2) Troponin I Total Protein Albumin Triglycerides Cholesterol LDL Cholesterol Direct VLDL Cholesterol HDL Cholesterol Lipase 123.0 TSH Free T4 Urine Color Urine Appearance Urine pH Ur Specific [place] Urine Protein Urine Glucose (UA) Urine Ketones Urine Blood Urine Nitrite Urine Bilirubin Urine Urobilinogen Ur Leukocyte Esterase Urine WBC (Auto) Urine RBC (Auto) U Hyaline Cast (Auto) Urine Mucus (Auto) Urine Ascorbic Acid 09/22/19 09/22/19 09/23/19 21:07 21:07 03:35 WBC RBC Hgb Hct MCV MCH MCHC RDW Plt Count Lymph % (Auto) [place] % (Auto) Eos % (Auto) Baso % (Auto) Absolute Neuts (auto) Absolute Lymphs (auto) Absolute Monos (auto) Absolute Eos (auto) Absolute Basos (auto) Seg Neutrophils % PT INR APTT Sodium Potassium Chloride Carbon Dioxide Anion Gap BUN Creatinine Est GFR ( Amer) Est GFR (MDRD) Non-Af Glucose POC Glucose Hemoglobin A1c % Calcium Phosphorus Magnesium Total Bilirubin 0.5 Direct Bilirubin 0.1 Neonat Total Bilirubin Not Reportable Neonat Direct Bilirubin Not Reportable Neonat Indirect Bili Not Reportable AST 29 ALT 14 Alkaline Phosphatase 43 Creatine Kinase CK-MB (CK-2) 1.05 1.12 Troponin I 0.022 0.036 Total Protein 6.8 Albumin 4.1 Triglycerides Cholesterol LDL Cholesterol Direct VLDL Cholesterol HDL Cholesterol Lipase TSH Free T4 Urine Color Urine Appearance Urine pH Ur Specific [place] Urine Protein Urine Glucose (UA) Urine Ketones Urine Blood Urine Nitrite Urine Bilirubin Urine Urobilinogen Ur Leukocyte Esterase Urine WBC (Auto) Urine RBC (Auto) U Hyaline Cast (Auto) Urine Mucus (Auto) Urine Ascorbic Acid 09/23/19 09/23/19 09/23/19 03:35 03:35 03:35 WBC 7.3 RBC 4.19 L Hgb 12.3 L Hct 37.3 L MCV 89 MCH 29.3 MCHC 32.9 RDW 14.2 H Plt Count 149 L Lymph % (Auto) 27.5 [place] % (Auto) 9.6 Eos % (Auto) 2.8 Baso % (Auto) 0.2 Absolute Neuts (auto) 4.4 Absolute Lymphs (auto) 2.0 Absolute Monos (auto) 0.7 Absolute Eos (auto) 0.2 Absolute Basos (auto) 0.0 Seg Neutrophils % 59.9 PT INR APTT Sodium 138.2 Potassium 4.1 D Chloride 107 Carbon Dioxide 22 Anion Gap 9 BUN 53 H Creatinine 1.96 H Est GFR ( Amer) 40 L Est GFR (MDRD) Non-Af 33 L Glucose 68 L POC Glucose Hemoglobin A1c % 6.8 H Calcium 8.6 Phosphorus Magnesium Total Bilirubin 0.5 Direct Bilirubin 0.0 Neonat Total Bilirubin Not Reportable Neonat Direct Bilirubin Not Reportable Neonat Indirect Bili Not Reportable AST 28 ALT 12 Alkaline Phosphatase 39 Creatine Kinase 53 L CK-MB (CK-2) Troponin I Total Protein 6.0 L Albumin 3.5 Triglycerides 151 H Cholesterol 108.49 LDL Cholesterol Direct 49 VLDL Cholesterol 30.2 HDL Cholesterol 42 Lipase TSH Free T4 Urine Color Urine Appearance Urine pH Ur Specific [place] Urine Protein Urine Glucose (UA) Urine Ketones Urine Blood Urine Nitrite Urine Bilirubin Urine Urobilinogen Ur Leukocyte Esterase Urine WBC (Auto) Urine RBC (Auto) U Hyaline Cast (Auto) Urine Mucus (Auto) Urine Ascorbic Acid 09/23/19 09/23/19 09/23/19 08:04 08:19 08:48 WBC RBC Hgb Hct MCV MCH MCHC RDW Plt Count Lymph % (Auto) [place] % (Auto) Eos % (Auto) Baso % (Auto) Absolute Neuts (auto) Absolute Lymphs (auto) Absolute Monos (auto) Absolute Eos (auto) Absolute Basos (auto) Seg Neutrophils % PT INR APTT Sodium Potassium Chloride Carbon Dioxide Anion Gap BUN Creatinine Est GFR ( Amer) Est GFR (MDRD) Non-Af Glucose POC Glucose 59 L 53 L 84 Hemoglobin A1c % Calcium Phosphorus Magnesium Total Bilirubin Direct Bilirubin Neonat Total Bilirubin Neonat Direct Bilirubin Neonat Indirect Bili AST ALT Alkaline Phosphatase Creatine Kinase CK-MB (CK-2) Troponin I Total Protein Albumin Triglycerides Cholesterol LDL Cholesterol Direct VLDL Cholesterol HDL Cholesterol Lipase TSH Free T4 Urine Color Urine Appearance Urine pH Ur Specific [place] Urine Protein Urine Glucose (UA) Urine Ketones Urine Blood Urine Nitrite Urine Bilirubin Urine Urobilinogen Ur Leukocyte Esterase Urine WBC (Auto) Urine RBC (Auto) U Hyaline Cast (Auto) Urine Mucus (Auto) Urine Ascorbic Acid 09/23/19 09/23/19 09/23/19 09:21 09:34 09:34 WBC RBC Hgb Hct MCV MCH MCHC RDW Plt Count Lymph % (Auto) [place] % (Auto) Eos % (Auto) Baso % (Auto) Absolute Neuts (auto) Absolute Lymphs (auto) Absolute Monos (auto) Absolute Eos (auto) Absolute Basos (auto) Seg Neutrophils % PT INR APTT Sodium Potassium Chloride Carbon Dioxide Anion Gap BUN Creatinine Est GFR ( Amer) Est GFR (MDRD) Non-Af Glucose POC Glucose 141 H Hemoglobin A1c % Calcium Phosphorus Magnesium Total Bilirubin Direct Bilirubin Neonat Total Bilirubin Neonat Direct Bilirubin Neonat Indirect Bili AST ALT Alkaline Phosphatase Creatine Kinase 52 L CK-MB (CK-2) 1.09 Troponin I 0.028 Total Protein Albumin Triglycerides Cholesterol LDL Cholesterol Direct VLDL Cholesterol HDL Cholesterol Lipase TSH Free T4 Urine Color Urine Appearance Urine pH Ur Specific [place] Urine Protein Urine Glucose (UA) Urine Ketones Urine Blood Urine Nitrite Urine Bilirubin Urine Urobilinogen Ur Leukocyte Esterase Urine WBC (Auto) Urine RBC (Auto) U Hyaline Cast (Auto) Urine Mucus (Auto) Urine Ascorbic Acid 09/23/19 09/23/19 09/23/19 12:02 12:21 16:15 WBC RBC Hgb Hct MCV MCH MCHC RDW Plt Count Lymph % (Auto) [place] % (Auto) Eos % (Auto) Baso % (Auto) Absolute Neuts (auto) Absolute Lymphs (auto) Absolute Monos (auto) Absolute Eos (auto) Absolute Basos (auto) Seg Neutrophils % PT INR APTT Sodium Potassium Chloride Carbon Dioxide Anion Gap BUN Creatinine Est GFR ( Amer) Est GFR (MDRD) Non-Af Glucose POC Glucose 136 H 116 H Hemoglobin A1c % Calcium Phosphorus Magnesium Total Bilirubin Direct Bilirubin Neonat Total Bilirubin Neonat Direct Bilirubin Neonat Indirect Bili AST ALT Alkaline Phosphatase Creatine Kinase CK-MB (CK-2) Troponin I Total Protein Albumin Triglycerides Cholesterol LDL Cholesterol Direct VLDL Cholesterol HDL Cholesterol Lipase TSH Free T4 Urine Color YELLOW Urine Appearance CLEAR Urine pH 6.0 Ur Specific [place] 1.013 Urine Protein NEGATIVE Urine Glucose (UA) 50 H Urine Ketones TRACE H Urine Blood NEGATIVE Urine Nitrite NEGATIVE Urine Bilirubin NEGATIVE Urine Urobilinogen NEGATIVE Ur Leukocyte Esterase SMALL H Urine WBC (Auto) 3 Urine RBC (Auto) 2 U Hyaline Cast (Auto) Urine Mucus (Auto) RARE Urine Ascorbic Acid 20 H 09/23/19 21:13 WBC RBC Hgb Hct MCV MCH MCHC RDW Plt Count Lymph % (Auto) [place] % (Auto) Eos % (Auto) Baso % (Auto) Absolute Neuts (auto) Absolute Lymphs (auto) Absolute Monos (auto) Absolute Eos (auto) Absolute Basos (auto) Seg Neutrophils % PT INR APTT Sodium Potassium Chloride Carbon Dioxide Anion Gap BUN Creatinine Est GFR ( Amer) Est GFR (MDRD) Non-Af Glucose POC Glucose 115 H Hemoglobin A1c % Calcium Phosphorus Magnesium Total Bilirubin Direct Bilirubin Neonat Total Bilirubin Neonat Direct Bilirubin Neonat Indirect Bili AST ALT Alkaline Phosphatase Creatine Kinase CK-MB (CK-2) Troponin I Total Protein Albumin Triglycerides Cholesterol LDL Cholesterol Direct VLDL Cholesterol HDL Cholesterol Lipase TSH Free T4 Urine Color Urine Appearance Urine pH Ur Specific [place] Urine Protein Urine Glucose (UA) Urine Ketones Urine Blood Urine Nitrite Urine Bilirubin Urine Urobilinogen Ur Leukocyte Esterase Urine WBC (Auto) Urine RBC (Auto) U Hyaline Cast (Auto) Urine Mucus (Auto) Urine Ascorbic Acid Chest X-Ray 09/22/19 10:31 IMPRESSION: No evidence of acute cardiopulmonary process. Renal Ultrasound 09/22/19 10:31 IMPRESSION: 1. No hydronephrosis. 2. Moderately distended urinary bladder with irregular wall thickening possibly secondary to chronic outlet obstruction. 3. Scattered bilateral punctate echogenic foci possibly nonobstructing stones. INITIAL EKG: Sinus versus ectopic. Atrial bradycardia. Right bundle branch bl ock pattern and left posterior fascicular block. Possible old anteroseptal AK. The patient subsequent EKG showsSINUS BRADYCARDIA - STMT - * SECOND DEGREE AV BLOCK ( TYPE 1 -WEKKEBACH) [PLAA] . PROBABLE LEFT ATRIAL ABNORMALITY [RBBB] . RIGHT BUNDLE BRANCH BLOCK [[id number]] . PROBABLE ANTEROSEPTAL INFARCT, AGE INDETERM. IMPRESSION/RECOMMENDATION: 1. Secondary AV block type I Wenckebach. This is secondary to the patient being on beta-shin in the setting of acute renal failure. Hence the patient beta-shin has been stopped by me. Will observe the patient's rhythm. The patient appears to be hemodynamically stable. 2. Severe dehydration: Continue hydration. 3. Acute renal failure on chronic kidney disease 4. Coronary artery disease. 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 No anginal symptoms. No evidence of acute coronary syndrome. Will later see if we can restart a small dose of beta-shin. 5. Hypertension: Blood pressure well controlled. 6. Diabetes mellitus type 2 diet controlled. Continue to watch the patient's blood sugars. 7. Hyperlipidemia: Continue statin 8. COPD by exam patient clinically is asymptomatic. Occasions reviewed medications adjusted. Medical decision making is of high complexity. Medical regimen and management plan discussed with Dr. Boateng. Will follow. The patient has not seen a trench pipe layer. He is agreeable to follow-up with me in the office.
--- NOTE | 2019-09-23 18:01 | EKG REPORT ---
SEVERITY:- ABNORMAL ECG - SINUS BRADYCARDIA SECOND DEGREE AV BLOCK ( TYPE 1 -DARIEL) PROBABLE LEFT ATRIAL ABNORMALITY RIGHT BUNDLE BRANCH BLOCK PROBABLE ANTEROSEPTAL INFARCT, AGE INDETERM : Confirmed by: Monika Perea MD 23-Sep-2019 18:00:31
--- NOTE | 2019-09-23 20:12 | PDOC PROGRESS REPORT ---
Subjective Progress Note for:: 09/23/19 Subjective:: Patient seen by the bedside, there is improvement in the serum creatinine, patient will continue full therapy, he was also seen by Dr. Larkin, cardiology because of concern for AV node block Reason For Visit: ACUTE KIDNEY INJURY Physical Exam Vital Signs: Temp Pulse Resp BP Pulse Ox 97.9 F 83 13 104/35 L 98 09/23/19 12:26 09/23/19 14:00 09/23/19 12:26 09/23/19 08:21 09/23/19 12:26 Intake & Output 09/22/19 09/23/19 09/24/19 06:59 06:59 06:59 Intake Total 2500 2060 Output Total 250 680 Balance 2250 1380 Weight 54.2 kg General appearance: PRESENT: no acute distress Eye exam: PRESENT: PERRLA Respiratory exam: PRESENT: clear to auscultation zeferino Cardiovascular exam: PRESENT: +S1, +S2 GI/Abdominal exam: PRESENT: soft Neurological exam: PRESENT: alert Results Laboratory Results: 09/23/19 03:35 09/23/19 03:35 09/22/19 09/22/19 09/23/19 21:07 21:07 03:35 WBC 7.3 RBC 4.19 L Hgb 12.3 L Hct 37.3 L MCV 89 MCH 29.3 MCHC 32.9 RDW 14.2 H Plt Count 149 L Seg Neutrophils % 59.9 Sodium Potassium Chloride Carbon Dioxide Anion Gap BUN Creatinine Est GFR ( Amer) Glucose Calcium Phosphorus 3.8 Magnesium 2.5 H Total Bilirubin 0.5 AST 29 Alkaline Phosphatase 43 Total Protein 6.8 Albumin 4.1 Triglycerides Cholesterol LDL Cholesterol Direct VLDL Cholesterol HDL Cholesterol Lipase 123.0 Urine Color Urine Appearance Urine pH Ur Specific [place] Urine Protein Urine Glucose (UA) Urine Ketones Urine Blood Urine Nitrite Ur Leukocyte Esterase Urine WBC (Auto) Urine RBC (Auto) 09/23/19 09/23/19 03:35 12:02 WBC RBC Hgb Hct MCV MCH MCHC RDW Plt Count Seg Neutrophils % Sodium 138.2 Potassium 4.1 D Chloride 107 Carbon Dioxide 22 Anion Gap 9 BUN 53 H Creatinine 1.96 H Est GFR ( Amer) 40 L Glucose 68 L Calcium 8.6 Phosphorus Magnesium Total Bilirubin 0.5 AST 28 Alkaline Phosphatase 39 Total Protein 6.0 L Albumin 3.5 Triglycerides 151 H Cholesterol 108.49 LDL Cholesterol Direct 49 VLDL Cholesterol 30.2 HDL Cholesterol 42 Lipase Urine Color YELLOW Urine Appearance CLEAR Urine pH 6.0 Ur Specific [place] 1.013 Urine Protein NEGATIVE Urine Glucose (UA) 50 H Urine Ketones TRACE H Urine Blood NEGATIVE Urine Nitrite NEGATIVE Ur Leukocyte Esterase SMALL H Urine WBC (Auto) 3 Urine RBC (Auto) 2 09/22/19 09/22/19 09/22/19 10:53 10:53 21:07 Creatine Kinase 53 L 52 L CK-MB (CK-2) Troponin I 0.013 09/22/19 09/23/19 09/23/19 21:07 03:35 03:35 Creatine Kinase 53 L CK-MB (CK-2) 1.05 1.12 Troponin I 0.022 0.036 09/23/19 09/23/19 09:34 09:34 Creatine Kinase 52 L CK-MB (CK-2) 1.09 Troponin I 0.028 Impressions: Chest X-Ray 09/22/19 10:31 IMPRESSION: No evidence of acute cardiopulmonary process. Renal Ultrasound 09/22/19 10:31 IMPRESSION: 1. No hydronephrosis. 2. Moderately distended urinary bladder with irregular wall thickening possibly secondary to chronic outlet obstruction. 3. Scattered bilateral punctate echogenic foci possibly nonobstructing stones. Assessment & Plan - Diagnosis (1) Acute kidney injury Is this a current diagnosis for this admission?: Yes Plan: Continue fluid therapy this is most likely prerenal azotemia (2) Coronary artery disease Qualifiers: Coronary Disease-Associated Artery/Lesion type: [place] artery [place] vs. transplanted heart: [place] heart Associated angina: without angina Qualified Code(s): I25.10 - Atherosclerotic heart disease of [place] coronary artery without angina pectoris Is this a current diagnosis for this admission?: Yes (3) Type 2 diabetes mellitus Qualifiers: Diabetes mellitus parts counterman insulin use: without parts counterman use Diabetes mellitus complication status: with kidney complications Diabetes mellitus complication detail: with chronic kidney disease Chronic kidney disease stage: stage 3 (moderate) Qualified Code(s): E11.22 - Type 2 diabetes mellitus with diabetic chronic kidney disease; N18.3 - Chronic kidney disease, stage 3 (moderate) Is this a current diagnosis for this admission?: Yes Plan: Continue treatment - Time Time Spent with patient: 25-34 minutes Level of Care: IMCU Medications reviewed and adjusted accordingly: Yes Anticipated discharge: Home Anticipated DC Timeframe: within 48 hours - Inpatient Certification Based on my medical assessment, after consideration of the patient's comorbidities, presenting symptoms, or acuity I expect that the services needed warrant INPATIENT care.: Yes I certify that my determination is in accordance with my understanding of Medicare's requirements for reasonable and necessary INPATIENT services [42 CFR 412.3e].: Yes
[2019-09-23] MEDS: ATORVASTATIN CALCIUM 40 MG TABLET PO SCH (21:13)
[2019-09-23] MEDS: AMITRIPTYLINE HCL 50 MG TABLET PO SCH (21:13)
[2019-09-23] MEDS: MIRTAZAPINE 15 MG TABLET PO SCH (21:13)
[2019-09-24] MEDS: HEPARIN SOD (PORCINE) 5,000 UNIT/ML 1 ML VIAL SUBCUT SCH ×3 (05:36→21:42)
[2019-09-24] MEDS: NORMAL SALINE 1000 ML 1,000 ML IV PRN ×2 (05:37→16:12)
[2019-09-24 06:40] LABS: ABSOLUTE EOSINOPHILS # (AUTO) 0.3 10^3/uL (0.0-0.6); ABSOLUTE LYMPHOCYTES (AUTO) 1.9 10^3/uL (0.5-4.7); ABSOLUTE MONOCYTES (AUTO) 0.7 10^3/uL (0.1-1.4); ABSOLUTE NEUT (AUTO) 5.1 10^3/uL (1.7-8.2); BASOPHILS % (AUTO) 0.4 % (0-2); EOSINOPHILS % (AUTO) 3.4 % (0-6); HEMATOCRIT 36.1 % (37.9-51.0); LYMPHOCYTES % (AUTO) 23.8 % (13-45); MEAN CORPUSCULAR HEMOGLOBIN 29.3 pg (27.0-33.4); MEAN CORPUSCULAR HGB CONC 33.1 g/dL (32.0-36.0); MEAN CORPUSCULAR VOLUME 88 fl (80-97); MONOCYTES % (AUTO) 8.3 % (3-13); PLATELET COUNT 152 10^3/uL (150-450); RED BLOOD COUNT 4.09 10^6/uL (4.35-5.55); RED CELL DISTRIBUTION WIDTH 14.5 % (11.5-14.0); SEGMENTED NEUTROPHILS % (AUTO) 64.1 % (42-78); TOTAL CELLS COUNTED % (AUTO) 100 %; WHITE BLOOD COUNT 7.9 10^3/uL (4.0-10.5)
[2019-09-24 08:25] LABS: ALBUMIN 2.8 g/dL (3.5-5.0); ALKALINE PHOSPHATASE 43 U/L (38-126); ASPARTATE AMINO TRANSFERASE 26 U/L (17-59); BILIRUBIN,TOTAL 0.2 mg/dL (0.2-1.3); BLOOD UREA NITROGEN 31 mg/dL (7-20); CALCIUM 8.1 mg/dL (8.4-10.2); GLUCOSE 94 mg/dL (75-110); POTASSIUM 3.9 mmol/L (3.6-5.0); TOTAL PROTEIN 5.2 g/dL (6.3-8.2)
[2019-09-24 08:31] LABS: CARBON DIOXIDE 24 mmol/L (22-30); CHLORIDE 111 mmol/L (98-107)
[2019-09-24 08:33] LABS: ANION GAP 4 (5-19)
[2019-09-24] MEDS: FERROUS SULFATE 325 MG TABLET PO SCH (09:18)
[2019-09-24] MEDS: MEGESTROL ACETATE 20 MG TABLET PO SCH ×2 (09:18→18:10)
--- NOTE | 2019-09-24 13:51 | Progress Note ---
Provider Note Provider Note: CARDIOLOGY PROGRESS NOTE by Dr. Monika Perea on 09/24/2019. 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 There is no ventricular arrhythmias seen. There is no hemodynamic compromise. The patient denies any chest pain discomfort. There is no shortness of breath. His renal function is improving. He feels stronger. There is no PND orthopnea or leg edema. There is no palpitations or near syncope or syncope. There is no TIA CVA symptoms. PHYSICAL EXAMINATION: The patient is of frail build. In no acute distress. Selected Entries 09/24/19 12:13 Temperature 97.5 F Temperature Axillary Source Pulse Rate 85 Respiratory 16 Rate Blood Pressure 143/73 H Blood Pressure 96 Mean BP Location Right Arm BP Position Supine O2 Sat by Pulse 98 Oximetry Oxygen Delivery Room Air Method HEAD: Is atraumatic normocephalic. EYES: Pupils are equal round regular reactive light accommodation. EXTRAOCULAR MOVEMENTS ARE NORMAL. THERE IS NO CONJUNCTIVAL PALLOR. THERE IS NO SCLERAL ICTERUS. Ears: Tympanic membranes are intact. External auditory canals are clear. NOSE: There is no deviated nasal septum. There is no inflammation nasal mucous membrane. MOUTH: Mucous membranes of mouth are dry. Tongue is dry. There is no ulcers. There is no bleeding from the gums. THROAT: There is no redness of the oropharynx. There is no exudates. SKIN: There is skin turgor is decreased. There is no petechia or ecchymosis. There is no skin rashes. There is no skin lesions. NECK: Is supple. There is no JVD. Carotids are equal there is no bruit there is no lymphadenopathy. There is no goiter. LUNGS: There is diminished air entry slightly and prolonged expiration. There is no rhonchi rales or wheezing. On percussion there is mild hyperresonance. HEART: S1-S2 is heard. There is no S3 gallop there is no S4 gallop. Systolic murmur left sternal border and the apex there is no rub. ABDOMEN: Is soft. Nontender. There is no hepatosplenomegaly. Bowel sounds are well heard. EXTREMITIES: Femorals are well felt. Leg pulses well felt. There is no pedal edema. There is no DVT or cellulitis. There is no cyanosis or clubbing. 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 PSYCHIATRIC: The patient judgment insight are intact his affect is normal. Labs- Entire Visit 09/22/19 09/22/19 09/22/19 10:52 10:53 10:53 WBC 9.3 RBC 4.49 Hgb 13.2 L Hct 39.4 MCV 88 MCH 29.5 MCHC 33.6 RDW 14.2 H Plt Count 216 Lymph % (Auto) 17.0 [place] % (Auto) 8.6 Eos % (Auto) 1.4 Baso % (Auto) 0.4 Absolute Neuts (auto) 6.7 Absolute Lymphs (auto) 1.6 Absolute Monos (auto) 0.8 Absolute Eos (auto) 0.1 Absolute Basos (auto) 0.0 Seg Neutrophils % 72.6 PT INR APTT Sodium 135.6 L Potassium 5.7 H Chloride 99 Carbon Dioxide 31 H Anion Gap 6 BUN 59 H Creatinine 2.28 H Est GFR ( Amer) 33 L Est GFR (MDRD) Non-Af 28 L Glucose 120 H POC Glucose 114 H Hemoglobin A1c % Calcium 9.8 Phosphorus 4.5 Magnesium 2.6 H Total Bilirubin 0.6 Direct Bilirubin 0.1 Neonat Total Bilirubin Not Reportable Neonat Direct Bilirubin Not Reportable Neonat Indirect Bili Not Reportable AST 30 ALT 13 Alkaline Phosphatase 46 Creatine Kinase 53 L CK-MB (CK-2) Troponin I Total Protein 6.9 Albumin 4.2 Triglycerides Cholesterol LDL Cholesterol Direct VLDL Cholesterol HDL Cholesterol Lipase TSH Free T4 Urine Color Urine Appearance Urine pH Ur Specific [place] Urine Protein Urine Glucose (UA) Urine Ketones Urine Blood Urine Nitrite Urine Bilirubin Urine Urobilinogen Ur Leukocyte Esterase Urine WBC (Auto) Urine RBC (Auto) U Hyaline Cast (Auto) Urine Mucus (Auto) Urine Ascorbic Acid 09/22/19 09/22/19 09/22/19 10:53 10:53 12:42 WBC RBC Hgb Hct MCV MCH MCHC RDW Plt Count Lymph % (Auto) [place] % (Auto) Eos % (Auto) Baso % (Auto) Absolute Neuts (auto) Absolute Lymphs (auto) Absolute Monos (auto) Absolute Eos (auto) Absolute Basos (auto) Seg Neutrophils % PT INR APTT Sodium Potassium Chloride Carbon Dioxide Anion Gap BUN Creatinine Est GFR ( Amer) Est GFR (MDRD) Non-Af Glucose POC Glucose Hemoglobin A1c % Calcium Phosphorus Magnesium Total Bilirubin Direct Bilirubin Neonat Total Bilirubin Neonat Direct Bilirubin Neonat Indirect Bili AST ALT Alkaline Phosphatase Creatine Kinase CK-MB (CK-2) Troponin I 0.013 Total Protein Albumin Triglycerides Cholesterol LDL Cholesterol Direct VLDL Cholesterol HDL Cholesterol Lipase TSH 2.18 Free T4 1.48 Urine Color YELLOW Urine Appearance CLEAR Urine pH 6.0 Ur Specific [place] 1.010 Urine Protein NEGATIVE Urine Glucose (UA) NEGATIVE Urine Ketones NEGATIVE Urine Blood NEGATIVE Urine Nitrite NEGATIVE Urine Bilirubin NEGATIVE Urine Urobilinogen NEGATIVE Ur Leukocyte Esterase TRACE H Urine WBC (Auto) 1 Urine RBC (Auto) U Hyaline Cast (Auto) 13 Urine Mucus (Auto) RARE Urine Ascorbic Acid NEGATIVE 09/22/19 09/22/19 09/22/19 21:07 21:07 21:07 WBC RBC Hgb Hct MCV MCH MCHC RDW Plt Count Lymph % (Auto) [place] % (Auto) Eos % (Auto) Baso % (Auto) Absolute Neuts (auto) Absolute Lymphs (auto) Absolute Monos (auto) Absolute Eos (auto) Absolute Basos (auto) Seg Neutrophils % PT 13.9 INR 1.06 APTT 29.8 Sodium Potassium Chloride Carbon Dioxide Anion Gap BUN Creatinine Est GFR ( Amer) Est GFR (MDRD) Non-Af Glucose POC Glucose Hemoglobin A1c % Calcium Phosphorus 3.8 Magnesium 2.5 H Total Bilirubin Direct Bilirubin Neonat Total Bilirubin Neonat Direct Bilirubin Neonat Indirect Bili AST ALT Alkaline Phosphatase Creatine Kinase 52 L CK-MB (CK-2) Troponin I Total Protein Albumin Triglycerides Cholesterol LDL Cholesterol Direct VLDL Cholesterol HDL Cholesterol Lipase 123.0 TSH Free T4 Urine Color Urine Appearance Urine pH Ur Specific [place] Urine Protein Urine Glucose (UA) Urine Ketones Urine Blood Urine Nitrite Urine Bilirubin Urine Urobilinogen Ur Leukocyte Esterase Urine WBC (Auto) Urine RBC (Auto) U Hyaline Cast (Auto) Urine Mucus (Auto) Urine Ascorbic Acid 09/22/19 09/22/19 09/23/19 21:07 21:07 03:35 WBC RBC Hgb Hct MCV MCH MCHC RDW Plt Count Lymph % (Auto) [place] % (Auto) Eos % (Auto) Baso % (Auto) Absolute Neuts (auto) Absolute Lymphs (auto) Absolute Monos (auto) Absolute Eos (auto) Absolute Basos (auto) Seg Neutrophils % PT INR APTT Sodium Potassium Chloride Carbon Dioxide Anion Gap BUN Creatinine Est GFR ( Amer) Est GFR (MDRD) Non-Af Glucose POC Glucose Hemoglobin A1c % Calcium Phosphorus Magnesium Total Bilirubin 0.5 Direct Bilirubin 0.1 Neonat Total Bilirubin Not Reportable Neonat Direct Bilirubin Not Reportable Neonat Indirect Bili Not Reportable AST 29 ALT 14 Alkaline Phosphatase 43 Creatine Kinase CK-MB (CK-2) 1.05 1.12 Troponin I 0.022 0.036 Total Protein 6.8 Albumin 4.1 Triglycerides Cholesterol LDL Cholesterol Direct VLDL Cholesterol HDL Cholesterol Lipase TSH Free T4 Urine Color Urine Appearance Urine pH Ur Specific [place] Urine Protein Urine Glucose (UA) Urine Ketones Urine Blood Urine Nitrite Urine Bilirubin Urine Urobilinogen Ur Leukocyte Esterase Urine WBC (Auto) Urine RBC (Auto) U Hyaline Cast (Auto) Urine Mucus (Auto) Urine Ascorbic Acid 09/23/19 09/23/19 09/23/19 03:35 03:35 03:35 WBC 7.3 RBC 4.19 L Hgb 12.3 L Hct 37.3 L MCV 89 MCH 29.3 MCHC 32.9 RDW 14.2 H Plt Count 149 L Lymph % (Auto) 27.5 [place] % (Auto) 9.6 Eos % (Auto) 2.8 Baso % (Auto) 0.2 Absolute Neuts (auto) 4.4 Absolute Lymphs (auto) 2.0 Absolute Monos (auto) 0.7 Absolute Eos (auto) 0.2 Absolute Basos (auto) 0.0 Seg Neutrophils % 59.9 PT INR APTT Sodium 138.2 Potassium 4.1 D Chloride 107 Carbon Dioxide 22 Anion Gap 9 BUN 53 H Creatinine 1.96 H Est GFR ( Amer) 40 L Est GFR (MDRD) Non-Af 33 L Glucose 68 L POC Glucose Hemoglobin A1c % 6.8 H Calcium 8.6 Phosphorus Magnesium Total Bilirubin 0.5 Direct Bilirubin 0.0 Neonat Total Bilirubin Not Reportable Neonat Direct Bilirubin Not Reportable Neonat Indirect Bili Not Reportable AST 28 ALT 12 Alkaline Phosphatase 39 Creatine Kinase 53 L CK-MB (CK-2) Troponin I Total Protein 6.0 L Albumin 3.5 Triglycerides 151 H Cholesterol 108.49 LDL Cholesterol Direct 49 VLDL Cholesterol 30.2 HDL Cholesterol 42 Lipase TSH Free T4 Urine Color Urine Appearance Urine pH Ur Specific [place] Urine Protein Urine Glucose (UA) Urine Ketones Urine Blood Urine Nitrite Urine Bilirubin Urine Urobilinogen Ur Leukocyte Esterase Urine WBC (Auto) Urine RBC (Auto) U Hyaline Cast (Auto) Urine Mucus (Auto) Urine Ascorbic Acid 09/23/19 09/23/19 09/23/19 08:04 08:19 08:48 WBC RBC Hgb Hct MCV MCH MCHC RDW Plt Count Lymph % (Auto) [place] % (Auto) Eos % (Auto) Baso % (Auto) Absolute Neuts (auto) Absolute Lymphs (auto) Absolute Monos (auto) Absolute Eos (auto) Absolute Basos (auto) Seg Neutrophils % PT INR APTT Sodium Potassium Chloride Carbon Dioxide Anion Gap BUN Creatinine Est GFR ( Amer) Est GFR (MDRD) Non-Af Glucose POC Glucose 59 L 53 L 84 Hemoglobin A1c % Calcium Phosphorus Magnesium Total Bilirubin Direct Bilirubin Neonat Total Bilirubin Neonat Direct Bilirubin Neonat Indirect Bili AST ALT Alkaline Phosphatase Creatine Kinase CK-MB (CK-2) Troponin I Total Protein Albumin Triglycerides Cholesterol LDL Cholesterol Direct VLDL Cholesterol HDL Cholesterol Lipase TSH Free T4 Urine Color Urine Appearance Urine pH Ur Specific [place] Urine Protein Urine Glucose (UA) Urine Ketones Urine Blood Urine Nitrite Urine Bilirubin Urine Urobilinogen Ur Leukocyte Esterase Urine WBC (Auto) Urine RBC (Auto) U Hyaline Cast (Auto) Urine Mucus (Auto) Urine Ascorbic Acid 09/23/19 09/23/19 09/23/19 09:21 09:34 09:34 WBC RBC Hgb Hct MCV MCH MCHC RDW Plt Count Lymph % (Auto) [place] % (Auto) Eos % (Auto) Baso % (Auto) Absolute Neuts (auto) Absolute Lymphs (auto) Absolute Monos (auto) Absolute Eos (auto) Absolute Basos (auto) Seg Neutrophils % PT INR APTT Sodium Potassium Chloride Carbon Dioxide Anion Gap BUN Creatinine Est GFR ( Amer) Est GFR (MDRD) Non-Af Glucose POC Glucose 141 H Hemoglobin A1c % Calcium Phosphorus Magnesium Total Bilirubin Direct Bilirubin Neonat Total Bilirubin Neonat Direct Bilirubin Neonat Indirect Bili AST ALT Alkaline Phosphatase Creatine Kinase 52 L CK-MB (CK-2) 1.09 Troponin I 0.028 Total Protein Albumin Triglycerides Cholesterol LDL Cholesterol Direct VLDL Cholesterol HDL Cholesterol Lipase TSH Free T4 Urine Color Urine Appearance Urine pH Ur Specific [place] Urine Protein Urine Glucose (UA) Urine Ketones Urine Blood Urine Nitrite Urine Bilirubin Urine Urobilinogen Ur Leukocyte Esterase Urine WBC (Auto) Urine RBC (Auto) U Hyaline Cast (Auto) Urine Mucus (Auto) Urine Ascorbic Acid 09/23/19 09/23/19 09/23/19 12:02 12:21 16:15 WBC RBC Hgb Hct MCV MCH MCHC RDW Plt Count Lymph % (Auto) [place] % (Auto) Eos % (Auto) Baso % (Auto) Absolute Neuts (auto) Absolute Lymphs (auto) Absolute Monos (auto) Absolute Eos (auto) Absolute Basos (auto) Seg Neutrophils % PT INR APTT Sodium Potassium Chloride Carbon Dioxide Anion Gap BUN Creatinine Est GFR ( Amer) Est GFR (MDRD) Non-Af Glucose POC Glucose 136 H 116 H Hemoglobin A1c % Calcium Phosphorus Magnesium Total Bilirubin Direct Bilirubin Neonat Total Bilirubin Neonat Direct Bilirubin Neonat Indirect Bili AST ALT Alkaline Phosphatase Creatine Kinase CK-MB (CK-2) Troponin I Total Protein Albumin Triglycerides Cholesterol LDL Cholesterol Direct VLDL Cholesterol HDL Cholesterol Lipase TSH Free T4 Urine Color YELLOW Urine Appearance CLEAR Urine pH 6.0 Ur Specific [place] 1.013 Urine Protein NEGATIVE Urine Glucose (UA) 50 H Urine Ketones TRACE H Urine Blood NEGATIVE Urine Nitrite NEGATIVE Urine Bilirubin NEGATIVE Urine Urobilinogen NEGATIVE Ur Leukocyte Esterase SMALL H Urine WBC (Auto) 3 Urine RBC (Auto) 2 U Hyaline Cast (Auto) Urine Mucus (Auto) RARE Urine Ascorbic Acid 20 H 09/23/19 09/24/19 09/24/19 21:13 05:53 05:53 WBC 7.9 RBC 4.09 L Hgb 12.0 L Hct 36.1 L MCV 88 MCH 29.3 MCHC 33.1 RDW 14.5 H Plt Count 152 Lymph % (Auto) 23.8 [place] % (Auto) 8.3 Eos % (Auto) 3.4 Baso % (Auto) 0.4 Absolute Neuts (auto) 5.1 Absolute Lymphs (auto) 1.9 Absolute Monos (auto) 0.7 Absolute Eos (auto) 0.3 Absolute Basos (auto) 0.0 Seg Neutrophils % 64.1 PT INR APTT Sodium 138.7 Potassium 3.9 Chloride 111 H Carbon Dioxide 24 Anion Gap 4 L BUN 31 H Creatinine 1.35 H Est GFR ( Amer) > 60 Est GFR (MDRD) Non-Af 50 L Glucose 94 POC Glucose 115 H Hemoglobin A1c % Calcium 8.1 L Phosphorus Magnesium Total Bilirubin 0.2 Direct Bilirubin 0.0 Neonat Total Bilirubin Not Reportable Neonat Direct Bilirubin Not Reportable Neonat Indirect Bili Not Reportable AST 26 ALT 11 Alkaline Phosphatase 43 Creatine Kinase CK-MB (CK-2) Troponin I Total Protein 5.2 L Albumin 2.8 L Triglycerides Cholesterol LDL Cholesterol Direct VLDL Cholesterol HDL Cholesterol Lipase TSH Free T4 Urine Color Urine Appearance Urine pH Ur Specific [place] Urine Protein Urine Glucose (UA) Urine Ketones Urine Blood Urine Nitrite Urine Bilirubin Urine Urobilinogen Ur Leukocyte Esterase Urine WBC (Auto) Urine RBC (Auto) U Hyaline Cast (Auto) Urine Mucus (Auto) Urine Ascorbic Acid 09/24/19 09/24/19 08:07 12:13 WBC RBC Hgb Hct MCV MCH MCHC RDW Plt Count Lymph % (Auto) [place] % (Auto) Eos % (Auto) Baso % (Auto) Absolute Neuts (auto) Absolute Lymphs (auto) Absolute Monos (auto) Absolute Eos (auto) Absolute Basos (auto) Seg Neutrophils % PT INR APTT Sodium Potassium Chloride Carbon Dioxide Anion Gap BUN Creatinine Est GFR ( Amer) Est GFR (MDRD) Non-Af Glucose POC Glucose 93 92 Hemoglobin A1c % Calcium Phosphorus Magnesium Total Bilirubin Direct Bilirubin Neonat Total Bilirubin Neonat Direct Bilirubin Neonat Indirect Bili AST ALT Alkaline Phosphatase Creatine Kinase CK-MB (CK-2) Troponin I Total Protein Albumin Triglycerides Cholesterol LDL Cholesterol Direct VLDL Cholesterol HDL Cholesterol Lipase TSH Free T4 Urine Color Urine Appearance Urine pH Ur Specific [place] Urine Protein Urine Glucose (UA) Urine Ketones Urine Blood Urine Nitrite Urine Bilirubin Urine Urobilinogen Ur Leukocyte Esterase Urine WBC (Auto) Urine RBC (Auto) U Hyaline Cast (Auto) Urine Mucus (Auto) Urine Ascorbic Acid Chest X-Ray 09/22/19 10:31 IMPRESSION: No evidence of acute cardiopulmonary process. Renal Ultrasound 09/22/19 10:31 IMPRESSION: 1. No hydronephrosis. 2. Moderately distended urinary bladder with irregular wall thickening possibly secondary to chronic outlet obstruction. 3. Scattered bilateral punctate echogenic foci possibly nonobstructing stones. IMPRESSION/RECOMMENDATION: 1. Secondary AV block type I Wenckebach. This is secondary to the patient being on beta-shin in the setting of acute renal failure. Hence the patient beta-shin has been stopped by me. Will observe the patient's rhythm. The patient appears to be hemodynamically stable. 2. Severe dehydration: Continue hydration. 3. Acute renal failure on chronic kidney disease 4. Coronary artery disease. 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 No anginal symptoms. No evidence of acute coronary syndrome. Will later see if we can restart a small dose of beta-shin. 5. Hypertension: Blood pressure well controlled. 6. Diabetes mellitus type 2 diet controlled. Continue to watch the patient's blood sugars. 7. Hyperlipidemia: Continue statin 8. COPD by exam patient clinically is asymptomatic. Medications reviewed. Medical regimen and management plan discussed. Dr. Boateng. Medical decision making is a follow-up of moderate complexity. 40 minutes spent as patient more than 50% of time spent in direct patient care. Will follow
--- NOTE | 2019-09-24 20:35 | PDOC PROGRESS REPORT ---
Subjective Progress Note for:: 09/24/19 Subjective:: Patient seen by the bedside,, the kidney function is improving, hopefully discharge him tomorrow Reason For Visit: ACUTE KIDNEY INJURY Physical Exam Vital Signs: Temp Pulse Resp BP Pulse Ox 97.5 F 59 L 16 126/58 H 100 09/24/19 16:47 09/24/19 16:47 09/24/19 16:47 09/24/19 16:47 09/24/19 16:47 Intake & Output 09/23/19 09/24/19 09/25/19 06:59 06:59 06:59 Intake Total 2500 3060 2132 Output Total 250 1330 700 Balance 2250 1730 1432 Weight 54.2 kg 60.4 kg General appearance: PRESENT: no acute distress Eye exam: PRESENT: PERRLA Respiratory exam: PRESENT: clear to auscultation zeferino Cardiovascular exam: PRESENT: +S1, +S2 GI/Abdominal exam: PRESENT: soft Neurological exam: PRESENT: alert Results Laboratory Results: 09/24/19 05:53 09/24/19 05:53 09/24/19 09/24/19 05:53 05:53 WBC 7.9 RBC 4.09 L Hgb 12.0 L Hct 36.1 L MCV 88 MCH 29.3 MCHC 33.1 RDW 14.5 H Plt Count 152 Seg Neutrophils % 64.1 Sodium 138.7 Potassium 3.9 Chloride 111 H Carbon Dioxide 24 Anion Gap 4 L BUN 31 H Creatinine 1.35 H Est GFR ( Amer) > 60 Glucose 94 Calcium 8.1 L Total Bilirubin 0.2 AST 26 Alkaline Phosphatase 43 Total Protein 5.2 L Albumin 2.8 L 09/22/19 12:42 Clean Catch Midstream Urine Culture - Final Mixed Urogenital [place] 09/22/19 09/22/19 09/22/19 10:53 10:53 21:07 Creatine Kinase 53 L 52 L CK-MB (CK-2) Troponin I 0.013 09/22/19 09/23/19 09/23/19 21:07 03:35 03:35 Creatine Kinase 53 L CK-MB (CK-2) 1.05 1.12 Troponin I 0.022 0.036 09/23/19 09/23/19 09:34 09:34 Creatine Kinase 52 L CK-MB (CK-2) 1.09 Troponin I 0.028 Impressions: Chest X-Ray 09/22/19 10:31 IMPRESSION: No evidence of acute cardiopulmonary process. Renal Ultrasound 09/22/19 10:31 IMPRESSION: 1. No hydronephrosis. 2. Moderately distended urinary bladder with irregular wall thickening possibly secondary to chronic outlet obstruction. 3. Scattered bilateral punctate echogenic foci possibly nonobstructing stones. Assessment & Plan - Diagnosis (1) Acute kidney injury Is this a current diagnosis for this admission?: Yes Plan: Improving (2) Coronary artery disease Qualifiers: Coronary Disease-Associated Artery/Lesion type: [place] artery [place] vs. transplanted heart: [place] heart Associated angina: without angina Qualified Code(s): I25.10 - Atherosclerotic heart disease of [place] coronary artery without angina pectoris Is this a current diagnosis for this admission?: Yes (3) Type 2 diabetes mellitus Qualifiers: Diabetes mellitus correction insulin use: without intermediate card tender use Diabetes mellitus complication status: with kidney complications Diabetes mellitus complication detail: with chronic kidney disease Chronic kidney disease stage: stage 3 (moderate) Qualified Code(s): E11.22 - Type 2 diabetes mellitus with diabetic chronic kidney disease; N18.3 - Chronic kidney disease, stage 3 (moderate) Is this a current diagnosis for this admission?: Yes (4) Second degree atrioventricular block Is this a current diagnosis for this admission?: Yes - Time Time Spent with patient: 25-34 minutes Level of Care: IMCU Medications reviewed and adjusted accordingly: Yes Anticipated discharge: Home Anticipated DC Timeframe: within 24 hours
[2019-09-24] MEDS: AMITRIPTYLINE HCL 50 MG TABLET PO SCH (21:42)
[2019-09-24] MEDS: MIRTAZAPINE 15 MG TABLET PO SCH (21:42)
[2019-09-24] MEDS: ATORVASTATIN CALCIUM 40 MG TABLET PO SCH (21:42)
--- NOTE | 2019-09-24 23:11 | EKG REPORT ---
SEVERITY:- ABNORMAL ECG - SINUS RHYTHM FIRST DEGREE AV BLOCK RIGHT BUNDLE BRANCH BLOCK : Confirmed by: Monika Perea MD 24-Sep-2019 23:10:51
--- NOTE | 2019-09-24 23:12 | EKG REPORT ---
SEVERITY:- ABNORMAL ECG - SINUS RHYTHM VENTRICULAR PREMATURE COMPLEX MOBITZ I AV BLOCK ([place]) FIRST DEGREE AV BLOCK RIGHT BUNDLE BRANCH BLOCK : Confirmed by: Monika Perea MD 24-Sep-2019 23:11:42
[2019-09-25] MEDS: NORMAL SALINE 1000 ML 1,000 ML IV PRN (03:00)
[2019-09-25] MEDS: HEPARIN SOD (PORCINE) 5,000 UNIT/ML 1 ML VIAL SUBCUT SCH ×2 (05:12→15:13)
[2019-09-25 06:38] LABS: ABSOLUTE EOSINOPHILS # (AUTO) 0.3 10^3/uL (0.0-0.6); ABSOLUTE LYMPHOCYTES (AUTO) 1.4 10^3/uL (0.5-4.7); ABSOLUTE MONOCYTES (AUTO) 0.7 10^3/uL (0.1-1.4); ABSOLUTE NEUT (AUTO) 5.5 10^3/uL (1.7-8.2); BASOPHILS % (AUTO) 0.5 % (0-2); EOSINOPHILS % (AUTO) 4.2 % (0-6); HEMATOCRIT 34.8 % (37.9-51.0); LYMPHOCYTES % (AUTO) 18.1 % (13-45); MEAN CORPUSCULAR HEMOGLOBIN 29.9 pg (27.0-33.4); MEAN CORPUSCULAR HGB CONC 34.3 g/dL (32.0-36.0); MEAN CORPUSCULAR VOLUME 87 fl (80-97); MONOCYTES % (AUTO) 8.4 % (3-13); PLATELET COUNT 152 10^3/uL (150-450); RED CELL DISTRIBUTION WIDTH 14.5 % (11.5-14.0); SEGMENTED NEUTROPHILS % (AUTO) 68.8 % (42-78); TOTAL CELLS COUNTED % (AUTO) 100 %
[2019-09-25] MEDS: MEGESTROL ACETATE 20 MG TABLET PO SCH (09:21)
[2019-09-25] MEDS: FERROUS SULFATE 325 MG TABLET PO SCH (09:21)
--- NOTE | 2019-09-25 10:49 | PDOC DISCHARGE SUMMARY ---
Impression - Admit/DC Date/PCP Admission Date/Primary Care Provider: 09/22/19 12:58 HILARIO CURRY MD Discharge Date: 09/25/19 - Discharge Diagnosis (1) Acute kidney injury Is this a current diagnosis for this admission?: Yes (2) Coronary artery disease Is this a current diagnosis for this admission?: Yes (3) Type 2 diabetes mellitus Is this a current diagnosis for this admission?: Yes (4) AV block, Mobitz 1 Is this a current diagnosis for this admission?: Yes - Additional Information Referrals: HILARIO CURRY MD [Primary Care Provider] - Follow up as needed Prescriptions: Sitagliptin Phosphate [Januvia 50 mg Tablet] 50 mg PO DAILY #90 tablet Lisinopril [Prinivil] 20 mg PO DAILY #90 tablet Home Medications: Amitriptyline HCl [Elavil 50 mg Tablet] 50 mg PO QHS 04/07/18 Aspirin [Ecotrin 81 mg EC Tablet] 81 mg PO DAILY 04/07/18 Atorvastatin Calcium [Lipitor 40 mg Tablet] 40 mg PO QHS 04/07/18 Megestrol Acetate 40 mg PO BID 09/22/19 Mirtazapine [Remeron 15 mg Tablet] 15 mg PO QHS 09/22/19 Lisinopril [Prinivil 10 mg Tablet] 20 mg PO DAILY #90 09/25/19 Lisinopril [Prinivil] 20 mg PO DAILY #90 tablet 09/25/19 Sitagliptin Phosphate [Januvia 50 mg Tablet] 50 mg PO DAILY #90 tablet 09/25/19 History of Present Illiness History of Present Illness: ELMER SALMERON is a 84 year old male Patient with history of diabetes mellitus type 2, 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 He was accompanied by the daughter, she stated that patient has not been eating nor drinking for the last couple of months, he told me he has no appetite, the serum creatinine was 1.4 the last time the blood work was done. Because of the acute on chronic kidney injury I felt patient needed to be admitted for hydration and observation in the hospital. 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 He has no chest pain or shortness of breath Hospital Course Hospital Course: Patient was admitted for the management of acute kidney injury, due to prerenal azotemia, he also had second-degree AV block, Mobitz type I, related to beta- shin, metoprolol. He was seen in consultation by Dr. Perea, cardiology, he was taken off metoprolol. On admission the serum creatinine was more than 2, with hydration the last serum creatinine from yesterday was 1.3, this lab draw for today is pending. Patient is now well-hydrated, he was dehydrated on admission, patient is ready to be discharged home today Physical Exam Vital Signs: Temp Pulse Resp BP Pulse Ox 97.4 F 113 H 16 127/67 H 95 09/25/19 07:59 09/25/19 07:59 09/25/19 07:59 09/25/19 07:59 09/25/19 07:59 Intake & Output 09/24/19 09/25/19 09/26/19 06:59 06:59 06:59 Intake Total 3060 3132 Output Total 1330 1025 Balance 1730 2107 Weight 60.4 kg 64.1 kg General appearance: PRESENT: no acute distress Eye exam: PRESENT: PERRLA Respiratory exam: PRESENT: clear to auscultation zeferino Cardiovascular exam: PRESENT: +S1, +S2 GI/Abdominal exam: PRESENT: soft Neurological exam: PRESENT: alert, CN II-XII grossly intact Results Laboratory Results: WBC 8.0 10^3/uL (4.0-10.5) 09/25/19 06:24 RBC 4.00 10^6/uL (4.35-5.55) L 09/25/19 06:24 Hgb 12.0 g/dL (13.5-17.0) L 09/25/19 06:24 Hct 34.8 % (37.9-51.0) L 09/25/19 06:24 MCV 87 fl (80-97) 09/25/19 06:24 MCH 29.9 pg (27.0-33.4) 09/25/19 06:24 MCHC 34.3 g/dL (32.0-36.0) 09/25/19 06:24 RDW 14.5 % (11.5-14.0) H 09/25/19 06:24 Plt Count 152 10^3/uL (150-450) 09/25/19 06:24 Lymph % (Auto) 18.1 % (13-45) 09/25/19 06:24 [place] % (Auto) 8.4 % (3-13) 09/25/19 06:24 Eos % (Auto) 4.2 % (0-6) 09/25/19 06:24 Baso % (Auto) 0.5 % (0-2) 09/25/19 06:24 Absolute Neuts (auto) 5.5 10^3/uL (1.7-8.2) 09/25/19 06:24 Absolute Lymphs (auto) 1.4 10^3/uL (0.5-4.7) 09/25/19 06:24 Absolute Monos (auto) 0.7 10^3/uL (0.1-1.4) 09/25/19 06:24 Absolute Eos (auto) 0.3 10^3/uL (0.0-0.6) 09/25/19 06:24 Absolute Basos (auto) 0.0 10^3/uL (0.0-0.2) 09/25/19 06:24 Seg Neutrophils % 68.8 % (42-78) 09/25/19 06:24 PT 13.9 SEC (11.4-15.4) 09/22/19 21:07 INR 1.06 09/22/19 21:07 APTT 29.8 SEC (23.5-35.8) 09/22/19 21:07 Sodium 138.7 mmol/L (137-145) 09/24/19 05:53 Potassium 3.9 mmol/L (3.6-5.0) 09/24/19 05:53 Chloride 111 mmol/L (98-107) H 09/24/19 05:53 Carbon Dioxide 24 mmol/L (22-30) 09/24/19 05:53 Anion Gap 4 (5-19) L 09/24/19 05:53 BUN 31 mg/dL (7-20) H 09/24/19 05:53 Creatinine 1.35 mg/dL (0.52-1.25) H 09/24/19 05:53 Est GFR ( Amer) > 60 (>60) 09/24/19 05:53 Est GFR (MDRD) Non-Af 50 (>60) L 09/24/19 05:53 Glucose 94 mg/dL (75-110) 09/24/19 05:53 POC Glucose 91 mg/dL (70-110) 09/25/19 08:00 Hemoglobin A1c % 6.8 % (4.7-6.0) H 09/23/19 03:35 Calcium 8.1 mg/dL (8.4-10.2) L 09/24/19 05:53 Phosphorus 3.8 mg/dL (2.5-4.5) 09/22/19 21:07 Magnesium 2.5 mg/dL (1.6-2.3) H 09/22/19 21:07 Total Bilirubin 0.2 mg/dL (0.2-1.3) 09/24/19 05:53 Direct Bilirubin 0.0 mg/dL (0.0-0.4) 09/24/19 05:53 Neonat Total Bilirubin Not Reportable 09/24/19 05:53 Neonat Direct Bilirubin Not Reportable 09/24/19 05:53 Neonat Indirect Bili Not Reportable 09/24/19 05:53 AST 26 U/L (17-59) 09/24/19 05:53 ALT 11 U/L (<50) 09/24/19 05:53 Alkaline Phosphatase 43 U/L (38-126) 09/24/19 05:53 Creatine Kinase 52 U/L (55-170) L 09/23/19 09:34 CK-MB (CK-2) 1.09 ng/mL (<4.55) 09/23/19 09:34 Troponin I 0.028 ng/mL 09/23/19 09:34 Total Protein 5.2 g/dL (6.3-8.2) L 09/24/19 05:53 Albumin 2.8 g/dL (3.5-5.0) L 09/24/19 05:53 Triglycerides 151 mg/dL (<150) H 09/23/19 03:35 Cholesterol 108.49 mg/dL (0-200) 09/23/19 03:35 LDL Cholesterol Direct 49 mg/dL (<100) 09/23/19 03:35 VLDL Cholesterol 30.2 mg/dL (10-31) 09/23/19 03:35 HDL Cholesterol 42 mg/dL (>40) 09/23/19 03:35 Lipase 123.0 U/L (23-300) 09/22/19 21:07 TSH 2.18 uIU/mL (0.47-4.68) 09/22/19 10:53 Free T4 1.48 ng/dL (0.78-2.19) 09/22/19 10:53 Urine Color YELLOW 09/23/19 12:02 Urine Appearance CLEAR 09/23/19 12:02 Urine pH 6.0 (5.0-9.0) 09/23/19 12:02 Ur Specific [place] 1.013 09/23/19 12:02 Urine Protein NEGATIVE mg/dL (NEGATIVE) 09/23/19 12:02 Urine Glucose (UA) 50 mg/dL (NEGATIVE) H 09/23/19 12:02 Urine Ketones TRACE mg/dL (NEGATIVE) H 09/23/19 12:02 Urine Blood NEGATIVE (NEGATIVE) 09/23/19 12:02 Urine Nitrite NEGATIVE (NEGATIVE) 09/23/19 12:02 Urine Bilirubin NEGATIVE (NEGATIVE) 09/23/19 12:02 Urine Urobilinogen NEGATIVE mg/dL (<2.0) 09/23/19 12:02 Ur Leukocyte Esterase SMALL (NEGATIVE) H 09/23/19 12:02 Urine WBC (Auto) 3 /HPF 09/23/19 12:02 Urine RBC (Auto) 2 /HPF 09/23/19 12:02 U Hyaline Cast (Auto) 13 /LPF 09/22/19 12:42 Urine Mucus (Auto) RARE /LPF 09/23/19 12:02 Urine Ascorbic Acid 20 (NEGATIVE) H 09/23/19 12:02 09/22/19 09/22/19 09/23/19 10:53 21:07 03:35 CK-MB (CK-2) 1.05 1.12 Troponin I 0.013 0.022 0.036 09/23/19 09:34 CK-MB (CK-2) 1.09 Troponin I 0.028 Impressions: Chest X-Ray 09/22/19 10:31 IMPRESSION: No evidence of acute cardiopulmonary process. Renal Ultrasound 09/22/19 10:31 IMPRESSION: 1. No hydronephrosis. 2. Moderately distended urinary bladder with irregular wall thickening possibly secondary to chronic outlet obstruction. 3. Scattered bilateral punctate echogenic foci possibly nonobstructing stones. Stroke Is this a Stroke Patient?: No Acute Heart Failure - Is this a Heart Failure Patient?: No
[2019-09-25 11:04] LABS: BLOOD UREA NITROGEN 20 mg/dL (7-20); CALCIUM 7.8 mg/dL (8.4-10.2); CHLORIDE 114 mmol/L (98-107); GLUCOSE 100 mg/dL (75-110); POTASSIUM 3.9 mmol/L (3.6-5.0)
[2019-09-25 11:26] LABS: ANION GAP 2 (5-19); CARBON DIOXIDE 23 mmol/L (22-30)
[2019-09-25 12:37] VITALS: BP 113/67
--- NOTE | 2019-09-25 21:20 | Progress Note ---
Provider Note Provider Note: CARDIOLOGY PROGRESS NOTE by Dr. Monika Perea on 09/25/2019. SUBJECTIVE: The patient has less episodes of secondary second-degree AV block but is asymptomatic. He denies any chest pain or discomfort. There is no shortness of breath. His renal function is improved and his dehydration is resolved. He denies any shortness of breath or PND or orthopnea. There is no ventricle arrhythmia seen on the monitor and there is no rapid atrial arrhythmias. There is no TIA CVA symptoms. Physical EXAMINATION: The patient is a frail build in no acute distress. Selected Entries 09/25/19 11:45 Temperature 98.0 F Temperature Oral Source Pulse Rate 88 Respiratory 16 Rate Blood Pressure 113/67 Blood Pressure 82 Mean BP Location Left Arm BP Position Sitting O2 Sat by Pulse 100 Oximetry Oxygen Delivery Room Air Method HEAD: Is atraumatic normocephalic. EYES: Pupils are equal round regular reactive light accommodation. EXTRAOCULAR MOVEMENTS ARE NORMAL. THERE IS NO CONJUNCTIVAL PALLOR. THERE IS NO SCLERAL ICTERUS. Ears: Tympanic membranes are intact. External auditory canals are clear. NOSE: There is no deviated nasal septum. There is no inflammation nasal mucous membrane. MOUTH: Mucous membranes of mouth are dry. Tongue is dry. There is no ulcers. There is no bleeding from the gums. THROAT: There is no redness of the oropharynx. There is no exudates. SKIN: There is skin turgor is decreased. There is no petechia or ecchymosis. There is no skin rashes. There is no skin lesions. NECK: Is supple. There is no JVD. Carotids are equal there is no bruit there is no lymphadenopathy. There is no goiter. LUNGS: There is diminished air entry slightly and prolonged expiration. There is no rhonchi rales or wheezing. On percussion there is mild hyperresonance. HEART: S1-S2 is heard. There is no S3 gallop there is no S4 gallop. Systolic murmur left sternal border and the apex there is no rub. ABDOMEN: Is soft. Nontender. There is no hepatosplenomegaly. Bowel sounds are well heard. EXTREMITIES: Femorals are well felt. Leg pulses well felt. There is no pedal edema. There is no DVT or cellulitis. There is no cyanosis or clubbing. TEXTILE TECHNICAL OFFICER: The patient is conscious awake alert oriented x3 with no focal deficit. PSYCHIATRIC: The patient judgment insight are intact his affect is normal. Chest X-Ray 09/22/19 10:31 IMPRESSION: No evidence of acute cardiopulmonary process. Renal Ultrasound 09/22/19 10:31 IMPRESSION: 1. No hydronephrosis. 2. Moderately distended urinary bladder with irregular wall thickening possibly secondary to chronic outlet obstruction. 3. Scattered bilateral punctate echogenic foci possibly nonobstructing stones. Labs- All tests 24 hr 09/25/19 09/25/19 09/25/19 06:24 06:24 08:00 WBC 8.0 RBC 4.00 L Hgb 12.0 L Hct 34.8 L MCV 87 MCH 29.9 MCHC 34.3 RDW 14.5 H Plt Count 152 Lymph % (Auto) 18.1 [place] % (Auto) 8.4 Eos % (Auto) 4.2 Baso % (Auto) 0.5 Absolute Neuts (auto) 5.5 Absolute Lymphs (auto) 1.4 Absolute Monos (auto) 0.7 Absolute Eos (auto) 0.3 Absolute Basos (auto) 0.0 Seg Neutrophils % 68.8 Sodium 138.7 Potassium 3.9 Chloride 114 H Carbon Dioxide 23 Anion Gap 2 L BUN 20 Creatinine 1.09 Est GFR ( Amer) > 60 Est GFR (MDRD) Non-Af > 60 Glucose 100 POC Glucose 91 Calcium 7.8 L 09/25/19 11:45 WBC RBC Hgb Hct MCV MCH MCHC RDW Plt Count Lymph % (Auto) [place] % (Auto) Eos % (Auto) Baso % (Auto) Absolute Neuts (auto) Absolute Lymphs (auto) Absolute Monos (auto) Absolute Eos (auto) Absolute Basos (auto) Seg Neutrophils % Sodium Potassium Chloride Carbon Dioxide Anion Gap BUN Creatinine Est GFR ( Amer) Est GFR (MDRD) Non-Af Glucose POC Glucose 100 Calcium IMPRESSION/RECOMMENDATION: 1. Secondary AV block type I [place]. This is secondary to the patient being on beta-shin in the setting of acute renal failure. Hence the patient beta-shin has been stopped by me. I have added at length discussions with the patient and patient's daughter that the patient should not be placed on beta-blockers, verapamil and Cardizem or any AV or SA niesha blocking agents including digoxin. 2. Severe dehydration: This is resolved with rehydration. 3. Acute renal failure on chronic kidney disease at present the renal function is normal and GFR is greater than 60. 4. Coronary artery disease. 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 No anginal symptoms. No evidence of acute coronary syndrome. Will later see if we can restart a small dose of beta-shin. 5. Hypertension: Blood pressure well controlled. 6. Diabetes mellitus type 2 diet controlled. Continue to watch the patient's blood sugars. 7. Hyperlipidemia: Continue statin 8. COPD by exam patient clinically is asymptomatic. Cardiac status is stable. Medication medical regimen discussed with Dr. Boateng. Medical decision making is of moderate complexity. The patient being discharged. We will sign off and follow the patient in the office. The patient and the patient's daughter have my office number and myself personal cell phone number to call me if there should be any problems. We will sign off. Thank you
== END 2019-09-25 16:45 | disposition home health service (06) | DRG 684 ==
LOC: ER 10:07 → OBSVTOIN 12:58 → EH 12:58 → 3W 21:17
PROVIDERS: ADMIT Internal Medicine; ATTEND Internal Medicine
DX: N17.9 Acute kidney failure, unspecified (principal); I12.9 Hypertensive chronic kidney disease with stage 1 through stage 4 chronic kidney disease, or unspecified chronic kidney disease; I44.1 Atrioventricular block, second degree; E86.0 Dehydration; E11.22 Type 2 diabetes mellitus with diabetic chronic kidney disease; E11.42 Type 2 diabetes mellitus with diabetic polyneuropathy; N40.1 Benign prostatic hyperplasia with lower urinary tract symptoms; I25.10 Atherosclerotic heart disease of native coronary artery without angina pectoris; E78.5 Hyperlipidemia, unspecified; N18.3 Chronic kidney disease, stage 3 (moderate); Z79.01 Long term (current) use of anticoagulants; Z95.1 Presence of aortocoronary bypass graft; I25.2 Old myocardial infarction; Z87.891 Personal history of nicotine dependence; Z83.3 Family history of diabetes mellitus; Z79.82 Long term (current) use of aspirin; Z79.84 Long term (current) use of oral hypoglycemic drugs; Z79.899 Other long term (current) drug therapy
CPT/HCPCS: 36415; 71045; 76770; 80048; 80053; 80061; 81001; 82550; 82553; 82962; 83036; 83690; 83735; 84100; 84439; 84443; 84484; 85025; 85610; 85730; 87040; 87070; 87086; 93005; 93010; 93041; 93042; 99291; J0610; J1644; J3490; J7030; J7040

== ENCOUNTER → 2019-12-07 | Outpatient (CLI) | payer MEDICARE, OTHER ==
--- NOTE | 2019-12-07 13:36 | RADIOLOGY REPORT (SQ) ---
EXAM DESCRIPTION: HAND LEFT 2 VIEWS IMAGES COMPLETED DATE/TIME: 12/07/2019 10:52 am REASON FOR STUDY: PAIN IN LEFT FINGER(S) M79.645 PAIN IN LEFT FINGER(S) COMPARISON: None. EXAM PARAMETERS: NUMBER OF VIEWS: Two view. TECHNIQUE: AP and lateral radiographic images acquired of the left hand. LIMITATIONS: None. FINDINGS: MINERALIZATION: Normal. BONES: No acute fracture or dislocation. No worrisome bone lesions. JOINTS: Degenerative joint changes in the interphalangeal joint of the thumb. SOFT TISSUES: Soft tissue swelling the 3rd digit. OTHER: No other significant finding. IMPRESSION: Degenerative joint changes in the 1st interphalangeal joint. Soft tissue swelling the 3 rd digit with no acute osseous finding. TECHNICAL DOCUMENTATION: JOB ID: [id number] 2010 [employer]- All Rights Reserved Reading location - IP/workstation name: [email or web address]
--- NOTE | 2019-12-07 13:38 | RADIOLOGY REPORT (SQ) ---
EXAM DESCRIPTION: FINGERS LEFT IMAGES COMPLETED DATE/TIME: 12/07/2019 10:52 am REASON FOR STUDY: PAIN IN LEFT FINGER(S) M79.645 PAIN IN LEFT FINGER(S) COMPARISON: None. NUMBER OF VIEWS: Three views. TECHNIQUE: AP, lateral, and oblique images acquired of the left third finger. LIMITATIONS: None. FINDINGS: MINERALIZATION: Normal. BONES: No acute fracture or dislocation. No worrisome bone lesions. JOINTS: No erosions. No miguel-articular osteopenia. No chondrocalcinosis. SOFT TISSUES: There is soft tissue swelling in the 3rd digit. There are some small soft tissue calci fications near the head of the 3rd proximal phalanx. OTHER: No other significant finding. IMPRESSION: Soft tissue swelling in the 3rd proximal phalanx with some small calcifications. Is the re history of gout? TECHNICAL DOCUMENTATION: JOB ID: [id number] 2010 [employer]- All Rights Reserved Reading location - IP/workstation name: [email or web address]
== END ==
LOC: OD 10:35
PROVIDERS: ATTEND Internal Medicine
DX: M79.645 Pain in left finger(s) (principal)